=== PATIENT | female | born 1955 | race Caucasian/White ===

== ENCOUNTER 2017-12-30 09:45 | Outpatient (RCR) | payer OTHER, SELFPAY ==
--- NOTE | 2017-11-12 11:04 | PT.OTN ---
Current Diagnoses Benign paroxysmal vertigo, left ear (11/12/17) Dizziness and giddiness (11/12/17) Transition note: On November 10, 2017 our therapy services consisting of Speech, Occupational, and Physical Therapy transitioned from the [employer] electronic documentation system to a new [employer] electronic documentation system.?? All documentation prior to November 10 can be found under [employer] saved data. From November 10 forward all medical record documentation will be in [employer] 6.1.
--- NOTE | 2017-11-12 12:21 | PT.OTN ---
Current Diagnoses Benign paroxysmal vertigo, left ear (11/12/17) Dizziness and giddiness (11/12/17) Physical Therapy Treatment Note PT-OP-A Visit Information Start: 11/12/17 12:02 Freq: Status: Active Protocol: Activity Type Activity Date Activity User E-Sign Co-Sign Detail Recorded Client Recorded Date Recorded By Document 11/12/17 09:50 [facility] [id number] 11/12/17 12:21 [facility] 11/12/17 09:50 Out-Patient Physical Therapy Visit Information [Visit Information] -Visit Type Treatment Note -Visit Start Time 09:45 -Visit Stop Time 10:30 -Total Visit Minutes 40 -Visit Number 38 -Number of POT ANNEALER Visits 0 [Evaluation Information] -Evaluation Date 06/17/16 PT-OP-C Subjective Start: 11/12/17 12:02 Freq: Status: Active Protocol: Activity Type Activity Date Activity User E-Sign Co-Sign Detail Recorded Client Recorded Date Recorded By Document 11/12/17 09:50 [facility] [id number] 11/12/17 12:21 [facility] 11/12/17 09:50 OP-PT Subjective [Patient Comments] -Patient Comments I feel better, I've been more active. I'm still dizzy, but I'm happier . -Patient Reported Progress Improving PT-OP-Q Treatments Start: 11/12/17 12:02 Freq: Status: Active Protocol: Activity Type Activity Date Activity User E-Sign Co-Sign Detail Recorded Client Recorded Date Recorded By Document 11/12/17 09:50 [facility] [id number] 11/12/17 12:21 [facility] 11/12/17 09:50 Gym Equipment [Shuttle Balance] 1 -Details Red - Wide CHAVO (EO/EC/Head Turns) Therapeutic Exercises [Standing Exercises] 1 -Standing Exercise Name Soleus Stretch -Side bilateral -Equipment Used CATHLEEN -Reps/Minutes x2 Neuro Re-Education Treatment [Balance Activities] 4 -Details Eyes closed ambulation with obstacle avoidance -Surface Level surface -Reps/Duration x4 3 -Details Single Leg Balance -Surface Compliant -Equipment BOSU 2 -Details Double Leg Balance -Surface Compliant -Equipment BOSU -Comments Eyes open/ closed 1 -Details Heel-toe Ambulation /c horizontal head turns -Reps/Duration 3 laps [Vestibular Rehabilitation] X1 Viewing -Details Seated on T- ball -Distance From Target 3 feet Targets -Details Laser targeting with eyes closed -Distance From Target 3 feet -Comments Seated on T- ball PT-OP-T Assessment and Plan Start: 11/12/17 12:02 Freq: Status: Active Protocol: Activity Type Activity Date Activity User E-Sign Co-Sign Detail Recorded Client Recorded Date Recorded By Document 11/12/17 09:50 [facility] [id number] 11/12/17 12:21 [facility] 11/12/17 09:50 Physical Therapy Assessment [Rehab Potential] -Rehabilitation Potential Good [Impairments] -Impairments Balance Coordination Functional Activities Gait Vestibular [Progress Towards Goals] -Progress Towards Goals Slow Progress due to Medical Issues -Progress Comments Severe Right- sided vestibular loss [Assessment Summary] -Assessment Pt continues to make slow but steady progress toward vestibular compensation following 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 Pt always differentiates between her head dizziness (how dizzy she feels) vs her feet dizziness (how frequently/ severely she loses her balance). Pt's objective dizziness ( feet) has been making much more improvement over the past few weeks, unfortunately her subjective (head) dizziness she reports feels about the same, but she is much more optimistic about it. Physical Therapy Plan [Frequency and Duration] -Frequency of Treatment 1x/Week -Plan of Care Start Date 09/02/17 -Plan of Care End Date 11/29/17 [Therapeutic Interventions] -Therapeutic Interventions Coordination Training Therapeutic Exercises Vestibular Rehabilitation [Next Visit Focus/Plan] -Next Visit Plan Continued vestibular compensation and balance training/ neuromuscular re-education
--- NOTE | 2017-11-27 11:45 | PT.OTN ---
Current Diagnoses Benign paroxysmal vertigo, left ear (11/27/17) Dizziness and giddiness (11/27/17) Physical Therapy Treatment Note PT-OP-A Visit Information Start: 11/12/17 12:02 Freq: Status: Active Protocol: Document 11/27/17 09:45 DCW (Rec: 11/27/17 11:44 DCW [id number]) Out-Patient Physical Therapy Visit Information Visit Information Visit Type Progress Note Visit Start Time 09:45 Visit Stop Time 10:30 Total Visit Minutes 45 Visit Number 39 Number of SALESPERSON PIANOS AND ORGANS Visits 0 Evaluation Information Evaluation Date 06/17/16 PT-OP-B Current Condition Start: 11/27/17 11:22 Freq: Status: Active Protocol: Document 11/27/17 09:45 DCW (Rec: 11/27/17 11:44 DCW [id number]) Current Condition History of Current Condition History of Current Condition Please see Therapy Source evaluation and documentation for full patient history PT-OP-C Subjective Start: 11/12/17 12:02 Freq: Status: Active Protocol: Document 11/27/17 09:45 DCW (Rec: 11/27/17 11:44 DCW [id number]) OP-PT Subjective Patient Comments Patient Comments I have good news, I am doing much better. Pt notes she has not been having any issues with anxiety, and has been experiencing much less dizziness, mostly a 3/10. Patient Questionnaires ABC- Activity Specific Balance Confidence Scale ABC Score 80.63 ABC Functional Impairment 1 to <20% Impaired (Score 81- 99) Dizziness Handicap Inventory DHI Score 46 DHI Functional Impairment 40 to 59% Impaired (Score 40- 59) PT-OP-O Vestibular Start: 11/12/17 12:02 Freq: Status: Active Protocol: Document 11/27/17 09:45 DCW (Rec: 11/27/17 11:44 DCW [id number]) Vestibular Assessment Visual Testing Heave Test Positive Right Thrust Head Positive Right DVA (Line Degradation) 3 PT-OP-Q Treatments Start: 11/12/17 12:02 Freq: Status: Active Protocol: Document 11/27/17 09:45 DCW (Rec: 11/27/17 11:44 DCW [id number]) Gym Equipment Shuttle Balance 1 Details Red - Wide CHAVO (EO/EC/Ball Toss), Staggered Stance /c Ball Toss Sport Cord 1 Exercise Details SLS on BOSU Cord/Resistance Red Therapeutic Exercises Standing Exercises 1 Standing Exercise Name Soleus Stretch Side bilateral Equipment Used CATHLEEN Reps/Minutes x2 Neuro Re-Education Treatment Balance Activities 4 Details Eyes closed ambulation with obstacle avoidance Surface Level surface Reps/Duration x4 Other Activities 1 Details Balance Beam Comments Turns with each step, SLS cone pick-up PT-OP-T Assessment and Plan Start: 11/12/17 12:02 Freq: Status: Active Protocol: Document 11/27/17 09:45 DCW (Rec: 11/27/17 11:44 DCW [id number]) Physical Therapy Assessment Rehab Potential Rehabilitation Potential Good Impairments Impairments Balance Coordination Functional Activities Gait Vestibular Goals Three Impairment DHI Halfway Goal (LTG) Pt to score 20% or lower on DHI LTG Duration 6 weeks Two Impairment ABC scale Short Term Goal (STG) Pt to score 80% on ABC scale STG Duration MET Hair Salon Manager Goal (LTG) Pt to score 90% on ABC scale LTG Duration 6 weeks One Impairment DVA Short Term Goal (STG) Pt to demonstrate a DVA within three lines STG Duration MET Progress Towards Goals Progress Towards Goals Slow Progress due to Medical Issues Progress Comments Severe Right-sided vestibular loss Assessment Summary Assessment Pt doing much better today. Due to the fact that after the first 4-5 months of her recovery, her symptoms have been more subjective than objective (as is normal for vestibular neuritis), true objective improvement is difficult to measure, however she is able to perform all tasks and exercises much easier and with fewer complaints of increased instability. Pt is doing well enough that she may be approaching discharge levels, with the understanding she will need to continue to work on her HEP for continued improvement. At this time, she is not scheduled for another month, which will be a good indication how she will do following discharge. Barring and decline in function, pt may be discharged within the next 1-2 visits, although that may be 1-2 months from now. Physical Therapy Plan Frequency and Duration Frequency of Treatment 1-2x/month Duration of Treatment 10 weeks Plan of Care Start Date 11/27/17 Plan of Care End Date 02/04/18 Therapeutic Interventions Therapeutic Interventions Coordination Training Therapeutic Exercises Vestibular Rehabilitation Next Visit Focus/Plan Next Visit Plan Continued vestibular compensation and balance training/neuromuscular re- education, work toward discharge.
--- NOTE | 2017-11-27 11:46 | PT.OPPOC ---
Current Diagnoses Benign paroxysmal vertigo, left ear (11/27/17) Dizziness and giddiness (11/27/17) Provider Visit Care Team Role Provider Type Sterling Hutson MD Family Provider Physician Primary Care Provider Specialty: Family Practice Address: [address] [place] [address], [id number] Email: [email or web address] Dion Pressley MD Attending Provider Physician Specialty: Ear, Nose, Throat Address: [address] [place] [address], [id number] Email: Plan Of Care PT-OP-T Assessment and Plan Start: 11/12/17 12:02 Freq: Status: Active Protocol: Document 11/27/17 09:45 DCW (Rec: 11/27/17 11:44 DCW [id number]) Physical Therapy Assessment Rehab Potential Rehabilitation Potential Good Impairments Impairments Balance Coordination Functional Activities Gait Vestibular Goals Three Impairment DHI Hospice Music Therapist Goal (LTG) Pt to score 20% or lower on DHI LTG Duration 6 weeks Two Impairment ABC scale Short Term Goal (STG) Pt to score 80% on ABC scale STG Duration MET Hospice Music Therapist Goal (LTG) Pt to score 90% on ABC scale LTG Duration 6 weeks One Impairment DVA Short Term Goal (STG) Pt to demonstrate a DVA within three lines STG Duration MET Progress Towards Goals Progress Towards Goals Slow Progress due to Medical Issues Progress Comments Severe Right-sided vestibular loss Assessment Summary Assessment Pt doing much better today. Due to the fact that after the first 4-5 months of her recovery, her symptoms have been more subjective than objective (as is normal for vestibular neuritis), true objective improvement is difficult to measure, however she is able to perform all tasks and exercises much easier and with fewer complaints of increased instability. Pt is doing well enough that she may be approaching discharge levels, with the understanding she will need to continue to work on her HEP for continued improvement. At this time, she is not scheduled for another month, which will be a good indication how she will do following discharge. Barring and decline in function, pt may be discharged within the next 1-2 visits, although that may be 1-2 months from now. Physical Therapy Plan Frequency and Duration Frequency of Treatment 1-2x/month Duration of Treatment 10 weeks Plan of Care Start Date 11/27/17 Plan of Care End Date 02/04/18 Therapeutic Interventions Therapeutic Interventions Coordination Training Therapeutic Exercises Vestibular Rehabilitation Next Visit Focus/Plan Next Visit Plan Continued vestibular compensation and balance training/neuromuscular re- education, work toward discharge. Plan of Care Dates Plan of Care Start Date 11/27/17 Plan of Care End Date 02/04/18 Please Sign and Return: I have reviewed this Plan of Care and certify that the skilled therapy services above are required to meet the patient???s needs. Physician Signature Date Printed Name and Credentials
--- NOTE | 2017-12-30 10:24 | PT.OTN ---
Current Diagnoses Benign paroxysmal vertigo, left ear (12/30/17) Dizziness and giddiness (12/30/17) Physical Therapy Treatment Note PT-OP-A Visit Information Start: 11/12/17 12:02 Freq: Status: Active Protocol: Document 12/30/17 09:45 DCW (Rec: 12/30/17 10:24 DCW [id number]) Out-Patient Physical Therapy Visit Information Visit Information Visit Type Treatment Note Visit Start Time 09:45 Visit Stop Time 10:30 Total Visit Minutes 40 Visit Number 40 Number of CAPACITY MANAGER Visits 0 Evaluation Information Evaluation Date 06/17/16 PT-OP-B Current Condition Start: 11/27/17 11:22 Freq: Status: Active Protocol: Document 11/27/17 09:45 DCW (Rec: 11/27/17 11:44 DCW [id number]) Current Condition History of Current Condition History of Current Condition Please see Therapy Source evaluation and documentation for full patient history PT-OP-C Subjective Start: 11/12/17 12:02 Freq: Status: Active Protocol: Document 12/30/17 09:45 DCW (Rec: 12/30/17 10:24 DCW [id number]) OP-PT Subjective Patient Comments Patient Comments I'm better than okay. I know I'm not perfect, but I think I 'm as good as I can reasonably expect to be. I don't really think about it much anymore. Pt acknowledges that she understands there may be some setbacks. Patient Reported Progress Improving PT-OP-O Vestibular Start: 11/12/17 12:02 Freq: Status: Active Protocol: Document 11/27/17 09:45 DCW (Rec: 11/27/17 11:44 DCW [id number]) Vestibular Assessment Visual Testing Heave Test Positive Right Thrust Head Positive Right DVA (Line Degradation) 3 PT-OP-Q Treatments Start: 11/12/17 12:02 Freq: Status: Active Protocol: Document 12/30/17 09:45 DCW (Rec: 12/30/17 10:24 DCW [id number]) Gym Equipment Shuttle Balance 1 Details Red - Staggered Stance /c diagonal head turns, Lateral stance in Tandem Therapeutic Exercises Standing Exercises 1 Standing Exercise Name Soleus Stretch Side bilateral Equipment Used CATHLEEN Reps/Minutes x2 Neuro Re-Education Treatment Balance Activities 4 Details Eyes closed ambulation with obstacle avoidance Surface Level surface Reps/Duration x4 3 Details Single Leg Balance Surface Compliant Equipment BOSU 2 Details Double Leg Balance Surface Compliant Equipment BOSU Comments Eyes open/closed, head turns PT-OP-T Assessment and Plan Start: 11/12/17 12:02 Freq: Status: Active Protocol: Document 12/30/17 09:45 DCW (Rec: 12/30/17 10:24 DCW [id number]) Physical Therapy Assessment Rehab Potential Rehabilitation Potential Good Impairments Impairments Balance Coordination Functional Activities Gait Vestibular Goals Three Impairment DHI Mcc Goal (LTG) Pt to score 20% or lower on DHI LTG Duration 6 weeks Two Impairment ABC scale Short Term Goal (STG) Pt to score 80% on ABC scale STG Duration MET Casting Room Helper Goal (LTG) Pt to score 90% on ABC scale LTG Duration 6 weeks One Impairment DVA Short Term Goal (STG) Pt to demonstrate a DVA within three lines STG Duration MET Assessment Summary Assessment Pt thrilled to report she feels like she has reached peak performance. Pt is not scheduling any further appointments at this time, but would appreciate not being discharged quite yet, just in case. Pt's chart will be held open for a month, and if no further appointments are made by that time, pt will be discharged from skilled therapy. Physical Therapy Plan Frequency and Duration Frequency of Treatment 1-2x/month Duration of Treatment 10 weeks Plan of Care Start Date 11/27/17 Plan of Care End Date 02/04/18 Therapeutic Interventions Therapeutic Interventions Coordination Training Therapeutic Exercises Vestibular Rehabilitation Next Visit Focus/Plan Next Note Type Discharge Summary Next Visit Plan Likely discharge
--- NOTE | 2018-02-04 12:27 | PT.OPDS ---
Current Diagnoses Benign paroxysmal vertigo, left ear (12/30/17) Dizziness and giddiness (12/30/17) Provider Visit Care Team Role Provider Type Sterling Hutson MD Family Provider Physician Primary Care Provider Specialty: Family Practice Address: [address] [place] [address], [address] Email: Dion Pressley MD Attending Provider Physician Specialty: Ear, Nose, Throat Address: [address] [place] [address], [id number] Email: Visit Number Visit Number 40 Discharge Summary PT-OP-B Current Condition Start: 11/27/17 11:22 Freq: Status: Active Protocol: Document 11/27/17 09:45 DCW (Rec: 11/27/17 11:44 DCW [id number]) Current Condition History of Current Condition History of Current Condition Please see Therapy Source evaluation and documentation for full patient history PT-OP-C Subjective Start: 11/12/17 12:02 Freq: Status: Active Protocol: Document 12/30/17 09:45 DCW (Rec: 12/30/17 10:24 DCW [id number]) OP-PT Subjective Patient Comments Patient Comments I'm better than okay. I know I'm not perfect, but I think I'm as good as I can reasonably expect to be. I don't really think about it much anymore. Pt acknowledges that she understands there may be some setbacks. Patient Reported Progress Improving PT-OP-O Vestibular Start: 11/12/17 12:02 Freq: Status: Active Protocol: Document 11/27/17 09:45 DCW (Rec: 11/27/17 11:44 DCW [id number]) Vestibular Assessment Visual Testing Heave Test Positive Right Thrust Head Positive Right DVA (Line Degradation) 3 PT-OP-T Assessment and Plan Start: 11/12/17 12:02 Freq: Status: Active Protocol: Document 02/04/18 12:25 DCW (Rec: 02/04/18 12:27 DCW [id number]) Physical Therapy Assessment Goals Three Impairment DHI Retirement Goal (LTG) Pt to score 20% or lower on DHI LTG Duration 6 weeks Two Impairment ABC scale Short Term Goal (STG) Pt to score 80% on ABC scale STG Duration MET Childhood Development Teacher Goal (LTG) Pt to score 90% on ABC scale LTG Duration 6 weeks One Impairment DVA Short Term Goal (STG) Pt to demonstrate a DVA within three lines STG Duration MET Progress Towards Goals Progress Towards Goals Slow Progress due to Medical Issues Progress Comments Severe Right-sided vestibular loss Assessment Summary Assessment At patient's last visit, she reported she felt like she had reached her peak level of function, and was happy to report she felt like she could stop therapy. At the time, pt was informed that her chart could remain open for one month, after which she would be discharged if she did not schedule any new appointments. Pt will be discharged at this time. Physical Therapy Plan Discharge Physical Therapy Discharge Reasons Plateau in Progress
== END 2018-06-11 13:57 ==
LOC: PHYS 09:45
PROVIDERS: Family Provider Family Medicine; PCP Family Medicine; Visit Provider Otolaryngology
DX: H81.12 Benign paroxysmal vertigo, left ear (principal); R42 Dizziness and giddiness
CPT/HCPCS: 97112

== ENCOUNTER → 2018-03-04 08:00 | Outpatient (CLI) | payer OTHER, SELFPAY ==
--- NOTE | 2018-03-04 | DI.MG.S_ITS ---
BILATERAL DIGITAL SCREENING MAMMOGRAM 3D/2D WITH CAD: 03/04/2018 CLINICAL: Routine screening. Comparison is made to exams dated: 02/03/2017 mammogram, 12/28/2015 mammogram, and 12/11/2014 mammogram - [facility]. The tissue of both breasts is heterogeneously dense. This may lower the sensitivity of mammography. Current study was also evaluated with a Computer Aided Detection (CAD) system. No significant masses, calcifications, or other findings are seen in either breast. There has been no significant interval change. IMPRESSION: NEGATIVE There is no mammographic evidence of malignancy. A 1 year screening mammogram is recommended. This exam was interpreted at Station ID: [id number]. NOTE: For mammograms, a report in lay terms will be sent to the patient. Approximately 15% of breast malignancies will not be visualized mammographically. In the management of a palpable breast mass, a negative mammogram must not discourage biopsy of a clinically suspicious lesion. Electronically Signed By: Antonio garnica/glenna:03/04/2018 19:50:08 letter sent: Normal Exam ACR BI-RADS Category 1: Negative [id number]
== END ==
PROVIDERS: PCP Internal Medicine; Visit Provider Internal Medicine
DX: Z12.31 Encounter for screening mammogram for malignant neoplasm of breast (principal)
CPT/HCPCS: 77063; 77067

== ENCOUNTER → 2018-03-30 07:45 | Outpatient (CLI) | payer OTHER, SELFPAY ==
[2018-03-30 07:53] LABS: Bacteria Urine None Seen; RBC Urine None Seen (0-5/HPF); WBC Urine None Seen (0-5/HPF)
[2018-03-30 08:46] LABS: Appearance Urine UA CLEAR; Bilirubin Urine UA NEGATIVE (NEGATIVE); Color Urine UA YELLOW; Glucose Urine UA NEGATIVE (Normal); Ketones Urine UA NEGATIVE (NEGATIVE); Leukocyte Esterase Urine UA NEGATIVE (NEGATIVE); Nitrite Urine UA Negative (Negative); Occult Blood Urine UA TRACE-INTACT (Negative); Protein Urine UA NEGATIVE (Negative); Specific Gravity Urine UA 1.025 (1.000-1.035); Urobilinogen Urine UA 0.2 E.U./dL (0.2)
[2018-03-30 09:04] LABS: Add Manual Diff / Slide Review NO; Basophils Percent Auto 1.5 % (0-2); Eosinophils Percent Auto 2.8 % (2-4); Hematocrit 42.2 % (36-46); Hemoglobin 14.4 g/dL (12.0-16.0); Lymphocytes Percent Auto 38.9 % (25-40); Mean Corpuscular HGB Conc 34.1 % (30-36); Mean Corpuscular Hemoglobin 30.3 PG (26-34); Monocytes Percent Auto 8.4 % (3-14); Neutrophils Absolute Auto 3400 /uL (3000-5900); Neutrophils Percent Auto 48.4 % (50-75); Platelet Count 290 X10^3/uL (150-400); Red Blood Cell Count 4.74 X10^6/uL (4.0-5.2); Red Cell Distribution Width 12.9 % (11.6-14.8); White Blood Cell Count 7.1 X10^3/uL (4.5-11.0)
[2018-03-30 09:12] LABS: Alanine Aminotransferase 21 IU/L (9-52); Albumin 4.1 g/dL (3.5-5.0); Albumin Globulin Ratio 1.5 (1.0-2.8); Alkaline Phosphatase 77 U/L (38-126); Aspartate Aminotransferase 21 IU/L (14-36); BUN Creatinine Ratio 25.7 (6-22); Bilirubin Total 0.6 mg/dL (0.2-1.3); Blood Urea Nitrogen 18 mg/dL (7-17); Calcium 9.4 mg/dL (8.4-10.2); Carbon Dioxide 28 mmol/L (22-32); Chloride 106 mmol/L (98-107); Cholesterol 196 mg/dL (140-199); Estimated Glomerular Filt Rate > 60.0 mL/min (>60); Globulin 2.8 g/dL (1.7-4.1); Glucose 90 mg/dL (80-110); HDL Cholesterol 41 mg/dL (40-60); HEMOLYSIS < 15 (0-50); LDL Cholesterol Calculated 131 mg/dL (<100); Potassium 3.8 mmol/L (3.4-5.1); Sodium 147 mmol/L (137-145); Total Protein 6.9 g/dL (6.3-8.2); Triglycerides 122 mg/dL (35-150)
[2018-03-30 09:13] LABS: Culture Indicated Urine Cult Not Indicated; Urine Comments Microscopic Normal
[2018-03-30 09:44] LABS: TSH w/ Reflex to FT4 2.66 uIU/mL (0.47-4.68)
== END ==
PROVIDERS: Visit Provider Nurse Practitioner Family
DX: Z00.00 Encounter for general adult medical examination without abnormal findings (principal)
CPT/HCPCS: 36415; 80053; 80061; 81001; 84443; 85025

== ENCOUNTER → 2018-04-16 08:43 | Outpatient (CLI) | payer OTHER, SELFPAY ==
--- NOTE | 2018-04-16 08:47 | DI.US.S_ITS ---
PROCEDURE: US EXTREMELY NONVASC UPPER RT INDICATIONS: RIGHT UPPER ARM LUMP TECHNIQUE: Real-time scanning was performed of the right upper extremity, with image documentation. COMPARISON: None. FINDINGS: Scanning is performed at the area of clinical concern. At this site, there is an ovoid mass within the subcutaneous fat, which has an echotexture similar to the surrounding fat. This lesion measures 4.7 x 1.7 x 4.1 cm and is non-vascular. 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 Dictated by: Joshua Dsouza M.D. on 04/16/2018 at 9:00 Approved by: Joshua Dsouza M.D. on 04/16/2018 at 9:01
== END ==
PROVIDERS: PCP Internal Medicine; Visit Provider Registered Nurse
DX: R22.31 Localized swelling, mass and lump, right upper limb (principal)
CPT/HCPCS: 76882

== ENCOUNTER 2018-07-19 12:00 | Outpatient (RCR) | payer OTHER, SELFPAY ==
--- NOTE | 2018-06-21 14:30 | PT.OPPOC ---
Current Diagnoses Stiffness of unspecified joint, not elsewhere classified (06/21/18) Ankylosing spondylitis of unspecified sites in spine (06/21/18) Provider Visit Care Team Role Provider Type Sterling Hutson MD Primary Care Provider Physician Specialty: Family Practice Address: [address] [place] [address], [id number] Email: Bill Adler MD Attending Provider Physician Specialty: Internal Medicine Address: [address] [place] [address], [phone] Email: Plan Of Care PT-OP-T Assessment and Plan Start: 06/22/18 13:39 Freq: Status: Active Protocol: Document 06/21/18 13:45 DCW (Rec: 06/22/18 14:18 DCW [id number]) Physical Therapy Assessment Rehab Potential Rehabilitation Potential Good Evaluation Complexity Number of Personal Factors/Comorbidities 3 or More Number of Body Systems Impaired 1-2 Clinical Presentation at Evaluation Stable Impairments Impairments Pain Posture Strength Tone Goals Three Impairment Muscle tone Short Term Goal (STG) Pt to display mild tone through right thoracic paraspinals and right pec STG Duration 07/22/18 Two Impairment Pain Short Term Goal (STG) Pt to report pain at worst STG Duration 07/22/18 One Impairment Pt does not have an appropriate home exercise program Short Term Goal (STG) Pt to be independent and compliant with an appropriate HEP STG Duration 07/22/18 Assessment Summary Assessment Pt presents with increased tone in both her right paraspinals and right pec, resulting in increased forward head/rounded shoulders and pain. This increased tone may be a protective spasming response to an Ankylosing Spondylitis flare-up, or may be completely unrelated. Pt does present with hypermobility in most other joints, so a WNL mobility of her spine likely indicates an actual loss of mobility, which she states originally caused difficulty getting a diagnosis of Ankylosing Spondylitis. Difficult to determine if her current joint mobility is actually her normal level, or if she is limited compared to four months ago. With pt's current pain level already improving over the past few days, she will likely benefit from some manual therapy focusing on decreased tone, and flexibility and strength training to improve her posture. DDx of potential Ankylosing Spondylitis flare- up may be made easier with the outcome of her upcoming Rhumatology appointment. Physical Therapy Plan Frequency and Duration Frequency of Treatment 2x/Week Duration of Treatment 2 months Plan of Care Start Date 06/21/18 Plan of Care End Date 08/22/18 Therapeutic Interventions Therapeutic Interventions Aquatic Therapy Home Exercise Program Joint Mobilizations Manual Therapy Patient/Caregiver Education Self-Care/Home Management Soft Tissue Mobilization Taping Therapeutic Exercises Modalities Cold Pack/Ice Massage Electric Stimulation Hot Packs Ultrasound Next Visit Focus/Plan Next Note Type Treatment Note Next Visit Plan Posture training, strengthening, manual therapy for decreased tone Plan of Care Dates Plan of Care Start Date 06/21/18 Plan of Care End Date 08/22/18 Please Sign and Return: I have reviewed this Plan of Care and certify that the skilled therapy services above are required to meet the patient?s needs. Physician Signature Date Printed Name and Credentials Clinical Instructor Signature Printed Name and Credentials
--- NOTE | 2018-06-21 14:30 | PT.OIE ---
Current Diagnoses Stiffness of unspecified joint, not elsewhere classified (06/21/18) Ankylosing spondylitis of unspecified sites in spine (06/21/18) Past Medical History (Last Updated 01/06/18 @ 12:21 by Tess Newberry) Ankylosing spondylitis (Chronic 1974) Iritis, secondary (Chronic) 0 (Resolved) Liver abscess (Resolved 1999) Vertigo (Resolved 1979) Vestibular neuritis (Resolved 2015) Past Surgical History (Last Updated 01/06/18 @ 12:17 by Tess Newberry) Anesthesia complication (Resolved) History of partial colectomy (Resolved 1999) History of surgery of liver (Resolved 1999) History of tonsillectomy (Resolved) Status post appendectomy (Resolved 1999) Provider Visit Care Team Role Provider Type Sterling Hutson MD Primary Care Provider Physician Specialty: Family Practice Address: [address] [place] [address] Email: Bill Adler MD Attending Provider Physician Specialty: Internal Medicine Address: [address] [place] [address] Email: Physical Therapy Initial Evaluation PT-OP-A Visit Information Start: 06/22/18 13:39 Freq: Status: Active Protocol: Document 06/21/18 13:45 DCW (Rec: 06/22/18 14:18 DCW [id number]) Out-Patient Physical Therapy Visit Information Visit Information Visit Type Initial Evaluation Visit Start Time 13:45 Visit Stop Time 14:30 Total Visit Minutes 45 Visit Number 1 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 Pt has an ongoing history of Ankylosing Spondylitis, but notes that it has actually been pretty stable for the last 15 years. Pt notes that her current issues began in February, when she noticed a lot of soreness in her right pec, and was worried enough to request a mammogram, which came back negative. Pt then notes she began getting unbelievable back pain in May, and reports that for a period of 48 hours, it felt like my spine was about to shatter. This pain then resolved, but she was left with a continuing pain at her bra line to the right of her spine, which felt like someone kicked me with steel-toed boots, but there wasn't any actual bruising or anything. This also led to a radiating pain around her rib to mid- line. Her boot-kick pain slowly resolved, and she was left with achy kyphosis pain, and feels a bit like I'm just being pulled forward. Pt was seen by her PCP, who reportedly feels her symptoms are classic Ankylosing Spondylitis, and referred pt to Physical Therapy and Rhumatology. Pt admits that with the addition of Gabapentin and Naprocyn, her symptoms have improved quite a bit, and she has been pretty good the past few days . Pt's history is complicated by a severe case of Vestibular Neuritis two years ago, for which she is still experiencing mild symptoms, and was treated for an extended period of time previously at this facility. Treatment Goals Patient/Caregiver Goals Pt would like to decrease back pain and hopes that this is not a sign of her Ankylosing Spondylitis worsening. Personal Factors Other Personal Factors That May Effect Ankylosing Spondylitis, Therapy/Recovery Vestibular Neuritis PT-OP-C Subjective Start: 06/22/18 13:39 Freq: Status: Active Protocol: Document 06/21/18 13:45 DCW (Rec: 06/22/18 14:18 DCW [id number]) OP-PT Subjective Patient Comments Patient Reported Progress Improving OP-PT Pain Assessment Pain Assessment Grid Paper Pain Assessment Grid Completed Yes Location Right Mid-Thoracic Paraspinals Intensity 3 Scale Used Numeric (1 - 10) Description Aching PT-OP-F Manual Assessment Start: 06/22/18 13:39 Freq: Status: Active Protocol: Document 06/21/18 13:45 DCW (Rec: 06/22/18 14:18 DCW [id number]) Manual Assessments Soft Tissue Assessment Soft Tissue Mobility Assessment Moderate thoracic paraspinal tone, complaint of tenderness to palpation 2/4 - Pain with wincing Severe right pec tone, complaint of tenderness to palpation 2/4 - Pain with wincing Joint Mobility Assessment Joint Mobility Assessment Spinal mobility overall WNL PT-OP-J Posture/Palpation/Skin Start: 06/22/18 13:39 Freq: Status: Active Protocol: Document 06/21/18 13:45 DCW (Rec: 06/22/18 14:18 DCW [id number]) Posture Evaluation Position Standing T-Spine Posture Increased Kyphosis Shoulder Posture (L) Rounded (R) Rounded (L) Forward (L) Elevated Scapula Posture (L) Protracted (R) Protracted Palpation Assessment Location Right thoracic paraspinals Palpation Findings Soft Tissue Tightness Spasm Tenderness PT-OP-K Range of Motion Start: 06/22/18 13:39 Freq: Status: Active Protocol: Document 06/21/18 13:45 DCW (Rec: 06/22/18 14:18 DCW [id number]) Lumbar Spine Range of Motion Lumbar Spine Active Percentage Testing Position Standing Comments WNL Shoulder Goniometric Range of Motion Shoulder Measured in Degrees Right Active Shoulder ROM WFL Yes Left Active Shoulder ROM WFL Yes PT-OP-Q Treatments Start: 06/22/18 13:39 Freq: Status: Active Protocol: Document 06/21/18 13:45 DCW (Rec: 06/22/18 14:18 DCW [id number]) Therapeutic Exercises Supine Exercises Supine Punch Supine Exercise Name Serratus punch Side bilateral Sitting Exercises Row Sitting Exercise Name Row Side bilateral Resistance Lv 3 Equipment Used T-band Standing Exercises Corner Pec Stretch Standing Exercise Name Corner pec stretch Side bilateral PT-OP-T Assessment and Plan Start: 06/22/18 13:39 Freq: Status: Active Protocol: Document 06/21/18 13:45 DCW (Rec: 06/22/18 14:18 DCW [id number]) Physical Therapy Assessment Rehab Potential Rehabilitation Potential Good Evaluation Complexity Number of Personal Factors/Comorbidities 3 or More Number of Body Systems Impaired 1-2 Clinical Presentation at Evaluation Stable Impairments Impairments Pain Posture Strength Tone Goals Three Impairment Muscle tone Short Term Goal (STG) Pt to display mild tone through right thoracic paraspinals and right pec STG Duration 07/22/18 Two Impairment Pain Short Term Goal (STG) Pt to report pain at worst STG Duration 07/22/18 One Impairment Pt does not have an appropriate home exercise program Short Term Goal (STG) Pt to be independent and compliant with an appropriate HEP STG Duration 07/22/18 Assessment Summary Assessment Pt presents with increased tone in both her right paraspinals and right pec, resulting in increased forward head/rounded shoulders and pain. This increased tone may be a protective spasming response to an Ankylosing Spondylitis flare-up, or may be completely unrelated. Pt does present with hypermobility in most other joints, so a WNL mobility of her spine likely indicates an actual loss of mobility, which she states originally caused difficulty getting a diagnosis of Ankylosing Spondylitis. Difficult to determine if her current joint mobility is actually her normal level, or if she is limited compared to four months ago. With pt's current pain level already improving over the past few days, she will likely benefit from some manual therapy focusing on decreased tone, and flexibility and strength training to improve her posture. DDx of potential Ankylosing Spondylitis flare- up may be made easier with the outcome of her upcoming Rhumatology appointment. Physical Therapy Plan Frequency and Duration Frequency of Treatment 2x/Week Duration of Treatment 2 months Plan of Care Start Date 06/21/18 Plan of Care End Date 08/22/18 Therapeutic Interventions Therapeutic Interventions Aquatic Therapy Home Exercise Program Joint Mobilizations Manual Therapy Patient/Caregiver Education Self-Care/Home Management Soft Tissue Mobilization Taping Therapeutic Exercises Modalities Cold Pack/Ice Massage Electric Stimulation Hot Packs Ultrasound Next Visit Focus/Plan Next Note Type Treatment Note Next Visit Plan Posture training, strengthening, manual therapy for decreased tone
--- NOTE | 2018-07-02 11:18 | PT.OTN ---
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 Pt has an ongoing history of Ankylosing Spondylitis, but notes that it has actually been pretty stable for the last 15 years. Pt notes that her current issues began in February, when she noticed a lot of soreness in her right pec, and was worried enough to request a mammogram, which came back negative. Pt then notes she began getting unbelievable back pain in May, and reports that for a period of 48 hours, it felt like my spine was about to shatter. This pain then resolved, but she was left with a continuing pain at her bra line to the right of her spine, which felt like someone kicked me with steel- toed boots, but there wasn't any actual bruising or anything. This also led to a radiating pain around her rib to mid-line. Her boot-kick pain slowly resolved, and she was left with achy kyphosis pain, and feels a bit like I 'm just being pulled forward. Pt was seen by her PCP, who reportedly feels her symptoms are classic Ankylosing Spondylitis, and referred pt to Physical Therapy and Rhumatology. Pt admits that with the addition of Gabapentin and Naprocyn, her symptoms have improved quite a bit, and she has been pretty good the past few days. Pt's history is complicated by a severe case of Vestibular Neuritis two years ago, for which she is still experiencing mild symptoms, and was treated for an extended period of time previously at this facility. Treatment Goals Patient/Caregiver Goals Pt would like to decrease back pain and hopes that this is not a sign of her Ankylosing Spondylitis worsening. Personal Factors Other Personal Factors That May Effect Ankylosing Spondylitis, Therapy/Recovery Vestibular Neuritis PT-OP-C Subjective Start: 06/22/18 13:39 Freq: Status: Active Protocol: Document 07/02/18 10:30 DCW (Rec: 07/02/18 11:18 DCW [id number]) OP-PT Subjective Patient Comments Patient Comments Pt reports that she has been slowly introducing more activity, including yoga and swimming, in hopes to improve her mobility. PT-OP-F Manual Assessment Start: 06/22/18 13:39 Freq: Status: Active Protocol: Document 06/21/18 13:45 DCW (Rec: 06/22/18 14:18 DCW [id number]) Manual Assessments Soft Tissue Assessment Soft Tissue Mobility Assessment Moderate thoracic paraspinal tone, complaint of tenderness to palpation 2/4 - Pain with wincing Severe right pec tone, complaint of tenderness to palpation 2/4 - Pain with wincing Joint Mobility Assessment Joint Mobility Assessment Spinal mobility overall WNL PT-OP-J Posture/Palpation/Skin Start: 06/22/18 13:39 Freq: Status: Active Protocol: Document 06/21/18 13:45 DCW (Rec: 06/22/18 14:18 DCW [id number]) Posture Evaluation Position Standing T-Spine Posture Increased Kyphosis Shoulder Posture (L) Rounded (R) Rounded (L) Forward (L) Elevated Scapula Posture (L) Protracted (R) Protracted Palpation Assessment Location Right thoracic paraspinals Palpation Findings Soft Tissue Tightness Spasm Tenderness PT-OP-K Range of Motion Start: 06/22/18 13:39 Freq: Status: Active Protocol: Document 06/21/18 13:45 DCW (Rec: 06/22/18 14:18 DCW [id number]) Lumbar Spine Range of Motion Lumbar Spine Active Percentage Testing Position Standing Comments WNL Shoulder Goniometric Range of Motion Shoulder Measured in Degrees Right Active Shoulder ROM WFL Yes Left Active Shoulder ROM WFL Yes PT-OP-Q Treatments Start: 06/22/18 13:39 Freq: Status: Active Protocol: Document 07/02/18 10:30 DCW (Rec: 07/02/18 11:18 DCW [id number]) Therapeutic Exercises Supine Exercises Horizontal Adduction Supine Exercise Name Horizontal Add Side bilateral Resistance 3# Supine Punch Supine Exercise Name Serratus punch Side bilateral Resistance 3# Prone Exercises Shoulder ER at 90 Prone Exercise Name Prone W's Side bilateral Resistance 3# Shoulder Flexion Prone Exercise Name Prone flex Side bilateral Resistance 3# Shoulder Extension Prone Exercise Name Prone ext Side bilateral Resistance 3# Horizontal Abduction Prone Exercise Name Prone horizontal abd Side bilateral Resistance 3# Manual Therapy Treatment Soft Tissue Mobilization Upper Trap Body Location Right Trap Mobilization Type Strumming Sustained Pressure Intensity/Depth Moderate Paraspinals Body Location Right paraspinals Mobilization Type Sustained Pressure Trigger Point Release Intensity/Depth Moderate PT-OP-T Assessment and Plan Start: 06/22/18 13:39 Freq: Status: Active Protocol: Document 07/02/18 10:30 DCW (Rec: 07/02/18 11:18 DCW [id number]) Physical Therapy Assessment Impairments Impairments Pain Posture Strength Tone Goals Three Impairment Muscle tone Short Term Goal (STG) Pt to display mild tone through right thoracic paraspinals and right pec STG Duration 07/22/18 Two Impairment Pain Short Term Goal (STG) Pt to report pain at worst 10 STG Duration 07/22/18 One Impairment Pt does not have an appropriate home exercise program Short Term Goal (STG) Pt to be independent and compliant with an appropriate HEP STG Duration 07/22/18 Assessment Summary Assessment Pt tolerated manual therapy well with no new complaints, appears to have overall less tone compared to her initial evaluation. Pt has been compliant with [facility] Physical Therapy Plan Frequency and Duration Frequency of Treatment 2x/Week Duration of Treatment 2 months Plan of Care Start Date 06/21/18 Plan of Care End Date 08/22/18 Therapeutic Interventions Therapeutic Interventions Aquatic Therapy Home Exercise Program Joint Mobilizations Manual Therapy Patient/Caregiver Education Self-Care/Home Management Soft Tissue Mobilization Taping Therapeutic Exercises Modalities Cold Pack/Ice Massage Electric Stimulation Hot Packs Ultrasound Next Visit Focus/Plan Next Note Type Treatment Note Next Visit Plan Posture training, strengthening, manual therapy for decreased tone
--- NOTE | 2018-07-07 16:44 | PT.OTN ---
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 Pt has an ongoing history of Ankylosing Spondylitis, but notes that it has actually been pretty stable for the last 15 years. Pt notes that her current issues began in February, when she noticed a lot of soreness in her right pec, and was worried enough to request a mammogram, which came back negative. Pt then notes she began getting unbelievable back pain in May, and reports that for a period of 48 hours, it felt like my spine was about to shatter. This pain then resolved, but she was left with a continuing pain at her bra line to the right of her spine, which felt like someone kicked me with steel- toed boots, but there wasn't any actual bruising or anything. This also led to a radiating pain around her rib to mid-line. Her boot-kick pain slowly resolved, and she was left with achy kyphosis pain, and feels a bit like I 'm just being pulled forward. Pt was seen by her PCP, who reportedly feels her symptoms are classic Ankylosing Spondylitis, and referred pt to Physical Therapy and Rhumatology. Pt admits that with the addition of Gabapentin and Naprocyn, her symptoms have improved quite a bit, and she has been pretty good the past few days. Pt's history is complicated by a severe case of Vestibular Neuritis two years ago, for which she is still experiencing mild symptoms, and was treated for an extended period of time previously at this facility. Treatment Goals Patient/Caregiver Goals Pt would like to decrease back pain and hopes that this is not a sign of her Ankylosing Spondylitis worsening. Personal Factors Other Personal Factors That May Effect Ankylosing Spondylitis, Therapy/Recovery Vestibular Neuritis PT-OP-C Subjective Start: 06/22/18 13:39 Freq: Status: Active Protocol: Document 07/07/18 16:00 DCW (Rec: 07/07/18 16:43 DCW [id number]) OP-PT Subjective Patient Comments Patient Comments I felt pretty sore after you got done working on me last time, but then the next day felt fantastic. PT-OP-F Manual Assessment Start: 06/22/18 13:39 Freq: Status: Active Protocol: Document 06/21/18 13:45 DCW (Rec: 06/22/18 14:18 DCW [id number]) Manual Assessments Soft Tissue Assessment Soft Tissue Mobility Assessment Moderate thoracic paraspinal tone, complaint of tenderness to palpation 2/4 - Pain with wincing Severe right pec tone, complaint of tenderness to palpation 2/4 - Pain with wincing Joint Mobility Assessment Joint Mobility Assessment Spinal mobility overall WNL PT-OP-J Posture/Palpation/Skin Start: 06/22/18 13:39 Freq: Status: Active Protocol: Document 06/21/18 13:45 DCW (Rec: 06/22/18 14:18 DCW [id number]) Posture Evaluation Position Standing T-Spine Posture Increased Kyphosis Shoulder Posture (L) Rounded (R) Rounded (L) Forward (L) Elevated Scapula Posture (L) Protracted (R) Protracted Palpation Assessment Location Right thoracic paraspinals Palpation Findings Soft Tissue Tightness Spasm Tenderness PT-OP-K Range of Motion Start: 06/22/18 13:39 Freq: Status: Active Protocol: Document 06/21/18 13:45 DCW (Rec: 06/22/18 14:18 DCW [id number]) Lumbar Spine Range of Motion Lumbar Spine Active Percentage Testing Position Standing Comments WNL Shoulder Goniometric Range of Motion Shoulder Measured in Degrees Right Active Shoulder ROM WFL Yes Left Active Shoulder ROM WFL Yes PT-OP-Q Treatments Start: 06/22/18 13:39 Freq: Status: Active Protocol: Document 07/07/18 16:00 DCW (Rec: 07/07/18 16:43 DCW [id number]) Therapeutic Exercises Prone Exercises Shoulder ER at 90 Prone Exercise Name Prone W's Side bilateral Resistance 3# Shoulder Flexion Prone Exercise Name Prone flex Side bilateral Resistance 3# Shoulder Extension Prone Exercise Name Prone ext Side bilateral Resistance 3# Horizontal Abduction Prone Exercise Name Prone horizontal abd Side bilateral Resistance 3# Manual Therapy Treatment Soft Tissue Mobilization Parascapulars Body Location Right Parascapulars Mobilization Type Strumming Sustained Pressure Other Intensity/Depth Moderate Upper Trap Body Location Right Trap Mobilization Type Strumming Sustained Pressure Intensity/Depth Moderate Paraspinals Body Location Right paraspinals Mobilization Type Sustained Pressure Trigger Point Release Intensity/Depth Moderate Joint Mobilizations Scapular Mobs Joint R Scapula Direction lateral Grade IV Body Position Sidelying PT-OP-T Assessment and Plan Start: 06/22/18 13:39 Freq: Status: Active Protocol: Document 07/07/18 16:00 DCW (Rec: 07/07/18 16:43 DCW [id number]) Physical Therapy Assessment Impairments Impairments Pain Posture Strength Tone Goals Three Impairment Muscle tone Short Term Goal (STG) Pt to display mild tone through right thoracic paraspinals and right pec STG Duration 07/22/18 Two Impairment Pain Short Term Goal (STG) Pt to report pain at worst 1/ 10 STG Duration 07/22/18 One Impairment Pt does not have an appropriate home exercise program Short Term Goal (STG) Pt to be independent and compliant with an appropriate HEP STG Duration 07/22/18 Assessment Summary Assessment Pt planning to cancel next two appointments so she can work on her HEP and see how she feels without therapy, and will return in two weeks. Physical Therapy Plan Frequency and Duration Frequency of Treatment 2x/Week Duration of Treatment 2 months Plan of Care Start Date 06/21/18 Plan of Care End Date 08/22/18 Therapeutic Interventions Therapeutic Interventions Aquatic Therapy Home Exercise Program Joint Mobilizations Manual Therapy Patient/Caregiver Education Self-Care/Home Management Soft Tissue Mobilization Taping Therapeutic Exercises Modalities Cold Pack/Ice Massage Electric Stimulation Hot Packs Ultrasound Next Visit Focus/Plan Next Note Type Treatment Note Next Visit Plan Posture training, strengthening, manual therapy for decreased tone
--- NOTE | 2018-07-19 12:46 | PT.OTN ---
Current Diagnoses Ankylosing spondylitis of unspecified sites in spine (07/19/18) Physical Therapy Treatment Note PT-OP-A Visit Information Start: 06/22/18 13:39 Freq: Status: Active Protocol: Document 07/19/18 12:00 DCW (Rec: 07/19/18 12:43 DCW [id number]) Out-Patient Physical Therapy Visit Information Visit Information Visit Type Treatment Note Visit Start Time 12:00 Visit Stop Time 12:45 Total Visit Minutes 45 Visit Number 3 Number of COMPUTER INFORMATION SYSTEMS INSTRUCTOR Visits 0 Evaluation Information Evaluation Date 06/21/18 PT-OP-B Current Condition Start: 06/22/18 13:39 Freq: Status: Active Protocol: Document 06/21/18 13:45 DCW (Rec: 06/22/18 14:18 DCW [id number]) Current Condition History of Current Condition Onset Date Four months Current Complaints Mid-thoracic spasm, radicular pain along right rib at T8 level History of Current Condition Pt is a 63 year old female presenting with a four month history of right mid-back pain , pec pain, and sternum pain. Pt has an ongoing history of Ankylosing Spondylitis, but notes that it has actually been pretty stable for the last 15 years. Pt notes that her current issues began in February, when she noticed a lot of soreness in her right pec, and was worried enough to request a mammogram, which came back negative. Pt then notes she began getting unbelievable back pain in May, and reports that for a period of 48 hours, it felt like my spine was about to shatter. This pain then resolved, but she was left with a continuing pain at her bra line to the right of her spine, which felt like someone kicked me with steel- toed boots, but there wasn't any actual bruising or anything. This also led to a radiating pain around her rib to mid-line. Her boot-kick pain slowly resolved, and she was left with achy kyphosis pain, and feels a bit like I 'm just being pulled forward. Pt was seen by her PCP, who reportedly feels her symptoms are classic Ankylosing Spondylitis, and referred pt to Physical Therapy and Rhumatology. Pt admits that with the addition of Gabapentin and Naprocyn, her symptoms have improved quite a bit, and she has been pretty good the past few days. Pt's history is complicated by a severe case of Vestibular Neuritis two years ago, for which she is still experiencing mild symptoms, and was treated for an extended period of time previously at this facility. Treatment Goals Patient/Caregiver Goals Pt would like to decrease back pain and hopes that this is not a sign of her Ankylosing Spondylitis worsening. Personal Factors Other Personal Factors That May Effect Ankylosing Spondylitis, Therapy/Recovery Vestibular Neuritis PT-OP-C Subjective Start: 06/22/18 13:39 Freq: Status: Active Protocol: Document 07/19/18 12:00 DCW (Rec: 07/19/18 12:43 DCW [id number]) OP-PT Subjective Patient Comments Patient Comments My back is continuing to improve, but my pecs still feel tight. PT-OP-F Manual Assessment Start: 06/22/18 13:39 Freq: Status: Active Protocol: Document 07/19/18 12:00 DCW (Rec: 07/19/18 12:46 DCW [id number]) Manual Assessments Soft Tissue Assessment Soft Tissue Mobility Assessment Mild thoracic paraspinal tone, tenderness to palpation 1/4 - Complaint of pain Mild right pec tone, complaint of tenderness to palpation 1/ 4 - Complaint of pain Joint Mobility Assessment Joint Mobility Assessment Spinal mobility overall WNL PT-OP-J Posture/Palpation/Skin Start: 06/22/18 13:39 Freq: Status: Active Protocol: Document 07/19/18 12:00 DCW (Rec: 07/19/18 12:46 DCW [id number]) Posture Evaluation Position Standing T-Spine Posture Increased Kyphosis Shoulder Posture (L) Rounded (R) Rounded (L) Forward Scapula Posture (L) Protracted (R) Protracted Palpation Assessment Location Right thoracic paraspinals Palpation Findings Soft Tissue Tightness Tenderness PT-OP-K Range of Motion Start: 06/22/18 13:39 Freq: Status: Active Protocol: Document 07/19/18 12:00 DCW (Rec: 07/19/18 12:46 DCW [id number]) Lumbar Spine Range of Motion Lumbar Spine Active Percentage Testing Position Standing Comments WNL PT-OP-Q Treatments Start: 06/22/18 13:39 Freq: Status: Active Protocol: Document 07/19/18 12:00 DCW (Rec: 07/19/18 12:43 DCW [id number]) Therapeutic Exercises Supine Exercises Horizontal Adduction Supine Exercise Name Horizontal Add Side bilateral Resistance 3# Supine Punch Supine Exercise Name Serratus punch Side bilateral Resistance 3# Prone Exercises Shoulder ER at 90 Prone Exercise Name Prone W's Side bilateral Shoulder Flexion Prone Exercise Name Prone flex Side bilateral Shoulder Extension Prone Exercise Name Prone ext Side bilateral Resistance 2# Horizontal Abduction Prone Exercise Name Prone horizontal abd Side bilateral Resistance 2# Manual Therapy Treatment Soft Tissue Mobilization Parascapulars Body Location Right Parascapulars Mobilization Type Strumming Sustained Pressure Other Intensity/Depth Moderate Upper Trap Body Location Right Trap Mobilization Type Strumming Sustained Pressure Intensity/Depth Moderate Paraspinals Body Location Right paraspinals Mobilization Type Sustained Pressure Trigger Point Release Intensity/Depth Moderate Joint Mobilizations Scapular Mobs Joint R Scapula Direction lateral Grade IV Body Position Sidelying PT-OP-T Assessment and Plan Start: 06/22/18 13:39 Freq: Status: Active Protocol: Document 07/19/18 12:00 DCW (Rec: 07/19/18 12:43 DCW [id number]) Physical Therapy Assessment Impairments Impairments Pain Posture Strength Tone Goals Three Impairment Muscle tone Short Term Goal (STG) Pt to display mild tone through right thoracic paraspinals and right pec STG Duration Met Two Impairment Pain Short Term Goal (STG) Pt to report pain at worst 1/ 10 STG Duration Met One Impairment Pt does not have an appropriate home exercise program Short Term Goal (STG) Pt to be independent and compliant with an appropriate HEP STG Duration Met Assessment Summary Assessment Pt met all goals, feeling comfortable with her current level of function and is independent with her HEP. Pt appropriate to discharge at this time, and is agreeable with this plan. Physical Therapy Plan Frequency and Duration Frequency of Treatment 2x/Week Duration of Treatment 2 months Plan of Care Start Date 06/21/18 Plan of Care End Date 08/22/18 Therapeutic Interventions Therapeutic Interventions Aquatic Therapy Home Exercise Program Joint Mobilizations Manual Therapy Patient/Caregiver Education Self-Care/Home Management Soft Tissue Mobilization Taping Therapeutic Exercises Modalities Cold Pack/Ice Massage Electric Stimulation Hot Packs Ultrasound Discharge Physical Therapy Discharge Reasons Goals Met Next Visit Focus/Plan Next Note Type Discharge Summary
== END 2018-09-01 09:08 ==
LOC: PHYS 12:00
PROVIDERS: PCP Family Medicine; Visit Provider Student in an Organized Health Care Education/Training Program
DX: M45.9 Ankylosing spondylitis of unspecified sites in spine (principal)
CPT/HCPCS: 97110; 97140; 97161

== ENCOUNTER → 2018-08-11 09:34 | Outpatient (CLI) | payer OTHER, SELFPAY ==
[2018-08-11 10:04] LABS: Add Manual Diff / Slide Review NO; Basophils Absolute Auto 100 /uL (0-100); Basophils Percent Auto 1.3 % (0-2); Eosinophils Absolute Auto 100 /uL (0-450); Eosinophils Percent Auto 1.8 % (2-4); Hemoglobin 15.5 g/dL (12.0-16.0); Lymphocytes Absolute Auto 2400 /uL (1100-4500); Lymphocytes Percent Auto 30.7 % (25-40); Mean Corpuscular HGB Conc 33.6 % (30-36); Mean Corpuscular Volume 92.2 fL (80-100); Monocytes Absolute Auto 700 /uL (0-900); Monocytes Percent Auto 8.3 % (3-14); Neutrophils Absolute Auto 4600 /uL (1500-7000); Neutrophils Percent Auto 57.9 % (50-75); Platelet Count 309 X10^3/uL (150-400); Red Blood Cell Count 4.99 X10^6/uL (4.0-5.2); Red Cell Distribution Width 13.5 % (11.6-14.8); White Blood Cell Count 7.9 X10^3/uL (4.5-11.0)
[2018-08-11 10:22] LABS: Alanine Aminotransferase 27 IU/L (9-52); Albumin 4.9 g/dL (3.5-5.0); Albumin Globulin Ratio 1.8 (1.0-2.8); Alkaline Phosphatase 84 U/L (38-126); Aspartate Aminotransferase 22 IU/L (14-36); BUN Creatinine Ratio 24.3 (6-22); Bilirubin Total 0.6 mg/dL (0.2-1.3); Blood Urea Nitrogen 17 mg/dL (7-17); Calcium 9.9 mg/dL (8.4-10.2); Carbon Dioxide 27 mmol/L (22-32); Chloride 103 mmol/L (98-107); Estimated Glomerular Filt Rate > 60.0 mL/min (>60); Globulin 2.7 g/dL (1.7-4.1); Glucose 92 mg/dL (80-110); HEMOLYSIS < 15 (0-50); Potassium 4.6 mmol/L (3.4-5.1); Sodium 141 mmol/L (137-145); Total Protein 7.6 g/dL (6.3-8.2)
[2018-08-11 10:23] LABS: C-Reactive Protein Quant < 0.5 mg/dL (<1.0)
[2018-08-11 10:27] LABS: Erythrocyte Sedimentation Rate 93 MM/HR (0-20)
== END ==
PROVIDERS: Family Provider Student in an Organized Health Care Education/Training Program; PCP Student in an Organized Health Care Education/Training Program; Visit Provider Internal Medicine Rheumatology
DX: M45.7 Ankylosing spondylitis of lumbosacral region (principal); Z79.899 Other long term (current) drug therapy
CPT/HCPCS: 36415; 80053; 85025; 85651; 86140

== ENCOUNTER → 2018-08-25 09:42 | Outpatient (CLI) | payer OTHER, SELFPAY ==
[2018-08-25 10:52] LABS: C-Reactive Protein Quant < 0.5 mg/dL (<1.0)
[2018-08-25 11:13] LABS: Erythrocyte Sedimentation Rate 6 MM/HR (0-20)
== END ==
PROVIDERS: Family Provider Student in an Organized Health Care Education/Training Program; PCP Student in an Organized Health Care Education/Training Program; Visit Provider Internal Medicine Rheumatology
DX: R70.0 Elevated erythrocyte sedimentation rate (principal); M45.7 Ankylosing spondylitis of lumbosacral region
CPT/HCPCS: 36415; 84155; 84165; 85651; 86140

== ENCOUNTER → 2018-11-16 09:55 | Outpatient (CLI) | payer OTHER, SELFPAY ==
[2018-11-16 11:00] LABS: Add Manual Diff / Slide Review NO; Basophils Absolute Auto 100 /uL (0-100); Basophils Percent Auto 0.9 % (0-2); Eosinophils Absolute Auto 200 /uL (0-450); Eosinophils Percent Auto 2.7 % (2-4); Hematocrit 38.8 % (36-46); Lymphocytes Absolute Auto 2300 /uL (1100-4500); Lymphocytes Percent Auto 32.1 % (25-40); Mean Corpuscular HGB Conc 33.6 % (30-36); Mean Corpuscular Hemoglobin 31.5 PG (26-34); Mean Corpuscular Volume 93.9 fL (80-100); Monocytes Absolute Auto 600 /uL (0-900); Monocytes Percent Auto 8.6 % (3-14); Neutrophils Absolute Auto 4100 /uL (1500-7000); Neutrophils Percent Auto 55.7 % (50-75); Platelet Count 275 X10^3/uL (150-400); Red Blood Cell Count 4.14 X10^6/uL (4.0-5.2); Red Cell Distribution Width 12.3 % (11.6-14.8); White Blood Cell Count 7.3 X10^3/uL (4.5-11.0)
[2018-11-16 11:25] LABS: Alanine Aminotransferase 32 IU/L (9-52); Albumin Globulin Ratio 1.4 (1.0-2.8); Alkaline Phosphatase 90 U/L (38-126); Aspartate Aminotransferase 29 IU/L (14-36); Bilirubin Total 0.5 mg/dL (0.2-1.3); Blood Urea Nitrogen 20 mg/dL (7-17); Carbon Dioxide 23 mmol/L (22-32); Chloride 107 mmol/L (98-107); Estimated Glomerular Filt Rate > 60.0 mL/min (>60); Globulin 2.9 g/dL (1.7-4.1); Glucose 91 mg/dL (80-110); HEMOLYSIS < 15 (0-50); Potassium 3.8 mmol/L (3.4-5.1); Sodium 140 mmol/L (137-145); Total Protein 6.9 g/dL (6.3-8.2)
== END ==
PROVIDERS: Family Provider Student in an Organized Health Care Education/Training Program; PCP Student in an Organized Health Care Education/Training Program; Visit Provider Internal Medicine Rheumatology
DX: M45.7 Ankylosing spondylitis of lumbosacral region (principal); Z79.899 Other long term (current) drug therapy
CPT/HCPCS: 36415; 80053; 85025

== ENCOUNTER → 2019-03-17 09:04 | Outpatient (CLI) | payer OTHER, SELFPAY ==
--- NOTE | 2019-03-17 | DI.MG.S_ITS ---
BILATERAL DIGITAL SCREENING MAMMOGRAM 3D/2D WITH CAD: 03/17/2019 CLINICAL: Routine screening. Comparison is made to exams dated: 03/04/2018 mammogram, 02/03/2017 mammogram, and 12/28/2015 mammogram - [facility]. The tissue of both breasts is heterogeneously dense. This may lower the sensitivity of mammography. Current study was also evaluated with a Computer Aided Detection (CAD) system. There are new 0.2 cm grouped coarse calcifications in the left breast middle depth lateral region seen on the craniocaudal view only but should be seen in the outer, lower aspect of the left breast based on tomographic evaluation on the craniocaudal projection. No other significant masses, calcifications, or other findings are seen in either breast. IMPRESSION: INCOMPLETE: NEEDS ADDITIONAL IMAGING EVALUATION The new 0.2 cm grouped coarse calcifications in the left breast are indeterminate. Mediolateral, spot magnification, and additional views are recommended. This exam was interpreted at Station ID: [id number]. NOTE: For mammograms, a report in lay terms will be sent to the patient. Approximately 15% of breast malignancies will not be visualized mammographically. In the management of a palpable breast mass, a negative mammogram must not discourage biopsy of a clinically suspicious lesion. Electronically Signed By: Avni Ozuna M.D. aty/:03/17/2019 11:38:59 letter sent: Additional Imaging Needed ACR BI-RADS Category 0: Incomplete 3340F
== END ==
PROVIDERS: PCP Student in an Organized Health Care Education/Training Program; Visit Provider Student in an Organized Health Care Education/Training Program
DX: Z12.31 Encounter for screening mammogram for malignant neoplasm of breast (principal)
CPT/HCPCS: 77063; 77067

== ENCOUNTER → 2019-03-23 12:45 | Outpatient (CLI) | payer OTHER, SELFPAY ==
--- NOTE | 2019-03-23 12:47 | DI.MG.S_ITS ---
UNILATERAL LEFT DIGITAL DIAGNOSTIC MAMMOGRAM 3D/2D WITH ADDITIONAL VIEWS: 03/23/2019 CLINICAL: Additional evaluation requested from prior study. Comparison is made to exams dated: 03/17/2019 mammogram, 03/04/2018 mammogram, and 02/03/2017 mammogram - [facility]. The tissue of left breast is heterogeneously dense. This may lower the sensitivity of mammography. There is a benign 0.2 cm rim calcification in the left breast middle depth lateral region seen on the craniocaudal view only, which is better characterized on today's additional views. No other significant masses or calcifications are seen in the breast. IMPRESSION: There is no mammographic evidence of malignancy. A 1 year screening mammogram is recommended. Findings were discussed with the patient during today's visit. This exam was interpreted at Station ID: [id number]. NOTE: For mammograms, a report in lay terms will be sent to the patient. Approximately 15% of breast malignancies will not be visualized mammographically. In the management of a palpable breast mass, a negative mammogram must not discourage biopsy of a clinically suspicious lesion. Electronically Signed By: Avni Ozuna M.D. at/:03/23/2019 13:23:54 letter sent: Normal Exam ACR BI-RADS Category 2: Benign Finding(s) 3342F
== END ==
PROVIDERS: PCP Student in an Organized Health Care Education/Training Program; Visit Provider Student in an Organized Health Care Education/Training Program
DX: R92.8 Other abnormal and inconclusive findings on diagnostic imaging of breast (principal)
CPT/HCPCS: 77065; G0279

== ENCOUNTER → 2019-04-12 15:56 | Outpatient (CLI) | payer OTHER, SELFPAY ==
[2019-04-12 16:19] LABS: Add Manual Diff / Slide Review NO; Basophils Absolute Auto 100 /uL (0-100); Basophils Percent Auto 0.9 % (0-2); Eosinophils Absolute Auto 200 /uL (0-450); Eosinophils Percent Auto 2.9 % (2-4); Hematocrit 37.6 % (36-46); Hemoglobin 13.1 g/dL (12.0-16.0); Lymphocytes Absolute Auto 2800 /uL (1100-4500); Lymphocytes Percent Auto 36.3 % (25-40); Mean Corpuscular HGB Conc 34.8 % (30-36); Mean Corpuscular Hemoglobin 32.3 PG (26-34); Mean Corpuscular Volume 92.6 fL (80-100); Monocytes Absolute Auto 700 /uL (0-900); Monocytes Percent Auto 9.1 % (3-14); Neutrophils Absolute Auto 3900 /uL (1500-7000); Neutrophils Percent Auto 50.8 % (50-75); Platelet Count 274 X10^3/uL (150-400); Red Blood Cell Count 4.06 X10^6/uL (4.0-5.2); Red Cell Distribution Width 12.5 % (11.6-14.8); White Blood Cell Count 7.7 X10^3/uL (4.5-11.0)
[2019-04-12 17:18] LABS: Alanine Aminotransferase 21 IU/L (9-52); Albumin Globulin Ratio 1.5 (1.0-2.8); Alkaline Phosphatase 109 U/L (38-126); Aspartate Aminotransferase 27 IU/L (14-36); BUN Creatinine Ratio 33.3 (6-22); Bilirubin Total 0.4 mg/dL (0.2-1.3); Blood Urea Nitrogen 20 mg/dL (7-17); Calcium 9.4 mg/dL (8.4-10.2); Carbon Dioxide 25 mmol/L (22-32); Chloride 106 mmol/L (98-107); Estimated Glomerular Filt Rate > 60.0 mL/min (>60); Globulin 2.7 g/dL (1.7-4.1); Glucose 112 mg/dL (80-110); HEMOLYSIS < 15 (0-50); Potassium 4.1 mmol/L (3.4-5.1); Sodium 139 mmol/L (137-145); Total Protein 6.7 g/dL (6.3-8.2)
== END ==
PROVIDERS: PCP Student in an Organized Health Care Education/Training Program; Visit Provider Internal Medicine Rheumatology
DX: M45.7 Ankylosing spondylitis of lumbosacral region (principal); Z79.899 Other long term (current) drug therapy
CPT/HCPCS: 36415; 80053; 85025

== ENCOUNTER → 2019-09-13 11:08 | Outpatient (CLI) | payer OTHER, SELFPAY ==
[2019-09-13 12:09] LABS: Add Manual Diff / Slide Review NO; Basophils Absolute Auto 100 /uL (0-100); Basophils Percent Auto 1.3 % (0-2); Eosinophils Absolute Auto 200 /uL (0-450); Eosinophils Percent Auto 3.4 % (2-4); Hematocrit 37.1 % (36-46); Hemoglobin 12.4 g/dL (12.0-16.0); Lymphocytes Absolute Auto 2600 /uL (1100-4500); Lymphocytes Percent Auto 40.6 % (25-40); Mean Corpuscular HGB Conc 33.5 % (30-36); Mean Corpuscular Hemoglobin 31.9 PG (26-34); Monocytes Absolute Auto 600 /uL (0-900); Monocytes Percent Auto 9.3 % (3-14); Neutrophils Absolute Auto 2900 /uL (1500-7000); Neutrophils Percent Auto 45.4 % (50-75); Platelet Count 276 X10^3/uL (150-400); Red Cell Distribution Width 12.7 % (11.6-14.8); White Blood Cell Count 6.3 X10^3/uL (4.5-11.0)
[2019-09-13 12:24] LABS: Alanine Aminotransferase 15 IU/L (<35); Albumin 4.2 g/dL (3.5-5.0); Albumin Globulin Ratio 1.4 (1.0-2.8); Alkaline Phosphatase 85 U/L (38-126); Aspartate Aminotransferase 25 IU/L (14-36); Bilirubin Total 0.5 mg/dL (0.2-1.3); Blood Urea Nitrogen 20 mg/dL (7-17); Calcium 9.3 mg/dL (8.4-10.2); Carbon Dioxide 30 mmol/L (22-32); Chloride 103 mmol/L (98-107); Estimated Glomerular Filt Rate > 60.0 mL/min (>60); Globulin 2.9 g/dL (1.7-4.1); Glucose 87 mg/dL (80-110); HEMOLYSIS < 15 (0-50); Potassium 4.1 mmol/L (3.4-5.1); Sodium 139 mmol/L (137-145); Total Protein 7.1 g/dL (6.3-8.2)
== END ==
PROVIDERS: Internal Medicine Rheumatology; PCP Student in an Organized Health Care Education/Training Program; Referring Provider Student in an Organized Health Care Education/Training Program; Visit Provider Student in an Organized Health Care Education/Training Program
DX: M45.7 Ankylosing spondylitis of lumbosacral region (principal); Z79.899 Other long term (current) drug therapy
CPT/HCPCS: 36415; 80053; 85025

== ENCOUNTER → 2019-12-09 12:07 | Outpatient (CLI) | payer OTHER, SELFPAY ==
[2019-12-09 12:33] LABS: Add Manual Diff / Slide Review NO; Basophils Absolute Auto 100 /uL (0-100); Basophils Percent Auto 1.1 % (0-2); Eosinophils Absolute Auto 300 /uL (0-450); Eosinophils Percent Auto 3.7 % (2-4); Hemoglobin 12.6 g/dL (12.0-16.0); Lymphocytes Absolute Auto 2800 /uL (1100-4500); Lymphocytes Percent Auto 36.2 % (25-40); Mean Corpuscular HGB Conc 33.9 % (30-36); Mean Corpuscular Hemoglobin 32.1 PG (26-34); Mean Corpuscular Volume 94.6 fL (80-100); Monocytes Absolute Auto 600 /uL (0-900); Monocytes Percent Auto 8.2 % (3-14); Neutrophils Absolute Auto 4000 /uL (1500-7000); Neutrophils Percent Auto 50.8 % (50-75); Platelet Count 293 X10^3/uL (150-400); Red Blood Cell Count 3.92 X10^6/uL (4.0-5.2); Red Cell Distribution Width 12.5 % (11.6-14.8); White Blood Cell Count 7.8 X10^3/uL (4.5-11.0)
[2019-12-09 12:51] LABS: Alanine Aminotransferase 16 IU/L (<35); Albumin Globulin Ratio 1.4 (1.0-2.8); Alkaline Phosphatase 93 U/L (38-126); Aspartate Aminotransferase 26 IU/L (14-36); BUN Creatinine Ratio 30.3 (6-22); Bilirubin Total 0.5 mg/dL (0.2-1.3); Blood Urea Nitrogen 23 mg/dL (7-17); Calcium 9.1 mg/dL (8.4-10.2); Carbon Dioxide 24 mmol/L (22-32); Chloride 107 mmol/L (98-107); Estimated Glomerular Filt Rate > 60.0 mL/min (>60); Globulin 2.8 g/dL (1.7-4.1); Glucose 107 mg/dL (80-110); HEMOLYSIS < 15 (0-50); Potassium 4.1 mmol/L (3.4-5.1); Sodium 139 mmol/L (137-145); Total Protein 6.8 g/dL (6.3-8.2)
== END ==
PROVIDERS: PCP Student in an Organized Health Care Education/Training Program; Referring Provider Internal Medicine Rheumatology; Visit Provider Internal Medicine Rheumatology
DX: M45.7 Ankylosing spondylitis of lumbosacral region (principal); Z79.899 Other long term (current) drug therapy
CPT/HCPCS: 36415; 80053; 85025

== ENCOUNTER → 2020-03-21 10:23 | Outpatient (CLI) | payer OTHER, SELFPAY ==
[2020-03-21 11:15] LABS: Add Manual Diff / Slide Review NO; Basophils Absolute Auto 100 /uL (0-100); Basophils Percent Auto 1.9 % (0-2); Eosinophils Absolute Auto 300 /uL (0-450); Eosinophils Percent Auto 4.1 % (2-4); Hematocrit 36.9 % (36-46); Hemoglobin 12.3 g/dL (12.0-16.0); Lymphocytes Absolute Auto 2600 /uL (1100-4500); Lymphocytes Percent Auto 39.5 % (25-40); Mean Corpuscular HGB Conc 33.3 % (30-36); Mean Corpuscular Hemoglobin 31.3 PG (26-34); Monocytes Absolute Auto 600 /uL (0-900); Monocytes Percent Auto 8.6 % (3-14); Neutrophils Absolute Auto 3000 /uL (1500-7000); Neutrophils Percent Auto 45.9 % (50-75); Platelet Count 277 X10^3/uL (150-400); Red Blood Cell Count 3.93 X10^6/uL (4.0-5.2); Red Cell Distribution Width 12.4 % (11.6-14.8); White Blood Cell Count 6.5 X10^3/uL (4.5-11.0)
[2020-03-21 11:56] LABS: Alanine Aminotransferase 16 IU/L (<35); Albumin 4.1 g/dL (3.5-5.0); Albumin Globulin Ratio 1.6 (1.0-2.8); Alkaline Phosphatase 99 U/L (38-126); Aspartate Aminotransferase 25 IU/L (14-36); BUN Creatinine Ratio 21.4 (6-22); Bilirubin Total 0.6 mg/dL (0.2-1.3); Blood Urea Nitrogen 18 mg/dL (7-17); Calcium 9.2 mg/dL (8.4-10.2); Carbon Dioxide 29 mmol/L (22-32); Chloride 101 mmol/L (98-107); Estimated Glomerular Filt Rate > 60.0 mL/min (>60); Globulin 2.5 g/dL (1.7-4.1); Glucose 102 mg/dL (80-110); HEMOLYSIS < 15 (0-50); Potassium 4.4 mmol/L (3.4-5.1); Sodium 137 mmol/L (137-145); Total Protein 6.6 g/dL (6.3-8.2)
== END ==
PROVIDERS: PCP Student in an Organized Health Care Education/Training Program; Referring Provider Internal Medicine Rheumatology; Visit Provider Internal Medicine Rheumatology
DX: M45.7 Ankylosing spondylitis of lumbosacral region (principal); Z79.899 Other long term (current) drug therapy
CPT/HCPCS: 36415; 80053; 85025

== ENCOUNTER → 2020-04-23 16:23 | Outpatient (CLI) | payer OTHER, SELFPAY ==
--- NOTE | 2020-04-23 | DI.MG.S_ITS ---
BILATERAL DIGITAL SCREENING MAMMOGRAM 3D/2D WITH CAD: 04/23/2020 CLINICAL: Routine screening. Comparison is made to exams dated: 03/23/2019 mammogram, 03/17/2019 mammogram, and 03/04/2018 mammogram - [facility]. The tissue of both breasts is heterogeneously dense. This may lower the sensitivity of mammography. Current study was also evaluated with a Computer Aided Detection (CAD) system. No significant masses, calcifications, or other findings are seen in either breast. There has been no significant interval change. IMPRESSION: NEGATIVE There is no mammographic evidence of malignancy. A 1 year screening mammogram is recommended. This exam was interpreted at Station ID: [id number]. NOTE: For mammograms, a report in lay terms will be sent to the patient. Approximately 15% of breast malignancies will not be visualized mammographically. In the management of a palpable breast mass, a negative mammogram must not discourage biopsy of a clinically suspicious lesion. Electronically Signed By: Avni gardiner/glenna:04/23/2020 16:49:36 letter sent: Normal Exam ACR BI-RADS Category 1: Negative 3341F
== END ==
PROVIDERS: PCP Student in an Organized Health Care Education/Training Program; Referring Provider Student in an Organized Health Care Education/Training Program; Visit Provider Student in an Organized Health Care Education/Training Program
DX: Z12.31 Encounter for screening mammogram for malignant neoplasm of breast (principal)
CPT/HCPCS: 77063; 77067

== ENCOUNTER → 2020-06-06 14:33 | Outpatient (CLI) | payer OTHER, SELFPAY ==
[2020-06-06 14:53] LABS: Add Manual Diff / Slide Review NO; Basophils Absolute Auto 100 /uL (0-100); Basophils Percent Auto 0.9 % (0-2); Eosinophils Absolute Auto 200 /uL (0-450); Eosinophils Percent Auto 2.7 % (2-4); Hematocrit 33.8 % (36-46); Hemoglobin 11.4 g/dL (12.0-16.0); Lymphocytes Absolute Auto 2700 /uL (1100-4500); Lymphocytes Percent Auto 31.9 % (25-40); Mean Corpuscular HGB Conc 33.6 % (30-36); Mean Corpuscular Hemoglobin 32.2 PG (26-34); Mean Corpuscular Volume 95.8 fL (80-100); Monocytes Absolute Auto 700 /uL (0-900); Monocytes Percent Auto 8.4 % (3-14); Neutrophils Absolute Auto 4700 /uL (1500-7000); Neutrophils Percent Auto 56.1 % (50-75); Platelet Count 275 X10^3/uL (150-400); Red Blood Cell Count 3.53 X10^6/uL (4.0-5.2); Red Cell Distribution Width 12.6 % (11.6-14.8); White Blood Cell Count 8.4 X10^3/uL (4.5-11.0)
[2020-06-06 15:17] LABS: Alanine Aminotransferase 16 IU/L (<35); Albumin 3.9 g/dL (3.5-5.0); Albumin Globulin Ratio 1.3 (1.0-2.8); Alkaline Phosphatase 98 U/L (38-126); Aspartate Aminotransferase 27 IU/L (14-36); BUN Creatinine Ratio 30.7 (6-22); Bilirubin Total 0.5 mg/dL (0.2-1.3); Blood Urea Nitrogen 23 mg/dL (7-17); Carbon Dioxide 27 mmol/L (22-32); Chloride 107 mmol/L (98-107); Estimated Glomerular Filt Rate > 60.0 mL/min (>60); Globulin 2.9 g/dL (1.7-4.1); Glucose 96 mg/dL (80-110); HEMOLYSIS < 15 (0-50); Potassium 4.2 mmol/L (3.4-5.1); Sodium 138 mmol/L (137-145); Total Protein 6.8 g/dL (6.3-8.2)
== END ==
PROVIDERS: PCP Student in an Organized Health Care Education/Training Program; Referring Provider Internal Medicine Rheumatology; Visit Provider Internal Medicine Rheumatology
DX: M45.7 Ankylosing spondylitis of lumbosacral region (principal); Z79.899 Other long term (current) drug therapy
CPT/HCPCS: 36415; 80053; 85025

== ENCOUNTER → 2020-06-19 13:06 | Outpatient (CLI) | payer OTHER, SELFPAY | PROVIDERS: PCP Student in an Organized Health Care Education/Training Program; Referring Provider Student in an Organized Health Care Education/Training Program; Visit Provider Student in an Organized Health Care Education/Training Program | DX: Z13.820 Encounter for screening for osteoporosis (principal); Z78.0 Asymptomatic menopausal state; M06.9 Rheumatoid arthritis, unspecified; Z91.89 Other specified personal risk factors, not elsewhere classified; Z87.891 Personal history of nicotine dependence | CPT/HCPCS: 77080 ==

== ENCOUNTER → 2020-08-08 15:34 | Outpatient (CLI) | payer MEDICARE, SELFPAY ==
[2020-08-08] MEDS: COVID-19 VACC #1, MRNA(MOD) 100 MCG/0.5 ML VIAL IM (15:40)
== END ==
PROVIDERS: PCP Student in an Organized Health Care Education/Training Program; Visit Provider Internal Medicine
DX: Z23 Encounter for immunization (principal)
CPT/HCPCS: 0011A; 91301

== ENCOUNTER → 2020-09-05 15:19 | Outpatient (CLI) | payer MEDICARE, SELFPAY ==
[2020-09-05] MEDS: COVID-19 VACC #2, MRNA(MOD) 100 MCG/0.5 ML VIAL IM (15:25)
== END ==
PROVIDERS: PCP Student in an Organized Health Care Education/Training Program; Visit Provider Internal Medicine
DX: Z23 Encounter for immunization (principal)
CPT/HCPCS: 0012A; 91301

== ENCOUNTER → 2020-09-07 14:30 | Outpatient (CLI) | payer OTHER, SELFPAY ==
[2020-09-07 15:43] LABS: Add Manual Diff / Slide Review NO; Basophils Absolute Auto 100 /uL (0-100); Basophils Percent Auto 1.4 % (0-2); Eosinophils Absolute Auto 300 /uL (0-450); Eosinophils Percent Auto 4.2 % (2-4); Hemoglobin 12.1 g/dL (12.0-16.0); Lymphocytes Absolute Auto 2400 /uL (1100-4500); Lymphocytes Percent Auto 34.5 % (25-40); Mean Corpuscular HGB Conc 33.7 % (30-36); Mean Corpuscular Volume 94.8 fL (80-100); Monocytes Absolute Auto 800 /uL (0-900); Neutrophils Absolute Auto 3400 /uL (1500-7000); Neutrophils Percent Auto 48.9 % (50-75); Platelet Count 265 X10^3/uL (150-400); Red Cell Distribution Width 12.6 % (11.6-14.8); White Blood Cell Count 6.9 X10^3/uL (4.5-11.0)
[2020-09-07 16:03] LABS: Alanine Aminotransferase 19 IU/L (<35); Albumin Globulin Ratio 1.4 (1.0-2.8); Alkaline Phosphatase 97 U/L (38-126); Aspartate Aminotransferase 33 IU/L (14-36); BUN Creatinine Ratio 27.8 (6-22); Bilirubin Total 0.3 mg/dL (0.2-1.3); Blood Urea Nitrogen 22 mg/dL (7-17); Carbon Dioxide 25 mmol/L (22-32); Chloride 105 mmol/L (98-107); Estimated Glomerular Filt Rate > 60.0 mL/min (>60); Globulin 2.9 g/dL (1.7-4.1); Glucose 118 mg/dL (80-110); HEMOLYSIS < 15 (0-50); Sodium 137 mmol/L (137-145); Total Protein 6.9 g/dL (6.3-8.2)
== END ==
PROVIDERS: PCP Student in an Organized Health Care Education/Training Program; Referring Provider Internal Medicine Rheumatology; Visit Provider Internal Medicine Rheumatology
DX: M45.7 Ankylosing spondylitis of lumbosacral region (principal); Z79.899 Other long term (current) drug therapy
CPT/HCPCS: 36415; 80053; 85025

== ENCOUNTER 2020-12-06 14:30 | Outpatient (RCR) | payer OTHER, SELFPAY ==
--- NOTE | 2020-10-23 17:30 | PT.OIE ---
Current Diagnoses Pain in right shoulder (10/23/20) Past Medical History (Last Updated 01/06/18 @ 12:21 by Tess Newberry) Ankylosing spondylitis (1974) 0 Iritis, secondary Liver abscess (1999) Vertigo (1979) Vestibular neuritis (2015) Past Surgical History (Last Updated 01/06/18 @ 12:17 by Tess Newberry) Anesthesia complication History of partial colectomy (1999) History of surgery of liver (1999) History of tonsillectomy Status post appendectomy (1999) Visit Care Team Role Provider Type Bill Adler MD Attending Provider Physician Primary Care Provider Referring Provider Specialty: Internal Medicine Address: [address] [place] [address], [address], [facility] Email: [email or web address] Physical Therapy Initial Evaluation PT-OP-A Visit Information Start: 10/23/20 17:49 Freq: Status: Active Protocol: Document 10/23/20 16:45 DCW (Rec: 10/23/20 17:50 DCW [id number]) Out-Patient Physical Therapy Visit Information Visit Information Visit Type Initial Evaluation Visit Start Time 16:45 Visit Stop Time 17:30 Total Visit Minutes 45 Visit Number 1 Number of PEN TESTER Visits 0 Evaluation Information Evaluation Date 10/23/20 PT-OP-B Current Condition Start: 10/23/20 17:49 Freq: Status: Active Protocol: Document 10/23/20 16:45 DCW (Rec: 10/24/20 10:08 DCW [id number]) Current Condition History of Current Condition Onset Date 2-3 months Current Complaints Right shoulder and upper arm pain History of Current Condition Pt is a 65 year old female presenting with a 2-3 month history of right shoulder and upper arm pain. Pt notes there was no specific injury, just worsening pain. She notes she has been resting it, has stopped doing any heavy work around the house, and it seems to be improving. Notes that at it's worst, it had been a 4 -5/10, but now it is more like a 2.5/10, and she has even stopped taking ibuprofen. Notes pain is worst in her anterior right shoulder and down her anterior upper arm. Pain can limit her sleep if she rolls over onto her arm, and has limited her gardening, which she would like to get back to. Pt also notes that the most pain she experiences daily is trying to take off her sports bra. Does admit to occasional clicking at her anterior shoulder. Personal Factors Other Personal Factors That May Effect History of severe vestibular Therapy/Recovery neuritis PT-OP-C Subjective Start: 10/23/20 17:49 Freq: Status: Active Protocol: Document 10/23/20 16:45 DCW (Rec: 10/24/20 10:08 DCW [id number]) OP-PT Subjective Patient Comments Patient Comments It's better than it was before, but it is still very obviously there. Patient Reported Progress Improving Patient Questionnaires Quick Dash- Upper Extremity Quick Dash UE Score 15.91% Quick Dash UE Impairment 1 to 19% Impaired (Score 1-19) OP-PT Pain Assessment Location Right Anterior Shoulder Intensity 2 Scale Used Numeric (0 - 10) PT-OP-E Functional Tests Start: 10/23/20 17:49 Freq: Status: Active Protocol: Document 10/23/20 16:45 DCW (Rec: 10/24/20 10:16 DCW [id number]) Functional Tests Apley's Scratch Test Action 1- Left Posterior opposite shoulder Action 1- Right Posterior opposite shoulder Action 2- Left T3 Action 2- Right T3 Action 3- Left T6 Action 3- Right T8 PT-OP-F Manual Assessment Start: 10/23/20 17:49 Freq: Status: Active Protocol: Document 10/23/20 16:45 DCW (Rec: 10/24/20 10:16 DCW [id number]) Manual Assessments Soft Tissue Assessment Soft Tissue Mobility Assessment Tenderness to palpation 3/4: Wincing and withdraw along bicipital groove PT-OP-K Range of Motion Start: 10/23/20 17:49 Freq: Status: Active Protocol: Document 10/23/20 16:45 DCW (Rec: 10/24/20 10:16 DCW [id number]) Shoulder Goniometric Range of Motion Shoulder Right Active Shoulder ROM WFL Yes Flexion 180 Abduction 180 PT-OP-L Special Tests Start: 10/23/20 17:49 Freq: Status: Active Protocol: Document 10/23/20 16:45 DCW (Rec: 10/24/20 10:16 DCW [id number]) Special Tests Shoulder Special Tests Yergason's Biceps Test Results Positive Right Speed's Biceps Test Results Positive Right Passive ER Rotator Cuff Test Results Negative Painful Arc Test Results Positive Right Lift-Off Rotator Cuff Test Results Negative Rocha Jean-Claude Impingement Test Results Positive Right Grind Labrum Test Results Positive Right Empty Can Test Results Positive Right Drop Arm Rotator Cuff Test Results Negative Clunk Test Test Results Negative Biceps Load II Test Test Results Positive Right Belly Press Test Results Negative Apprehension Test Test Results Positive Right Anterior Draw Test Results Negative AC Joint Compression Test Results Negative PT-OP-M Strength Start: 10/23/20 17:49 Freq: Status: Active Protocol: Document 10/23/20 16:45 DCW (Rec: 10/24/20 10:16 [facility] [id number]) Shoulder Strength Shoulder Manual Muscle Testing Right Flexion 4- Good- Abduction (C5) 4+ Good+ External Rotation 4- Good- Internal Rotation 5 Normal Left Flexion 4 Good Abduction (C5) 4+ Good+ External Rotation 4+ Good+ Internal Rotation 5 Normal Elbow/Forearm Strength Elbow and Forearm Manual Muscle Testing Right Flexion (C6) 4 Good Extension (C7) 4 Good Left Flexion (C6) 4+ Good+ Extension (C7) 4+ Good+ PT-OP-T Assessment and Plan Start: 10/23/20 17:49 Freq: Status: Active Protocol: Document 10/23/20 16:45 DCW (Rec: 10/24/20 14:20 [facility] [id number]) Physical Therapy Assessment Rehab Potential Rehabilitation Potential Good Evaluation Complexity Number of Personal Factors/Comorbidities 0 Number of Body Systems Impaired 3 Impairments Impairments Functional Activities, Functional Mobility,Pain,ROM, Soft Tissue Mobility,Strength, Tone Goals Three Impairment Positive special testing indicating bicipital tendonitis Retirement Goal (LTG) Negative right shoulder special testing to indicate pt 's ability to retun to usual household activities without pain. LTG Duration 12/24/20 Two Impairment Pt unable to doff sprots bra without pain Retirement Goal (LTG) Pt to don/doff all clothing with no increased shoulder pain for a period of two weeks LTG Duration 12/24/20 One Impairment Pt does not have an appropriate home exercise program Short Term Goal (STG) Pt to be independent and compliant with an appropriate HEP STG Duration 11/23/20 Assessment Summary Assessment Pt presents with signs and symptoms that may be suggestive of bicipital tendonitis. The location of pt 's pain along her anterior shoulder and down her right biceps, positive Speed test, Yergason's test, and Biceps Load test all indicate possible involvement of her right long head biceps tendon. Pt does also exhibit some positive tests that may also suggest glenoid labrum involvement, including a positive apprehension test and labral grind test, however does exhibit full shoulder ROM with [id number] pain with non-resisted motion, which would be unlikely for a labral tear. Pt's complaint of a clicking, strumming sensation could suggest a stretching or rupture of her transverse ligament, which would need imaging to rule in or out. Pt should benefit from skilled therapy, focusing on increasing shoulder girdle strength to promote stability, modalities including ultrasound and iontophoresis to decrease inflammation, body mechanics education to decrease use of biceps with lifting to allow for rest. Physical Therapy Plan Frequency and Duration Frequency of Treatment 2x/Week Duration of Treatment Two months Plan of Care Start Date 10/23/20 Plan of Care End Date 12/23/20 Therapeutic Interventions Therapeutic Interventions Home Exercise Program,Joint Mobilizations,Manual Therapy, Neuromuscular Re-education, Patient/Caregiver Education, Self-Care/Home Management,Soft Tissue Mobilization, Therapeutic Activities, Therapeutic Exercises Modalities Cold Pack/Ice Massage,Electric Stimulation,Hot Packs, Iontophoresis,Ultrasound Other Therapeutic Interventions Iontophoresis /c Dexamethasone 4 mg/mL Next Visit Focus/Plan Next Note Type Treatment Note Next Visit Plan K-tape, Shoulder strengthening , Iontophoresis, Manual therapy
--- NOTE | 2020-10-23 17:30 | PT.OPPOC ---
Physical, Occupational & Speech Therapy At [facility] Current Diagnoses Pain in right shoulder (10/23/20) Visit Care Team Role Provider Type Bill Adler MD Attending Provider Physician Primary Care Provider Referring Provider Specialty: Internal Medicine Address: [address] [place] [address], [address], [place], [address] Email: [email or web address] Plan Of Care PT-OP-T Assessment and Plan Start: 10/23/20 17:49 Freq: Status: Active Protocol: Document 10/23/20 16:45 DCW (Rec: 10/24/20 14:20 DCW [id number]) Physical Therapy Assessment Rehab Potential Rehabilitation Potential Good Evaluation Complexity Number of Personal Factors/Comorbidities 0 Number of Body Systems Impaired 3 Impairments Impairments Functional Activities, Functional Mobility,Pain,ROM, Soft Tissue Mobility,Strength, Tone Goals Three Impairment Positive special testing indicating bicipital tendonitis Snf Goal (LTG) Negative right shoulder special testing to indicate pt 's ability to retun to usual household activities without pain. LTG Duration 12/24/20 Two Impairment Pt unable to doff sprots bra without pain Vamp Liner Goal (LTG) Pt to don/doff all clothing with no increased shoulder pain for a period of two weeks LTG Duration 12/24/20 One Impairment Pt does not have an appropriate home exercise program Short Term Goal (STG) Pt to be independent and compliant with an appropriate HEP STG Duration 11/23/20 Assessment Summary Assessment Pt presents with signs and symptoms that may be suggestive of bicipital tendonitis. The location of pt 's pain along her anterior shoulder and down her right biceps, positive Speed test, Yergason's test, and Biceps Load test all indicate possible involvement of her right long head biceps tendon. Pt does also exhibit some positive tests that may also suggest glenoid labrum involvement, including a positive apprehension test and labral grind test, however does exhibit full shoulder ROM with [id number] pain wirh non-resisted motion, which would be unlikely for a labral tear. Pt's complaint of a clicking, strumming sensation could suggest a stretching or rupture of her transverse ligament, which would need imaging to rule in or out. Pt should benefit from skilled therapy, focusing on increasing shoulder girdle strength to promote stability, modalities including ultrasound and iontophoresis to decrease inflammation, body mechanics education to decrease use of biceps with lifting to allow for rest. Physical Therapy Plan Frequency and Duration Frequency of Treatment 2x/Week Duration of Treatment Two months Plan of Care Start Date 10/23/20 Plan of Care End Date 12/23/20 Therapeutic Interventions Therapeutic Interventions Home Exercise Program,Joint Mobilizations,Manual Therapy, Neuromuscular Re-education, Patient/Caregiver Education, Self-Care/Home Management,Soft Tissue Mobilization, Therapeutic Activities, Therapeutic Exercises Modalities Cold Pack/Ice Massage,Electric Stimulation,Hot Packs, Iontophoresis,Ultrasound Other Therapeutic Interventions Iontophoresis /c Dexamethasone 4 mg/mL Next Visit Focus/Plan Next Note Type Treatment Note Next Visit Plan K-tape, Shoulder strengthening , Iontophoresis, Manual therapy Plan of Care Dates Plan of Care Start Date 10/23/20 Plan of Care End Date 12/23/20 Electronically Signed by: Jeremy Hansen, PT 10/24/20 0278 Please Sign and Return: I have reviewed this Plan of Care and certify that the skilled therapy services above are required to meet the patient?s needs. Physician Signature Date Printed Name and Credentials Clinical Instructor Signature Printed Name and Credentials
--- NOTE | 2020-10-25 17:36 | PT.OTN ---
Current Diagnoses Pain in right shoulder (10/23/20) Physical Therapy Treatment Note PT-OP-A Visit Information Start: 10/23/20 17:49 Freq: Status: Active Protocol: Document 10/25/20 16:48 DCW (Rec: 10/25/20 17:36 DCW [id number]) Out-Patient Physical Therapy Visit Information Visit Information Visit Type Initial Evaluation Visit Start Time 16:48 Visit Stop Time 17:30 Total Visit Minutes 42 Visit Number 2 Number of DEPUTY BAILIFF Visits 0 Evaluation Information Evaluation Date 10/23/20 PT-OP-B Current Condition Start: 10/23/20 17:49 Freq: Status: Active Protocol: Document 10/23/20 16:45 DCW (Rec: 10/24/20 10:08 DCW [id number]) Current Condition History of Current Condition Onset Date 2-3 months Current Complaints Right shoulder and upper arm pain History of Current Condition Pt is a 65 year old female presenting with a 2-3 month history of right shoulder and upper arm pain. Pt notes there was no specific injury, just worsening pain. She notes she has been resting it, has stopped doing any heavy work around the house, and it seems to be improving. Notes that at it's worst, it had been a 4 -5/10, but now it is more like a 2.5/10, and she has even stopped taking ibuprofen. Notes pain is worst in her anterior right shoulder and down her anterior upper arm. Pain can limit her sleep if she rolls over onto her arm, and has limited her gardening, which she would like to get back to. Pt also notes that the most pain she experiences daily is trying to take off her sports bra. Does admit to occasional clicking at her anterior shoulder. Personal Factors Other Personal Factors That May Effect History of severe vestibular Therapy/Recovery neuritis PT-OP-C Subjective Start: 10/23/20 17:49 Freq: Status: Active Protocol: Document 10/25/20 16:48 DCW (Rec: 10/25/20 17:36 DCW [id number]) OP-PT Subjective Patient Comments Patient Comments It feels about the same as it did before. PT-OP-E Functional Tests Start: 10/23/20 17:49 Freq: Status: Active Protocol: Document 10/23/20 16:45 DCW (Rec: 10/24/20 10:16 DCW [id number]) Functional Tests Apley's Scratch Test Action 1- Left Posterior opposite shoulder Action 1- Right Posterior opposite shoulder Action 2- Left T3 Action 2- Right T3 Action 3- Left T6 Action 3- Right T8 PT-OP-F Manual Assessment Start: 10/23/20 17:49 Freq: Status: Active Protocol: Document 10/23/20 16:45 DCW (Rec: 10/24/20 10:16 DCW [id number]) Manual Assessments Soft Tissue Assessment Soft Tissue Mobility Assessment Tenderness to palpation 3/4: Wincing and withdraw along bicipital groove PT-OP-K Range of Motion Start: 10/23/20 17:49 Freq: Status: Active Protocol: Document 10/23/20 16:45 DCW (Rec: 10/24/20 10:16 DCW [id number]) Shoulder Goniometric Range of Motion Shoulder Right Active Shoulder ROM WFL Yes Flexion 180 Abduction 180 PT-OP-L Special Tests Start: 10/23/20 17:49 Freq: Status: Active Protocol: Document 10/23/20 16:45 DCW (Rec: 10/24/20 10:16 DCW [id number]) Special Tests Shoulder Special Tests Yergason's Biceps Test Results Positive Right Speed's Biceps Test Results Positive Right Passive ER Rotator Cuff Test Results Negative Painful Arc Test Results Positive Right Lift-Off Rotator Cuff Test Results Negative Rocha Jean-Claude Impingement Test Results Positive Right Grind Labrum Test Results Positive Right Empty Can Test Results Positive Right Drop Arm Rotator Cuff Test Results Negative Clunk Test Test Results Negative Biceps Load II Test Test Results Positive Right Belly Press Test Results Negative Apprehension Test Test Results Positive Right Anterior Draw Test Results Negative AC Joint Compression Test Results Negative PT-OP-M Strength Start: 10/23/20 17:49 Freq: Status: Active Protocol: Document 10/23/20 16:45 DCW (Rec: 10/24/20 10:16 DCW [id number]) Shoulder Strength Shoulder Manual Muscle Testing Right Flexion 4- Good- Abduction (C5) 4+ Good+ External Rotation 4- Good- Internal Rotation 5 Normal Left Flexion 4 Good Abduction (C5) 4+ Good+ External Rotation 4+ Good+ Internal Rotation 5 Normal Elbow/Forearm Strength Elbow and Forearm Manual Muscle Testing Right Flexion (C6) 4 Good Extension (C7) 4 Good Left Flexion (C6) 4+ Good+ Extension (C7) 4+ Good+ PT-OP-Q Treatments Start: 10/23/20 17:49 Freq: Status: Active Protocol: Document 10/25/20 16:48 DCW (Rec: 10/25/20 17:36 DCW [id number]) Cardio Equipment Upper Body Ergometer (UBE) Duration (Minutes) 4 RPM 60 Seat Position 11 Height 3 Therapeutic Exercises Standing Exercises 5 Standing Exercise Name Reverse biceps curl Side bilateral Resistance 3# 4 Standing Exercise Name Shoulder IR/ER Side right Resistance Lv 3 Equipment Used T-band 3 Standing Exercise Name Rows Side bilateral Resistance Lv 3 Equipment Used T-band 2 Standing Exercise Name Shoulder Abduction Side right Resistance Lv 3 Equipment Used T-band 1 Standing Exercise Name Shoulder Extension Side bilateral Resistance Lv 3 Equipment Used T-band Manual Therapy Treatment Soft Tissue Mobilization Parascapulars Body Location Right Parascapulars Mobilization Type Strumming,Sustained Pressure, Other Intensity/Depth Moderate Upper Trap Body Location Right Trap Mobilization Type Strumming,Sustained Pressure Intensity/Depth Moderate PT-OP-R Modalities Start: 10/23/20 17:49 Freq: Status: Active Protocol: Document 10/25/20 16:48 DCW (Rec: 10/25/20 17:36 DCW [id number]) Iontophoresis Treatment Right Anterior Shoulder Treatment Medication Dexamethasone (-) Medication Amount (mL) (ml) 1.0 Medication Dosage 4 mg/mL Treatment Polarity Negative to Negative Active Electrode Placement Right bicipital groove Treatment Duration (minutes) 4 Ultrasound Therapy Treatment Right Anterior Shoulder Treatment Duration (minutes) 8 Patient Position Supine Coupling Medium Ultrasound Gel Applicator Size (cm2) 5 Frequency Setting (mHz) 3 Duty Cycle 50% Intensity Setting (w/cm2) 1.0 PT-OP-T Assessment and Plan Start: 10/23/20 17:49 Freq: Status: Active Protocol: Document 10/25/20 16:48 DCW (Rec: 10/25/20 17:36 DCW [id number]) Physical Therapy Assessment Impairments Impairments Functional Activities, Functional Mobility,Pain,ROM, Soft Tissue Mobility,Strength, Tone Goals Three Impairment Positive special testing indicating bicipital tendonitis Nursing Home Goal (LTG) Negative right shoulder special testing to indicate pt 's ability to retun to usual household activities without pain. LTG Duration 12/24/20 Two Impairment Pt unable to doff sprots bra without pain Hand Tufter Goal (LTG) Pt to don/doff all clothing with no increased shoulder pain for a period of two weeks LTG Duration 12/24/20 One Impairment Pt does not have an appropriate home exercise program Short Term Goal (STG) Pt to be independent and compliant with an appropriate HEP STG Duration 11/23/20 Assessment Summary Assessment Pt tolerated treatment well today, minimal discomfort or complaints of popping in her shoulder with strengthening exercises, felt the US was effective, interested in trial of Iontophoresis Physical Therapy Plan Frequency and Duration Frequency of Treatment 2x/Week Duration of Treatment Two months Plan of Care Start Date 10/23/20 Plan of Care End Date 12/23/20 Therapeutic Interventions Therapeutic Interventions Home Exercise Program,Joint Mobilizations,Manual Therapy, Neuromuscular Re-education, Patient/Caregiver Education, Self-Care/Home Management,Soft Tissue Mobilization, Therapeutic Activities, Therapeutic Exercises Modalities Cold Pack/Ice Massage,Electric Stimulation,Hot Packs, Iontophoresis,Ultrasound Other Therapeutic Interventions Iontophoresis /c Dexamethasone 4 mg/mL Next Visit Focus/Plan Next Note Type Treatment Note Next Visit Plan K-tape, Shoulder strengthening , Iontophoresis, Manual therapy
--- NOTE | 2020-10-30 15:21 | PT.OTN ---
Current Diagnoses Pain in right shoulder (10/30/20) Physical Therapy Treatment Note PT-OP-A Visit Information Start: 10/23/20 17:49 Freq: Status: Active Protocol: Document 10/30/20 14:30 DCW (Rec: 10/30/20 15:21 DCW [id number]) Out-Patient Physical Therapy Visit Information Visit Information Visit Type Treatment Note Visit Start Time 14:30 Visit Stop Time 15:15 Total Visit Minutes 45 Visit Number 3 Number of REAL ESTATE OFFICE SUPERVISOR Visits 0 Evaluation Information Evaluation Date 10/23/20 PT-OP-B Current Condition Start: 10/23/20 17:49 Freq: Status: Active Protocol: Document 10/23/20 16:45 DCW (Rec: 10/24/20 10:08 DCW [id number]) Current Condition History of Current Condition Onset Date 2-3 months Current Complaints Right shoulder and upper arm pain History of Current Condition Pt is a 65 year old female presenting with a 2-3 month history of right shoulder and upper arm pain. Pt notes there was no specific injury, just worsening pain. She notes she has been resting it, has stopped doing any heavy work around the house, and it seems to be improving. Notes that at it's worst, it had been a 4 -5/10, but now it is more like a 2.5/10, and she has even stopped taking ibuprofen. Notes pain is worst in her anterior right shoulder and down her anterior upper arm. Pain can limit her sleep if she rolls over onto her arm, and has limited her gardening, which she would like to get back to. Pt also notes that the most pain she experiences daily is trying to take off her sports bra. Does admit to occasional clicking at her anterior shoulder. Personal Factors Other Personal Factors That May Effect History of severe vestibular Therapy/Recovery neuritis PT-OP-C Subjective Start: 10/23/20 17:49 Freq: Status: Active Protocol: Document 10/30/20 14:30 DCW (Rec: 10/30/20 15:21 DCW [id number]) OP-PT Subjective Patient Comments Patient Comments There hasn't been any change, no problems with the patch. PT-OP-E Functional Tests Start: 10/23/20 17:49 Freq: Status: Active Protocol: Document 10/23/20 16:45 DCW (Rec: 10/24/20 10:16 DCW [id number]) Functional Tests Apley's Scratch Test Action 1- Left Posterior opposite shoulder Action 1- Right Posterior opposite shoulder Action 2- Left T3 Action 2- Right T3 Action 3- Left T6 Action 3- Right T8 PT-OP-F Manual Assessment Start: 10/23/20 17:49 Freq: Status: Active Protocol: Document 10/23/20 16:45 DCW (Rec: 10/24/20 10:16 DCW [id number]) Manual Assessments Soft Tissue Assessment Soft Tissue Mobility Assessment Tenderness to palpation 3/4: Wincing and withdraw along bicipital groove PT-OP-K Range of Motion Start: 10/23/20 17:49 Freq: Status: Active Protocol: Document 10/23/20 16:45 DCW (Rec: 10/24/20 10:16 DCW [id number]) Shoulder Goniometric Range of Motion Shoulder Right Active Shoulder ROM WFL Yes Flexion 180 Abduction 180 PT-OP-L Special Tests Start: 10/23/20 17:49 Freq: Status: Active Protocol: Document 10/23/20 16:45 DCW (Rec: 10/24/20 10:16 DCW [id number]) Special Tests Shoulder Special Tests Yergason's Biceps Test Results Positive Right Speed's Biceps Test Results Positive Right Passive ER Rotator Cuff Test Results Negative Painful Arc Test Results Positive Right Lift-Off Rotator Cuff Test Results Negative Rocha Jean-Claude Impingement Test Results Positive Right Grind Labrum Test Results Positive Right Empty Can Test Results Positive Right Drop Arm Rotator Cuff Test Results Negative Clunk Test Test Results Negative Biceps Load II Test Test Results Positive Right Belly Press Test Results Negative Apprehension Test Test Results Positive Right Anterior Draw Test Results Negative AC Joint Compression Test Results Negative PT-OP-M Strength Start: 10/23/20 17:49 Freq: Status: Active Protocol: Document 10/23/20 16:45 DCW (Rec: 10/24/20 10:16 DCW [id number]) Shoulder Strength Shoulder Manual Muscle Testing Right Flexion 4- Good- Abduction (C5) 4+ Good+ External Rotation 4- Good- Internal Rotation 5 Normal Left Flexion 4 Good Abduction (C5) 4+ Good+ External Rotation 4+ Good+ Internal Rotation 5 Normal Elbow/Forearm Strength Elbow and Forearm Manual Muscle Testing Right Flexion (C6) 4 Good Extension (C7) 4 Good Left Flexion (C6) 4+ Good+ Extension (C7) 4+ Good+ PT-OP-Q Treatments Start: 10/23/20 17:49 Freq: Status: Active Protocol: Document 10/30/20 14:30 DCW (Rec: 10/30/20 15:21 DCW [id number]) Cardio Equipment Upper Body Ergometer (UBE) Duration (Minutes) 4 RPM 60 Seat Position 11 Height 3 Therapeutic Exercises Standing Exercises 4 Standing Exercise Name Shoulder IR/ER Side right Resistance Lv 3 Equipment Used T-band 3 Standing Exercise Name Rows Side bilateral Resistance Lv 3 Equipment Used T-band 2 Standing Exercise Name Shoulder Flexion/Abduction Side right Resistance Lv 2 Equipment Used T-band 1 Standing Exercise Name Shoulder Extension Side bilateral Resistance Lv 3 Equipment Used T-band Manual Therapy Treatment Soft Tissue Mobilization Parascapulars Body Location Right Parascapulars Mobilization Type Strumming,Sustained Pressure, Other Intensity/Depth Moderate Upper Trap Body Location Right Trap Mobilization Type Strumming,Sustained Pressure Intensity/Depth Moderate PT-OP-R Modalities Start: 10/23/20 17:49 Freq: Status: Active Protocol: Document 10/30/20 14:30 DCW (Rec: 10/30/20 15:21 DCW [id number]) Iontophoresis Treatment Right Anterior Shoulder Treatment Medication Dexamethasone (-) Medication Amount (mL) (ml) 1.0 Medication Dosage 4 mg/mL Treatment Polarity Negative to Negative Active Electrode Placement Right bicipital groove Treatment Duration (minutes) 4 Ultrasound Therapy Treatment Right Anterior Shoulder Treatment Duration (minutes) 8 Patient Position Supine Coupling Medium Ultrasound Gel Applicator Size (cm2) 5 Frequency Setting (mHz) 3 Duty Cycle 50% Intensity Setting (w/cm2) 1.0 PT-OP-T Assessment and Plan Start: 10/23/20 17:49 Freq: Status: Active Protocol: Document 10/30/20 14:30 DCW (Rec: 10/30/20 15:21 DCW [id number]) Physical Therapy Assessment Impairments Impairments Functional Activities, Functional Mobility,Pain,ROM, Soft Tissue Mobility,Strength, Tone Goals Three Impairment Positive special testing indicating bicipital tendonitis Yard Operator Goal (LTG) Negative right shoulder special testing to indicate pt 's ability to retun to usual household activities without pain. LTG Duration 12/24/20 Two Impairment Pt unable to doff sprots bra without pain Group Home Goal (LTG) Pt to don/doff all clothing with no increased shoulder pain for a period of two weeks LTG Duration 12/24/20 One Impairment Pt does not have an appropriate home exercise program Short Term Goal (STG) Pt to be independent and compliant with an appropriate HEP STG Duration 11/23/20 Assessment Summary Assessment Pt doing well with treatment, not having any problems with HEP. Physical Therapy Plan Frequency and Duration Frequency of Treatment 2x/Week Duration of Treatment Two months Plan of Care Start Date 10/23/20 Plan of Care End Date 12/23/20 Therapeutic Interventions Therapeutic Interventions Home Exercise Program,Joint Mobilizations,Manual Therapy, Neuromuscular Re-education, Patient/Caregiver Education, Self-Care/Home Management,Soft Tissue Mobilization, Therapeutic Activities, Therapeutic Exercises Modalities Cold Pack/Ice Massage,Electric Stimulation,Hot Packs, Iontophoresis,Ultrasound Other Therapeutic Interventions Iontophoresis /c Dexamethasone 4 mg/mL Next Visit Focus/Plan Next Note Type Treatment Note Next Visit Plan K-tape, Shoulder strengthening , Iontophoresis, Manual therapy
--- NOTE | 2020-11-02 14:32 | PT.OTN ---
Current Diagnoses Pain in right shoulder (11/02/20) Physical Therapy Treatment Note PT-OP-A Visit Information Start: 10/23/20 17:49 Freq: Status: Active Protocol: Document 11/02/20 13:45 DCW (Rec: 11/02/20 14:32 DCW [id number]) Out-Patient Physical Therapy Visit Information Visit Information Visit Type Treatment Note Visit Start Time 13:45 Visit Stop Time 14:30 Total Visit Minutes 45 Visit Number 4 Number of CIRCULATION REPRESENTATIVE Visits 0 Evaluation Information Evaluation Date 10/23/20 PT-OP-B Current Condition Start: 10/23/20 17:49 Freq: Status: Active Protocol: Document 10/23/20 16:45 DCW (Rec: 10/24/20 10:08 DCW [id number]) Current Condition History of Current Condition Onset Date 2-3 months Current Complaints Right shoulder and upper arm pain History of Current Condition Pt is a 65 year old female presenting with a 2-3 month history of right shoulder and upper arm pain. Pt notes there was no specific injury, just worsening pain. She notes she has been resting it, has stopped doing any heavy work around the house, and it seems to be improving. Notes that at it's worst, it had been a 4 -5/10, but now it is more like a 2.5/10, and she has even stopped taking ibuprofen. Notes pain is worst in her anterior right shoulder and down her anterior upper arm. Pain can limit her sleep if she rolls over onto her arm, and has limited her gardening, which she would like to get back to. Pt also notes that the most pain she experiences daily is trying to take off her sports bra. Does admit to occasional clicking at her anterior shoulder. Personal Factors Other Personal Factors That May Effect History of severe vestibular Therapy/Recovery neuritis PT-OP-C Subjective Start: 10/23/20 17:49 Freq: Status: Active Protocol: Document 11/02/20 13:45 DCW (Rec: 11/02/20 14:32 DCW [id number]) OP-PT Subjective Patient Comments Patient Comments I'm doing better in the shoulder area. Pt notes she had some increased soreness in her R cervical area the day after her last PT appt, but it largely faded by the following day, and she feels much better now. PT-OP-E Functional Tests Start: 10/23/20 17:49 Freq: Status: Active Protocol: Document 10/23/20 16:45 DCW (Rec: 10/24/20 10:16 DCW [id number]) Functional Tests Apley's Scratch Test Action 1- Left Posterior opposite shoulder Action 1- Right Posterior opposite shoulder Action 2- Left T3 Action 2- Right T3 Action 3- Left T6 Action 3- Right T8 PT-OP-F Manual Assessment Start: 10/23/20 17:49 Freq: Status: Active Protocol: Document 10/23/20 16:45 DCW (Rec: 10/24/20 10:16 DCW [id number]) Manual Assessments Soft Tissue Assessment Soft Tissue Mobility Assessment Tenderness to palpation 3/4: Wincing and withdraw along bicipital groove PT-OP-K Range of Motion Start: 10/23/20 17:49 Freq: Status: Active Protocol: Document 10/23/20 16:45 DCW (Rec: 10/24/20 10:16 DCW [id number]) Shoulder Goniometric Range of Motion Shoulder Right Active Shoulder ROM WFL Yes Flexion 180 Abduction 180 PT-OP-L Special Tests Start: 10/23/20 17:49 Freq: Status: Active Protocol: Document 10/23/20 16:45 DCW (Rec: 10/24/20 10:16 DCW [id number]) Special Tests Shoulder Special Tests Ta's Biceps Test Results Positive Right Speed's Biceps Test Results Positive Right Passive ER Rotator Cuff Test Results Negative Painful Arc Test Results Positive Right Lift-Off Rotator Cuff Test Results Negative Rocha Jean-Claude Impingement Test Results Positive Right Grind Labrum Test Results Positive Right Empty Can Test Results Positive Right Drop Arm Rotator Cuff Test Results Negative Clunk Test Test Results Negative Biceps Load II Test Test Results Positive Right Belly Press Test Results Negative Apprehension Test Test Results Positive Right Anterior Draw Test Results Negative AC Joint Compression Test Results Negative PT-OP-M Strength Start: 10/23/20 17:49 Freq: Status: Active Protocol: Document 10/23/20 16:45 DCW (Rec: 10/24/20 10:16 DCW [id number]) Shoulder Strength Shoulder Manual Muscle Testing Right Flexion 4- Good- Abduction (C5) 4+ Good+ External Rotation 4- Good- Internal Rotation 5 Normal Left Flexion 4 Good Abduction (C5) 4+ Good+ External Rotation 4+ Good+ Internal Rotation 5 Normal Elbow/Forearm Strength Elbow and Forearm Manual Muscle Testing Right Flexion (C6) 4 Good Extension (C7) 4 Good Left Flexion (C6) 4+ Good+ Extension (C7) 4+ Good+ PT-OP-Q Treatments Start: 10/23/20 17:49 Freq: Status: Active Protocol: Document 11/02/20 13:45 DCW (Rec: 11/02/20 14:32 DCW [id number]) Cardio Equipment Upper Body Ergometer (UBE) Duration (Minutes) 4 RPM 60 Seat Position 11 Height 3 Therapeutic Exercises Standing Exercises 4 Standing Exercise Name Shoulder IR/ER Side right Resistance Lv 3 Equipment Used T-band 3 Standing Exercise Name Rows Side bilateral Resistance Lv 3 Equipment Used T-band 2 Standing Exercise Name Shoulder Flexion/Abduction Side right Resistance Lv 2 Equipment Used T-band 1 Standing Exercise Name Shoulder Extension Side bilateral Resistance Lv 3 Equipment Used T-band Other Exercises 2 Other Exercise Name Wall push-ups Reps/Minutes x15 each Comments <> and W hand positions 1 Other Exercise Name Resisted UE side-stepping Resistance Yellow Equipment Used T-band Manual Therapy Treatment Soft Tissue Mobilization Parascapulars Body Location Right Parascapulars Mobilization Type Strumming,Sustained Pressure, Other Intensity/Depth Moderate Upper Trap Body Location Right Trap Mobilization Type Strumming,Sustained Pressure Intensity/Depth Moderate PT-OP-R Modalities Start: 10/23/20 17:49 Freq: Status: Active Protocol: Document 11/02/20 13:45 DCW (Rec: 11/02/20 14:32 DCW [id number]) Iontophoresis Treatment Right Anterior Shoulder Treatment Medication Dexamethasone (-) Medication Amount (mL) (ml) 1.0 Medication Dosage 4 mg/mL Treatment Polarity Negative to Negative Active Electrode Placement Right bicipital groove Treatment Duration (minutes) 4 PT-OP-T Assessment and Plan Start: 10/23/20 17:49 Freq: Status: Active Protocol: Document 11/02/20 13:45 DCW (Rec: 11/02/20 14:32 DCW [id number]) Physical Therapy Assessment Impairments Impairments Functional Activities, Functional Mobility,Pain,ROM, Soft Tissue Mobility,Strength, Tone Goals Three Impairment Positive special testing indicating bicipital tendonitis Senior Care Goal (LTG) Negative right shoulder special testing to indicate pt 's ability to retun to usual household activities without pain. LTG Duration 12/24/20 Two Impairment Pt unable to doff sprots bra without pain Senior Care Goal (LTG) Pt to don/doff all clothing with no increased shoulder pain for a period of two weeks LTG Duration 12/24/20 One Impairment Pt does not have an appropriate home exercise program Short Term Goal (STG) Pt to be independent and compliant with an appropriate HEP STG Duration 11/23/20 Assessment Summary Assessment Pt showing improved pain-free ROM, much more tolerant to palpation. Physical Therapy Plan Frequency and Duration Frequency of Treatment 2x/Week Duration of Treatment Two months Plan of Care Start Date 10/23/20 Plan of Care End Date 12/23/20 Therapeutic Interventions Therapeutic Interventions Home Exercise Program,Joint Mobilizations,Manual Therapy, Neuromuscular Re-education, Patient/Caregiver Education, Self-Care/Home Management,Soft Tissue Mobilization, Therapeutic Activities, Therapeutic Exercises Modalities Cold Pack/Ice Massage,Electric Stimulation,Hot Packs, Iontophoresis,Ultrasound Other Therapeutic Interventions Iontophoresis /c Dexamethasone 4 mg/mL Next Visit Focus/Plan Next Note Type Treatment Note Next Visit Plan K-tape, Shoulder strengthening , Iontophoresis, Manual therapy
--- NOTE | 2020-11-06 15:17 | PT.OTN ---
Current Diagnoses Pain in right shoulder (11/06/20) Physical Therapy Treatment Note PT-OP-A Visit Information Start: 10/23/20 17:49 Freq: Status: Active Protocol: Document 11/06/20 14:30 DCW (Rec: 11/06/20 15:17 DCW [id number]) Out-Patient Physical Therapy Visit Information Visit Information Visit Type Treatment Note Visit Start Time 14:30 Visit Stop Time 15:15 Total Visit Minutes 45 Visit Number 5 Number of ROUTE RIDER SUPERVISOR Visits 0 Evaluation Information Evaluation Date 10/23/20 PT-OP-B Current Condition Start: 10/23/20 17:49 Freq: Status: Active Protocol: Document 10/23/20 16:45 DCW (Rec: 10/24/20 10:08 DCW [id number]) Current Condition History of Current Condition Onset Date 2-3 months Current Complaints Right shoulder and upper arm pain History of Current Condition Pt is a 65 year old female presenting with a 2-3 month history of right shoulder and upper arm pain. Pt notes there was no specific injury, just worsening pain. She notes she has been resting it, has stopped doing any heavy work around the house, and it seems to be improving. Notes that at it's worst, it had been a 4 -5/10, but now it is more like a 2.5/10, and she has even stopped taking ibuprofen. Notes pain is worst in her anterior right shoulder and down her anterior upper arm. Pain can limit her sleep if she rolls over onto her arm, and has limited her gardening, which she would like to get back to. Pt also notes that the most pain she experiences daily is trying to take off her sports bra. Does admit to occasional clicking at her anterior shoulder. Personal Factors Other Personal Factors That May Effect History of severe vestibular Therapy/Recovery neuritis PT-OP-C Subjective Start: 10/23/20 17:49 Freq: Status: Active Protocol: Document 11/06/20 14:30 DCW (Rec: 11/06/20 15:17 DCW [id number]) OP-PT Subjective Patient Comments Patient Comments It's about the same, maybe a little better, but I'm not really willing to test it too hard. PT-OP-E Functional Tests Start: 10/23/20 17:49 Freq: Status: Active Protocol: Document 10/23/20 16:45 DCW (Rec: 10/24/20 10:16 DCW [id number]) Functional Tests Apley's Scratch Test Action 1- Left Posterior opposite shoulder Action 1- Right Posterior opposite shoulder Action 2- Left T3 Action 2- Right T3 Action 3- Left T6 Action 3- Right T8 PT-OP-F Manual Assessment Start: 10/23/20 17:49 Freq: Status: Active Protocol: Document 10/23/20 16:45 DCW (Rec: 10/24/20 10:16 DCW [id number]) Manual Assessments Soft Tissue Assessment Soft Tissue Mobility Assessment Tenderness to palpation 3/4: Wincing and withdraw along bicipital groove PT-OP-K Range of Motion Start: 10/23/20 17:49 Freq: Status: Active Protocol: Document 10/23/20 16:45 DCW (Rec: 10/24/20 10:16 DCW [id number]) Shoulder Goniometric Range of Motion Shoulder Right Active Shoulder ROM WFL Yes Flexion 180 Abduction 180 PT-OP-L Special Tests Start: 10/23/20 17:49 Freq: Status: Active Protocol: Document 10/23/20 16:45 DCW (Rec: 10/24/20 10:16 DCW [id number]) Special Tests Shoulder Special Tests Yergason's Biceps Test Results Positive Right Speed's Biceps Test Results Positive Right Passive ER Rotator Cuff Test Results Negative Painful Arc Test Results Positive Right Lift-Off Rotator Cuff Test Results Negative Rocha Jean-Claude Impingement Test Results Positive Right Grind Labrum Test Results Positive Right Empty Can Test Results Positive Right Drop Arm Rotator Cuff Test Results Negative Clunk Test Test Results Negative Biceps Load II Test Test Results Positive Right Belly Press Test Results Negative Apprehension Test Test Results Positive Right Anterior Draw Test Results Negative AC Joint Compression Test Results Negative PT-OP-M Strength Start: 10/23/20 17:49 Freq: Status: Active Protocol: Document 10/23/20 16:45 DCW (Rec: 10/24/20 10:16 DCW [id number]) Shoulder Strength Shoulder Manual Muscle Testing Right Flexion 4- Good- Abduction (C5) 4+ Good+ External Rotation 4- Good- Internal Rotation 5 Normal Left Flexion 4 Good Abduction (C5) 4+ Good+ External Rotation 4+ Good+ Internal Rotation 5 Normal Elbow/Forearm Strength Elbow and Forearm Manual Muscle Testing Right Flexion (C6) 4 Good Extension (C7) 4 Good Left Flexion (C6) 4+ Good+ Extension (C7) 4+ Good+ PT-OP-Q Treatments Start: 10/23/20 17:49 Freq: Status: Active Protocol: Document 11/06/20 14:30 DCW (Rec: 11/06/20 15:17 DCW [id number]) Cardio Equipment Upper Body Ergometer (UBE) Duration (Minutes) 4 RPM 60 Seat Position 11 Height 3 Therapeutic Exercises Other Exercises 2 Other Exercise Name Wall push-ups Reps/Minutes x15 each Comments <> and W hand positions 1 Other Exercise Name Resisted UE side-stepping Resistance Yellow Equipment Used T-band Manual Therapy Treatment Soft Tissue Mobilization Parascapulars Body Location Right Parascapulars Mobilization Type Strumming,Sustained Pressure, Other Intensity/Depth Moderate Upper Trap Body Location Right Trap Mobilization Type Strumming,Sustained Pressure Intensity/Depth Moderate PT-OP-R Modalities Start: 10/23/20 17:49 Freq: Status: Active Protocol: Document 11/06/20 14:30 DCW (Rec: 11/06/20 15:17 DCW [id number]) Iontophoresis Treatment Right Anterior Shoulder Treatment Medication Dexamethasone (-) Medication Amount (mL) (ml) 1.0 Medication Dosage 4 mg/mL Treatment Polarity Negative to Negative Active Electrode Placement Right bicipital groove Treatment Duration (minutes) 4 PT-OP-T Assessment and Plan Start: 10/23/20 17:49 Freq: Status: Active Protocol: Document 11/06/20 14:30 DCW (Rec: 11/06/20 15:17 DCW [id number]) Physical Therapy Assessment Impairments Impairments Functional Activities, Functional Mobility,Pain,ROM, Soft Tissue Mobility,Strength, Tone Goals Three Impairment Positive special testing indicating bicipital tendonitis Long-Term Goal (LTG) Negative right shoulder special testing to indicate pt 's ability to retun to usual household activities without pain. LTG Duration 12/24/20 Two Impairment Pt unable to doff sprots bra without pain Long-Term Goal (LTG) Pt to don/doff all clothing with no increased shoulder pain for a period of two weeks LTG Duration 12/24/20 One Impairment Pt does not have an appropriate home exercise program Short Term Goal (STG) Pt to be independent and compliant with an appropriate HEP STG Duration 11/23/20 Assessment Summary Assessment Pt showing good progress, compliant with HEP, substantially less tenderness with palpation. Decrease POC to 1x/week Physical Therapy Plan Frequency and Duration Frequency of Treatment 1x/Week Duration of Treatment Two months Plan of Care Start Date 10/23/20 Plan of Care End Date 12/23/20 Therapeutic Interventions Therapeutic Interventions Home Exercise Program,Joint Mobilizations,Manual Therapy, Neuromuscular Re-education, Patient/Caregiver Education, Self-Care/Home Management,Soft Tissue Mobilization, Therapeutic Activities, Therapeutic Exercises Modalities Cold Pack/Ice Massage,Electric Stimulation,Hot Packs, Iontophoresis,Ultrasound Other Therapeutic Interventions Iontophoresis /c Dexamethasone 4 mg/mL Next Visit Focus/Plan Next Note Type Treatment Note Next Visit Plan K-tape, Shoulder strengthening , Iontophoresis, Manual therapy
--- NOTE | 2020-11-16 14:30 | PT.OTN ---
Current Diagnoses Pain in right shoulder (11/16/20) Physical Therapy Treatment Note PT-OP-A Visit Information Start: 10/23/20 17:49 Freq: Status: Active Protocol: Document 11/16/20 13:45 DCW (Rec: 11/16/20 14:30 DCW [id number]) Out-Patient Physical Therapy Visit Information Visit Information Visit Type Treatment Note Visit Start Time 13:45 Visit Stop Time 14:30 Total Visit Minutes 45 Visit Number 6 Number of TOBACCO FLAVORER Visits 0 Evaluation Information Evaluation Date 10/23/20 PT-OP-B Current Condition Start: 10/23/20 17:49 Freq: Status: Active Protocol: Document 10/23/20 16:45 DCW (Rec: 10/24/20 10:08 DCW [id number]) Current Condition History of Current Condition Onset Date 2-3 months Current Complaints Right shoulder and upper arm pain History of Current Condition Pt is a 65 year old female presenting with a 2-3 month history of right shoulder and upper arm pain. Pt notes there was no specific injury, just worsening pain. She notes she has been resting it, has stopped doing any heavy work around the house, and it seems to be improving. Notes that at it's worst, it had been a 4 -5/10, but now it is more like a 2.5/10, and she has even stopped taking ibuprofen. Notes pain is worst in her anterior right shoulder and down her anterior upper arm. Pain can limit her sleep if she rolls over onto her arm, and has limited her gardening, which she would like to get back to. Pt also notes that the most pain she experiences daily is trying to take off her sports bra. Does admit to occasional clicking at her anterior shoulder. Personal Factors Other Personal Factors That May Effect History of severe vestibular Therapy/Recovery neuritis PT-OP-C Subjective Start: 10/23/20 17:49 Freq: Status: Active Protocol: Document 11/16/20 13:45 DCW (Rec: 11/16/20 14:30 DCW [id number]) OP-PT Subjective Patient Comments Patient Comments It's continuing to get better , slowly but steadily. Notes she had reaction to the adhesive on the Ionto patch. PT-OP-E Functional Tests Start: 10/23/20 17:49 Freq: Status: Active Protocol: Document 10/23/20 16:45 DCW (Rec: 10/24/20 10:16 DCW [id number]) Functional Tests Apley's Scratch Test Action 1- Left Posterior opposite shoulder Action 1- Right Posterior opposite shoulder Action 2- Left T3 Action 2- Right T3 Action 3- Left T6 Action 3- Right T8 PT-OP-F Manual Assessment Start: 10/23/20 17:49 Freq: Status: Active Protocol: Document 10/23/20 16:45 DCW (Rec: 10/24/20 10:16 DCW [id number]) Manual Assessments Soft Tissue Assessment Soft Tissue Mobility Assessment Tenderness to palpation 3/4: Wincing and withdraw along bicipital groove PT-OP-K Range of Motion Start: 10/23/20 17:49 Freq: Status: Active Protocol: Document 10/23/20 16:45 DCW (Rec: 10/24/20 10:16 DCW [id number]) Shoulder Goniometric Range of Motion Shoulder Right Active Shoulder ROM WFL Yes Flexion 180 Abduction 180 PT-OP-L Special Tests Start: 10/23/20 17:49 Freq: Status: Active Protocol: Document 10/23/20 16:45 DCW (Rec: 10/24/20 10:16 DCW [id number]) Special Tests Shoulder Special Tests Yergason's Biceps Test Results Positive Right Speed's Biceps Test Results Positive Right Passive ER Rotator Cuff Test Results Negative Painful Arc Test Results Positive Right Lift-Off Rotator Cuff Test Results Negative Rocha Jean-Claude Impingement Test Results Positive Right Grind Labrum Test Results Positive Right Empty Can Test Results Positive Right Drop Arm Rotator Cuff Test Results Negative Clunk Test Test Results Negative Biceps Load II Test Test Results Positive Right Belly Press Test Results Negative Apprehension Test Test Results Positive Right Anterior Draw Test Results Negative AC Joint Compression Test Results Negative PT-OP-M Strength Start: 10/23/20 17:49 Freq: Status: Active Protocol: Document 10/23/20 16:45 DCW (Rec: 10/24/20 10:16 DCW [id number]) Shoulder Strength Shoulder Manual Muscle Testing Right Flexion 4- Good- Abduction (C5) 4+ Good+ External Rotation 4- Good- Internal Rotation 5 Normal Left Flexion 4 Good Abduction (C5) 4+ Good+ External Rotation 4+ Good+ Internal Rotation 5 Normal Elbow/Forearm Strength Elbow and Forearm Manual Muscle Testing Right Flexion (C6) 4 Good Extension (C7) 4 Good Left Flexion (C6) 4+ Good+ Extension (C7) 4+ Good+ PT-OP-Q Treatments Start: 10/23/20 17:49 Freq: Status: Active Protocol: Document 11/16/20 13:45 DCW (Rec: 11/16/20 14:30 DCW [id number]) Cardio Equipment Upper Body Ergometer (UBE) Duration (Minutes) 4 RPM 60 Seat Position 11 Height 3 Therapeutic Exercises Supine Exercises 1 Supine Exercise Name IR/ER in Manual Therapy Treatment Soft Tissue Mobilization Parascapulars Body Location Right Parascapulars Mobilization Type Strumming,Sustained Pressure, Other Intensity/Depth Moderate Upper Trap Body Location Right Trap Mobilization Type Strumming,Sustained Pressure Intensity/Depth Moderate Joint Mobilizations 1 Joint R GH Direction Inf Grade III PT-OP-R Modalities Start: 10/23/20 17:49 Freq: Status: Active Protocol: Document 11/16/20 13:45 DCW (Rec: 11/16/20 14:30 DCW [id number]) Ultrasound Therapy Treatment Right Anterior Shoulder Treatment Duration (minutes) 8 Patient Position Supine Coupling Medium Ultrasound Gel Applicator Size (cm2) 5 Frequency Setting (mHz) 3 Duty Cycle 50% Intensity Setting (w/cm2) 1.0 PT-OP-T Assessment and Plan Start: 10/23/20 17:49 Freq: Status: Active Protocol: Document 11/16/20 13:45 DCW (Rec: 11/16/20 14:30 DCW [id number]) Physical Therapy Assessment Impairments Impairments Functional Activities, Functional Mobility,Pain,ROM, Soft Tissue Mobility,Strength, Tone Goals Three Impairment Positive special testing indicating bicipital tendonitis Transport Aide Goal (LTG) Negative right shoulder special testing to indicate pt 's ability to retun to usual household activities without pain. LTG Duration 12/24/20 Two Impairment Pt unable to doff sprots bra without pain Transport Aide Goal (LTG) Pt to don/doff all clothing with no increased shoulder pain for a period of two weeks LTG Duration 12/24/20 One Impairment Pt does not have an appropriate home exercise program Short Term Goal (STG) Pt to be independent and compliant with an appropriate HEP STG Duration 11/23/20 Assessment Summary Assessment Skilled Ionto today after pt having a skin reaction last week. Pt showing good progress with mobility and pain control . Physical Therapy Plan Frequency and Duration Frequency of Treatment 1x/Week Duration of Treatment Two months Plan of Care Start Date 10/23/20 Plan of Care End Date 12/23/20 Therapeutic Interventions Therapeutic Interventions Home Exercise Program,Joint Mobilizations,Manual Therapy, Neuromuscular Re-education, Patient/Caregiver Education, Self-Care/Home Management,Soft Tissue Mobilization, Therapeutic Activities, Therapeutic Exercises Modalities Cold Pack/Ice Massage,Electric Stimulation,Hot Packs, Iontophoresis,Ultrasound Other Therapeutic Interventions Iontophoresis /c Dexamethasone 4 mg/mL Next Visit Focus/Plan Next Note Type Treatment Note Next Visit Plan K-tape, Shoulder strengthening , Iontophoresis, Manual therapy
--- NOTE | 2020-11-23 14:31 | PT.OTN ---
Current Diagnoses Pain in right shoulder (11/23/20) Physical Therapy Treatment Note PT-OP-A Visit Information Start: 10/23/20 17:49 Freq: Status: Active Protocol: Document 11/23/20 13:45 DCW (Rec: 11/23/20 14:30 DCW [id number]) Out-Patient Physical Therapy Visit Information Visit Information Visit Type Treatment Note Visit Start Time 13:45 Visit Stop Time 14:30 Total Visit Minutes 45 Visit Number 7 Number of BOAT JOINER HELPER Visits 0 Evaluation Information Evaluation Date 10/23/20 PT-OP-B Current Condition Start: 10/23/20 17:49 Freq: Status: Active Protocol: Document 10/23/20 16:45 DCW (Rec: 10/24/20 10:08 DCW [id number]) Current Condition History of Current Condition Onset Date 2-3 months Current Complaints Right shoulder and upper arm pain History of Current Condition Pt is a 65 year old female presenting with a 2-3 month history of right shoulder and upper arm pain. Pt notes there was no specific injury, just worsening pain. She notes she has been resting it, has stopped doing any heavy work around the house, and it seems to be improving. Notes that at it's worst, it had been a 4 -5/10, but now it is more like a 2.5/10, and she has even stopped taking ibuprofen. Notes pain is worst in her anterior right shoulder and down her anterior upper arm. Pain can limit her sleep if she rolls over onto her arm, and has limited her gardening, which she would like to get back to. Pt also notes that the most pain she experiences daily is trying to take off her sports bra. Does admit to occasional clicking at her anterior shoulder. Personal Factors Other Personal Factors That May Effect History of severe vestibular Therapy/Recovery neuritis PT-OP-C Subjective Start: 10/23/20 17:49 Freq: Status: Active Protocol: Document 11/23/20 13:45 DCW (Rec: 11/23/20 14:30 DCW [id number]) OP-PT Subjective Patient Comments Patient Comments I'd say it is a little better . PT-OP-E Functional Tests Start: 10/23/20 17:49 Freq: Status: Active Protocol: Document 10/23/20 16:45 DCW (Rec: 10/24/20 10:16 DCW [id number]) Functional Tests Apley's Scratch Test Action 1- Left Posterior opposite shoulder Action 1- Right Posterior opposite shoulder Action 2- Left T3 Action 2- Right T3 Action 3- Left T6 Action 3- Right T8 PT-OP-F Manual Assessment Start: 10/23/20 17:49 Freq: Status: Active Protocol: Document 10/23/20 16:45 DCW (Rec: 10/24/20 10:16 DCW [id number]) Manual Assessments Soft Tissue Assessment Soft Tissue Mobility Assessment Tenderness to palpation 3/4: Wincing and withdraw along bicipital groove PT-OP-K Range of Motion Start: 10/23/20 17:49 Freq: Status: Active Protocol: Document 10/23/20 16:45 DCW (Rec: 10/24/20 10:16 DCW [id number]) Shoulder Goniometric Range of Motion Shoulder Right Active Shoulder ROM WFL Yes Flexion 180 Abduction 180 PT-OP-L Special Tests Start: 10/23/20 17:49 Freq: Status: Active Protocol: Document 10/23/20 16:45 DCW (Rec: 10/24/20 10:16 DCW [id number]) Special Tests Shoulder Special Tests Yergason's Biceps Test Results Positive Right Speed's Biceps Test Results Positive Right Passive ER Rotator Cuff Test Results Negative Painful Arc Test Results Positive Right Lift-Off Rotator Cuff Test Results Negative Rocha Jean-Claude Impingement Test Results Positive Right Grind Labrum Test Results Positive Right Empty Can Test Results Positive Right Drop Arm Rotator Cuff Test Results Negative Clunk Test Test Results Negative Biceps Load II Test Test Results Positive Right Belly Press Test Results Negative Apprehension Test Test Results Positive Right Anterior Draw Test Results Negative AC Joint Compression Test Results Negative PT-OP-M Strength Start: 10/23/20 17:49 Freq: Status: Active Protocol: Document 10/23/20 16:45 DCW (Rec: 10/24/20 10:16 DCW [id number]) Shoulder Strength Shoulder Manual Muscle Testing Right Flexion 4- Good- Abduction (C5) 4+ Good+ External Rotation 4- Good- Internal Rotation 5 Normal Left Flexion 4 Good Abduction (C5) 4+ Good+ External Rotation 4+ Good+ Internal Rotation 5 Normal Elbow/Forearm Strength Elbow and Forearm Manual Muscle Testing Right Flexion (C6) 4 Good Extension (C7) 4 Good Left Flexion (C6) 4+ Good+ Extension (C7) 4+ Good+ PT-OP-Q Treatments Start: 10/23/20 17:49 Freq: Status: Active Protocol: Document 11/23/20 13:45 DCW (Rec: 11/23/20 14:30 DCW [id number]) Cardio Equipment Upper Body Ergometer (UBE) Duration (Minutes) 4 RPM 60 Seat Position 11 Height 3 Therapeutic Exercises Supine Exercises 1 Supine Exercise Name IR/ER in Manual Therapy Treatment Soft Tissue Mobilization Parascapulars Body Location Right Parascapulars Mobilization Type Strumming,Sustained Pressure, Other Intensity/Depth Moderate Upper Trap Body Location Right Trap Mobilization Type Strumming,Sustained Pressure Intensity/Depth Moderate Joint Mobilizations 1 Joint R GH Direction Inf Grade III PT-OP-R Modalities Start: 10/23/20 17:49 Freq: Status: Active Protocol: Document 11/23/20 13:45 DCW (Rec: 11/23/20 14:30 DCW [id number]) Ultrasound Therapy Treatment Right Anterior Shoulder Treatment Duration (minutes) 8 Patient Position Supine Coupling Medium Ultrasound Gel Applicator Size (cm2) 5 Frequency Setting (mHz) 3 Duty Cycle 50% Intensity Setting (w/cm2) 1.0 PT-OP-T Assessment and Plan Start: 10/23/20 17:49 Freq: Status: Active Protocol: Document 11/23/20 13:45 DCW (Rec: 11/23/20 14:30 DCW [id number]) Physical Therapy Assessment Impairments Impairments Functional Activities, Functional Mobility,Pain,ROM, Soft Tissue Mobility,Strength, Tone Goals Three Impairment Positive special testing indicating bicipital tendonitis [facility] Goal (LTG) Negative right shoulder special testing to indicate pt 's ability to retun to usual household activities without pain. LTG Duration 12/24/20 Two Impairment Pt unable to doff sprots bra without pain [facility] Goal (LTG) Pt to don/doff all clothing with no increased shoulder pain for a period of two weeks LTG Duration 12/24/20 One Impairment Pt does not have an appropriate home exercise program Short Term Goal (STG) Pt to be independent and compliant with an appropriate HEP STG Duration 11/23/20 Assessment Summary Assessment Pt would like to skip her appointment next week, come back in two weeks, and then, if everything still feels better, discharge and return for a evaluation for her vestibular disorder. Physical Therapy Plan Frequency and Duration Frequency of Treatment 1x/Week Duration of Treatment Two months Plan of Care Start Date 10/23/20 Plan of Care End Date 12/23/20 Therapeutic Interventions Therapeutic Interventions Home Exercise Program,Joint Mobilizations,Manual Therapy, Neuromuscular Re-education, Patient/Caregiver Education, Self-Care/Home Management,Soft Tissue Mobilization, Therapeutic Activities, Therapeutic Exercises Modalities Cold Pack/Ice Massage,Electric Stimulation,Hot Packs, Iontophoresis,Ultrasound Other Therapeutic Interventions Iontophoresis /c Dexamethasone 4 mg/mL Next Visit Focus/Plan Next Note Type Treatment Note Next Visit Plan K-tape, Shoulder strengthening , Iontophoresis, Manual therapy
--- NOTE | 2020-12-06 15:19 | PT.OTN ---
Current Diagnoses Pain in right shoulder (12/06/20) Physical Therapy Treatment Note PT-OP-A Visit Information Start: 10/23/20 17:49 Freq: Status: Active Protocol: Document 12/06/20 14:30 DCW (Rec: 12/06/20 15:19 DCW [id number]) Out-Patient Physical Therapy Visit Information Visit Information Visit Type Treatment Note Visit Start Time 14:30 Visit Stop Time 15:15 Total Visit Minutes 45 Visit Number 8 Number of SHIPPING CHECKER Visits 0 Evaluation Information Evaluation Date 10/23/20 PT-OP-B Current Condition Start: 10/23/20 17:49 Freq: Status: Active Protocol: Document 10/23/20 16:45 DCW (Rec: 10/24/20 10:08 DCW [id number]) Current Condition History of Current Condition Onset Date 2-3 months Current Complaints Right shoulder and upper arm pain History of Current Condition Pt is a 65 year old female presenting with a 2-3 month history of right shoulder and upper arm pain. Pt notes there was no specific injury, just worsening pain. She notes she has been resting it, has stopped doing any heavy work around the house, and it seems to be improving. Notes that at it's worst, it had been a 4 -5/10, but now it is more like a 2.5/10, and she has even stopped taking ibuprofen. Notes pain is worst in her anterior right shoulder and down her anterior upper arm. Pain can limit her sleep if she rolls over onto her arm, and has limited her gardening, which she would like to get back to. Pt also notes that the most pain she experiences daily is trying to take off her sports bra. Does admit to occasional clicking at her anterior shoulder. Personal Factors Other Personal Factors That May Effect History of severe vestibular Therapy/Recovery neuritis PT-OP-C Subjective Start: 10/23/20 17:49 Freq: Status: Active Protocol: Document 12/06/20 14:30 DCW (Rec: 12/06/20 15:19 DCW [id number]) OP-PT Subjective Patient Comments Patient Comments Well, it's not worse. I don't know if it is any better. PT-OP-E Functional Tests Start: 10/23/20 17:49 Freq: Status: Active Protocol: Document 10/23/20 16:45 DCW (Rec: 10/24/20 10:16 DCW [id number]) Functional Tests Apley's Scratch Test Action 1- Left Posterior opposite shoulder Action 1- Right Posterior opposite shoulder Action 2- Left T3 Action 2- Right T3 Action 3- Left T6 Action 3- Right T8 PT-OP-F Manual Assessment Start: 10/23/20 17:49 Freq: Status: Active Protocol: Document 10/23/20 16:45 DCW (Rec: 10/24/20 10:16 DCW [id number]) Manual Assessments Soft Tissue Assessment Soft Tissue Mobility Assessment Tenderness to palpation 3/4: Wincing and withdraw along bicipital groove PT-OP-K Range of Motion Start: 10/23/20 17:49 Freq: Status: Active Protocol: Document 10/23/20 16:45 DCW (Rec: 10/24/20 10:16 DCW [id number]) Shoulder Goniometric Range of Motion Shoulder Right Active Shoulder ROM WFL Yes Flexion 180 Abduction 180 PT-OP-L Special Tests Start: 10/23/20 17:49 Freq: Status: Active Protocol: Document 10/23/20 16:45 DCW (Rec: 10/24/20 10:16 DCW [id number]) Special Tests Shoulder Special Tests Yergason's Biceps Test Results Positive Right Speed's Biceps Test Results Positive Right Passive ER Rotator Cuff Test Results Negative Painful Arc Test Results Positive Right Lift-Off Rotator Cuff Test Results Negative Rocha Jean-Claude Impingement Test Results Positive Right Grind Labrum Test Results Positive Right Empty Can Test Results Positive Right Drop Arm Rotator Cuff Test Results Negative Clunk Test Test Results Negative Biceps Load II Test Test Results Positive Right Belly Press Test Results Negative Apprehension Test Test Results Positive Right Anterior Draw Test Results Negative AC Joint Compression Test Results Negative PT-OP-M Strength Start: 10/23/20 17:49 Freq: Status: Active Protocol: Document 10/23/20 16:45 DCW (Rec: 10/24/20 10:16 DCW [id number]) Shoulder Strength Shoulder Manual Muscle Testing Right Flexion 4- Good- Abduction (C5) 4+ Good+ External Rotation 4- Good- Internal Rotation 5 Normal Left Flexion 4 Good Abduction (C5) 4+ Good+ External Rotation 4+ Good+ Internal Rotation 5 Normal Elbow/Forearm Strength Elbow and Forearm Manual Muscle Testing Right Flexion (C6) 4 Good Extension (C7) 4 Good Left Flexion (C6) 4+ Good+ Extension (C7) 4+ Good+ PT-OP-Q Treatments Start: 10/23/20 17:49 Freq: Status: Active Protocol: Document 12/06/20 14:30 DCW (Rec: 12/06/20 15:19 DCW [id number]) Cardio Equipment Upper Body Ergometer (UBE) Duration (Minutes) 4 RPM 60 Seat Position 11 Height 3 Therapeutic Exercises Supine Exercises 1 Supine Exercise Name IR/ER in Manual Therapy Treatment Soft Tissue Mobilization Parascapulars Body Location Right Parascapulars Mobilization Type Strumming,Sustained Pressure, Other Intensity/Depth Moderate Upper Trap Body Location Right Trap Mobilization Type Strumming,Sustained Pressure Intensity/Depth Moderate Joint Mobilizations 1 Joint R GH Direction Inf Grade III PT-OP-R Modalities Start: 10/23/20 17:49 Freq: Status: Active Protocol: Document 11/23/20 13:45 DCW (Rec: 11/23/20 14:30 DCW [id number]) Ultrasound Therapy Treatment Right Anterior Shoulder Treatment Duration (minutes) 8 Patient Position Supine Coupling Medium Ultrasound Gel Applicator Size (cm2) 5 Frequency Setting (mHz) 3 Duty Cycle 50% Intensity Setting (w/cm2) 1.0 PT-OP-T Assessment and Plan Start: 10/23/20 17:49 Freq: Status: Active Protocol: Document 12/06/20 14:30 DCW (Rec: 12/06/20 15:19 DCW [id number]) Physical Therapy Assessment Impairments Impairments Functional Activities, Functional Mobility,Pain,ROM, Soft Tissue Mobility,Strength, Tone Goals Three Impairment Positive special testing indicating bicipital tendonitis Alf Goal (LTG) Negative right shoulder special testing to indicate pt 's ability to retun to usual household activities without pain. LTG Duration Met Two Impairment Pt unable to doff sprots bra without pain Alf Goal (LTG) Pt to don/doff all clothing with no increased shoulder pain for a period of two weeks LTG Duration 12/24/20 One Impairment Pt does not have an appropriate home exercise program Short Term Goal (STG) Pt to be independent and compliant with an appropriate HEP STG Duration Met Assessment Summary Assessment Pt largely met all goals, still some mild discomfort when doffing her sports bra. Therapist and patient are in agreement that at this point, pt is largely independent with her HEP, and will likely continue to progress without attending PT. Patient will be discharged at this time, however will be returning shortly with a new referral for a different medical problem. Physical Therapy Plan Frequency and Duration Frequency of Treatment 1x/Week Duration of Treatment Two months Plan of Care Start Date 10/23/20 Plan of Care End Date 12/23/20 Therapeutic Interventions Therapeutic Interventions Home Exercise Program,Joint Mobilizations,Manual Therapy, Neuromuscular Re-education, Patient/Caregiver Education, Self-Care/Home Management,Soft Tissue Mobilization, Therapeutic Activities, Therapeutic Exercises Modalities Cold Pack/Ice Massage,Electric Stimulation,Hot Packs, Iontophoresis,Ultrasound Other Therapeutic Interventions Iontophoresis /c Dexamethasone 4 mg/mL Discharge Physical Therapy Discharge Reasons Goals Met Next Visit Focus/Plan Next Note Type Discharge Summary
== END 2020-12-06 17:00 | disposition home or self-care (01) ==
LOC: PHYS 14:30
PROVIDERS: PCP Student in an Organized Health Care Education/Training Program; Referring Provider Student in an Organized Health Care Education/Training Program; Visit Provider Student in an Organized Health Care Education/Training Program
DX: M25.511 Pain in right shoulder (principal)
CPT/HCPCS: 97035; 97110; 97140; 97161

== ENCOUNTER → 2020-12-14 15:15 | Outpatient (CLI) | payer OTHER, SELFPAY ==
[2020-12-14 15:39] LABS: Add Manual Diff / Slide Review NO; Basophils Absolute Auto 100 /uL (0-100); Eosinophils Absolute Auto 200 /uL (0-450); Eosinophils Percent Auto 3.2 % (2-4); Hematocrit 37.3 % (36-46); Hemoglobin 12.5 g/dL (12.0-16.0); Lymphocytes Absolute Auto 2700 /uL (1100-4500); Lymphocytes Percent Auto 36.3 % (25-40); Mean Corpuscular HGB Conc 33.6 % (30-36); Mean Corpuscular Hemoglobin 31.8 PG (26-34); Mean Corpuscular Volume 94.7 fL (80-100); Monocytes Absolute Auto 600 /uL (0-900); Monocytes Percent Auto 8.5 % (3-14); Neutrophils Absolute Auto 3700 /uL (1500-7000); Platelet Count 305 X10^3/uL (150-400); Red Blood Cell Count 3.94 X10^6/uL (4.0-5.2); Red Cell Distribution Width 12.1 % (11.6-14.8); White Blood Cell Count 7.3 X10^3/uL (4.5-11.0)
[2020-12-14 16:00] LABS: Alanine Aminotransferase 17 IU/L (<35); Albumin 4.2 g/dL (3.5-5.0); Albumin Globulin Ratio 1.3 (1.0-2.8); Alkaline Phosphatase 93 U/L (38-126); Aspartate Aminotransferase 31 IU/L (14-36); BUN Creatinine Ratio 21.3 (6-22); Bilirubin Total 0.3 mg/dL (0.2-1.3); Blood Urea Nitrogen 20 mg/dL (7-17); Calcium 9.4 mg/dL (8.4-10.2); Carbon Dioxide 27 mmol/L (22-32); Chloride 105 mmol/L (98-107); Estimated Glomerular Filt Rate 59.8 mL/min (>60); Globulin 3.2 g/dL (1.7-4.1); Glucose 91 mg/dL (80-110); HEMOLYSIS < 15 (0-50); Potassium 4.5 mmol/L (3.4-5.1); Sodium 140 mmol/L (137-145); Total Protein 7.4 g/dL (6.3-8.2)
== END ==
PROVIDERS: PCP Student in an Organized Health Care Education/Training Program; Referring Provider Internal Medicine Rheumatology; Visit Provider Internal Medicine Rheumatology
DX: M45.7 Ankylosing spondylitis of lumbosacral region (principal); Z79.899 Other long term (current) drug therapy
CPT/HCPCS: 36415; 80053; 85025

== ENCOUNTER 2020-12-20 14:30 | Outpatient (RCR) | payer OTHER, SELFPAY ==
--- NOTE | 2020-12-14 15:15 | PT.OPPOC ---
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) Other disorders of vestibular function, right ear (12/14/20) Other disorders of vestibular function, left ear (12/14/20) Visit Care Team Role Provider Type Bill Adler MD Primary Care Provider Physician Specialty: Internal Medicine Address: [address] [place] [address], [address], [facility] Email: [email or web address] Attending Provider Referring Provider Specialty: Address: Phone: Fax: Email: Plan Of Care PT-OP-T Assessment and Plan Start: 12/14/20 15:20 Freq: Status: Active Protocol: Document 12/14/20 14:30 DCW (Rec: 12/14/20 15:56 DCW [id number]) Physical Therapy Assessment Rehab Potential Rehabilitation Potential Fair Evaluation Complexity Number of Personal Factors/Comorbidities 3 or More Number of Body Systems Impaired 1-2 Clinical Presentation at Evaluation Unstable Impairments Impairments Balance,Coordination, Functional Mobility,Vestibular Goals Two Impairment Pt scores 21/30 on Functional Gait Assessment Longterm Goal (LTG) Pt to score >25/30 on the FGA, which is closer to the mean score of 27.1 for healthy adults in her age group. LTG Duration 02/13/21 One Impairment Pt does not have an appropriate home exercise program Short Term Goal (STG) Pt to be independent and compliant with an appropriate HEP STG Duration 01/13/21 Assessment Summary Assessment Pt overall doing very well with recovery from her severe Vestibular Neuritis, which first occurred 4.5 years ago, and pt underwent >1 year of vestibular rehabilitation at that time. At this time, pt is doing well overall, however her balance in general is still affected, and pt may benefit from skilled therapy focusing on NMR, balance training, and vestibular rehab . Pt does still exhibit positive vestibular testing, such as thrust test, head heave test, and Fukuda step test, which is actually unlikely to ever go away, however she seems to have adapted compared to her previous testing, and today's tests were much less prominently positive. Would like to increased pt's score on the FGA to get it closer to the mean score for her age of 27.1/30, pt currently scores at 21/30. Physical Therapy Plan Frequency and Duration Frequency of Treatment 2x/Week Duration of Treatment Two months Plan of Care Start Date 12/14/20 Plan of Care End Date 02/13/21 Therapeutic Interventions Therapeutic Interventions Balance Training,Canalithic Repositioning,Neuromuscular Re -education,Patient/Caregiver Education,Self-Care/Home Management,Therapeutic Exercises,Vestibular Rehabilitation Next Visit Focus/Plan Next Note Type Treatment Note Next Visit Plan Balance training, vestibular rehab Plan of Care Dates Plan of Care Start Date 12/14/20 Plan of Care End Date 02/13/21 Electronically Signed by: Jeremy Hansen, PT 12/17/20 0900 Please Sign and Return: I have reviewed this Plan of Care and certify that the skilled therapy services above are required to meet the patient?s needs. Physician Signature Date Printed Name and Credentials Clinical Instructor Signature Printed Name and Credentials
--- NOTE | 2020-12-14 15:15 | PT.OIE ---
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) Other disorders of vestibular function, right ear (12/14/20) Other disorders of vestibular function, left ear (12/14/20) Past Medical History (Last Updated 01/06/18 @ 12:21 by Tess Newberry) Ankylosing spondylitis (1974) 0 Iritis, secondary Liver abscess (1999) Vertigo (1979) Vestibular neuritis (2015) Past Surgical History (Last Updated 01/06/18 @ 12:17 by Tess Newberry) Anesthesia complication History of partial colectomy (1999) History of surgery of liver (1999) History of tonsillectomy Status post appendectomy (1999) Visit Care Team Role Provider Type Bill Adler MD Primary Care Provider Physician Specialty: Internal Medicine Address: [address] [place] [address], [address], [facility] Email: [email or web address] Attending Provider Referring Provider Specialty: Address: Phone: Fax: Email: Physical Therapy Initial Evaluation PT-OP-A Visit Information Start: 12/14/20 15:20 Freq: Status: Active Protocol: Document 12/14/20 14:30 DCW (Rec: 12/14/20 15:56 DCW [id number]) Out-Patient Physical Therapy Visit Information Visit Information Visit Type Initial Evaluation Visit Start Time 14:30 Visit Stop Time 15:15 Total Visit Minutes 45 Visit Number 1 Number of COMMERCIAL HVAC SERVICE TECHNICIAN Visits 0 Evaluation Information Evaluation Date 12/14/20 PT-OP-B Current Condition Start: 12/14/20 15:20 Freq: Status: Active Protocol: Document 12/14/20 14:30 DCW (Rec: 12/14/20 15:56 [facility] [id number]) Current Condition History of Current Condition Onset Date Jun 17, 2016 Current Complaints Residual dizziness secondary from vestibular neuritis History of Current Condition Pt is a 65 year old female presenting with a 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 At the time of the initial VN, pt was seen at this clinic and was severely debilitated. Pt underwent 1.5 years of vestibular therapy, and eventually got to the point where she felt she was functional enough in her daily life. Pt reports she has returned after it was suggested from her boat finisher, Dr Temo Cervantes, following some recent improvement. Pt reports while she had gotten to the point of feeling functional, she was still not doing very well, and struggled with her daily life , especially walking in the forest. Pt reports that when she started with Dr Cervantes, he actually put her on a migraine treatment plan. Pt reports she gave up caffeine, eliminated migraine-triggering foods, began taking magnesium and B2 supplements, and started taking Propranolol, none of which pt felt helped at all. However, pt was then put on Nortriptyline, I took one pill, and almost immediately felt a difference. Pt notes that after three pills, I was probably 50% better. Pt unsure if it is just the Nortriptyline, or the combination of anything together, but she is much happier at the moment. Pt [place], although admits it is the worst part of my day. Pt is not optimistic that she will make a lot more improvement after this length of time, but wants to give it a try. Treatment Goals Patient/Caregiver Goals Less disequilibrium. PT-OP-C Subjective Start: 12/14/20 15:20 Freq: Status: Active Protocol: Document 12/14/20 14:30 DCW (Rec: 12/14/20 15:56 DCW [id number]) OP-PT Subjective Patient Comments Patient Comments It doesn't really limit me. Like, I'll probably never ride a bike again, but that doesn' t really matter. Patient Reported Progress Improving Patient Questionnaires Dizziness Handicap Inventory DHI Score 22% DHI Functional Impairment 20 to 39% Impaired (Score 20- 39) PT-OP-E Functional Tests Start: 12/14/20 15:20 Freq: Status: Active Protocol: Document 12/14/20 14:30 DCW (Rec: 12/14/20 15:56 DCW [id number]) Functional Tests Functional Gait Assessment Score 21/30 Functional Gait Assessment Impairment 20 to <40% Impaired (Score 19- Rating 24) PT-OP-O Vestibular Start: 12/14/20 15:20 Freq: Status: Active Protocol: Document 12/14/20 14:30 DCW (Rec: 12/14/20 15:56 DCW [id number]) Vestibular Assessment Visual Testing Heave Test Positive Right Thrust Head Positive Right Vestibular Function Tests Fukuda Test 50? left PT-OP-T Assessment and Plan Start: 12/14/20 15:20 Freq: Status: Active Protocol: Document 12/14/20 14:30 DCW (Rec: 12/14/20 15:56 DCW [id number]) Physical Therapy Assessment Rehab Potential Rehabilitation Potential Fair Evaluation Complexity Number of Personal Factors/Comorbidities 3 or More Number of Body Systems Impaired 1-2 Clinical Presentation at Evaluation Unstable Impairments Impairments Balance,Coordination, Functional Mobility,Vestibular Goals Two Impairment Pt scores 21/30 on Functional Gait Assessment Rn Lactation Consultant Goal (LTG) Pt to score >25/30 on the FGA, which is closer to the mean score of 27.1 for healthy adults in her age group. LTG Duration 02/13/21 One Impairment Pt does not have an appropriate home exercise program Short Term Goal (STG) Pt to be independent and compliant with an appropriate HEP STG Duration 01/13/21 Assessment Summary Assessment Pt overall doing very well with recovery from her severe Vestibular Neuritis, which first occurred 4.5 years ago, and pt underwent >1 year of vestibular rehabilitation at that time. At this time, pt is doing well overall, however her balance in general is still affected, and pt may benefit from skilled therapy focusing on NMR, balance training, and vestibular rehab . Pt does still exhibit positive vestibular testing, such as thrust test, head heave test, and Fukuda step test, which is actually unlikely to ever go away, however she seems to have adapted compared to her previous testing, and today's tests were much less prominently positive. Would like to increased pt's score on the FGA to get it closer to the mean score for her age of 27.1/30, pt currently scores at 21/30. Physical Therapy Plan Frequency and Duration Frequency of Treatment 2x/Week Duration of Treatment Two months Plan of Care Start Date 12/14/20 Plan of Care End Date 02/13/21 Therapeutic Interventions Therapeutic Interventions Balance Training,Canalithic Repositioning,Neuromuscular Re -education,Patient/Caregiver Education,Self-Care/Home Management,Therapeutic Exercises,Vestibular Rehabilitation Next Visit Focus/Plan Next Note Type Treatment Note Next Visit Plan Balance training, vestibular rehab
--- NOTE | 2020-12-20 15:15 | PT.OTN ---
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) Other disorders of vestibular function, right ear (12/20/20) Other disorders of vestibular function, left ear (12/20/20) Physical Therapy Treatment Note PT-OP-A Visit Information Start: 12/14/20 15:20 Freq: Status: Active Protocol: Document 12/20/20 14:30 DCW (Rec: 12/20/20 15:15 DCW [id number]) Out-Patient Physical Therapy Visit Information Visit Information Visit Type Treatment Note Visit Start Time 14:30 Visit Stop Time 15:15 Total Visit Minutes 45 Visit Number 2 Number of CURVE CLEANER Visits 0 Evaluation Information Evaluation Date 12/14/20 PT-OP-B Current Condition Start: 12/14/20 15:20 Freq: Status: Active Protocol: Document 12/14/20 14:30 DCW (Rec: 12/14/20 15:56 DCW [id number]) Current Condition History of Current Condition Onset Date Jun 17, 2016 Current Complaints Residual dizziness secondary from vestibular neuritis History of Current Condition Pt is a 65 year old female presenting with a 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 At the time of the initial VN, pt was seen at this clinic and was severely debilitated. Pt underwent 1.5 years of vestibular therapy, and eventually got to the point where she felt she was functional enough in her daily life. Pt reports she has returned after it was suggested from her supervisor estimator and drafter, Dr Temo Cervantes, following some recent improvement. Pt reports while she had gotten to the point of feeling functional, she was still not doing very well, and struggled with her daily life , especially walking in the [place]. Pt reports that when she started with Dr Cervantes, he actually put her on a migraine treatment plan. Pt reports she gave up caffiene, eliminated migraine-triggering foods, began taking magnesium and B2 supplements, and started taking Propranolol, none of which pt felt helped at all. However, pt was then put on Nortriptyline, I took one pill, and almost immediately felt a difference. Pt notes that after three pills, I was probably 50% better. Pt unsure if it is just the Nortriptyline, or the combination of anything together, but she is much happier at the moment. [place] still [place], although admits it is the worst part of my day. Pt is not optimistic that she will make a lot more improvement after this length of time, but wants to give it a try. Treatment Goals Patient/Caregiver Goals Less disequilibrium. PT-OP-C Subjective Start: 12/14/20 15:20 Freq: Status: Active Protocol: Document 12/20/20 14:30 DCW (Rec: 12/20/20 15:15 DCW [id number]) OP-PT Subjective Patient Comments Patient Comments I arranged for a ride home today just in case. PT-OP-E Functional Tests Start: 12/14/20 15:20 Freq: Status: Active Protocol: Document 12/14/20 14:30 DCW (Rec: 12/14/20 15:56 DCW [id number]) Functional Tests Functional Gait Assessment Score 21/30 Functional Gait Assessment Impairment 20 to <40% Impaired (Score 19- Rating 24) PT-OP-O Vestibular Start: 12/14/20 15:20 Freq: Status: Active Protocol: Document 12/14/20 14:30 DCW (Rec: 12/14/20 15:56 DCW [id number]) Vestibular Assessment Visual Testing Heave Test Positive Right Thrust Head Positive Right Vestibular Function Tests Fukuda Test 50? left PT-OP-Q Treatments Start: 12/14/20 15:20 Freq: Status: Active Protocol: Document 12/20/20 14:30 DCW (Rec: 12/20/20 15:15 DCW [id number]) Gym Equipment Shuttle Balance 1 Details Red Comments WBOS (EO/EC) Staggered SLS Neuro Re-Education Treatment Balance Activities 4 Details Balance beam Comments Ball/cone transfer 3 Details Amb /c head turns Comments Horizontal, Vertical, Diag. 2 Details EC Ambulation 1 Details Tandem Ambulation Other Activities 1 Details Chain reading Comments Bouncing on trampoline PT-OP-T Assessment and Plan Start: 12/14/20 15:20 Freq: Status: Active Protocol: Document 12/20/20 14:30 DCW (Rec: 12/20/20 15:15 DCW [id number]) Physical Therapy Assessment Impairments Impairments Balance,Coordination, Functional Mobility,Vestibular Goals Two Impairment Pt scores 21/30 on Functional Gait Assessment Long-Term Goal (LTG) Pt to score >25/30 on the FGA, which is closer to the mean score of 27.1 for healthy adults in her age group. LTG Duration 02/13/21 One Impairment Pt does not have an appropriate home exercise program Short Term Goal (STG) Pt to be independent and compliant with an appropriate HEP STG Duration 01/13/21 Assessment Summary Assessment Pt tolerated treatment very well today, even increased challenges like chain reading on the trampoline. Pt feeling she is likely well enough that she doesn't need too much additional vestibular rehab, however would like to attend one or two more sessions to ensure today was not just a good day. Physical Therapy Plan Frequency and Duration Frequency of Treatment 2x/Week Duration of Treatment Two months Plan of Care Start Date 12/14/20 Plan of Care End Date 02/13/21 Therapeutic Interventions Therapeutic Interventions Balance Training,Canalithic Repositioning,Neuromuscular Re -education,Patient/Caregiver Education,Self-Care/Home Management,Therapeutic Exercises,Vestibular Rehabilitation Next Visit Focus/Plan Next Note Type Treatment Note Next Visit Plan Balance training, vestibular rehab
--- NOTE | 2021-01-08 17:07 | PT.OPDS ---
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) Other disorders of vestibular function, right ear (12/20/20) Other disorders of vestibular function, left ear (12/20/20) Visit Care Team Role Provider Type Bill Adler MD Primary Care Provider Physician Specialty: Internal Medicine Address: [address] [place] [address], [address], [address] Email: [email or web address] Attending Provider Referring Provider Specialty: Address: Phone: Fax: Email: Visit Number Visit Number 2 Discharge Summary PT-OP-B Current Condition Start: 12/14/20 15:20 Freq: Status: Active Protocol: Document 12/14/20 14:30 DCW (Rec: 12/14/20 15:56 DCW [id number]) Current Condition History of Current Condition Onset Date Jun 17, 2016 Current Complaints Residual dizziness secondary from vestibular neuritis History of Current Condition Pt is a 65 year old female presenting with a 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 At the time of the initial VN, pt was seen at this clinic and was severely debilitated. Pt underwent 1.5 years of vestibular therapy, and eventually got to the point where she felt she was functional enough in her daily life. Pt reports she has returned after it was suggested from her fusion juncture grinder, Dr Temo Cervantes, following some recent improvement. Pt reports while she had gotten to the point of feeling functional, she was still not doing very well, and struggled with her daily life , especially walking in the forest. Pt reports that when she started with Dr Cervantes, he actually put her on a migraine treatment plan. Pt reports she gave up caffiene, eliminated migraine-triggering foods, began taking magnesium and B2 supplements, and started taking Propranolol, none of which pt felt helped at all. However, pt was then put on Nortriptyline, I took one pill, and almost immediately felt a difference. Pt notes that after three pills, I was probably 50% better. Pt unsure if it is just the Nortriptyline, or the combination of anything together, but she is much happier at the moment. Pt still takes daily walks in the forest[place], although admits it is the worst part of my day. Pt is not optimistic that she will make a lot more improvement after this length of time, but wants to give it a try. Treatment Goals Patient/Caregiver Goals Less disequilibrium. PT-OP-C Subjective Start: 12/14/20 15:20 Freq: Status: Active Protocol: Document 12/20/20 14:30 DCW (Rec: 12/20/20 15:15 DCW [id number]) OP-PT Subjective Patient Comments Patient Comments I arranged for a ride home today just in case. PT-OP-E Functional Tests Start: 12/14/20 15:20 Freq: Status: Active Protocol: Document 12/14/20 14:30 DCW (Rec: 12/14/20 15:56 DCW [id number]) Functional Tests Functional Gait Assessment Score Functional Gait Assessment Impairment 20 to <40% Impaired (Score 19- Rating 24) PT-OP-O Vestibular Start: 12/14/20 15:20 Freq: Status: Active Protocol: Document 12/14/20 14:30 DCW (Rec: 12/14/20 15:56 DCW [id number]) Vestibular Assessment Visual Testing Heave Test Positive Right Thrust Head Positive Right Vestibular Function Tests Fukuda Test 50? left PT-OP-T Assessment and Plan Start: 12/14/20 15:20 Freq: Status: Active Protocol: Document 01/08/21 17:06 DCW (Rec: 01/08/21 17:07 DCW [id number]) Physical Therapy Assessment Assessment Summary Assessment Pt requested discharge from skilled therapy. Was emailing with therapist and both determined that she has probably reached her progress plateau, and was unlikely to benefit from further therapy. Pt will be discharged at this time. Physical Therapy Plan Discharge Physical Therapy Discharge Reasons Plateau in Progress Next Visit Focus/Plan Next Note Type Discharge Summary
== END 2021-01-09 07:44 | disposition home or self-care (01) ==
LOC: PHYS 14:30
PROVIDERS: PCP Student in an Organized Health Care Education/Training Program
DX: H81.21 Vestibular neuronitis, right ear (principal); H81.8X3 Other disorders of vestibular function, bilateral
CPT/HCPCS: 97112; 97161

== ENCOUNTER → 2021-05-02 12:16 | Outpatient (CLI) | payer OTHER, SELFPAY ==
--- NOTE | 2021-05-02 | DI.MG.S_ITS ---
BILATERAL DIGITAL SCREENING MAMMOGRAM 3D/2D WITH CAD: 05/02/2021 CLINICAL: Routine screening. Comparison is made to exams dated: 04/23/2020 mammogram, 03/17/2019 mammogram, 03/04/2018 mammogram, 03/23/2019 mammogram, 02/03/2017 mammogram, and 12/28/2015 mammogram - [facility]. The tissue of both breasts is heterogeneously dense. This may lower the sensitivity of mammography. Current study was also evaluated with a Computer Aided Detection (CAD) system. No significant masses, calcifications, or other findings are seen in either breast. There has been no significant interval change. IMPRESSION: NEGATIVE There is no mammographic evidence of malignancy. A 1 year screening mammogram is recommended. This exam was interpreted at Station ID: [id number]. NOTE: For mammograms, a report in lay terms will be sent to the patient. Approximately 15% of breast malignancies will not be visualized mammographically. In the management of a palpable breast mass, a negative mammogram must not discourage biopsy of a clinically suspicious lesion. Electronically Signed By: Shaun pozo/glenna:05/02/2021 12:55:15 letter sent: Normal Exam ACR BI-RADS Category 1: Negative 3341F
== END ==
PROVIDERS: PCP Student in an Organized Health Care Education/Training Program; Referring Provider Student in an Organized Health Care Education/Training Program; Visit Provider Student in an Organized Health Care Education/Training Program
DX: Z12.31 Encounter for screening mammogram for malignant neoplasm of breast (principal)
CPT/HCPCS: 77063; 77067

== ENCOUNTER → 2021-06-04 13:07 | Outpatient (CLI) | payer OTHER, SELFPAY ==
[2021-06-04 13:50] LABS: Add Manual Diff / Slide Review NO; Basophils Absolute Auto 100 /uL (0-100); Basophils Percent Auto 0.9 % (0-2); Eosinophils Absolute Auto 200 /uL (0-450); Eosinophils Percent Auto 2.6 % (2-4); Hematocrit 33.9 % (36-46); Hemoglobin 11.5 g/dL (12.0-16.0); Lymphocytes Absolute Auto 2900 /uL (1100-4500); Lymphocytes Percent Auto 35.9 % (25-40); Mean Corpuscular Hemoglobin 32.3 PG (26-34); Mean Corpuscular Volume 95.2 fL (80-100); Monocytes Absolute Auto 700 /uL (0-900); Monocytes Percent Auto 9.2 % (3-14); Neutrophils Absolute Auto 4100 /uL (1500-7000); Neutrophils Percent Auto 51.4 % (50-75); Platelet Count 304 X10^3/uL (150-400); Red Blood Cell Count 3.56 X10^6/uL (4.0-5.2); Red Cell Distribution Width 12.6 % (11.6-14.8)
[2021-06-04 14:01] LABS: Alanine Aminotransferase 15 IU/L (<35); Albumin 4.1 g/dL (3.5-5.0); Albumin Globulin Ratio 1.7 (1.0-2.8); Alkaline Phosphatase 80 U/L (38-126); Aspartate Aminotransferase 27 IU/L (14-36); BUN Creatinine Ratio 20.5 (6-22); Bilirubin Total 0.4 mg/dL (0.2-1.3); Blood Urea Nitrogen 17 mg/dL (7-17); Calcium 9.4 mg/dL (8.4-10.2); Carbon Dioxide 29 mmol/L (22-32); Chloride 103 mmol/L (98-107); Estimated Glomerular Filt Rate > 60.0 mL/min (>60); Globulin 2.4 g/dL (1.7-4.1); Glucose 85 mg/dL (80-110); HEMOLYSIS < 15 (0-50); Potassium 4.3 mmol/L (3.4-5.1); Sodium 138 mmol/L (137-145); Total Protein 6.5 g/dL (6.3-8.2)
== END ==
PROVIDERS: PCP Student in an Organized Health Care Education/Training Program; Referring Provider Internal Medicine Rheumatology; Visit Provider Internal Medicine Rheumatology
DX: M45.7 Ankylosing spondylitis of lumbosacral region (principal); Z79.899 Other long term (current) drug therapy
CPT/HCPCS: 36415; 80053; 85025

== ENCOUNTER → 2021-06-14 16:17 | Outpatient (CLI) | payer OTHER, SELFPAY ==
[2021-06-18 13:16] LABS: Fecal Immunochemical Test Negative (Negative)
== END ==
PROVIDERS: PCP Student in an Organized Health Care Education/Training Program; Referring Provider Student in an Organized Health Care Education/Training Program; Visit Provider Student in an Organized Health Care Education/Training Program
DX: Z12.11 Encounter for screening for malignant neoplasm of colon (principal)
CPT/HCPCS: 82274

== ENCOUNTER → 2021-09-06 16:13 | Outpatient (CLI) | payer OTHER, SELFPAY ==
[2021-09-06 16:50] LABS: Add Manual Diff / Slide Review NO; Basophils Absolute Auto 100 /uL (0-100); Basophils Percent Auto 1.2 % (0-2); Eosinophils Absolute Auto 200 /uL (0-450); Eosinophils Percent Auto 2.2 % (2-4); Hematocrit 35.4 % (36-46); Hemoglobin 11.9 g/dL (12.0-16.0); Lymphocytes Absolute Auto 2800 /uL (1100-4500); Lymphocytes Percent Auto 38.3 % (25-40); Mean Corpuscular HGB Conc 33.6 % (30-36); Mean Corpuscular Hemoglobin 31.4 PG (26-34); Mean Corpuscular Volume 93.6 fL (80-100); Monocytes Absolute Auto 600 /uL (0-900); Monocytes Percent Auto 7.8 % (3-14); Neutrophils Absolute Auto 3600 /uL (1500-7000); Neutrophils Percent Auto 50.5 % (50-75); Platelet Count 279 X10^3/uL (150-400); Red Blood Cell Count 3.78 X10^6/uL (4.0-5.2); Red Cell Distribution Width 12.1 % (11.6-14.8); White Blood Cell Count 7.2 X10^3/uL (4.5-11.0)
[2021-09-06 17:01] LABS: HEMOLYSIS < 15 (0-50); Iron 62 ug/dL (37-170)
[2021-09-06 17:05] LABS: Alanine Aminotransferase 15 IU/L (<35); Albumin 4.3 g/dL (3.5-5.0); Albumin Globulin Ratio 1.4 (1.0-2.8); Alkaline Phosphatase 70 U/L (38-126); Aspartate Aminotransferase 28 IU/L (14-36); Bilirubin Total 0.5 mg/dL (0.2-1.3); Blood Urea Nitrogen 17 mg/dL (7-17); C-Reactive Protein Quant < 0.5 mg/dL (<1.0); Carbon Dioxide 30 mmol/L (22-32); Chloride 104 mmol/L (98-107); Estimated Glomerular Filt Rate > 60.0 mL/min (>60); Glucose 83 mg/dL (80-110); HEMOLYSIS < 15 (0-50); Potassium 3.9 mmol/L (3.4-5.1); Sodium 139 mmol/L (137-145); Total Protein 7.3 g/dL (6.3-8.2)
[2021-09-06 17:12] LABS: Percent Iron Saturation 25 % (15-50); Total Iron Binding Capacity 252 ug/dL (265-497); Transferrin 197 mg/dL (206-381)
[2021-09-06 17:37] LABS: Erythrocyte Sedimentation Rate 18 MM/HR (0-20)
[2021-09-06 17:38] LABS: Ferritin 266 ng/mL (11-264)
[2021-09-06 18:09] LABS: Folate 18.7 ng/mL (2.76-20.0); Vitamin B12 931 pg/mL (239-931)
== END ==
PROVIDERS: PCP Student in an Organized Health Care Education/Training Program; Referring Provider Internal Medicine Rheumatology; Visit Provider Internal Medicine Rheumatology
DX: M45.7 Ankylosing spondylitis of lumbosacral region (principal); Z79.899 Other long term (current) drug therapy
CPT/HCPCS: 36415; 80053; 82607; 82728; 82746; 83540; 83550; 85025; 85651; 86140

== ENCOUNTER → 2021-12-13 14:56 | Outpatient (CLI) | payer OTHER, SELFPAY ==
[2021-12-13 16:17] LABS: Add Manual Diff / Slide Review NO; Basophils Absolute Auto 100 /uL (0-100); Eosinophils Absolute Auto 200 /uL (0-450); Eosinophils Percent Auto 2.1 % (2-4); Hematocrit 35.7 % (36-46); Hemoglobin 12.2 g/dL (12.0-16.0); Lymphocytes Absolute Auto 1900 /uL (1100-4500); Lymphocytes Percent Auto 25.8 % (25-40); Mean Corpuscular HGB Conc 34.2 % (30-36); Mean Corpuscular Hemoglobin 32.6 PG (26-34); Mean Corpuscular Volume 95.4 fL (80-100); Monocytes Absolute Auto 600 /uL (0-900); Monocytes Percent Auto 7.6 % (3-14); Neutrophils Absolute Auto 4600 /uL (1500-7000); Neutrophils Percent Auto 63.5 % (50-75); Platelet Count 253 X10^3/uL (150-400); Red Blood Cell Count 3.74 X10^6/uL (4.0-5.2); Red Cell Distribution Width 12.6 % (11.6-14.8); White Blood Cell Count 7.3 X10^3/uL (4.5-11.0)
[2021-12-13 16:51] LABS: Alanine Aminotransferase 25 IU/L (<35); Albumin 4.4 g/dL (3.5-5.0); Albumin Globulin Ratio 1.5 (1.0-2.8); Alkaline Phosphatase 87 U/L (38-126); Aspartate Aminotransferase 36 IU/L (14-36); BUN Creatinine Ratio 27.3 (6-22); Bilirubin Total 0.3 mg/dL (0.2-1.3); Blood Urea Nitrogen 21 mg/dL (7-17); C-Reactive Protein Quant < 0.5 mg/dL (<1.0); Carbon Dioxide 29 mmol/L (22-32); Chloride 104 mmol/L (98-107); Estimated Glomerular Filt Rate > 60 mL/min (>60); Glucose 86 mg/dL (80-110); HEMOLYSIS < 15 (0-50); Sodium 140 mmol/L (137-145); Total Protein 7.4 g/dL (6.3-8.2)
[2021-12-13 17:09] LABS: Erythrocyte Sedimentation Rate 12 MM/HR (0-20)
== END ==
PROVIDERS: PCP Student in an Organized Health Care Education/Training Program; Referring Provider Student in an Organized Health Care Education/Training Program; Visit Provider Student in an Organized Health Care Education/Training Program
DX: Z79.899 Other long term (current) drug therapy (principal); M45.7 Ankylosing spondylitis of lumbosacral region
CPT/HCPCS: 36415; 80053; 85025; 85651; 86140

== ENCOUNTER → 2022-03-24 12:31 | Outpatient (CLI) | payer OTHER, SELFPAY ==
[2022-03-24 13:11] LABS: Add Manual Diff / Slide Review NO; Basophils Absolute Auto 100 /uL (0-100); Basophils Percent Auto 1.1 % (0-2); Eosinophils Absolute Auto 200 /uL (0-450); Eosinophils Percent Auto 3.6 % (2-4); Hematocrit 34.7 % (36-46); Lymphocytes Absolute Auto 2100 /uL (1100-4500); Lymphocytes Percent Auto 31.2 % (25-40); Mean Corpuscular HGB Conc 34.6 % (30-36); Mean Corpuscular Volume 92.3 fL (80-100); Monocytes Absolute Auto 600 /uL (0-900); Monocytes Percent Auto 8.8 % (3-14); Neutrophils Absolute Auto 3800 /uL (1500-7000); Neutrophils Percent Auto 55.3 % (50-75); Platelet Count 234 X10^3/uL (150-400); Red Blood Cell Count 3.76 X10^6/uL (4.0-5.2); Red Cell Distribution Width 12.2 % (11.6-14.8); White Blood Cell Count 6.9 X10^3/uL (4.5-11.0)
[2022-03-24 14:27] LABS: Alanine Aminotransferase 27 IU/L (<35); Albumin 3.7 g/dL (3.5-5.0); Albumin Globulin Ratio 1.3 (1.0-2.8); Alkaline Phosphatase 83 U/L (38-126); Aspartate Aminotransferase 35 IU/L (14-36); BUN Creatinine Ratio 28.6 (6-22); Bilirubin Total 0.4 mg/dL (0.2-1.3); Blood Urea Nitrogen 18 mg/dL (7-17); C-Reactive Protein Quant < 0.5 mg/dL (<1.0); Calcium 8.6 mg/dL (8.4-10.2); Carbon Dioxide 25 mmol/L (22-32); Chloride 106 mmol/L (98-107); Estimated Glomerular Filt Rate > 60 mL/min (>60); Globulin 2.9 g/dL (1.7-4.1); Glucose 95 mg/dL (80-110); HEMOLYSIS < 15 (0-50); Potassium 3.9 mmol/L (3.4-5.1); Sodium 140 mmol/L (137-145); Total Protein 6.6 g/dL (6.3-8.2)
[2022-03-24 14:31] LABS: Erythrocyte Sedimentation Rate 15 MM/HR (0-20)
== END ==
PROVIDERS: PCP Student in an Organized Health Care Education/Training Program; Referring Provider Internal Medicine Rheumatology; Visit Provider Internal Medicine Rheumatology
DX: M45.7 Ankylosing spondylitis of lumbosacral region (principal); Z79.899 Other long term (current) drug therapy
CPT/HCPCS: 36415; 80053; 85025; 85651; 86140

== ENCOUNTER 2022-04-18 16:14 | Emergency (ER) | payer OTHER, SELFPAY ==
[2022-04-18 16:23] VITALS: BP 160/74; PULSE 77; RESP 18; TEMP 36.4; O2SAT 99; BMI 23.5
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
[2022-04-18 19:54] VITALS: BP 146/72; PULSE 67; RESP 18; O2SAT 97
== END 2022-04-18 19:55 | disposition home or self-care (01) ==
PROVIDERS: Emergency Provider Physician Assistant; PCP Student in an Organized Health Care Education/Training Program
DX: M54.2 Cervicalgia (principal); V89.2XXA Person injured in unspecified motor-vehicle accident, traffic, initial encounter
CPT/HCPCS: 99281

== ENCOUNTER → 2022-05-05 14:28 | Outpatient (CLI) | payer OTHER, SELFPAY ==
--- NOTE | 2022-05-05 | DI.MG.S_ITS ---
BILATERAL DIGITAL SCREENING MAMMOGRAM 3D/2D WITH CAD: 05/05/2022 CLINICAL: Routine screening. Comparison is made to exams dated: 05/02/2021 mammogram, 04/23/2020 mammogram, 03/23/2019 mammogram, and 03/17/2019 mammogram - [facility]. Both breasts are heterogeneously dense, which may obscure small masses (category c / 51-75% glandular tissue). Current study was also evaluated with a Computer Aided Detection (CAD) system. No significant masses, calcifications, or other findings are seen in either breast. There has been no significant interval change. IMPRESSION: NEGATIVE There is no mammographic evidence of malignancy. A 1 year screening mammogram is recommended. Based on the Tyrer Cuzick model (a risk assessment model) the patient's lifetime risk is 10.7% and her 10 year risk is 5.4%. According to the ACR, ACS, and NCCN guidelines, an annual breast MRI exam along with mammogram is recommended if the patient's lifetime risk is 20% or greater. This exam was interpreted at Station ID: [id number]. NOTE: For mammograms, a report in lay terms will be sent to the patient. Approximately 15% of breast malignancies will not be visualized mammographically. In the management of a palpable breast mass, a negative mammogram must not discourage biopsy of a clinically suspicious lesion. Electronically Signed By: Avni gardiner/glenna:05/05/2022 16:28:03 letter sent: Normal Exam ACR BI-RADS Category 1: Negative 3341F
== END ==
PROVIDERS: PCP Student in an Organized Health Care Education/Training Program; Referring Provider Student in an Organized Health Care Education/Training Program; Visit Provider Student in an Organized Health Care Education/Training Program
DX: Z12.31 Encounter for screening mammogram for malignant neoplasm of breast (principal)
CPT/HCPCS: 77063; 77067

== ENCOUNTER → 2022-06-26 14:15 | Outpatient (CLI) | payer OTHER, SELFPAY | PROVIDERS: PCP Student in an Organized Health Care Education/Training Program; Referring Provider Student in an Organized Health Care Education/Training Program; Visit Provider Student in an Organized Health Care Education/Training Program | DX: Z78.0 Asymptomatic menopausal state (principal); Z13.820 Encounter for screening for osteoporosis; M06.9 Rheumatoid arthritis, unspecified | CPT/HCPCS: 77080 ==

== ENCOUNTER → 2022-07-28 08:02 | Outpatient (CLI) | payer MEDICARE, OTHER, SELFPAY ==
[2022-07-28 08:40] LABS: Add Manual Diff / Slide Review NO; Basophils Absolute Auto 100 /uL (0-100); Basophils Percent Auto 1.6 % (0-2); Eosinophils Absolute Auto 200 /uL (0-450); Eosinophils Percent Auto 4.1 % (2-4); Hematocrit 38.1 % (36-46); Hemoglobin 12.5 g/dL (12.0-16.0); Lymphocytes Absolute Auto 2200 /uL (1100-4500); Lymphocytes Percent Auto 40.1 % (25-40); Mean Corpuscular HGB Conc 32.8 % (30-36); Mean Corpuscular Hemoglobin 31.4 PG (26-34); Mean Corpuscular Volume 95.9 fL (80-100); Monocytes Absolute Auto 500 /uL (0-900); Monocytes Percent Auto 9.5 % (3-14); Neutrophils Absolute Auto 2500 /uL (1500-7000); Neutrophils Percent Auto 44.7 % (50-75); Platelet Count 271 X10^3/uL (150-400); Red Blood Cell Count 3.98 X10^6/uL (4.0-5.2); White Blood Cell Count 5.5 X10^3/uL (4.5-11.0)
[2022-07-28 08:53] LABS: Alanine Aminotransferase 21 IU/L (<35); Alkaline Phosphatase 86 U/L (38-126); Aspartate Aminotransferase 30 IU/L (14-36); BUN Creatinine Ratio 28.4 (6-22); Bilirubin Total 0.6 mg/dL (0.2-1.3); Blood Urea Nitrogen 21 mg/dL (7-17); Calcium 8.7 mg/dL (8.4-10.2); Carbon Dioxide 27 mmol/L (22-32); Chloride 101 mmol/L (98-107); Estimated Glomerular Filt Rate > 60 mL/min (>60); Glucose 91 mg/dL (80-110); HEMOLYSIS < 15 (0-50); Sodium 138 mmol/L (137-145); Total Protein 7.2 g/dL (6.3-8.2)
[2022-08-01 15:34] LABS: Albumin 3.9 g/dL (3.5-5.0); Albumin Globulin Ratio 1.2 (1.0-2.8); Globulin 3.3 g/dL (1.7-4.1)
== END ==
PROVIDERS: PCP Student in an Organized Health Care Education/Training Program; Referring Provider Internal Medicine Rheumatology; Visit Provider Internal Medicine Rheumatology
DX: M45.7 Ankylosing spondylitis of lumbosacral region (principal); Z79.899 Other long term (current) drug therapy
CPT/HCPCS: 36415; 80053; 85025

== ENCOUNTER 2022-09-16 11:26 | Day surgery (SDC) | payer MEDICARE, OTHER, SELFPAY ==
[2022-09-16 11:51] VITALS: BMI 24.0
[2022-09-16 11:59] VITALS: BP 154/90; PULSE 86; RESP 16; TEMP 37; O2SAT 98
[2022-09-16] MEDS: LACTATED RINGERS 1,000 ML 200 ML IV (12:14)
--- NOTE | 2022-09-16 12:50 | PM.HP.1 ---
History of Present Illness History of Present Illness Date Patient Seen: 09/16/22 Time Patient Seen: 12:51 Chief complaint: SDC Narrative: The patient presents for colorectal screening. Previously normal colonoscopy 12 years ago. No first-degree relatives with colon cancer her maternal grandmother had colon cancer. On further history denies any recent gastrointestinal symptoms. History of a right hemicolectomy for bowel obstruction. No nausea, vomiting, abdominal pain, loss of appetite, unexplained weight loss, change in bowel habits, or blood per rectum. Patient History Medical History (Updated 06/14/22 @ 14:48 by Bill Adler MD) Ankylosing spondylitis Dense breast tissue on mammogram 0 Iritis, secondary Liver abscess (1999) Palpitations Vestibular neuritis (2015) Surgical History (Updated 01/06/18 @ 12:17 by Tess Newberry) Anesthesia complication History of partial colectomy (1999) History of surgery of liver (1999) History of tonsillectomy Status post appendectomy (1999) Family & Social History Family History (Updated 01/06/18 @ 12:24 by Tess Newberry) Father Rheumatoid arthritis High cholesterol Grandmother Colorectal cancer Cancer Uterine cancer Mother Renal failure Hypertension Grandmother Colorectal cancer Grandfather Alcohol abuse Grandfather Heart attack Social History: household members spouse Tobacco & Substance use: Smoking Status Never smoker alcohol intake never Substance Use Type does not use Meds Home Medications and Allergies Home Medications Medication Instructions Recorded Confirmed Type PSYLLIUM (#PSYLLIUM HUSK) 1 pdr PO QDAY ##0 07/09/11 09/16/22 History cholecalciferol (vitamin D3) 25 QDAY ##0 03/25/17 06/11/22 History mcg (1,000 unit) tablet (Vitamin D3) mecobalamin (vitamin B12) 1,000 1,000 mcg sublingual DAILY 03/02/18 09/16/22 History mcg disintegrating tablet,sublingual sulfasalazine 500 mg tablet 0.5 gram PO TID #90 tabs 02/14/19 09/16/22 Rx loratadine 10 mg tablet (Claritin) 10 mg PO DAILY 04/06/20 09/16/22 History nortriptyline 10 mg capsule 30 mg PO DAILY 06/06/20 09/16/22 History verapamil 120 mg 24 hr 120 mg PO DAILY #90 caps 09/03/22 09/16/22 Rx capsule,extended release sertraline 25 mg tablet 25 mg PO DAILY 09/16/22 09/16/22 History Allergies Allergy/AdvReac Type Severity Reaction Status Date / Time codeine [CODEINE] Allergy Mild NAUSEA/VOMI Verified 09/16/22 11:46 TING/VERTIG O adhesive tape AdvReac Intermediate ITCHING Verified 09/16/22 11:46 Exam Vital Signs (past 8 hours): - 09/16/22 11:59 Temperature 98.6 F Pulse Rate 86 Respiratory Rate 16 Blood Pressure 154/90 H Pulse Oximetry 98 Oxygen Delivery Method Room Air Oxygen Delivery Method Room Air Narrative Exam Narrative: General adult woman alert oriented no acute distress Assessment & Plan Assessment & Plan narrative: The patient requires colorectal screening and colonoscopy is recommended. Technical details were discussed. Risks, benefits, alternatives explained. Risks including but not limited to myocardial infarction, aspiration, bleeding, pain, missed lesion, incomplete examination, need for further radiographic studies, colonic perforation, and need for major abdominal surgery were discussed. All questions were answered to their satisfaction, and they are in agreement with this plan. Time Spent With Patient Critical Care time: I spent a total of [] minutes of critical care time on this patient's care today; this time is exclusive of procedural time.
--- NOTE | 2022-09-16 12:57 | P.OP.COLON_ITS ---
Operative Date/Time/Diagnoses Date of procedure: 09/16/22 Time of procedure: 12:57 Pre-op diagnosis: Colorectal screening Procedure & Clinicians Study performed: Colonoscopy Same procedure as scheduled: Yes Indications: Colorectal screening Surgeon: Joaquim Jacobsen Procedure Notes Procedure in detail: The history and physical was performed/updated and the patient is ASA class is 2. The procedure was discussed in detail with the patient. Potential risks complications including infection, bleeding, missed diagnosis, perforation, need for surgery, and were explained. Their questions were answered and informed consent was obtained. Patient was brought to the procedure room and placed standard monitoring equipment. The patient's vital signs were monitored continuously throughout the entire procedure. Prior to starting time-out was performed. The patient was placed in the left lateral recumbent position. Procedural sedation was administered by anesthesia. Examination began with a thorough inspection of the perianal area there was no evidence of fissures, fistulae, external hemorrhoids or cutaneous malignancy. The colonoscopy scope was then placed into the anal canal and was advanced to the cecum, which was identified by the ileocecal valv e, the appendiceal orifice and the confluence of the taenia. The scope was then slowly withdrawn examining colon thoroughly in all directions, irrigating it of any residual stool. Normal ileocolic anastomosis was noted. Tortuous colon. No masses polyps The patient tolerated the procedure well. They will be discharged once criteria are met. The prep was of good/excellent quality. The withdrawl time was 6 minutes. Specimen(s): none sent Impression: Normal colonoscopy Post-procedure Recommendations: Colonoscopy in 10 years Disposition: same day surgery
[2022-09-16 13:19] VITALS: BP 112/72; PULSE 72; RESP 16; TEMP 36.5; O2SAT 96
[2022-09-16 13:24] VITALS: BP 117/73; PULSE 68; RESP 14; O2SAT 98
[2022-09-16 13:29] VITALS: BP 135/81; PULSE 68; RESP 18; O2SAT 98
[2022-09-16 13:34] VITALS: BP 133/77; PULSE 66; RESP 14; TEMP 36.7; O2SAT 94
== END 2022-09-16 13:51 | disposition home or self-care (01) ==
PROVIDERS: PCP Student in an Organized Health Care Education/Training Program; Referring Provider Surgery; Visit Provider Surgery
PROC: 0DJD8ZZ Inspection of Lower Intestinal Tract, Via Natural or Artificial Opening Endoscopic (ICD-10-PCS; CPT 45378; principal; 2022-09-16 12:30)
DX: Z12.11 Encounter for screening for malignant neoplasm of colon (principal)
CPT/HCPCS: G0121; 36415; J2704; J3010

== ENCOUNTER → 2022-12-16 07:19 | Outpatient (CLI) | payer MEDICARE, OTHER, SELFPAY ==
[2022-12-16 08:11] LABS: Add Manual Diff / Slide Review NO; Basophils Absolute Auto 100 /uL (0-100); Basophils Percent Auto 2.5 % (0-2); Eosinophils Absolute Auto 300 /uL (0-450); Eosinophils Percent Auto 4.4 % (2-4); Hematocrit 37.8 % (36-46); Hemoglobin 12.9 g/dL (12.0-16.0); Lymphocytes Absolute Auto 2200 /uL (1100-4500); Lymphocytes Percent Auto 38.9 % (25-40); Mean Corpuscular HGB Conc 34.1 % (30-36); Mean Corpuscular Volume 93.9 fL (80-100); Monocytes Absolute Auto 600 /uL (0-900); Monocytes Percent Auto 9.9 % (3-14); Neutrophils Absolute Auto 2600 /uL (1500-7000); Neutrophils Percent Auto 44.3 % (50-75); Platelet Count 261 X10^3/uL (150-400); Red Blood Cell Count 4.03 X10^6/uL (4.0-5.2); Red Cell Distribution Width 12.4 % (11.6-14.8); White Blood Cell Count 5.8 X10^3/uL (4.5-11.0)
[2022-12-16 08:44] LABS: Alanine Aminotransferase 17 IU/L (<35); Albumin 3.9 g/dL (3.5-5.0); Albumin Globulin Ratio 1.4 (1.0-2.8); Alkaline Phosphatase 91 U/L (38-126); Aspartate Aminotransferase 23 IU/L (14-36); BUN Creatinine Ratio 31.9 (6-22); Bilirubin Total 0.5 mg/dL (0.2-1.3); Blood Urea Nitrogen 22 mg/dL (7-17); Calcium 8.9 mg/dL (8.4-10.2); Carbon Dioxide 26 mmol/L (22-32); Chloride 102 mmol/L (98-107); Estimated Glomerular Filt Rate > 60 mL/min (>60); Globulin 2.7 g/dL (1.7-4.1); Glucose 91 mg/dL (80-110); HEMOLYSIS < 15 (0-50); Potassium 4.2 mmol/L (3.4-5.1); Sodium 135 mmol/L (137-145); Total Protein 6.6 g/dL (6.3-8.2)
[2022-12-16 08:48] LABS: Cholesterol 212 mg/dL (140-199); HDL Cholesterol 51 mg/dL (40-60); LDL Cholesterol Calculated 142 mg/dL (<100); Triglycerides 93 mg/dL (35-150)
[2022-12-16 09:21] LABS: Hep C Virus Ab w/Reflex Quant NEGATIVE s/c (NEGATIVE)
== END ==
PROVIDERS: Family Provider Student in an Organized Health Care Education/Training Program; PCP Nurse Practitioner; Referring Provider Internal Medicine Rheumatology; Visit Provider Internal Medicine Rheumatology
DX: Z79.899 Other long term (current) drug therapy (principal); M45.7 Ankylosing spondylitis of lumbosacral region; Z11.59 Encounter for screening for other viral diseases; E78.5 Hyperlipidemia, unspecified
CPT/HCPCS: 36415; 80053; 80061; 85025; 86803

== ENCOUNTER 2023-01-05 12:45 | Outpatient (RCR) | payer MEDICARE, OTHER, SELFPAY ==
--- NOTE | 2022-11-07 16:00 | PT.OPPOC ---
Physical, Occupational & Speech Therapy At [facility] Current Diagnoses Other specified disorders of muscle (11/07/22) Stress incontinence (female) (male) (11/07/22) Visit Care Team Role Provider Type Bill Adler MD Attending Provider Physician Family Provider Primary Care Provider Referring Provider Specialty: Internal Medicine Address: [address] [place] [address], [address], [facility] Email: [email or web address] Plan Of Care PT-OP-T Assessment and Plan Start: 11/05/22 15:46 Freq: Status: Active Protocol: Document 11/07/22 14:30 AMB (Rec: 11/11/22 09:01 AMB [id number]) Physical Therapy Assessment Rehab Potential Rehabilitation Potential Good Evaluation Complexity Number of Personal Factors/Comorbidities 0 Number of Body Systems Impaired 1-2 Clinical Presentation at Evaluation Stable Impairments Impairments Functional Activities,Strength Goals Two Impairment Pelvic floor strength Short Term Goal (STG) [place] will improve her pelvic floor strength to hold a contraction in standing for 10 seconds. STG Duration 5 weeks Geospatial Systems Integrator Goal (LTG) [place] will improve her pelvic floor strength to hold a contraction from sit to stand. LTG Duration 10 weeks One Impairment Incontinence Short Term Goal (STG) [place] will do jumping jacks without leaking urine. STG Duration 5 weeks [facility] Goal (LTG) [place] will sneeze without leaking urine. LTG Duration 10 weeks Assessment Summary Assessment Flor attends physical therapy with pelvic floor weakness and stress urinary incontinence. She presents with leaking with sneezing and jumping, while she was able to engage her pelvic floor she did have poor lift with her levator ani . She will benefit from physical therapy to improve her pelvic floor strength so that she can stop leaking urine. Physical Therapy Plan Frequency and Duration Frequency of Treatment 1x/Week Duration of treatment (weeks) 10 Plan of Care Start Date 11/07/22 Plan of Care End Date 01/16/23 Therapeutic Interventions Therapeutic Interventions Home Exercise Program,Manual Therapy,Neuromuscular Re- education,Self-Care/Home Management,Therapeutic Activities,Therapeutic Exercises Modalities Biofeedback,Cold Pack/Ice Massage,Electric Stimulation Next Visit Focus/Plan Next Note Type Treatment Note Next Visit Plan sEMG vs sitting/standing HEP Plan of Care Dates Plan of Care Start Date 11/07/22 Plan of Care End Date 01/16/23 Electronically Signed by: Rhoda Lala, PT 11/12/22 4508 If you are in agreement with this Plan of Care, please return a signed and dated copy. I have reviewed this Plan of Care and certify that the skilled therapy services above are required to meet the patient?s needs. Physician Signature Date Printed Name and Credentials Clinical Instructor Signature Printed Name and Credentials
--- NOTE | 2022-11-07 16:00 | PT.OIE ---
Current Diagnoses Other specified disorders of muscle (11/07/22) Stress incontinence (female) (male) (11/07/22) Past Medical History (Last Updated 06/14/22 @ 14:48 by Bill Adler MD) Ankylosing spondylitis Dense breast tissue on mammogram 0 Iritis, secondary Liver abscess (1999) Palpitations Vestibular neuritis (2015) Past Surgical History (Last Updated 01/06/18 @ 12:17 by Tess Newberry) Anesthesia complication History of partial colectomy (1999) History of surgery of liver (1999) History of tonsillectomy Status post appendectomy (1999) Visit Care Team Role Provider Type Bill Adler MD Attending Provider Physician Family Provider Primary Care Provider Referring Provider Specialty: Internal Medicine Address: [address] [place] [address], [address], [facility] Email: [email or web address] Physical Therapy Initial Evaluation PT-OP-A Visit Information Start: 11/05/22 15:46 Freq: Status: Active Protocol: Document 11/07/22 14:34 AMB (Rec: 11/07/22 15:19 AMB [id number]) Out-Patient Physical Therapy Visit Information Visit Information Visit Type Initial Evaluation Visit Start Time 14:30 Visit Stop Time 15:15 Total Visit Minutes 45 Visit Number 1 PT-OP-B Current Condition Start: 11/05/22 15:46 Freq: Status: Active Protocol: Document 11/07/22 14:34 AMB (Rec: 11/07/22 15:19 AMB [id number]) Current Condition History of Current Condition Onset Date 5 years Current Complaints BHARGAVI History of Current Condition No childbirth history. Stress urinary incontinence: jumping , running, sneezing. Used pelvic floor weights didn't really notice much of a difference incontinence leigh. Does walk and does resistance bands and rowing without leaking. Wants to be able to do jumping jacks. PT-OP-C Subjective Start: 11/05/22 15:46 Freq: Status: Active Protocol: Document 11/07/22 14:30 AMB (Rec: 11/07/22 16:05 AMB [id number]) Patient Questionnaires Pelvic Pain and Urgency/Frequency Patient Symptom Scale Pelvic Pain Score 5 PT-OP-I Pelvic Floor Start: 11/05/22 15:46 Freq: Status: Active Protocol: Document 11/07/22 14:30 AMB (Rec: 11/07/22 16:05 AMB [id number]) Pelvic Floor Assessment Urine Pelvic Floor Surgery No Leakage Size Small Leakage Cause Cough,Exercise,Sneeze Other Leakage Causes running, jumping Leaks Per Day 1x/week avg Voiding Frequency 8/day Nocturia 1 Bowel Bowel Symptoms Constipation Contraction Ability Voluntary Contraction Weak Voluntary Relaxation Weak Manual Muscle Testing Left 3 Manual Muscle Testing Right 3 Manual Muscle Testing Anterior 3 Manual Muscle Testing Posterior 3 PT-OP-T Assessment and Plan Start: 11/05/22 15:46 Freq: Status: Active Protocol: Document 11/07/22 14:30 AMB (Rec: 11/11/22 09:01 AMB [id number]) Physical Therapy Assessment Rehab Potential Rehabilitation Potential Good Evaluation Complexity Number of Personal Factors/Comorbidities 0 Number of Body Systems Impaired 1-2 Clinical Presentation at Evaluation Stable Impairments Impairments Functional Activities,Strength Goals Two Impairment Pelvic floor strength Short Term Goal (STG) [place] will improve her pelvic floor strength to hold a contraction in standing for 10 seconds. STG Duration 5 weeks Detention Goal (LTG) [place] will improve her pelvic floor strength to hold a contraction from sit to stand. LTG Duration 10 weeks One Impairment Incontinence Short Term Goal (STG) [place] will do jumping jacks without leaking urine. STG Duration 5 weeks Card Grinder Helper Goal (LTG) [place] will sneeze without leaking urine. LTG Duration 10 weeks Assessment Summary Assessment Flor attends physical therapy with pelvic floor weakness and stress urinary incontinence. She presents with leaking with sneezing and jumping, while she was able to engage her pelvic floor she did have poor lift with her levator ani . She will benefit from physical therapy to improve her pelvic floor strength so that she can stop leaking urine. Physical Therapy Plan Frequency and Duration Frequency of Treatment 1x/Week Duration of treatment (weeks) 10 Plan of Care Start Date 11/07/22 Plan of Care End Date 01/16/23 Therapeutic Interventions Therapeutic Interventions Home Exercise Program,Manual Therapy,Neuromuscular Re- education,Self-Care/Home Management,Therapeutic Activities,Therapeutic Exercises Modalities Biofeedback,Cold Pack/Ice Massage,Electric Stimulation Next Visit Focus/Plan Next Note Type Treatment Note Next Visit Plan sEMG vs sitting/standing HEP
--- NOTE | 2022-11-17 12:24 | PT.OTN ---
Current Diagnoses Other specified disorders of muscle (11/17/22) Stress incontinence (female) (male) (11/17/22) Physical Therapy Treatment Note PT-OP-A Visit Information Start: 11/05/22 15:46 Freq: Status: Active Protocol: Document 11/17/22 10:50 AMB (Rec: 11/17/22 11:38 AMB [id number]) Out-Patient Physical Therapy Visit Information Visit Information Visit Type Treatment Note Visit Start Time 10:45 Visit Stop Time 11:30 Total Visit Minutes 45 Visit Number 2 PT-OP-B Current Condition Start: 11/05/22 15:46 Freq: Status: Active Protocol: Document 11/07/22 14:34 AMB (Rec: 11/07/22 15:19 AMB [id number]) Current Condition History of Current Condition Onset Date 5 years Current Complaints BHARGAVI History of Current Condition No childbirth history. Stress urinary incontinence: jumping , running, sneezing. Used pelvic floor weights didn't really notice much of a difference incontinence leigh. Does walk and does resistance bands and rowing without leaking. Wants to be able to do jumping jacks. PT-OP-C Subjective Start: 11/05/22 15:46 Freq: Status: Active Protocol: Document 11/17/22 10:50 AMB (Rec: 11/17/22 11:38 AMB [id number]) OP-PT Subjective Patient Comments Patient Comments Flor PT-OP-I Pelvic Floor Start: 11/05/22 15:46 Freq: Status: Active Protocol: Document 11/07/22 14:30 AMB (Rec: 11/07/22 16:05 AMB [id number]) Pelvic Floor Assessment Urine Pelvic Floor Surgery No Leakage Size Small Leakage Cause Cough,Exercise,Sneeze Other Leakage Causes running, jumping Leaks Per Day 1x/week avg Voiding Frequency 8/day Nocturia 1 Bowel Bowel Symptoms Constipation Contraction Ability Voluntary Contraction Weak Voluntary Relaxation Weak Manual Muscle Testing Left 3 Manual Muscle Testing Right 3 Manual Muscle Testing Anterior 3 Manual Muscle Testing Posterior 3 PT-OP-Q Treatments Start: 11/05/22 15:46 Freq: Status: Active Protocol: Document 11/17/22 12:07 AMB (Rec: 11/17/22 12:24 AMB [id number]) Therapeutic Exercises Sitting Exercises 1 Sitting Exercise Name roll in roll out Reps/Minutes 2x10 Comments red band Standing Exercises 1 Standing Exercise Name sit to stand Reps/Minutes 10 Comments cue pelvic floor and breath Other Exercises pelvic floor with lift Comments with weight lifting, functional lift PT-OP-T Assessment and Plan Start: 11/05/22 15:46 Freq: Status: Active Protocol: Document 11/17/22 10:50 AMB (Rec: 11/17/22 11:38 AMB [id number]) Physical Therapy Assessment Goals Two Impairment Pelvic floor strength Short Term Goal (STG) [place] will improve her pelvic floor strength to hold a contraction in standing for 10 seconds. STG Duration 5 weeks Bulb Packer Goal (LTG) Flor will improve her pelvic floor strength to hold a contraction from sit to stand. LTG Duration 10 weeks One Impairment Incontinence Short Term Goal (STG) Flor will do jumping jacks without leaking urine. STG Duration 5 weeks Bulb Packer Goal (LTG) [place] will sneeze without leaking urine. LTG Duration 10 weeks Assessment Summary Assessment Pt noticing she can hold longer, encouraged with new exercises and to increase awareness of functional activities. Physical Therapy Plan Frequency and Duration Frequency of Treatment 1x/Week Duration of treatment (weeks) 10 Plan of Care Start Date 11/07/22 Plan of Care End Date 01/16/23 Therapeutic Interventions Therapeutic Interventions Home Exercise Program,Manual Therapy,Neuromuscular Re- education,Self-Care/Home Management,Therapeutic Activities,Therapeutic Exercises Modalities Biofeedback,Cold Pack/Ice Massage,Electric Stimulation Next Visit Focus/Plan Next Note Type Treatment Note Next Visit Plan sEMG vs sitting/standing HEP
--- NOTE | 2022-12-29 16:25 | PT.OTN ---
Current Diagnoses Other specified disorders of muscle (12/29/22) Stress incontinence (female) (male) (12/29/22) Physical Therapy Treatment Note PT-OP-A Visit Information Start: 11/05/22 15:46 Freq: Status: Active Protocol: Document 12/29/22 12:56 AMB (Rec: 12/29/22 13:32 AMB [id number]) Out-Patient Physical Therapy Visit Information Visit Information Visit Type Treatment Note Visit Start Time 13:00 Visit Stop Time 13:45 Total Visit Minutes 45 Visit Number 3 PT-OP-B Current Condition Start: 11/05/22 15:46 Freq: Status: Active Protocol: Document 11/07/22 14:34 AMB (Rec: 11/07/22 15:19 AMB [id number]) Current Condition History of Current Condition Onset Date 5 years Current Complaints BHARGAVI History of Current Condition No childbirth history. Stress urinary incontinence: jumping , running, sneezing. Used pelvic floor weights didn't really notice much of a difference incontinence leigh. Does walk and does resistance bands and rowing without leaking. Wants to be able to do jumping jacks. PT-OP-C Subjective Start: 11/05/22 15:46 Freq: Status: Active Protocol: Document 12/29/22 12:56 AMB (Rec: 12/29/22 13:32 AMB [id number]) OP-PT Subjective Patient Comments Patient Comments Flor reports improved tolerance to pelvic floor contractions in standing. PT-OP-I Pelvic Floor Start: 11/05/22 15:46 Freq: Status: Active Protocol: Document 11/07/22 14:30 AMB (Rec: 11/07/22 16:05 AMB [id number]) Pelvic Floor Assessment Urine Pelvic Floor Surgery No Leakage Size Small Leakage Cause Cough,Exercise,Sneeze Other Leakage Causes running, jumping Leaks Per Day 1x/week avg Voiding Frequency 8/day Nocturia 1 Bowel Bowel Symptoms Constipation Contraction Ability Voluntary Contraction Weak Voluntary Relaxation Weak Manual Muscle Testing Left 3 Manual Muscle Testing Right 3 Manual Muscle Testing Anterior 3 Manual Muscle Testing Posterior 3 PT-OP-Q Treatments Start: 11/05/22 15:46 Freq: Status: Active Protocol: Document 12/29/22 16:16 AMB (Rec: 12/29/22 16:17 AMB [id number]) Therapeutic Exercises Standing Exercises 2 Standing Exercise Name lunges- forward Reps/Minutes 2x10 Comments with pelvic floor 1 Standing Exercise Name sit to stand Reps/Minutes 10 Comments cue pelvic floor and breath Other Exercises pelvic floor with lift Comments with weight lifting, functional lift PT-OP-T Assessment and Plan Start: 11/05/22 15:46 Freq: Status: Active Protocol: Document 12/29/22 12:56 AMB (Rec: 12/29/22 13:32 AMB [id number]) Physical Therapy Assessment Goals Two Impairment Pelvic floor strength Short Term Goal (STG) [place] will improve her pelvic floor strength to hold a contraction in standing for 10 seconds. STG Duration 5 weeks Grocery Sacker Goal (LTG) [place] will improve her pelvic floor strength to hold a contraction from sit to stand. LTG Duration 10 weeks One Impairment Incontinence Short Term Goal (STG) [place] will do jumping jacks without leaking urine. STG Duration 5 weeks Senior Living Goal (LTG) Flor will sneeze without leaking urine. LTG Duration 10 weeks Assessment Summary Assessment Flor noticing improved tolerance to standing, so progressed to standing lunges. Will progress jumping on her own and follow up next week. Physical Therapy Plan Frequency and Duration Frequency of Treatment 1x/Week Duration of treatment (weeks) 10 Plan of Care Start Date 11/07/22 Plan of Care End Date 01/16/23 Therapeutic Interventions Therapeutic Interventions Home Exercise Program,Manual Therapy,Neuromuscular Re- education,Self-Care/Home Management,Therapeutic Activities,Therapeutic Exercises Modalities Biofeedback,Cold Pack/Ice Massage,Electric Stimulation Next Visit Focus/Plan Next Note Type Treatment Note Next Visit Plan sEMG vs sitting/standing HEP
--- NOTE | 2023-02-04 16:00 | PT.OTN ---
Current Diagnoses Other specified disorders of muscle (01/05/23) Stress incontinence (female) (male) (01/05/23) Physical Therapy Treatment Note PT-OP-A Visit Information Start: 11/05/22 15:46 Freq: Status: Active Protocol: Document 01/05/23 12:47 AMB (Rec: 01/05/23 13:19 AMB [id number]) Out-Patient Physical Therapy Visit Information Visit Information Visit Type Treatment Note Visit Start Time 13:00 Visit Stop Time 13:45 Total Visit Minutes 45 Visit Number 4 PT-OP-B Current Condition Start: 11/05/22 15:46 Freq: Status: Active Protocol: Document 11/07/22 14:34 AMB (Rec: 11/07/22 15:19 AMB [id number]) Current Condition History of Current Condition Onset Date 5 years Current Complaints BHARGAVI History of Current Condition No childbirth history. Stress urinary incontinence: jumping , running, sneezing. Used pelvic floor weights didn't really notice much of a difference incontinence leigh. Does walk and does resistance bands and rowing without leaking. Wants to be able to do jumping jacks. PT-OP-C Subjective Start: 11/05/22 15:46 Freq: Status: Active Protocol: Document 01/05/23 12:47 AMB (Rec: 01/05/23 13:19 AMB [id number]) OP-PT Subjective Patient Comments Patient Comments Flor reports PT-OP-I Pelvic Floor Start: 11/05/22 15:46 Freq: Status: Active Protocol: Document 11/07/22 14:30 AMB (Rec: 11/07/22 16:05 AMB [id number]) Pelvic Floor Assessment Urine Pelvic Floor Surgery No Leakage Size Small Leakage Cause Cough,Exercise,Sneeze Other Leakage Causes running, jumping Leaks Per Day 1x/week avg Voiding Frequency 8/day Nocturia 1 Bowel Bowel Symptoms Constipation Contraction Ability Voluntary Contraction Weak Voluntary Relaxation Weak Manual Muscle Testing Left 3 Manual Muscle Testing Right 3 Manual Muscle Testing Anterior 3 Manual Muscle Testing Posterior 3 PT-OP-Q Treatments Start: 11/05/22 15:46 Freq: Status: Active Protocol: Document 01/05/23 12:47 AMB (Rec: 01/05/23 13:19 AMB [id number]) Therapeutic Exercises Sitting Exercises 1 Sitting Exercise Name roll in roll out Reps/Minutes 2x10 Comments red band Standing Exercises 2 Standing Exercise Name lunges- forward Reps/Minutes 2x10 Comments with pelvic floor 1 Standing Exercise Name sit to stand Reps/Minutes 10 Comments cue pelvic floor and breath Other Exercises pelvic floor with lift Comments with weight lifting, functional lift PT-OP-T Assessment and Plan Start: 11/05/22 15:46 Freq: Status: Active Protocol: Document 01/05/23 12:47 AMB (Rec: 01/05/23 13:19 AMB [id number]) Physical Therapy Assessment Goals Two Impairment Pelvic floor strength Short Term Goal (STG) Flor will improve her pelvic floor strength to hold a contraction in standing for 10 seconds. STG Duration [facility] Goal (LTG) [place] will improve her pelvic floor strength to hold a contraction from sit to stand. LTG Duration MET One Impairment Incontinence Short Term Goal (STG) Flor will do jumping jacks without leaking urine. STG Duration MET Forensic Manager Goal (LTG) [place] will sneeze without leaking urine. LTG Duration 10 weeks Assessment Summary Assessment Pt feels she is ready for discharge. Pt is meeting her goals and feels she is ready to be independent with her hep . Physical Therapy Plan Frequency and Duration Frequency of Treatment 1x/Week Duration of treatment (weeks) 10 Plan of Care Start Date 11/07/22 Plan of Care End Date 01/16/23 Therapeutic Interventions Therapeutic Interventions Home Exercise Program,Manual Therapy,Neuromuscular Re- education,Self-Care/Home Management,Therapeutic Activities,Therapeutic Exercises Modalities Biofeedback,Cold Pack/Ice Massage,Electric Stimulation Next Visit Focus/Plan Next Note Type Treatment Note Next Visit Plan sEMG vs sitting/standing HEP
--- NOTE | 2023-02-11 09:36 | PT.OPDS ---
Current Diagnoses Other specified disorders of muscle (01/05/23) Stress incontinence (female) (male) (01/05/23) Visit Care Team Role Provider Type Bill Adler MD Attending Provider Physician Family Provider Primary Care Provider Referring Provider Specialty: Internal Medicine Address: [address] [place] [address], [address], [address] Email: [email or web address] Visit Number Visit Number 4 Discharge Summary PT-OP-B Current Condition Start: 11/05/22 15:46 Freq: Status: Active Protocol: Document 11/07/22 14:34 AMB (Rec: 11/07/22 15:19 AMB [id number]) Current Condition History of Current Condition Onset Date 5 years Current Complaints BHARGAVI History of Current Condition No childbirth history. Stress urinary incontinence: jumping , running, sneezing. Used pelvic floor weights didn't really notice much of a difference incontinence leigh. Does walk and does resistance bands and rowing without leaking. Wants to be able to do jumping jacks. PT-OP-C Subjective Start: 11/05/22 15:46 Freq: Status: Active Protocol: Document 01/05/23 12:47 AMB (Rec: 01/05/23 13:19 AMB [id number]) OP-PT Subjective Patient Comments Patient Comments [place] reports PT-OP-I Pelvic Floor Start: 11/05/22 15:46 Freq: Status: Active Protocol: Document 11/07/22 14:30 AMB (Rec: 11/07/22 16:05 AMB [id number]) Pelvic Floor Assessment Urine Pelvic Floor Surgery No Leakage Size Small Leakage Cause Cough,Exercise,Sneeze Other Leakage Causes running, jumping Leaks Per Day 1x/week avg Voiding Frequency 8/day Nocturia 1 Bowel Bowel Symptoms Constipation Contraction Ability Voluntary Contraction Weak Voluntary Relaxation Weak Manual Muscle Testing Left 3 Manual Muscle Testing Right 3 Manual Muscle Testing Anterior 3 Manual Muscle Testing Posterior 3 PT-OP-T Assessment and Plan Start: 11/05/22 15:46 Freq: Status: Active Protocol: Document 01/05/23 12:47 AMB (Rec: 01/05/23 13:19 AMB [id number]) Physical Therapy Assessment Goals Two Impairment Pelvic floor strength Short Term Goal (STG) [place] will improve her pelvic floor strength to hold a contraction in standing for 10 seconds. STG Duration MET [facility] Goal (LTG) [place] will improve her pelvic floor strength to hold a contraction from sit to stand. LTG Duration MET One Impairment Incontinence Short Term Goal (STG) [place] will do jumping jacks without leaking urine. STG Duration MET Claims Agent Right Of Way Goal (LTG) [place] will sneeze without leaking urine. LTG Duration 10 weeks Assessment Summary Assessment Pt feels she is ready for discharge. Pt is meeting her goals and feels she is ready to be independent with her hep . Physical Therapy Plan Frequency and Duration Frequency of Treatment 1x/Week Duration of treatment (weeks) 10 Plan of Care Start Date 11/07/22 Plan of Care End Date 01/16/23 Therapeutic Interventions Therapeutic Interventions Home Exercise Program,Manual Therapy,Neuromuscular Re- education,Self-Care/Home Management,Therapeutic Activities,Therapeutic Exercises Modalities Biofeedback,Cold Pack/Ice Massage,Electric Stimulation Next Visit Focus/Plan Next Note Type Treatment Note Next Visit Plan sEMG vs sitting/standing HEP
== END 2023-02-11 12:34 | disposition home or self-care (01) ==
LOC: PHYS 12:45
PROVIDERS: Family Provider Student in an Organized Health Care Education/Training Program; PCP Student in an Organized Health Care Education/Training Program; Referring Provider Student in an Organized Health Care Education/Training Program; Visit Provider Student in an Organized Health Care Education/Training Program
DX: M62.89 Other specified disorders of muscle (principal); N39.3 Stress incontinence (female) (male)
CPT/HCPCS: 97110; 97161

== ENCOUNTER → 2023-03-26 14:42 | Outpatient (CLI) | payer MEDICARE, OTHER, SELFPAY ==
[2023-03-26 15:20] LABS: Add Manual Diff / Slide Review NO; Basophils Absolute Auto 100 /uL (0-100); Basophils Percent Auto 1.5 % (0-2); Eosinophils Absolute Auto 200 /uL (0-450); Eosinophils Percent Auto 2.4 % (2-4); Hematocrit 35.9 % (36-46); Hemoglobin 12.1 g/dL (12.0-16.0); Lymphocytes Absolute Auto 2400 /uL (1100-4500); Lymphocytes Percent Auto 35.4 % (25-40); Mean Corpuscular HGB Conc 33.7 % (30-36); Mean Corpuscular Hemoglobin 31.3 PG (26-34); Mean Corpuscular Volume 92.8 fL (80-100); Monocytes Absolute Auto 600 /uL (0-900); Monocytes Percent Auto 8.9 % (3-14); Neutrophils Absolute Auto 3500 /uL (1500-7000); Neutrophils Percent Auto 51.8 % (50-75); Platelet Count 295 X10^3/uL (150-400); Red Blood Cell Count 3.87 X10^6/uL (4.0-5.2); Red Cell Distribution Width 12.9 % (11.6-14.8); White Blood Cell Count 6.7 X10^3/uL (4.5-11.0)
[2023-03-26 15:40] LABS: Alanine Aminotransferase 18 IU/L (<35); Albumin 4.1 g/dL (3.5-5.0); Albumin Globulin Ratio 1.3 (1.0-2.8); Alkaline Phosphatase 90 U/L (38-126); Aspartate Aminotransferase 25 IU/L (14-36); BUN Creatinine Ratio 31.9 (6-22); Bilirubin Total 0.5 mg/dL (0.2-1.3); Blood Urea Nitrogen 22 mg/dL (7-17); Carbon Dioxide 23 mmol/L (22-32); Chloride 103 mmol/L (98-107); Estimated Glomerular Filt Rate > 60 mL/min (>60); Globulin 3.1 g/dL (1.7-4.1); Glucose 105 mg/dL (80-110); HEMOLYSIS < 15 (0-50); Potassium 4.2 mmol/L (3.4-5.1); Sodium 136 mmol/L (137-145); Total Protein 7.2 g/dL (6.3-8.2)
== END ==
PROVIDERS: Family Provider Student in an Organized Health Care Education/Training Program; PCP Nurse Practitioner; Referring Provider Internal Medicine Rheumatology; Visit Provider Internal Medicine Rheumatology
DX: M45.7 Ankylosing spondylitis of lumbosacral region (principal); Z79.899 Other long term (current) drug therapy
CPT/HCPCS: 36415; 80053; 85025

== ENCOUNTER → 2023-03-27 07:28 | Outpatient (CLI) | payer MEDICARE, OTHER, SELFPAY ==
[2023-03-27 09:09] LABS: Cholesterol 216 mg/dL (140-199); HDL Cholesterol 43 mg/dL (40-60); LDL Cholesterol Calculated 155 mg/dL (<100); Triglycerides 90 mg/dL (35-150)
== END ==
PROVIDERS: Family Provider Student in an Organized Health Care Education/Training Program; PCP Nurse Practitioner; Referring Provider Nurse Practitioner; Visit Provider Nurse Practitioner
DX: E78.5 Hyperlipidemia, unspecified (principal)
CPT/HCPCS: 36415; 80061

== ENCOUNTER → 2023-05-18 15:05 | Outpatient (CLI) | payer MEDICARE, OTHER, SELFPAY ==
--- NOTE | 2023-05-18 15:08 | DI.MG.S_ITS ---
BILATERAL DIGITAL SCREENING MAMMOGRAM 3D/2D WITH CAD: 05/18/2023 CLINICAL: Routine screening. Comparison is made to exams dated: 05/05/2022 mammogram, 04/23/2020 mammogram, and 05/02/2021 mammogram - [facility]. Both breasts are heterogeneously dense, which may obscure small masses (category c / 51-75% glandular tissue). Current study was also evaluated with a Computer Aided Detection (CAD) system. There is an oval asymmetry with an obscured margin in the right breast anterior depth central to the nipple seen on the craniocaudal view only. This is more prominent. No other significant masses, calcifications, or other findings are seen in either breast. IMPRESSION: INCOMPLETE: NEEDS ADDITIONAL IMAGING EVALUATION The oval asymmetry in the right breast is indeterminate. Additional views with possible ultrasound are recommended. Based on the Tyrer Cuzick model (a risk assessment model) the patient's lifetime risk is 10.2% and her 10 year risk is 5.4%. According to the ACR, ACS, and NCCN guidelines, an annual breast MRI exam along with mammogram is recommended if the patient's lifetime risk is 20% or greater. This exam was interpreted at Station ID: [id number]. NOTE: For mammograms, a report in lay terms will be sent to the patient. Approximately 15% of breast malignancies will not be visualized mammographically. In the management of a palpable breast mass, a negative mammogram must not discourage biopsy of a clinically suspicious lesion. Electronically Signed By: Shaun Jimenez M.D. slc/:05/19/2023 08:31:12 letter sent: Additional Imaging Needed ACR BI-RADS Category 0: Incomplete [id number]
== END ==
PROVIDERS: Family Provider Student in an Organized Health Care Education/Training Program; PCP Nurse Practitioner; Referring Provider Nurse Practitioner; Visit Provider Nurse Practitioner
DX: Z12.31 Encounter for screening mammogram for malignant neoplasm of breast (principal)
CPT/HCPCS: 77063; 77067

== ENCOUNTER → 2023-06-09 12:05 | Outpatient (CLI) | payer MEDICARE, OTHER, SELFPAY ==
--- NOTE | 2023-06-09 12:06 | DI.MG.S_ITS ---
UNILATERAL RIGHT DIGITAL DIAGNOSTIC MAMMOGRAM 3D/2D WITH ADDITIONAL VIEWS: 06/09/2023 CLINICAL: Additional evaluation requested from prior study. Comparison is made to exams dated: 05/18/2023 mammogram, 05/05/2022 mammogram, and 05/02/2021 mammogram - [facility]. The right breast is heterogeneously dense, which may obscure small masses (category c / 51-75% glandular tissue). The asymmetry in the right breast anterior depth central to the nipple seen on the craniocaudal view only is not seen in additional views. No other significant masses or calcifications are seen in the breast. IMPRESSION: BENIGN The asymmetry on screening mammogram likely represents superimposed breast tissue and is benign. There is no mammographic evidence of malignancy. Return to annual mammogram screening schedule is recommended. Based on the Tyrer Cuzick model (a risk assessment model) the patient's lifetime risk is 9.7% and her 10 year risk is 5.4%. According to the ACR, ACS, and NCCN guidelines, an annual breast MRI exam along with mammogram is recommended if the patient's lifetime risk is 20% or greater. This exam was interpreted at Station ID: [id number]. NOTE: For mammograms, a report in lay terms will be sent to the patient. Approximately 15% of breast malignancies will not be visualized mammographically. In the management of a palpable breast mass, a negative mammogram must not discourage biopsy of a clinically suspicious lesion. Electronically Signed By: Erlinda johnson/:06/09/2023 12:38:10 letter sent: Normal Exam ACR BI-RADS Category 2: Benign Finding(s) 3342F
== END ==
PROVIDERS: Family Provider Student in an Organized Health Care Education/Training Program; PCP Nurse Practitioner; Referring Provider Nurse Practitioner; Visit Provider Nurse Practitioner
DX: R92.8 Other abnormal and inconclusive findings on diagnostic imaging of breast (principal); N64.89 Other specified disorders of breast
CPT/HCPCS: 77065; G0279

== ENCOUNTER → 2023-08-11 07:46 | Outpatient (CLI) | payer MEDICARE, OTHER, SELFPAY ==
[2023-08-11 08:39] LABS: Add Manual Diff / Slide Review NO; Basophils Absolute Auto 100 /uL (0-100); Basophils Percent Auto 1.3 % (0-2); Eosinophils Absolute Auto 200 /uL (0-450); Eosinophils Percent Auto 3.4 % (2-4); Hematocrit 37.1 % (36-46); Hemoglobin 12.5 g/dL (12.0-16.0); Lymphocytes Absolute Auto 2000 /uL (1100-4500); Mean Corpuscular HGB Conc 33.7 % (30-36); Mean Corpuscular Hemoglobin 31.3 PG (26-34); Mean Corpuscular Volume 92.8 fL (80-100); Monocytes Absolute Auto 600 /uL (0-900); Monocytes Percent Auto 9.4 % (3-14); Neutrophils Absolute Auto 3200 /uL (1500-7000); Neutrophils Percent Auto 52.9 % (50-75); Platelet Count 238 X10^3/uL (150-400); Red Cell Distribution Width 12.3 % (11.6-14.8)
[2023-08-11 09:11] LABS: Alanine Aminotransferase 17 IU/L (<35); Albumin 3.7 g/dL (3.5-5.0); Albumin Globulin Ratio 1.4 (1.0-2.8); Alkaline Phosphatase 79 U/L (38-126); Aspartate Aminotransferase 26 IU/L (14-36); BUN Creatinine Ratio 23.3 (6-22); Bilirubin Total 0.6 mg/dL (0.2-1.3); Blood Urea Nitrogen 17 mg/dL (7-17); Calcium 9.2 mg/dL (8.4-10.2); Carbon Dioxide 28 mmol/L (22-32); Chloride 103 mmol/L (98-107); Estimated Glomerular Filt Rate > 60 mL/min (>60); Globulin 2.7 g/dL (1.7-4.1); Glucose 91 mg/dL (80-110); HEMOLYSIS < 15 (0-50); Potassium 4.1 mmol/L (3.4-5.1); Sodium 136 mmol/L (137-145); Total Protein 6.4 g/dL (6.3-8.2)
[2023-08-11 09:16] LABS: Cholesterol 177 mg/dL (140-199); HDL Cholesterol 43 mg/dL (40-60); LDL Cholesterol Calculated 114 mg/dL (<100); Triglycerides 99 mg/dL (35-150)
[2023-08-11 09:19] LABS: Hemoglobin A1C% w Est Avg Glu 4.5 % (4.0-6.0)
== END ==
LOC: LAB 07:50
PROVIDERS: Internal Medicine Rheumatology; Family Provider Student in an Organized Health Care Education/Training Program; PCP Nurse Practitioner; Referring Provider Family Medicine; Visit Provider Family Medicine
DX: Z79.899 Other long term (current) drug therapy (principal); M45.7 Ankylosing spondylitis of lumbosacral region; E78.5 Hyperlipidemia, unspecified; T46.6X5A Adverse effect of antihyperlipidemic and antiarteriosclerotic drugs, initial encounter; R73.9 Hyperglycemia, unspecified
CPT/HCPCS: 36415; 80053; 80061; 83036; 85025

== ENCOUNTER → 2023-11-27 07:25 | Outpatient (CLI) | payer MEDICARE, OTHER, SELFPAY ==
[2023-11-27 08:32] LABS: Add Manual Diff / Slide Review NO; Basophils Absolute Auto 100 /uL (0-100); Basophils Percent Auto 1.3 % (0-2); Eosinophils Absolute Auto 300 /uL (0-450); Eosinophils Percent Auto 4.2 % (2-4); Hemoglobin 12.9 g/dL (12.0-16.0); Lymphocytes Absolute Auto 2600 /uL (1100-4500); Lymphocytes Percent Auto 39.1 % (25-40); Mean Corpuscular HGB Conc 34.1 % (30-36); Mean Corpuscular Hemoglobin 32.3 PG (26-34); Mean Corpuscular Volume 94.7 fL (80-100); Monocytes Absolute Auto 700 /uL (0-900); Monocytes Percent Auto 10.5 % (3-14); Neutrophils Absolute Auto 3000 /uL (1500-7000); Neutrophils Percent Auto 44.9 % (50-75); Platelet Count 278 X10^3/uL (150-400); Red Blood Cell Count 4.01 X10^6/uL (4.0-5.2); Red Cell Distribution Width 12.5 % (11.6-14.8); White Blood Cell Count 6.6 X10^3/uL (4.5-11.0)
[2023-11-27 15:02] LABS: Alanine Aminotransferase 14 IU/L (<35); Albumin Globulin Ratio 1.6 (1.0-2.8); Alkaline Phosphatase 86 U/L (38-126); Aspartate Aminotransferase 28 IU/L (14-36); BUN Creatinine Ratio 25.7 (6-22); Bilirubin Total 0.6 mg/dL (0.2-1.3); Blood Urea Nitrogen 19 mg/dL (7-17); Calcium 8.8 mg/dL (8.4-10.2); Carbon Dioxide 28 mmol/L (22-32); Chloride 104 mmol/L (98-107); Estimated Glomerular Filt Rate > 60 mL/min (>60); Globulin 2.5 g/dL (1.7-4.1); Glucose 86 mg/dL (80-110); HEMOLYSIS < 15 (0-50); Potassium 4.1 mmol/L (3.4-5.1); Sodium 138 mmol/L (137-145); Total Protein 6.5 g/dL (6.3-8.2)
== END ==
PROVIDERS: Family Provider Student in an Organized Health Care Education/Training Program; PCP Nurse Practitioner; Referring Provider Internal Medicine Rheumatology; Visit Provider Internal Medicine Rheumatology
DX: M45.7 Ankylosing spondylitis of lumbosacral region (principal); Z79.899 Other long term (current) drug therapy
CPT/HCPCS: 36415; 80053; 85025

== ENCOUNTER 2023-12-28 08:15 | Outpatient (RCR) | payer MEDICARE, OTHER, SELFPAY ==
--- NOTE | 2023-08-10 10:30 | PT.OIE ---
Current Diagnoses Pain in left shoulder (08/10/23) Past Medical History (Last Reviewed 06/29/23 @ 09:52 by DAMARIS oSliman) Adverse reaction to statin medication Anemia Ankylosing spondylitis COVID Dense breast tissue on mammogram 0 History of anemia History of obesity Hyperlipidemia Iritis, secondary Liver abscess (2000) Palpitations Vestibular neuritis (2016) Vestibular neuropathy Past Surgical History (Last Reviewed 06/29/23 @ 09:52 by DAMARIS Soliman) Anesthesia complication History of partial colectomy (1999) History of surgery of liver (1999) History of tonsillectomy Status post appendectomy (1999) Visit Care Team Role Provider Type Bill Adler MD Family Provider Non-Staff Specialty: Internal Medicine Address: [address] [place] [address], [address], [address] Email: DAMARIS Soliman Attending Provider Advanced Computed Tomography Scanner Operator Primary Care Provider Referring Provider Specialty: Family Practice Address: [address] [place] [address], [id number] Email: [email or web address] Physical Therapy Initial Evaluation PT-OP-A Visit Information Start: 07/29/23 10:51 Freq: Status: Active Protocol: Document 08/10/23 08:19 [facility] (Rec: 08/10/23 10:30 [facility] [id number]) Out-Patient Physical Therapy Visit Information Visit Information Visit Type Initial Evaluation Visit Note 07/22 Visit Start Time 08:20 Visit Stop Time 09:05 Visit Number 1 Number of BOOK MENDER Visits 0 PT-OP-B Current Condition Start: 07/29/23 10:51 Freq: Status: Active Protocol: Document 08/10/23 08:19 [facility] (Rec: 08/10/23 10:30 [facility] [id number]) Current Condition History of Current Condition Current Complaints ant brachium History of Current Condition Pt reports L shoulder pain strting about 5 months ago. She does resistance training and does feelit the most there and when waking in the AM. Babied it for about 3 months then switched to DBs so she could do separate weights. She went on vacation and she used a band and noticed tehre was some pain. Pain is mostly in upper arm> She isusing about 10 lbs on R side and L side about 4 lbs. She avoids use of arm. Denies neck pain or hx of L arm pain. hx of R shoulde rpain that got better after PT. Treatment Goals Patient/Caregiver Goals Be able to lift equal weights, be able to use arm to do daily chores like close window etc PT-OP-C Subjective Start: 07/29/23 10:51 Freq: Status: Active Protocol: Document 08/10/23 08:19 [facility] (Rec: 08/10/23 10:30 [facility] [id number]) OP-PT Pain Assessment Location L arm Pain Location Details ant brachium Scale Used Numeric (0 - 10) Description Sharp,With Movement Frequency Intermittent Pain Duration improves after change in position Other Pain Aggravating Factors reach across body, 90/90 ER Pain Alleviating Factors Inactivity PT-OP-J Posture/Palpation/Skin Start: 07/29/23 10:51 Freq: Status: Active Protocol: Document 08/10/23 08:19 [facility] (Rec: 08/10/23 10:30 [facility] [id number]) Posture Evaluation Comments Posture Comments inc kyphosis, R>L scap winging , B ant tipped scap PT-OP-K Range of Motion Start: 07/29/23 10:51 Freq: Status: Active Protocol: Document 08/10/23 08:19 [facility] (Rec: 08/10/23 10:30 [facility] [id number]) Shoulder Goniometric Range of Motion Shoulder Right Active Flexion 154 Extension 62 Abduction 170 External Rotation at 90 degrees 92 Abduction External Rotation at 0 degrees Abduction 68 Internal Rotation Behind Back (text) T7 Left Active Flexion 141 Extension 66 Abduction 159 External Rotation at 90 degrees 93 Abduction External Rotation at 0 degrees Abduction 61 Internal Rotation Behind Back (text) T5 Comments pain w/flex and abd & 90/90 ER -drops out of abd slightly PT-OP-L Special Tests Start: 07/29/23 10:51 Freq: Status: Active Protocol: Document 08/10/23 08:19 [facility] (Rec: 08/10/23 10:30 [facility] [id number]) Special Tests Shoulder Special Tests Neer Impingement Test Results neg L [place] Test Test Results pos for inc pain but speeds position also painful L Yergason's Biceps Test Results neg L Speed's Biceps Test Results Positive L but obriens positive Painful Arc Test Results occ painful w/abd Lift-Off Rotator Cuff Test Results Negative Rocha Jean-Claude Impingement Test Results neg L Empty Can Test Results Positive L Drop Arm Rotator Cuff Test Results Negative Clunk Test Test Results positive L for pain Biceps Load II Test Test Results Positive L - mild pain AC Joint Compression Test Results Negative Other Special Tests Special Tests neg med, ulnar & radian n testing PT-OP-M Strength Start: 07/29/23 10:51 Freq: Status: Active Protocol: Document 08/10/23 08:19 [facility] (Rec: 08/10/23 10:30 [facility] [id number]) Shoulder Strength Shoulder Manual Muscle Testing Right Flexion 5 Normal Extension 5 Normal Abduction (C5) 5 Normal External Rotation 4 Good Internal Rotation 5 Normal Horizontal Abduction 4 Good Horizontal Adduction 4 Good Left Flexion 3+ Fair+ Extension 5 Normal Abduction (C5) 4- Good- External Rotation 3+ Fair+ Internal Rotation 5 Normal Horizontal Abduction 4- Good- Horizontal Adduction 3+ Fair+ Elbow/Forearm Strength Elbow and Forearm Manual Muscle Testing Right Flexion (C6) 5 Normal Extension (C7) 5 Normal Pronation 5 Normal Supination 5 Normal Left Flexion (C6) 5 Normal Extension (C7) 5 Normal Pronation 4 Good Supination 5 Normal PT-OP-Q Treatments Start: 07/29/23 10:51 Freq: Status: Active Protocol: Document 08/10/23 08:19 [facility] (Rec: 08/10/23 10:30 [facility] [id number]) Therapeutic Exercises Standing Exercises serratus punch Standing Exercise Name in plank on wall Side bilateral Reps/Minutes 12 Comments cues for scap movement Habd Side bilateral Equipment Used L2 Reps/Minutes 15 Comments in mirror w/cues for scap position ER Side left Equipment Used L2 Reps/Minutes 15 Self-Care/Home Management Treatment Education Other Education 11 min: discussion re: findings of special tests. 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 Discussed movement mechanics deficits that are likely affecting irritation of tendon. Demonstrated and showed w/use of model and PT arm to show appropriate vs pt current scaphumeral rhythm and how that can irritate supraspinatus. PT-OP-T Assessment and Plan Start: 07/29/23 10:51 Freq: Status: Active Protocol: Document 08/10/23 08:19 [facility] (Rec: 08/10/23 10:30 [facility] [id number]) Physical Therapy Assessment Rehab Potential Rehabilitation Potential Excellent Evaluation Complexity Number of Personal Factors/Comorbidities 3 or More Number of Body Systems Impaired 4 or More Clinical Presentation at Evaluation Stable Impairments Impairments Activity Tolerance,Functional Activities,Functional Mobility ,Pain,Posture,ROM,Soft Tissue Mobility,Strength Goals activity Short Term Goal (STG) Pt will report using LUE more often w/ daily tasks w/o inc pain STG Duration 09/11/23 Prison Goal (LTG) Pt will report no pain w/ lifting and able to lift equal wts w/o inc pain. LTG Duration 10/19/23 strength Short Term Goal (STG) Pt will be indep w/HEP STG Duration 09/09/23 Refractory Worker Goal (LTG) Pt will score at least 4/5 on EFT and 5/5 on all UE MMT in order to show improved UE stability in order to allow greater ease w/ADLs LTG Duration 10/19/23 ROM Short Term Goal (STG) Pt will improve flex and abd by at least 10 deg STG Duration 09/11/23 Refractory Worker Goal (LTG) Pt will have full L UE ROM w/o inc pain in order to allow typical ADLs w/o inc pain and normal use of LUE during the day LTG Duration 10/19/23 Assessment Summary Assessment Pt presents with L shoulder pain that started about 5 months ago with unknown onset. It has improved w/rest and decrease of weights w/exercise . She is still having pain during daily activities so avoids using LUE in certain motions. She does have impaired scapulohumeral rhythm and pt does show positive with supraspinatus testing which indicates possible supraspinatus tendinosis and some inc pain w/labral testing . She does have some limit in ROM and pain w/ROM and strength. She would benefit from skilled PT to address these deficits to return to greater ease with lifting and ADLs w/o inc pain. Physical Therapy Plan Frequency and Duration Frequency of Treatment 1-2x/wk Duration of treatment (weeks) 10 Plan of Care Start Date 08/10/23 Plan of Care End Date 10/19/23 Therapeutic Interventions Therapeutic Interventions Home Exercise Program,Joint Mobilizations,Manual Therapy, Neuromuscular Re-education, Orthotic/Prosthetic Management ,Patient/Caregiver Education, Self-Care/Home Management,Soft Tissue Mobilization,Taping, Therapeutic Activities, Therapeutic Exercises Modalities Cold Pack/Ice Massage,Electric Stimulation,Hot Packs, Infrared Therapy,Iontophoresis ,Ultrasound Next Visit Focus/Plan Next Note Type Treatment Note Next Visit Plan review exercises from last session; try plank and quadruped core/UE strength; try prone over ball strengthening manual: work on thoracic and ribcage mobility, AC & SC jt mobility and GHJ
--- NOTE | 2023-08-10 10:30 | PT.OPPOC ---
Physical, Occupational & Speech Therapy At [facility] Current Diagnoses Pain in left shoulder (08/10/23) Visit Care Team Role Provider Type Bill Adler MD Family Provider Non-Staff Specialty: Internal Medicine Address: [address] [place] [address], [address], [place], [address] Email: DAMARIS Soliman Attending Provider Advanced Mine Deputy Primary Care Provider Referring Provider Specialty: Family Practice Address: [address] [place] [address], [id number] Email: [email or web address] Plan Of Care PT-OP-T Assessment and Plan Start: 07/29/23 10:51 Freq: Status: Active Protocol: Document 08/10/23 08:19 [facility] (Rec: 08/10/23 10:30 [facility] [id number]) Physical Therapy Assessment Rehab Potential Rehabilitation Potential Excellent Evaluation Complexity Number of Personal Factors/Comorbidities 3 or More Number of Body Systems Impaired 4 or More Clinical Presentation at Evaluation Stable Impairments Impairments Activity Tolerance,Functional Activities,Functional Mobility ,Pain,Posture,ROM,Soft Tissue Mobility,Strength Goals activity Short Term Goal (STG) Pt will report using LUE more often w/ daily tasks w/o inc pain STG Duration 09/11/23 Group Home Goal (LTG) Pt will report no pain w/ lifting and able to lift equal wts w/o inc pain. LTG Duration 10/19/23 strength Short Term Goal (STG) Pt will be indep w/HEP STG Duration 09/09/23 Bill Clerk Goal (LTG) Pt will score at least 4/5 on EFT and 5/5 on all UE MMT in order to show improved UE stability in order to allow greater ease w/ADLs LTG Duration 10/19/23 ROM Short Term Goal (STG) Pt will improve flex and abd by at least 10 deg STG Duration 09/11/23 Bill Clerk Goal (LTG) Pt will have full L UE ROM w/o inc pain in order to allow typical ADLs w/o inc pain and normal use of LUE during the day LTG Duration 10/19/23 Assessment Summary Assessment Pt presents with L shoulder pain that started about 5 months ago with unknown onset. It has improved w/rest and decrease of weights w/exercise . She is still having pain during daily activities so avoids using LUE in certain motions. She does have impaired scapulohumeral rhythm and pt does show positive with supraspinatus testing which indicates possible supraspinatus tendinosis and some inc pain w/labral testing . She does have some limit in ROM and pain w/ROM and strength. She would benefit from skilled PT to address these deficits to return to greater ease with lifting and ADLs w/o inc pain. Physical Therapy Plan Frequency and Duration Frequency of Treatment 1-2x/wk Duration of treatment (weeks) 10 Plan of Care Start Date 08/10/23 Plan of Care End Date 10/19/23 Therapeutic Interventions Therapeutic Interventions Home Exercise Program,Joint Mobilizations,Manual Therapy, Neuromuscular Re-education, Orthotic/Prosthetic Management ,Patient/Caregiver Education, Self-Care/Home Management,Soft Tissue Mobilization,Taping, Therapeutic Activities, Therapeutic Exercises Modalities Cold Pack/Ice Massage,Electric Stimulation,Hot Packs, Infrared Therapy,Iontophoresis ,Ultrasound Next Visit Focus/Plan Next Note Type Treatment Note Next Visit Plan review exercises from last session; try plank and quadruped core/UE strength; try prone over ball strengthening manual: work on thoracic and ribcage mobility, AC & SC jt mobility and GHJ Plan of Care Dates Plan of Care Start Date 08/10/23 Plan of Care End Date 10/19/23 Electronically Signed by: Sangita Pressley, PT 08/10/23 1433 If you are in agreement with this Plan of Care, please return a signed and dated copy. I have reviewed this Plan of Care and certify that the skilled therapy services above are required to meet the patient?s needs. Physician Signature Date Printed Name and Credentials Clinical Instructor Signature Printed Name and Credentials
--- NOTE | 2023-08-12 12:24 | PT.OTN ---
Current Diagnoses Pain in left shoulder (08/12/23) Physical Therapy Treatment Note PT-OP-A Visit Information Start: 07/29/23 10:51 Freq: Status: Active Protocol: Document 08/12/23 08:18 [facility] (Rec: 08/12/23 12:24 [facility] [id number]) Out-Patient Physical Therapy Visit Information Visit Information Visit Type Treatment Note Visit Note 08/22 Visit Start Time 08:18 Visit Stop Time 09:01 Visit Number 2 Number of CORRECTIONS CORPORAL Visits 0 PT-OP-B Current Condition Start: 07/29/23 10:51 Freq: Status: Active Protocol: Document 08/10/23 08:19 [facility] (Rec: 08/10/23 10:30 [facility] [id number]) Current Condition History of Current Condition Current Complaints ant brachium History of Current Condition Pt reports L shoulder pain strting about 5 months ago. She does resistance training and does feelit the most there and when waking in the AM. Babied it for about 3 months then switched to DBs so she could do separate weights. She went on vacation and she used a band and noticed tehre was some pain. Pain is mostly in upper arm> She isusing about 10 lbs on R side and L side about 4 lbs. She avoids use of arm. Denies neck pain or hx of L arm pain. hx of R shoulde rpain that got better after PT. Treatment Goals Patient/Caregiver Goals Be able to lift equal weights, be able to use arm to do daily chores like close window etc PT-OP-C Subjective Start: 07/29/23 10:51 Freq: Status: Active Protocol: Document 08/12/23 08:18 [facility] (Rec: 08/12/23 12:24 [facility] [id number]) OP-PT Subjective Patient Comments Patient Comments Pt reports pain w/flex fwd and iron crosses in her workout routine PT-OP-J Posture/Palpation/Skin Start: 07/29/23 10:51 Freq: Status: Active Protocol: Document 08/10/23 08:19 [facility] (Rec: 08/10/23 10:30 [facility] [id number]) Posture Evaluation Comments Posture Comments inc kyphosis, R>L scap winging , B ant tipped scap PT-OP-K Range of Motion Start: 07/29/23 10:51 Freq: Status: Active Protocol: Document 08/10/23 08:19 [facility] (Rec: 08/10/23 10:30 [facility] [id number]) Shoulder Goniometric Range of Motion Shoulder Right Active Flexion 154 Extension 62 Abduction 170 External Rotation at 90 degrees 92 Abduction External Rotation at 0 degrees Abduction 68 Internal Rotation Behind Back (text) T7 Left Active Flexion 141 Extension 66 Abduction 159 External Rotation at 90 degrees 93 Abduction External Rotation at 0 degrees Abduction 61 Internal Rotation Behind Back (text) T5 Comments pain w/flex and abd & 90/90 ER -drops out of abd slightly PT-OP-L Special Tests Start: 07/29/23 10:51 Freq: Status: Active Protocol: Document 08/10/23 08:19 [facility] (Rec: 08/10/23 10:30 [facility] [id number]) Special Tests Shoulder Special Tests Neer Impingement Test Results neg L [place] Test Test Results pos for inc pain but speeds position also painful L Yergason's Biceps Test Results neg L Speed's Biceps Test Results Positive L but obriens positive Painful Arc Test Results occ painful w/abd Lift-Off Rotator Cuff Test Results Negative Rocha Jean-Claude Impingement Test Results neg L Empty Can Test Results Positive L Drop Arm Rotator Cuff Test Results Negative Clunk Test Test Results positive L for pain Biceps Load II Test Test Results Positive L - mild pain AC Joint Compression Test Results Negative Other Special Tests Special Tests neg med, ulnar & radian n testing PT-OP-M Strength Start: 07/29/23 10:51 Freq: Status: Active Protocol: Document 08/10/23 08:19 [facility] (Rec: 08/10/23 10:30 [facility] [id number]) Shoulder Strength Shoulder Manual Muscle Testing Right Flexion 5 Normal Extension 5 Normal Abduction (C5) 5 Normal External Rotation 4 Good Internal Rotation 5 Normal Horizontal Abduction 4 Good Horizontal Adduction 4 Good Left Flexion 3+ Fair+ Extension 5 Normal Abduction (C5) 4- Good- External Rotation 3+ Fair+ Internal Rotation 5 Normal Horizontal Abduction 4- Good- Horizontal Adduction 3+ Fair+ Elbow/Forearm Strength Elbow and Forearm Manual Muscle Testing Right Flexion (C6) 5 Normal Extension (C7) 5 Normal Pronation 5 Normal Supination 5 Normal Left Flexion (C6) 5 Normal Extension (C7) 5 Normal Pronation 4 Good Supination 5 Normal PT-OP-Q Treatments Start: 07/29/23 10:51 Freq: Status: Active Protocol: Document 08/12/23 08:18 [facility] (Rec: 08/12/23 12:24 [facility] [id number]) Therapeutic Exercises Prone Exercises Is, Ts, Ys Prone Exercise Name overball Side bilateral Equipment Used 2# w/Is and Ts; 0# Y Reps/Minutes 10 ea plank Prone Exercise Name 1. hands and feet 2. forearm and feet Side bilateral Reps/Minutes 30 sec ea Comments cues for neck, back and shoulder position Standing Exercises serratus punch Standing Exercise Name in plank on wall Side bilateral Reps/Minutes 12 Comments cues for scap movement Habd Side bilateral Equipment Used L2 Reps/Minutes 15 Comments in mirror w/cues for scap position ER Side left Equipment Used L2 Reps/Minutes 10 Other Exercises quadruped Other Exercise Name alt hip ext Side bilateral Reps/Minutes 10 Comments cues for back position and press through UEs Manual Therapy Treatment Soft Tissue Mobilization post Body Location rhomboids Mobilization Type Rolling Intensity/Depth Moderate Body Position Sidelying superior Body Location L UT, LS, scalenes Mobilization Type Rolling Intensity/Depth Moderate Body Position Sidelying Joint Mobilizations SC Joint distraction FM AC Joint clavicle ant FM ribs Comments rib 1-3 caudal FM Self-Care/Home Management Treatment Education Other Education 8 min: edu on anatomy of ribs and shoulder complext and how all the joints have to wrok together. Edu how inc kyphosis will affect shoulder mechanics and improtance of working on this PT-OP-T Assessment and Plan Start: 07/29/23 10:51 Freq: Status: Active Protocol: Document 08/12/23 08:18 [facility] (Rec: 08/12/23 12:24 [facility] [id number]) Physical Therapy Assessment Goals activity Short Term Goal (STG) Pt will report using LUE more often w/ daily tasks w/o inc pain STG Duration 09/11/23 Day Light Relief Operator Goal (LTG) Pt will report no pain w/ lifting and able to lift equal wts w/o inc pain. LTG Duration 10/19/23 strength Short Term Goal (STG) Pt will be indep w/HEP STG Duration 09/09/23 [facility] Goal (LTG) Pt will score at least 4/5 on EFT and 5/5 on all UE MMT in order to show improved UE stability in order to allow greater ease w/ADLs LTG Duration 10/19/23 ROM Short Term Goal (STG) Pt will improve flex and abd by at least 10 deg STG Duration 09/11/23 Day Light Relief Operator Goal (LTG) Pt will have full L UE ROM w/o inc pain in order to allow typical ADLs w/o inc pain and normal use of LUE during the day LTG Duration 10/19/23 Assessment Summary Assessment Pt had improved ability to do iron cross after manual therapy and it no longer caused pain. She had improved abd ROM w/o compensation also. Cues during exercises for neutral neck and spine position and for scap motion during exercises. Physical Therapy Plan Next Visit Focus/Plan Next Note Type Treatment Note Next Visit Plan review exercises from last sessions manual: work on thoracic and ribcage mobility, AC & SC jt mobility and GHJ
--- NOTE | 2023-08-17 13:02 | PT.OTN ---
Current Diagnoses Pain in left shoulder (08/17/23) Physical Therapy Treatment Note PT-OP-A Visit Information Start: 07/29/23 10:51 Freq: Status: Active Protocol: Document 08/17/23 08:59 [facility] (Rec: 08/17/23 13:02 [facility] [id number]) Out-Patient Physical Therapy Visit Information Visit Information Visit Type Treatment Note Visit Note 09/19 Visit Start Time 09:00 Visit Stop Time 09:45 Visit Number 3 Number of ELECTROLESS PLATER Visits 0 PT-OP-B Current Condition Start: 07/29/23 10:51 Freq: Status: Active Protocol: Document 08/10/23 08:19 [facility] (Rec: 08/10/23 10:30 [facility] [id number]) Current Condition History of Current Condition Current Complaints ant brachium History of Current Condition Pt reports L shoulder pain strting about 5 months ago. She does resistance training and does feelit the most there and when waking in the AM. Babied it for about 3 months then switched to DBs so she could do separate weights. She went on vacation and she used a band and noticed tehre was some pain. Pain is mostly in upper arm> She isusing about 10 lbs on R side and L side about 4 lbs. She avoids use of arm. Denies neck pain or hx of L arm pain. hx of R shoulde rpain that got better after PT. Treatment Goals Patient/Caregiver Goals Be able to lift equal weights, be able to use arm to do daily chores like close window etc PT-OP-C Subjective Start: 07/29/23 10:51 Freq: Status: Active Protocol: Document 08/17/23 08:59 [facility] (Rec: 08/17/23 13:02 [facility] [id number]) OP-PT Subjective Patient Comments Patient Comments Pt reports all the exercises that cause problems go overhead; standing abd (can do w/2# but not 4#) and supine 4 Y raises, and standing front raise. Feels good w/exercises at home. PT-OP-J Posture/Palpation/Skin Start: 07/29/23 10:51 Freq: Status: Active Protocol: Document 08/10/23 08:19 [facility] (Rec: 08/10/23 10:30 [facility] [id number]) Posture Evaluation Comments Posture Comments inc kyphosis, R>L scap winging , B ant tipped scap PT-OP-K Range of Motion Start: 07/29/23 10:51 Freq: Status: Active Protocol: Document 08/10/23 08:19 [facility] (Rec: 08/10/23 10:30 [facility] [id number]) Shoulder Goniometric Range of Motion Shoulder Right Active Flexion 154 Extension 62 Abduction 170 External Rotation at 90 degrees 92 Abduction External Rotation at 0 degrees Abduction 68 Internal Rotation Behind Back (text) T7 Left Active Flexion 141 Extension 66 Abduction 159 External Rotation at 90 degrees 93 Abduction External Rotation at 0 degrees Abduction 61 Internal Rotation Behind Back (text) T5 Comments pain w/flex and abd & 90/90 ER -drops out of abd slightly PT-OP-L Special Tests Start: 07/29/23 10:51 Freq: Status: Active Protocol: Document 08/10/23 08:19 [facility] (Rec: 08/10/23 10:30 [facility] [id number]) Special Tests Shoulder Special Tests Neer Impingement Test Results neg L [place] Test Test Results pos for inc pain but speeds position also painful L Yergason's Biceps Test Results neg L Speed's Biceps Test Results Positive L but obriens positive Painful Arc Test Results occ painful w/abd Lift-Off Rotator Cuff Test Results Negative Rocha Jean-Claude Impingement Test Results neg L Empty Can Test Results Positive L Drop Arm Rotator Cuff Test Results Negative Clunk Test Test Results positive L for pain Biceps Load II Test Test Results Positive L - mild pain AC Joint Compression Test Results Negative Other Special Tests Special Tests neg med, ulnar & radian n testing PT-OP-M Strength Start: 07/29/23 10:51 Freq: Status: Active Protocol: Document 08/10/23 08:19 [facility] (Rec: 08/10/23 10:30 [facility] [id number]) Shoulder Strength Shoulder Manual Muscle Testing Right Flexion 5 Normal Extension 5 Normal Abduction (C5) 5 Normal External Rotation 4 Good Internal Rotation 5 Normal Horizontal Abduction 4 Good Horizontal Adduction 4 Good Left Flexion 3+ Fair+ Extension 5 Normal Abduction (C5) 4- Good- External Rotation 3+ Fair+ Internal Rotation 5 Normal Horizontal Abduction 4- Good- Horizontal Adduction 3+ Fair+ Elbow/Forearm Strength Elbow and Forearm Manual Muscle Testing Right Flexion (C6) 5 Normal Extension (C7) 5 Normal Pronation 5 Normal Supination 5 Normal Left Flexion (C6) 5 Normal Extension (C7) 5 Normal Pronation 4 Good Supination 5 Normal PT-OP-Q Treatments Start: 07/29/23 10:51 Freq: Status: Active Protocol: Document 08/17/23 08:59 [facility] (Rec: 08/17/23 13:02 [facility] [id number]) Therapeutic Exercises Prone Exercises ER Prone Exercise Name over green ball Side bilateral Reps/Minutes 10 Comments comfortable range Is, Ts, Ys Prone Exercise Name over green ball Side bilateral Equipment Used 2# w/Is and Ts; 0# Y Reps/Minutes 10 ea plank Prone Exercise Name 1. hands and feet 2. forearm and feet Side bilateral Reps/Minutes 30 sec ea Comments cues for neck, back and shoulder position Sidelying Exercises open book Side bilateral Reps/Minutes 5 ea Standing Exercises thoracic ext Standing Exercise Name over sm ball Reps/Minutes 8 serratus punch Standing Exercise Name in plank on wall then plinth Side bilateral Reps/Minutes 8 ea Comments cues for scap movement Other Exercises quadruped Other Exercise Name alt hip ext Side bilateral Reps/Minutes 12 Comments cues for back position and press through UEs Manual Therapy Treatment Soft Tissue Mobilization ant Body Location L pec Mobilization Type Sustained Pressure Intensity/Depth Moderate Comments w/rotaion superior Body Location L UT, LS, scalenes Mobilization Type Rolling Intensity/Depth Moderate Body Position Sidelying Joint Mobilizations GH Joint post & lat and distraction glides thoracic Comments T1-3 PA FM; T1 and 2 transverse L FM T3 transerse R FM PT-OP-T Assessment and Plan Start: 07/29/23 10:51 Freq: Status: Active Protocol: Document 08/17/23 08:59 [facility] (Rec: 08/17/23 13:02 [facility] [id number]) Physical Therapy Assessment Goals activity Short Term Goal (STG) Pt will report using LUE more often w/ daily tasks w/o inc pain STG Duration 09/11/23 Power Plant Superintendent Goal (LTG) Pt will report no pain w/ lifting and able to lift equal wts w/o inc pain. LTG Duration 10/19/23 strength Short Term Goal (STG) Pt will be indep w/HEP STG Duration 09/09/23 Mcfp Goal (LTG) Pt will score at least 4/5 on EFT and 5/5 on all UE MMT in order to show improved UE stability in order to allow greater ease w/ADLs LTG Duration 10/19/23 ROM Short Term Goal (STG) Pt will improve flex and abd by at least 10 deg STG Duration 09/11/23 Mcfp Goal (LTG) Pt will have full L UE ROM w/o inc pain in order to allow typical ADLs w/o inc pain and normal use of LUE during the day LTG Duration 10/19/23 Assessment Summary Assessment Improved exercise performance but does still require cues w/ planks. Limited in ER prone and was cued to stay in comfortable range. She did improve w/PROM 90/90 ER after manual and had improved upright postiion w/manual Physical Therapy Plan Frequency and Duration Frequency of Treatment 1-2x/wk Duration of treatment (weeks) 10 Plan of Care Start Date 08/10/23 Plan of Care End Date 10/19/23 Next Visit Focus/Plan Next Note Type Treatment Note Next Visit Plan work on 90/90 IR/ER strength in sitting and supported positioning; work on thoracic mobility; cont work on shoulder complext o improve pt ease for overhead motion; cont to work on stabilization w/overhead motion
--- NOTE | 2023-08-21 09:48 | PT.OTN ---
Current Diagnoses Pain in left shoulder (08/21/23) Physical Therapy Treatment Note PT-OP-A Visit Information Start: 07/29/23 10:51 Freq: Status: Active Protocol: Document 08/21/23 09:05 [facility] (Rec: 08/21/23 09:52 [facility] [id number]) Out-Patient Physical Therapy Visit Information Visit Information Visit Type Treatment Note Visit Note 10/20 Visit Start Time 09:05 Visit Stop Time 09:48 Visit Number 4 Number of EDGE TRIMMER Visits 1 PT-OP-B Current Condition Start: 07/29/23 10:51 Freq: Status: Active Protocol: Document 08/10/23 08:19 [facility] (Rec: 08/10/23 10:30 [facility] [id number]) Current Condition History of Current Condition Current Complaints ant brachium History of Current Condition Pt reports L shoulder pain strting about 5 months ago. She does resistance training and does feelit the most there and when waking in the AM. Babied it for about 3 months then switched to DBs so she could do separate weights. She went on vacation and she used a band and noticed tehre was some pain. Pain is mostly in upper arm> She isusing about 10 lbs on R side and L side about 4 lbs. She avoids use of arm. Denies neck pain or hx of L arm pain. hx of R shoulde rpain that got better after PT. Treatment Goals Patient/Caregiver Goals Be able to lift equal weights, be able to use arm to do daily chores like close window etc PT-OP-C Subjective Start: 07/29/23 10:51 Freq: Status: Active Protocol: Document 08/21/23 09:05 [facility] (Rec: 08/21/23 09:52 [facility] [id number]) OP-PT Subjective Patient Comments Patient Comments Pt reports feel gaining ROM with HEP, thinks she's doing correctly at home, might be ready to try on floor. PT-OP-J Posture/Palpation/Skin Start: 07/29/23 10:51 Freq: Status: Active Protocol: Document 08/10/23 08:19 [facility] (Rec: 08/10/23 10:30 [facility] [id number]) Posture Evaluation Comments Posture Comments inc kyphosis, R>L scap winging , B ant tipped scap PT-OP-K Range of Motion Start: 07/29/23 10:51 Freq: Status: Active Protocol: Document 08/10/23 08:19 [facility] (Rec: 08/10/23 10:30 [facility] [id number]) Shoulder Goniometric Range of Motion Shoulder Right Active Flexion 154 Extension 62 Abduction 170 External Rotation at 90 degrees 92 Abduction External Rotation at 0 degrees Abduction 68 Internal Rotation Behind Back (text) T7 Left Active Flexion 141 Extension 66 Abduction 159 External Rotation at 90 degrees 93 Abduction External Rotation at 0 degrees Abduction 61 Internal Rotation Behind Back (text) T5 Comments pain w/flex and abd & 90/90 ER -drops out of abd slightly PT-OP-L Special Tests Start: 07/29/23 10:51 Freq: Status: Active Protocol: Document 08/10/23 08:19 [facility] (Rec: 08/10/23 10:30 [facility] [id number]) Special Tests Shoulder Special Tests Neer Impingement Test Results neg L [place] Test Test Results pos for inc pain but speeds position also painful L Yergason's Biceps Test Results neg L Speed's Biceps Test Results Positive L but obriens positive Painful Arc Test Results occ painful w/abd Lift-Off Rotator Cuff Test Results Negative Rocha Jean-Claude Impingement Test Results neg L Empty Can Test Results Positive L Drop Arm Rotator Cuff Test Results Negative Clunk Test Test Results positive L for pain Biceps Load II Test Test Results Positive L - mild pain AC Joint Compression Test Results Negative Other Special Tests Special Tests neg med, ulnar & radian n testing PT-OP-M Strength Start: 07/29/23 10:51 Freq: Status: Active Protocol: Document 08/10/23 08:19 [facility] (Rec: 08/10/23 10:30 [facility] [id number]) Shoulder Strength Shoulder Manual Muscle Testing Right Flexion 5 Normal Extension 5 Normal Abduction (C5) 5 Normal External Rotation 4 Good Internal Rotation 5 Normal Horizontal Abduction 4 Good Horizontal Adduction 4 Good Left Flexion 3+ Fair+ Extension 5 Normal Abduction (C5) 4- Good- External Rotation 3+ Fair+ Internal Rotation 5 Normal Horizontal Abduction 4- Good- Horizontal Adduction 3+ Fair+ Elbow/Forearm Strength Elbow and Forearm Manual Muscle Testing Right Flexion (C6) 5 Normal Extension (C7) 5 Normal Pronation 5 Normal Supination 5 Normal Left Flexion (C6) 5 Normal Extension (C7) 5 Normal Pronation 4 Good Supination 5 Normal PT-OP-Q Treatments Start: 07/29/23 10:51 Freq: Status: Active Protocol: Document 08/21/23 09:05 [facility] (Rec: 08/21/23 09:52 SP [id number]) Therapeutic Exercises Supine Exercises TS ext Supine Exercise Name 65cm tball, foam roller Prone Exercises Is, Ts, Ys Prone Exercise Name over green ball Side bilateral Equipment Used 2#>1#> 2# DB /c Is and Ts; 0# Ys Reps/Minutes 3 sets 10 Comments cued CS retraction neutral /c chin tuck, rhomboid & LT fac set Sidelying Exercises ABD & FF Side left Reps/Minutes 5 each Comments rhomboid & LT & SA mid range with decrease GH discomfort open book Side bilateral Reps/Minutes 5 ea Standing Exercises thoracic ext Standing Exercise Name over small ball on wall Reps/Minutes 5 Comments cued PPT neutral TA, head supported BUE- challenge more LS ext serratus punch Standing Exercise Name incline BUE on plinth (trial floor next, long axis arms, of knees) Side bilateral Reps/Minutes 8 ea Comments cues for slower scap movement, CS elongation Manual Therapy Treatment Soft Tissue Mobilization ant Body Location L pec Mobilization Type Sustained Pressure,Other Intensity/Depth Moderate Comments w/ER superior Body Location L UT, LS, scalenes Mobilization Type Rolling Intensity/Depth Moderate Body Position Sidelying Joint Mobilizations L scapulothoracic Direction retraction/depression/ UR Comments /c openbook, FF, ABD tactile cue GH Joint post & lat and distraction glides Comments /c FF and open book PT-OP-T Assessment and Plan Start: 07/29/23 10:51 Freq: Status: Active Protocol: Document 08/21/23 09:05 [facility] (Rec: 08/21/23 09:52 SP [id number]) Physical Therapy Assessment Goals activity Short Term Goal (STG) Pt will report using LUE more often w/ daily tasks w/o inc pain STG Duration 09/11/23 Long-Term Goal (LTG) Pt will report no pain w/ lifting and able to lift equal wts w/o inc pain. LTG Duration 10/19/23 strength Short Term Goal (STG) Pt will be indep w/HEP STG Duration 09/09/23 Rn Interventional Goal (LTG) Pt will score at least 4/5 on EFT and 5/5 on all UE MMT in order to show improved UE stability in order to allow greater ease w/ADLs LTG Duration 10/19/23 ROM Short Term Goal (STG) Pt will improve flex and abd by at least 10 deg STG Duration 09/11/23 Long-Term Goal (LTG) Pt will have full L UE ROM w/o inc pain in order to allow typical ADLs w/o inc pain and normal use of LUE during the day LTG Duration 10/19/23 Assessment Summary Assessment Pt responded well to manual and MWM cues for better Rhomboid and LT engagement with SA lessening GH discomfort into mid/end range ROM overhead. Improved OH into prone Y AROM and increased resistance Ts and Is with CS postural cues. Review TS ext over tball and foam roller with discussion on along spine home for increase scapular ROM with verbalized understanding. *Next tx: trial supine over long foam roller Ts and Ws ROM/ TB #1 then prone over tball for performance progression. Physical Therapy Plan Frequency and Duration Frequency of Treatment 1-2x/wk Duration of treatment (weeks) 10 Plan of Care Start Date 08/10/23 Plan of Care End Date 10/19/23 Therapeutic Interventions Therapeutic Interventions Home Exercise Program,Joint Mobilizations,Manual Therapy, Neuromuscular Re-education, Orthotic/Prosthetic Management ,Patient/Caregiver Education, Self-Care/Home Management,Soft Tissue Mobilization,Taping, Therapeutic Activities, Therapeutic Exercises Modalities Cold Pack/Ice Massage,Electric Stimulation,Hot Packs, Infrared Therapy,Iontophoresis ,Ultrasound Next Visit Focus/Plan Next Note Type Treatment Note Next Visit Plan work on 90/90 IR/ER strength in sitting and supported positioning; work on thoracic mobility; cont work on shoulder complext o improve pt ease for overhead motion; cont to work on stabilization w/overhead motion
--- NOTE | 2023-08-24 09:05 | PT.OTN ---
Current Diagnoses Pain in left shoulder (08/24/23) Physical Therapy Treatment Note PT-OP-A Visit Information Start: 07/29/23 10:51 Freq: Status: Active Protocol: Document 08/24/23 08:20 [facility] (Rec: 08/24/23 09:08 SP [id number]) Out-Patient Physical Therapy Visit Information Visit Information Visit Type Treatment Note Visit Note 11/19 Visit Start Time 08:20 Visit Stop Time 09:05 Visit Number 5 Number of WAGON DRILLER Visits 2 PT-OP-B Current Condition Start: 07/29/23 10:51 Freq: Status: Active Protocol: Document 08/10/23 08:19 [facility] (Rec: 08/10/23 10:30 [facility] [id number]) Current Condition History of Current Condition Current Complaints ant brachium History of Current Condition Pt reports L shoulder pain strting about 5 months ago. She does resistance training and does feelit the most there and when waking in the AM. Babied it for about 3 months then switched to DBs so she could do separate weights. She went on vacation and she used a band and noticed tehre was some pain. Pain is mostly in upper arm> She isusing about 10 lbs on R side and L side about 4 lbs. She avoids use of arm. Denies neck pain or hx of L arm pain. hx of R shoulde rpain that got better after PT. Treatment Goals Patient/Caregiver Goals Be able to lift equal weights, be able to use arm to do daily chores like close window etc PT-OP-C Subjective Start: 07/29/23 10:51 Freq: Status: Active Protocol: Document 08/24/23 08:20 [facility] (Rec: 08/25/23 10:52 SP [id number]) OP-PT Subjective Patient Comments Patient Comments Pt reports wants to review over tball exercises to be sure doing correctly. Patient Reported Progress Improving PT-OP-J Posture/Palpation/Skin Start: 07/29/23 10:51 Freq: Status: Active Protocol: Document 08/10/23 08:19 [facility] (Rec: 08/10/23 10:30 [facility] [id number]) Posture Evaluation Comments Posture Comments inc kyphosis, R>L scap winging , B ant tipped scap PT-OP-K Range of Motion Start: 07/29/23 10:51 Freq: Status: Active Protocol: Document 08/10/23 08:19 [facility] (Rec: 08/10/23 10:30 [facility] [id number]) Shoulder Goniometric Range of Motion Shoulder Right Active Flexion 154 Extension 62 Abduction 170 External Rotation at 90 degrees 92 Abduction External Rotation at 0 degrees Abduction 68 Internal Rotation Behind Back (text) T7 Left Active Flexion 141 Extension 66 Abduction 159 External Rotation at 90 degrees 93 Abduction External Rotation at 0 degrees Abduction 61 Internal Rotation Behind Back (text) T5 Comments pain w/flex and abd & 90/90 ER -drops out of abd slightly PT-OP-L Special Tests Start: 07/29/23 10:51 Freq: Status: Active Protocol: Document 08/10/23 08:19 [facility] (Rec: 08/10/23 10:30 [facility] [id number]) Special Tests Shoulder Special Tests Neer Impingement Test Results neg L [place] Test Test Results pos for inc pain but speeds position also painful L Yergason's Biceps Test Results neg L Speed's Biceps Test Results Positive L but obriens positive Painful Arc Test Results occ painful w/abd Lift-Off Rotator Cuff Test Results Negative Rocha Jean-Claude Impingement Test Results neg L Empty Can Test Results Positive L Drop Arm Rotator Cuff Test Results Negative Clunk Test Test Results positive L for pain Biceps Load II Test Test Results Positive L - mild pain AC Joint Compression Test Results Negative Other Special Tests Special Tests neg med, ulnar & radian n testing PT-OP-M Strength Start: 07/29/23 10:51 Freq: Status: Active Protocol: Document 08/10/23 08:19 [facility] (Rec: 08/10/23 10:30 [facility] [id number]) Shoulder Strength Shoulder Manual Muscle Testing Right Flexion 5 Normal Extension 5 Normal Abduction (C5) 5 Normal External Rotation 4 Good Internal Rotation 5 Normal Horizontal Abduction 4 Good Horizontal Adduction 4 Good Left Flexion 3+ Fair+ Extension 5 Normal Abduction (C5) 4- Good- External Rotation 3+ Fair+ Internal Rotation 5 Normal Horizontal Abduction 4- Good- Horizontal Adduction 3+ Fair+ Elbow/Forearm Strength Elbow and Forearm Manual Muscle Testing Right Flexion (C6) 5 Normal Extension (C7) 5 Normal Pronation 5 Normal Supination 5 Normal Left Flexion (C6) 5 Normal Extension (C7) 5 Normal Pronation 4 Good Supination 5 Normal PT-OP-Q Treatments Start: 07/29/23 10:51 Freq: Status: Active Protocol: Document 08/24/23 08:20 [facility] (Rec: 08/24/23 09:08 SP [id number]) Therapeutic Exercises Prone Exercises ER Prone Exercise Name over green ball ( 08/24/23 supine bridge) Side bilateral Equipment Used PRone challenging> improved supine bridge Reps/Minutes 10 Comments cued elbow near body, ER, scap retraction, maintain bridge/ core fac Is, Ts, Ys Prone Exercise Name over green ball Side bilateral Resistance feet floor Equipment Used 2# DB /c Is and Ts; 0# Ys Reps/Minutes 1 sets 10 Comments Improved self CS retraction neutral /c chin tuck, rhomboid & LT fac set Sidelying Exercises ABD & FF Side left Reps/Minutes 5 each Comments rhomboid & LT & SA mid range with decrease GH discomfort open book Side bilateral Resistance 1# DB Reps/Minutes 5 ea Other Exercises quadruped Other Exercise Name 1. thread needle 2. alt hip ext 3. bird dog Side bilateral Reps/Minutes 1.3 x 15 SH 2. x5 3. 5 reps alternate Comments added to HEP Manual Therapy Treatment Soft Tissue Mobilization ant Body Location L pec Mobilization Type Sustained Pressure,Other Intensity/Depth Moderate Body Position Sidelying and supine Comments w/ER Joint Mobilizations L scapulothoracic Direction retraction/depression/ UR Comments /c openbook, FF, ABD tactile cue PT-OP-T Assessment and Plan Start: 07/29/23 10:51 Freq: Status: Active Protocol: Document 08/24/23 08:20 [facility] (Rec: 08/24/23 09:08 SP [id number]) Physical Therapy Assessment Goals activity Short Term Goal (STG) Pt will report using LUE more often w/ daily tasks w/o inc pain STG Duration 09/11/23 Ground Wirer Goal (LTG) Pt will report no pain w/ lifting and able to lift equal wts w/o inc pain. LTG Duration 10/19/23 strength Short Term Goal (STG) Pt will be indep w/HEP STG Duration 09/09/23 Ground Wirer Goal (LTG) Pt will score at least 4/5 on EFT and 5/5 on all UE MMT in order to show improved UE stability in order to allow greater ease w/ADLs LTG Duration 10/19/23 ROM Short Term Goal (STG) Pt will improve flex and abd by at least 10 deg STG Duration 09/11/23 Penitentiary Goal (LTG) Pt will have full L UE ROM w/o inc pain in order to allow typical ADLs w/o inc pain and normal use of LUE during the day LTG Duration 10/19/23 Assessment Summary Assessment Pt improved more neutral CS during ther ex. Tactile and VCs during bird dog with improved understanding and carryover corrections. Able tolerated increased resistance to HABD open book and prone over tball shoulder exercises to progress strengthening unsupported away from wall today. Significant reduction in L GH discomfort with tactile cues and anatomy ed of musculature and mechanics of scapular protraction/ retraction and upward rotatom while supporting inferior GH glide into L UE ABD and FF against gravity today, increased reps able to duplication positioning. Physical Therapy Plan Frequency and Duration Frequency of Treatment 1-2x/wk Duration of treatment (weeks) 10 Plan of Care Start Date 08/10/23 Plan of Care End Date 10/19/23 Therapeutic Interventions Therapeutic Interventions Home Exercise Program,Joint Mobilizations,Manual Therapy, Neuromuscular Re-education, Orthotic/Prosthetic Management ,Patient/Caregiver Education, Self-Care/Home Management,Soft Tissue Mobilization,Taping, Therapeutic Activities, Therapeutic Exercises Modalities Cold Pack/Ice Massage,Electric Stimulation,Hot Packs, Infrared Therapy,Iontophoresis ,Ultrasound Next Visit Focus/Plan Next Note Type Treatment Note Next Visit Plan Check HEP as needed progress 90/90 IR/ER strength in sitting and supported positioning; work on thoracic mobility; cont work on shoulder complext o improve pt ease for overhead motion; cont to work on stabilization w/overhead motion
--- NOTE | 2023-09-03 09:43 | PT.OTN ---
Current Diagnoses Pain in left shoulder (09/03/23) Physical Therapy Treatment Note PT-OP-A Visit Information Start: 07/29/23 10:51 Freq: Status: Active Protocol: Document 09/03/23 09:02 SP (Rec: 09/03/23 09:47 SP [id number]) Out-Patient Physical Therapy Visit Information Visit Information Visit Type Treatment Note Visit Note 12/20 Visit Start Time 09:02 Visit Stop Time 09:42 Visit Number 6 Number of SEWER Visits 3 PT-OP-B Current Condition Start: 07/29/23 10:51 Freq: Status: Active Protocol: Document 08/10/23 08:19 [facility] (Rec: 08/10/23 10:30 [facility] [id number]) Current Condition History of Current Condition Current Complaints ant brachium History of Current Condition Pt reports L shoulder pain strting about 5 months ago. She does resistance training and does feelit the most there and when waking in the AM. Babied it for about 3 months then switched to DBs so she could do separate weights. She went on vacation and she used a band and noticed tehre was some pain. Pain is mostly in upper arm> She isusing about 10 lbs on R side and L side about 4 lbs. She avoids use of arm. Denies neck pain or hx of L arm pain. hx of R shoulde rpain that got better after PT. Treatment Goals Patient/Caregiver Goals Be able to lift equal weights, be able to use arm to do daily chores like close window etc PT-OP-C Subjective Start: 07/29/23 10:51 Freq: Status: Active Protocol: Document 09/03/23 09:02 SP (Rec: 09/03/23 09:47 SP [id number]) OP-PT Subjective Patient Comments Patient Comments Pt PT-OP-J Posture/Palpation/Skin Start: 07/29/23 10:51 Freq: Status: Active Protocol: Document 08/10/23 08:19 [facility] (Rec: 08/10/23 10:30 [facility] [id number]) Posture Evaluation Comments Posture Comments inc kyphosis, R>L scap winging , B ant tipped scap PT-OP-K Range of Motion Start: 07/29/23 10:51 Freq: Status: Active Protocol: Document 08/10/23 08:19 [facility] (Rec: 08/10/23 10:30 [facility] [id number]) Shoulder Goniometric Range of Motion Shoulder Right Active Flexion 154 Extension 62 Abduction 170 External Rotation at 90 degrees 92 Abduction External Rotation at 0 degrees Abduction 68 Internal Rotation Behind Back (text) T7 Left Active Flexion 141 Extension 66 Abduction 159 External Rotation at 90 degrees 93 Abduction External Rotation at 0 degrees Abduction 61 Internal Rotation Behind Back (text) T5 Comments pain w/flex and abd & 90/90 ER -drops out of abd slightly PT-OP-L Special Tests Start: 07/29/23 10:51 Freq: Status: Active Protocol: Document 08/10/23 08:19 [facility] (Rec: 08/10/23 10:30 [facility] [id number]) Special Tests Shoulder Special Tests Neer Impingement Test Results neg L [place] Test Test Results pos for inc pain but speeds position also painful L Yergason's Biceps Test Results neg L Speed's Biceps Test Results Positive L but obriens positive Painful Arc Test Results occ painful w/abd Lift-Off Rotator Cuff Test Results Negative Rocha Jean-Claude Impingement Test Results neg L Empty Can Test Results Positive L Drop Arm Rotator Cuff Test Results Negative Clunk Test Test Results positive L for pain Biceps Load II Test Test Results Positive L - mild pain AC Joint Compression Test Results Negative Other Special Tests Special Tests neg med, ulnar & radian n testing PT-OP-M Strength Start: 07/29/23 10:51 Freq: Status: Active Protocol: Document 08/10/23 08:19 [facility] (Rec: 08/10/23 10:30 [facility] [id number]) Shoulder Strength Shoulder Manual Muscle Testing Right Flexion 5 Normal Extension 5 Normal Abduction (C5) 5 Normal External Rotation 4 Good Internal Rotation 5 Normal Horizontal Abduction 4 Good Horizontal Adduction 4 Good Left Flexion 3+ Fair+ Extension 5 Normal Abduction (C5) 4- Good- External Rotation 3+ Fair+ Internal Rotation 5 Normal Horizontal Abduction 4- Good- Horizontal Adduction 3+ Fair+ Elbow/Forearm Strength Elbow and Forearm Manual Muscle Testing Right Flexion (C6) 5 Normal Extension (C7) 5 Normal Pronation 5 Normal Supination 5 Normal Left Flexion (C6) 5 Normal Extension (C7) 5 Normal Pronation 4 Good Supination 5 Normal PT-OP-Q Treatments Start: 07/29/23 10:51 Freq: Status: Active Protocol: Document 09/03/23 09:02 SP (Rec: 09/03/23 09:47 SP [id number]) Therapeutic Exercises Sidelying Exercises ABD & FF Sidelying Exercise Name added to HEP Side left Resistance 1# DB ABD, AROM FF Reps/Minutes 10 reps each Comments tactile cuing for slow 90>180 deg for mus stab control open book Side bilateral Resistance 1# DB Reps/Minutes 10 ea Standing Exercises UE wall walking Standing Exercise Name initiated in PT Side bilateral Resistance TB #2 Reps/Minutes 10 ft bicep curl to OH press Standing Exercise Name reviewed a self ex Resistance R 10 # L 7# DB Reps/Minutes x5 Comments cued level shld and head back neutral FF, ABD Standing Exercise Name added to HEP Side left Resistance 1>2 # DB Equipment Used front mirror self corrections Reps/Minutes x10 each Comments cued level shld , no [place] compensation ABD & eccentric IR Side left Resistance TB #2 orange Reps/Minutes x8 ABD & ER Side left Resistance Tb #1 peach Reps/Minutes x8 Comments tactile cue for maintain abd 90 deg Other Exercises quadruped Other Exercise Name 1. thread needle 2. bird dog Side bilateral Reps/Minutes 1.3 x 5 SH 2. 5 reps alternate Comments good form- HEP reviewed PT-OP-T Assessment and Plan Start: 07/29/23 10:51 Freq: Status: Active Protocol: Document 09/03/23 09:02 SP (Rec: 09/03/23 09:47 SP [id number]) Physical Therapy Assessment Goals activity Short Term Goal (STG) Pt will report using LUE more often w/ daily tasks w/o inc pain 09/03/23: GOAL MET STG Duration 09/11/23 MET Mixing Plant Operator Goal (LTG) Pt will report no pain w/ lifting and able to lift equal wts w/o inc pain. 09/03/23: progressing: still having some slight pain to notice when reaching items into cupboard. LTG Duration 10/19/23 proressing 09/03/23 strength Short Term Goal (STG) Pt will be indep w/HEP STG Duration 09/09/23 Mixing Plant Operator Goal (LTG) Pt will score at least 4/5 on EFT and 5/5 on all UE MMT in order to show improved UE stability in order to allow greater ease w/ADLs LTG Duration 10/19/23 ROM Short Term Goal (STG) Pt will improve flex and abd by at least 10 deg 09/03/23: GOAL MET FROM STG Duration 09/11/23 GOAL MET Mixing Plant Operator Goal (LTG) Pt will have full L UE ROM w/o inc pain in order to allow typical ADLs w/o inc pain and normal use of LUE during the day 09/03/23: GOAL MET pain free AROM LTG Duration 10/19/23 MET Progress Towards Goals Progress Comments MET STG Activity MET STG & LTG ROM Assessment Summary Assessment Pt good progression standing resistance ther ex with ROM WNL, painfree to support lifting items into cupboard. She reports good muscle tiring during added wall walking and FF & ABD, cued for slower pacing for scapular stab and decrease UT and forearm recruitment. Physical Therapy Plan Frequency and Duration Frequency of Treatment 1-2x/wk Duration of treatment (weeks) 10 Plan of Care Start Date 08/10/23 Plan of Care End Date 10/19/23 Therapeutic Interventions Therapeutic Interventions Home Exercise Program,Joint Mobilizations,Manual Therapy, Neuromuscular Re-education, Orthotic/Prosthetic Management ,Patient/Caregiver Education, Self-Care/Home Management,Soft Tissue Mobilization,Taping, Therapeutic Activities, Therapeutic Exercises Modalities Cold Pack/Ice Massage,Electric Stimulation,Hot Packs, Infrared Therapy,Iontophoresis ,Ultrasound Next Visit Focus/Plan Next Note Type Treatment Note Next Visit Plan Check HEP as needed, progress IR/ ER. POC: cont to work on stabilization w/overhead motion
--- NOTE | 2023-09-08 09:06 | PT.OTN ---
Current Diagnoses Pain in left shoulder (09/08/23) Physical Therapy Treatment Note PT-OP-A Visit Information Start: 07/29/23 10:51 Freq: Status: Active Protocol: Document 09/08/23 08:16 [facility] (Rec: 09/08/23 09:06 [facility] [id number]) Out-Patient Physical Therapy Visit Information Visit Information Visit Type Progress Note Visit Note 07/22 Visit Start Time 08:21 Visit Stop Time 09:00 Visit Number 7 Number of CENTRIFUGAL CASTING MACHINE OPERATOR Visits 0 PT-OP-B Current Condition Start: 07/29/23 10:51 Freq: Status: Active Protocol: Document 08/10/23 08:19 [facility] (Rec: 08/10/23 10:30 [facility] [id number]) Current Condition History of Current Condition Current Complaints ant brachium History of Current Condition Pt reports L shoulder pain strting about 5 months ago. She does resistance training and does feelit the most there and when waking in the AM. Babied it for about 3 months then switched to DBs so she could do separate weights. She went on vacation and she used a band and noticed tehre was some pain. Pain is mostly in upper arm> She isusing about 10 lbs on R side and L side about 4 lbs. She avoids use of arm. Denies neck pain or hx of L arm pain. hx of R shoulde rpain that got better after PT. Treatment Goals Patient/Caregiver Goals Be able to lift equal weights, be able to use arm to do daily chores like close window etc PT-OP-C Subjective Start: 07/29/23 10:51 Freq: Status: Active Protocol: Document 09/08/23 08:16 [facility] (Rec: 09/08/23 09:06 [facility] [id number]) OP-PT Subjective Patient Comments Patient Comments Pt reports she feels like she is improving. Still reaching up can be painful Patient Reported Progress Improving PT-OP-J Posture/Palpation/Skin Start: 07/29/23 10:51 Freq: Status: Active Protocol: Document 09/08/23 08:16 [facility] (Rec: 09/08/23 09:06 [facility] [id number]) Posture Evaluation Julia Postural Classification System Elbow Flexion Test 3 PT-OP-K Range of Motion Start: 07/29/23 10:51 Freq: Status: Active Protocol: Document 08/10/23 08:19 [facility] (Rec: 08/10/23 10:30 [facility] [id number]) Shoulder Goniometric Range of Motion Shoulder Right Active Flexion 154 Extension 62 Abduction 170 External Rotation at 90 degrees 92 Abduction External Rotation at 0 degrees Abduction 68 Internal Rotation Behind Back (text) T7 Left Active Flexion 141 Extension 66 Abduction 159 External Rotation at 90 degrees 93 Abduction External Rotation at 0 degrees Abduction 61 Internal Rotation Behind Back (text) T5 Comments pain w/flex and abd & 90/90 ER -drops out of abd slightly PT-OP-L Special Tests Start: 07/29/23 10:51 Freq: Status: Active Protocol: Document 08/10/23 08:19 [facility] (Rec: 08/10/23 10:30 [facility] [id number]) Special Tests Shoulder Special Tests Neer Impingement Test Results neg L [place] Test Test Results pos for inc pain but speeds position also painful L Yergason's Biceps Test Results neg L Speed's Biceps Test Results Positive L but obriens positive Painful Arc Test Results occ painful w/abd Lift-Off Rotator Cuff Test Results Negative Rocha Jean-Claude Impingement Test Results neg L Empty Can Test Results Positive L Drop Arm Rotator Cuff Test Results Negative Clunk Test Test Results positive L for pain Biceps Load II Test Test Results Positive L - mild pain AC Joint Compression Test Results Negative Other Special Tests Special Tests neg med, ulnar & radian n testing PT-OP-M Strength Start: 07/29/23 10:51 Freq: Status: Active Protocol: Document 09/08/23 08:16 [facility] (Rec: 09/08/23 09:06 [facility] [id number]) Shoulder Strength Shoulder Manual Muscle Testing Right Flexion 5 Normal Extension 5 Normal Abduction (C5) 5 Normal External Rotation 4+ Good+ Internal Rotation 5 Normal Horizontal Abduction 5 Normal Horizontal Adduction 5 Normal Left Flexion 3+ Fair+ Extension 5 Normal Abduction (C5) 4+ Good+ External Rotation 4 Good Internal Rotation 4+ Good+ Horizontal Abduction 4+ Good+ Horizontal Adduction 4+ Good+ Comments pain flex Elbow/Forearm Strength Elbow and Forearm Manual Muscle Testing Left Flexion (C6) 5 Normal Extension (C7) 5 Normal Pronation 4 Good Supination 5 Normal PT-OP-Q Treatments Start: 07/29/23 10:51 Freq: Status: Active Protocol: Document 09/08/23 08:16 [facility] (Rec: 09/08/23 09:06 [facility] [id number]) Therapeutic Exercises Sitting Exercises ER Sitting Exercise Name 90/90 elbow on table Side left Equipment Used 2# Reps/Minutes 15 Standing Exercises UE wall walking Standing Exercise Name review HEP Side bilateral Resistance TB #2 Reps/Minutes 2x5ft ea FF, ABD Standing Exercise Name added to HEP Side left Resistance 1# Equipment Used front mirror self corrections Reps/Minutes x10 each Comments cued for no ext of spine ABD & eccentric IR Side left Resistance TB #2 orange Reps/Minutes 10 ABD & ER Side left Resistance Tb #1 peach Reps/Minutes 6 Comments stopped d/t pain Manual Therapy Treatment Soft Tissue Mobilization ant Body Location L pec Mobilization Type Sustained Pressure,Other Intensity/Depth Moderate Body Position Sidelying and supine Comments w/ER Joint Mobilizations thoracic Comments transverseR and UPA L T3-6 FM AC Joint L ant scap FM ribs Comments PA rib 1-2 & caudal rib 1-3 FM PT-OP-T Assessment and Plan Start: 07/29/23 10:51 Freq: Status: Active Protocol: Document 09/08/23 08:16 [facility] (Rec: 09/08/23 09:06 [facility] [id number]) Physical Therapy Assessment Goals activity Short Term Goal (STG) Pt will report using LUE more often w/ daily tasks w/o inc pain 09/03/23: GOAL MET STG Duration 09/11/23 MET Longterm Goal (LTG) Pt will report no pain w/ lifting and able to lift equal wts w/o inc pain. 09/03/23: progressing: still having some slight pain to notice when reaching items into cupboard. 09/08-limiting wt w/working out LTG Duration 10/19/23 proressing 09/03/23 strength Short Term Goal (STG) Pt will be indep w/HEP STG Duration 09/09/23 Longterm Goal (LTG) Pt will score at least 4/5 on EFT and 5/5 on all UE MMT in order to show improved UE stability in order to allow greater ease w/ADLs 09/08-improved LTG Duration 10/19/23 ROM Short Term Goal (STG) Pt will improve flex and abd by at least 10 deg 09/03/23: GOAL MET FROM STG Duration 09/11/23 GOAL MET Retail Advertising Sales Manager Goal (LTG) Pt will have full L UE ROM w/o inc pain in order to allow typical ADLs w/o inc pain and normal use of LUE during the day 09/03/23: GOAL MET pain free AROM 09/08-mild discomfort LTG Duration 10/19/23 Assessment Summary Assessment Improved flex w/less discomfort after manual treatment. She has improved shoudler strenght and stability but still struggles most w/flex. GOod exercise perforamnce w/min cues. Physical Therapy Plan Frequency and Duration Frequency of Treatment 1-2x/wk Duration of treatment (weeks) 10 Plan of Care Start Date 08/10/23 Plan of Care End Date 10/19/23 Therapeutic Interventions Therapeutic Interventions Home Exercise Program,Joint Mobilizations,Manual Therapy, Neuromuscular Re-education, Orthotic/Prosthetic Management ,Patient/Caregiver Education, Self-Care/Home Management,Soft Tissue Mobilization,Taping, Therapeutic Activities, Therapeutic Exercises Modalities Cold Pack/Ice Massage,Electric Stimulation,Hot Packs, Infrared Therapy,Iontophoresis ,Ultrasound Next Visit Focus/Plan Next Note Type Treatment Note Next Visit Plan work on manual for tspine & ribs and AC & GH for overhead mobility.
--- NOTE | 2023-09-14 12:07 | PT.OTN ---
Current Diagnoses Pain in left shoulder (09/14/23) Physical Therapy Treatment Note PT-OP-A Visit Information Start: 07/29/23 10:51 Freq: Status: Active Protocol: Document 09/14/23 08:22 [facility] (Rec: 09/14/23 12:07 [facility] [id number]) Out-Patient Physical Therapy Visit Information Visit Information Visit Type Treatment Note Visit Note 08/22 Visit Start Time 08:20 Visit Stop Time 09:00 Visit Number 8 Number of ASSOCIATE PATHOLOGIST Visits 0 PT-OP-B Current Condition Start: 07/29/23 10:51 Freq: Status: Active Protocol: Document 08/10/23 08:19 [facility] (Rec: 08/10/23 10:30 [facility] [id number]) Current Condition History of Current Condition Current Complaints ant brachium History of Current Condition Pt reports L shoulder pain strting about 5 months ago. She does resistance training and does feelit the most there and when waking in the AM. Babied it for about 3 months then switched to DBs so she could do separate weights. She went on vacation and she used a band and noticed tehre was some pain. Pain is mostly in upper arm> She isusing about 10 lbs on R side and L side about 4 lbs. She avoids use of arm. Denies neck pain or hx of L arm pain. hx of R shoulde rpain that got better after PT. Treatment Goals Patient/Caregiver Goals Be able to lift equal weights, be able to use arm to do daily chores like close window etc PT-OP-C Subjective Start: 07/29/23 10:51 Freq: Status: Active Protocol: Document 09/14/23 08:22 [facility] (Rec: 09/14/23 12:07 [facility] [id number]) OP-PT Subjective Patient Comments Patient Comments Pt reports no issues w/ exercises PT-OP-J Posture/Palpation/Skin Start: 07/29/23 10:51 Freq: Status: Active Protocol: Document 09/08/23 08:16 [facility] (Rec: 09/08/23 09:06 [facility] [id number]) Posture Evaluation Julia Postural Classification System Elbow Flexion Test 3 PT-OP-K Range of Motion Start: 07/29/23 10:51 Freq: Status: Active Protocol: Document 08/10/23 08:19 [facility] (Rec: 08/10/23 10:30 [id number] Shoulder Goniometric Range of Motion Shoulder Right Active Flexion 154 Extension 62 Abduction 170 External Rotation at 90 degrees 92 Abduction External Rotation at 0 degrees Abduction 68 Internal Rotation Behind Back (text) T7 Left Active Flexion 141 Extension 66 Abduction 159 External Rotation at 90 degrees 93 Abduction External Rotation at 0 degrees Abduction 61 Internal Rotation Behind Back (text) T5 Comments pain w/flex and abd & 90/90 ER -drops out of abd slightly PT-OP-L Special Tests Start: 07/29/23 10:51 Freq: Status: Active Protocol: Document 08/10/23 08:19 [facility] (Rec: 08/10/23 10:30 [facility] [id number]) Special Tests Shoulder Special Tests Neer Impingement Test Results neg L [place] Test Test Results pos for inc pain but speeds position also painful L Yergason's Biceps Test Results neg L Speed's Biceps Test Results Positive L but obriens positive Painful Arc Test Results occ painful w/abd Lift-Off Rotator Cuff Test Results Negative Rocha Jean-Claude Impingement Test Results neg L Empty Can Test Results Positive L Drop Arm Rotator Cuff Test Results Negative Clunk Test Test Results positive L for pain Biceps Load II Test Test Results Positive L - mild pain AC Joint Compression Test Results Negative Other Special Tests Special Tests neg med, ulnar & radian n testing PT-OP-M Strength Start: 07/29/23 10:51 Freq: Status: Active Protocol: Document 09/08/23 08:16 [facility] (Rec: 09/08/23 09:06 [facility] [id number]) Shoulder Strength Shoulder Manual Muscle Testing Right Flexion 5 Normal Extension 5 Normal Abduction (C5) 5 Normal External Rotation 4+ Good+ Internal Rotation 5 Normal Horizontal Abduction 5 Normal Horizontal Adduction 5 Normal Left Flexion 3+ Fair+ Extension 5 Normal Abduction (C5) 4+ Good+ External Rotation 4 Good Internal Rotation 4+ Good+ Horizontal Abduction 4+ Good+ Horizontal Adduction 4+ Good+ Comments pain flex Elbow/Forearm Strength Elbow and Forearm Manual Muscle Testing Left Flexion (C6) 5 Normal Extension (C7) 5 Normal Pronation 4 Good Supination 5 Normal PT-OP-Q Treatments Start: 07/29/23 10:51 Freq: Status: Active Protocol: Document 09/14/23 08:22 [facility] (Rec: 09/14/23 12:07 [facility] [id number]) Therapeutic Exercises Standing Exercises ABD & ER Side left Resistance 1.Tb #1 peach 2. 1# Reps/Minutes 1.6 2. 10 Manual Therapy Treatment Joint Mobilizations GH Comments L inf and distraction w/ overhead motions thoracic Comments UPA L T4-7 FM; transverse R T4 -8 FM s/l AC Comments L ant clavicle FM w/D2 pattern w/dowel ribs Comments L ribs external torsion 4-7 FM PT-OP-T Assessment and Plan Start: 07/29/23 10:51 Freq: Status: Active Protocol: Document 09/14/23 08:22 [facility] (Rec: 09/14/23 12:07 [facility] [id number]) Physical Therapy Assessment Goals activity Short Term Goal (STG) Pt will report using LUE more often w/ daily tasks w/o inc pain 09/03/23: GOAL MET STG Duration 09/11/23 MET Client Account Assistant Goal (LTG) Pt will report no pain w/ lifting and able to lift equal wts w/o inc pain. 09/03/23: progressing: still having some slight pain to notice when reaching items into cupboard. 09/08-limiting wt w/working out LTG Duration 10/19/23 proressing 09/03/23 strength Short Term Goal (STG) Pt will be indep w/HEP STG Duration 09/09/23 Client Account Assistant Goal (LTG) Pt will score at least 4/5 on EFT and 5/5 on all UE MMT in order to show improved UE stability in order to allow greater ease w/ADLs 09/08-improved LTG Duration 10/19/23 ROM Short Term Goal (STG) Pt will improve flex and abd by at least 10 deg 09/03/23: GOAL MET FROM STG Duration 09/11/23 GOAL MET Jail Goal (LTG) Pt will have full L UE ROM w/o inc pain in order to allow typical ADLs w/o inc pain and normal use of LUE during the day 09/03/23: GOAL MET pain free AROM 09/08-mild discomfort LTG Duration 10/19/23 Assessment Summary Assessment Pt had much improved abd and flex passive to full range w/ mild discomfort at end of flex only. No further discomfort w /abd and full AROM. Improved tolerance to 90/90 ER but difficult w/band so used wt Physical Therapy Plan Frequency and Duration Frequency of Treatment 1-2x/wk Duration of treatment (weeks) 10 Plan of Care Start Date 08/10/23 Plan of Care End Date 10/19/23 Next Visit Focus/Plan Next Note Type Treatment Note Next Visit Plan work on manual for tspine & ribs and AC & GH for overhead mobility.
--- NOTE | 2023-09-21 09:24 | PT.OTN ---
Current Diagnoses Pain in left shoulder (09/21/23) Physical Therapy Treatment Note PT-OP-A Visit Information Start: 07/29/23 10:51 Freq: Status: Active Protocol: Document 09/21/23 08:17 [facility] (Rec: 09/21/23 09:24 [facility] [id number]) Out-Patient Physical Therapy Visit Information Visit Information Visit Type Treatment Note Visit Note 09/19 Visit Start Time 08:19 Visit Stop Time 09:00 Visit Number 9 Number of SCHOOL TREASURER Visits 0 PT-OP-B Current Condition Start: 07/29/23 10:51 Freq: Status: Active Protocol: Document 08/10/23 08:19 [facility] (Rec: 08/10/23 10:30 [facility] [id number]) Current Condition History of Current Condition Current Complaints ant brachium History of Current Condition Pt reports L shoulder pain strting about 5 months ago. She does resistance training and does feelit the most there and when waking in the AM. Babied it for about 3 months then switched to DBs so she could do separate weights. She went on vacation and she used a band and noticed tehre was some pain. Pain is mostly in upper arm> She isusing about 10 lbs on R side and L side about 4 lbs. She avoids use of arm. Denies neck pain or hx of L arm pain. hx of R shoulde rpain that got better after PT. Treatment Goals Patient/Caregiver Goals Be able to lift equal weights, be able to use arm to do daily chores like close window etc PT-OP-C Subjective Start: 07/29/23 10:51 Freq: Status: Active Protocol: Document 09/21/23 08:17 [facility] (Rec: 09/21/23 09:24 [facility] [id number]) OP-PT Subjective Patient Comments Patient Comments Was doing a sideplank like activity in pilates that inc shoulder pain. took a day of rest and took ibuprofen. about 80% back to where [facility] was [facility] time PT-OP-J Posture/Palpation/Skin Start: 07/29/23 10:51 Freq: Status: Active Protocol: Document 09/08/23 08:16 [facility] (Rec: 09/08/23 09:06 [facility] [id number]) Posture Evaluation Julia Postural Classification System Elbow Flexion Test 3 PT-OP-K Range of Motion Start: 07/29/23 10:51 Freq: Status: Active Protocol: Document 08/10/23 08:19 [facility] (Rec: 08/10/23 10:30 [facility] [id number]) Shoulder Goniometric Range of Motion Shoulder Right Active Flexion 154 Extension 62 Abduction 170 External Rotation at 90 degrees 92 Abduction External Rotation at 0 degrees Abduction 68 Internal Rotation Behind Back (text) T7 Left Active Flexion 141 Extension 66 Abduction 159 External Rotation at 90 degrees 93 Abduction External Rotation at 0 degrees Abduction 61 Internal Rotation Behind Back (text) T5 Comments pain w/flex and abd & 90/90 ER -drops out of abd slightly PT-OP-L Special Tests Start: 07/29/23 10:51 Freq: Status: Active Protocol: Document 08/10/23 08:19 [facility] (Rec: 08/10/23 10:30 [facility] [id number]) Special Tests Shoulder Special Tests Neer Impingement Test Results neg L [place] Test Test Results pos for inc pain but speeds position also painful L Yergason's Biceps Test Results neg L Speed's Biceps Test Results Positive L but obriens positive Painful Arc Test Results occ painful w/abd Lift-Off Rotator Cuff Test Results Negative Rocha Jean-Claude Impingement Test Results neg L Empty Can Test Results Positive L Drop Arm Rotator Cuff Test Results Negative Clunk Test Test Results positive L for pain Biceps Load II Test Test Results Positive L - mild pain AC Joint Compression Test Results Negative Other Special Tests Special Tests neg med, ulnar & radian n testing PT-OP-M Strength Start: 07/29/23 10:51 Freq: Status: Active Protocol: Document 09/08/23 08:16 [facility] (Rec: 09/08/23 09:06 [facility] [id number]) Shoulder Strength Shoulder Manual Muscle Testing Right Flexion 5 Normal Extension 5 Normal Abduction (C5) 5 Normal External Rotation 4+ Good+ Internal Rotation 5 Normal Horizontal Abduction 5 Normal Horizontal Adduction 5 Normal Left Flexion 3+ Fair+ Extension 5 Normal Abduction (C5) 4+ Good+ External Rotation 4 Good Internal Rotation 4+ Good+ Horizontal Abduction 4+ Good+ Horizontal Adduction 4+ Good+ Comments pain flex Elbow/Forearm Strength Elbow and Forearm Manual Muscle Testing Left Flexion (C6) 5 Normal Extension (C7) 5 Normal Pronation 4 Good Supination 5 Normal PT-OP-Q Treatments Start: 07/29/23 10:51 Freq: Status: Active Protocol: Document 09/21/23 08:17 [facility] (Rec: 09/21/23 09:24 [facility] [id number]) Therapeutic Exercises Other Exercises 1st rib Other Exercise Name 1. s/l self mob roll on it 2. seated w/belt self mob 3. AC clavicle ant Side left Reps/Minutes 8 min total Manual Therapy Treatment Soft Tissue Mobilization ant Body Location L pec Mobilization Type Sustained Pressure,Other Intensity/Depth Moderate Body Position Sidelying and supine Comments w/ER superior Body Location L LS Mobilization Type Rolling Intensity/Depth Moderate Body Position Sidelying Joint Mobilizations L scapulothoracic Joint sup tilt thoracic Comments UPA T1-5 FM seated; transverse R T1-5 FM seated AC Comments L ant clavicle FM w/D2 pattern w/dowel & standing scaption ribs Comments rib 2-3, 6-7 AP FM; caudal ribs 1-2 FM; rib 7 and 10 external torsion FM L PT-OP-T Assessment and Plan Start: 07/29/23 10:51 Freq: Status: Active Protocol: Document 09/21/23 08:17 [facility] (Rec: 09/21/23 09:24 [facility] [id number]) Physical Therapy Assessment Goals activity Short Term Goal (STG) Pt will report using LUE more often w/ daily tasks w/o inc pain 09/03/23: GOAL MET STG Duration 09/11/23 MET Fdc Goal (LTG) Pt will report no pain w/ lifting and able to lift equal wts w/o inc pain. 09/03/23: progressing: still having some slight pain to notice when reaching items into cupboard. 09/08-limiting wt w/working out LTG Duration 10/19/23 proressing 09/03/23 strength Short Term Goal (STG) Pt will be indep w/HEP STG Duration 09/09/23 Document Control Specialist Goal (LTG) Pt will score at least 4/5 on EFT and 5/5 on all UE MMT in order to show improved UE stability in order to allow greater ease w/ADLs 09/08-improved LTG Duration 10/19/23 ROM Short Term Goal (STG) Pt will improve flex and abd by at least 10 deg 09/03/23: GOAL MET FROM STG Duration 09/11/23 GOAL MET Fdc Goal (LTG) Pt will have full L UE ROM w/o inc pain in order to allow typical ADLs w/o inc pain and normal use of LUE during the day 09/03/23: GOAL MET pain free AROM 09/08-mild discomfort LTG Duration 10/19/23 Assessment Summary Assessment Pt did well self mobs and demonstrated understanding w/ reps throughout session. W/ focus on tspien and ribcage motion, pt showed much improved mechanics of shoulder complex w/less scap elevation w/abd and 90/90 ER after manual. Physical Therapy Plan Frequency and Duration Frequency of Treatment 1-2x/wk Duration of treatment (weeks) 10 Plan of Care Start Date 08/10/23 Plan of Care End Date 10/19/23 Next Visit Focus/Plan Next Note Type Treatment Note Next Visit Plan focus on ribcage/thoracic mobility on L>R for full L shoulder motion; look at sideplank pilates exercise
--- NOTE | 2023-09-30 12:17 | PT.OTN ---
Current Diagnoses Pain in left shoulder (09/30/23) Physical Therapy Treatment Note PT-OP-A Visit Information Start: 07/29/23 10:51 Freq: Status: Active Protocol: Document 09/30/23 08:16 [facility] (Rec: 09/30/23 12:16 [facility] [id number]) Out-Patient Physical Therapy Visit Information Visit Information Visit Type Treatment Note Visit Note 10/20 Visit Start Time 08:18 Visit Stop Time 09:00 Visit Number 10 Number of RUBY DEVELOPER Visits 0 PT-OP-B Current Condition Start: 07/29/23 10:51 Freq: Status: Active Protocol: Document 08/10/23 08:19 [facility] (Rec: 08/10/23 10:30 [facility] [id number]) Current Condition History of Current Condition Current Complaints ant brachium History of Current Condition Pt reports L shoulder pain strting about 5 months ago. She does resistance training and does feelit the most there and when waking in the AM. Babied it for about 3 months then switched to DBs so she could do separate weights. She went on vacation and she used a band and noticed tehre was some pain. Pain is mostly in upper arm> She isusing about 10 lbs on R side and L side about 4 lbs. She avoids use of arm. Denies neck pain or hx of L arm pain. hx of R shoulde rpain that got better after PT. Treatment Goals Patient/Caregiver Goals Be able to lift equal weights, be able to use arm to do daily chores like close window etc PT-OP-C Subjective Start: 07/29/23 10:51 Freq: Status: Active Protocol: Document 09/30/23 08:16 [facility] (Rec: 09/30/23 12:16 [facility] [id number]) OP-PT Subjective Patient Comments Patient Comments Pt reports she was doing her exercises one day and had L shoulder pain and layed down to do the first rib mob and that helped. Patient Reported Progress Improving PT-OP-J Posture/Palpation/Skin Start: 07/29/23 10:51 Freq: Status: Active Protocol: Document 09/08/23 08:16 [facility] (Rec: 09/08/23 09:06 [facility] [id number]) Posture Evaluation Julia Postural Classification System Elbow Flexion Test 3 PT-OP-K Range of Motion Start: 07/29/23 10:51 Freq: Status: Active Protocol: Document 08/10/23 08:19 [facility] (Rec: 08/10/23 10:30 [facility] [id number]) Shoulder Goniometric Range of Motion Shoulder Right Active Flexion 154 Extension 62 Abduction 170 External Rotation at 90 degrees 92 Abduction External Rotation at 0 degrees Abduction 68 Internal Rotation Behind Back (text) T7 Left Active Flexion 141 Extension 66 Abduction 159 External Rotation at 90 degrees 93 Abduction External Rotation at 0 degrees Abduction 61 Internal Rotation Behind Back (text) T5 Comments pain w/flex and abd & 90/90 ER -drops out of abd slightly PT-OP-L Special Tests Start: 07/29/23 10:51 Freq: Status: Active Protocol: Document 08/10/23 08:19 [facility] (Rec: 08/10/23 10:30 [facility] [id number]) Special Tests Shoulder Special Tests Neer Impingement Test Results neg L [place] Test Test Results pos for inc pain but speeds position also painful L Yergason's Biceps Test Results neg L Speed's Biceps Test Results Positive L but obriens positive Painful Arc Test Results occ painful w/abd Lift-Off Rotator Cuff Test Results Negative Rocha Jean-Claude Impingement Test Results neg L Empty Can Test Results Positive L Drop Arm Rotator Cuff Test Results Negative Clunk Test Test Results positive L for pain Biceps Load II Test Test Results Positive L - mild pain AC Joint Compression Test Results Negative Other Special Tests Special Tests neg med, ulnar & radian n testing PT-OP-M Strength Start: 07/29/23 10:51 Freq: Status: Active Protocol: Document 09/08/23 08:16 [facility] (Rec: 09/08/23 09:06 [facility] [id number]) Shoulder Strength Shoulder Manual Muscle Testing Right Flexion 5 Normal Extension 5 Normal Abduction (C5) 5 Normal External Rotation 4+ Good+ Internal Rotation 5 Normal Horizontal Abduction 5 Normal Horizontal Adduction 5 Normal Left Flexion 3+ Fair+ Extension 5 Normal Abduction (C5) 4+ Good+ External Rotation 4 Good Internal Rotation 4+ Good+ Horizontal Abduction 4+ Good+ Horizontal Adduction 4+ Good+ Comments pain flex Elbow/Forearm Strength Elbow and Forearm Manual Muscle Testing Left Flexion (C6) 5 Normal Extension (C7) 5 Normal Pronation 4 Good Supination 5 Normal PT-OP-Q Treatments Start: 07/29/23 10:51 Freq: Status: Active Protocol: Document 09/30/23 08:16 [facility] (Rec: 09/30/23 12:16 [facility] [id number]) Therapeutic Exercises Supine Exercises foam roll Supine Exercise Name flex, Habd, abd Side bilateral Reps/Minutes 8 ea Prone Exercises ER Prone Exercise Name over green ball Side bilateral Reps/Minutes 10 Comments cued elbow near body, ER, scap retraction, maintain bridge/ core fac Sidelying Exercises SB/rot Sidelying Exercise Name drop LEs into L SB and R rot Reps/Minutes 8 Standing Exercises ABD & ER Side left Resistance lvl 1 band; 2# Reps/Minutes 1.6 2. 10 Manual Therapy Treatment Joint Mobilizations thoracic Comments Transverse T3-5 L FM seated ribs Comments external torsion ribs 8-9; ribs3-6 FM; SB L L rib 4-7 FM PT-OP-T Assessment and Plan Start: 07/29/23 10:51 Freq: Status: Active Protocol: Document 09/30/23 08:16 [facility] (Rec: 09/30/23 12:16 [facility] [id number]) Physical Therapy Assessment Goals activity Short Term Goal (STG) Pt will report using LUE more often w/ daily tasks w/o inc pain 09/03/23: GOAL MET STG Duration 09/11/23 MET Copier And Printer Field Technician Goal (LTG) Pt will report no pain w/ lifting and able to lift equal wts w/o inc pain. 09/03/23: progressing: still having some slight pain to notice when reaching items into cupboard. 09/08-limiting wt w/working out LTG Duration 10/19/23 proressing 09/03/23 strength Short Term Goal (STG) Pt will be indep w/HEP STG Duration 09/09/23 Copier And Printer Field Technician Goal (LTG) Pt will score at least 4/5 on EFT and 5/5 on all UE MMT in order to show improved UE stability in order to allow greater ease w/ADLs 09/08-improved LTG Duration 10/19/23 ROM Short Term Goal (STG) Pt will improve flex and abd by at least 10 deg 09/03/23: GOAL MET FROM STG Duration 09/11/23 GOAL MET Fpc Goal (LTG) Pt will have full L UE ROM w/o inc pain in order to allow typical ADLs w/o inc pain and normal use of LUE during the day 09/03/23: GOAL MET pain free AROM 09/08-mild discomfort LTG Duration 10/19/23 Assessment Summary Assessment Pt started w/pian w/Habd/add and abd but after manual had no pain with any range. 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 Physical Therapy Plan Frequency and Duration Frequency of Treatment 1-2x/wk Duration of treatment (weeks) 10 Plan of Care Start Date 08/10/23 Plan of Care End Date 10/19/23 Next Visit Focus/Plan Next Note Type Treatment Note Next Visit Plan focus on L rib exernal torsion & ext
--- NOTE | 2023-10-05 08:58 | PT.OTN ---
Current Diagnoses Pain in left shoulder (10/05/23) Physical Therapy Treatment Note PT-OP-A Visit Information Start: 07/29/23 10:51 Freq: Status: Active Protocol: Document 10/05/23 08:18 [facility] (Rec: 10/05/23 09:04 [facility] [id number]) Out-Patient Physical Therapy Visit Information Visit Information Visit Type Treatment Note Visit Note 11/19 Visit Start Time 08:18 Visit Stop Time 08:58 Visit Number 11 Number of MINING SPECULATOR Visits 1 PT-OP-B Current Condition Start: 07/29/23 10:51 Freq: Status: Active Protocol: Document 08/10/23 08:19 [facility] (Rec: 08/10/23 10:30 [facility] [id number]) Current Condition History of Current Condition Current Complaints ant brachium History of Current Condition Pt reports L shoulder pain strting about 5 months ago. She does resistance training and does feelit the most there and when waking in the AM. Babied it for about 3 months then switched to DBs so she could do separate weights. She went on vacation and she used a band and noticed tehre was some pain. Pain is mostly in upper arm> She isusing about 10 lbs on R side and L side about 4 lbs. She avoids use of arm. Denies neck pain or hx of L arm pain. hx of R shoulde rpain that got better after PT. Treatment Goals Patient/Caregiver Goals Be able to lift equal weights, be able to use arm to do daily chores like close window etc PT-OP-C Subjective Start: 07/29/23 10:51 Freq: Status: Active Protocol: Document 10/05/23 08:18 [facility] (Rec: 10/05/23 09:04 [facility] [id number]) OP-PT Subjective Patient Comments Patient Comments Pt reports manual helped ROM. Still not full snow k[place]all motion over foam roller, compliant with HEP. Patient Reported Progress Improving PT-OP-J Posture/Palpation/Skin Start: 07/29/23 10:51 Freq: Status: Active Protocol: Document 09/08/23 08:16 [facility] (Rec: 09/08/23 09:06 [facility] [id number]) Posture Evaluation Julia Postural Classification System Elbow Flexion Test 3 PT-OP-K Range of Motion Start: 07/29/23 10:51 Freq: Status: Active Protocol: Document 08/10/23 08:19 [facility] (Rec: 08/10/23 10:30 [facility] [id number]) Shoulder Goniometric Range of Motion Shoulder Right Active Flexion 154 Extension 62 Abduction 170 External Rotation at 90 degrees 92 Abduction External Rotation at 0 degrees Abduction 68 Internal Rotation Behind Back (text) T7 Left Active Flexion 141 Extension 66 Abduction 159 External Rotation at 90 degrees 93 Abduction External Rotation at 0 degrees Abduction 61 Internal Rotation Behind Back (text) T5 Comments pain w/flex and abd & 90/90 ER -drops out of abd slightly PT-OP-L Special Tests Start: 07/29/23 10:51 Freq: Status: Active Protocol: Document 08/10/23 08:19 [facility] (Rec: 08/10/23 10:30 [facility] [id number]) Special Tests Shoulder Special Tests Neer Impingement Test Results neg L [place] Test Test Results pos for inc pain but speeds position also painful L Yergason's Biceps Test Results neg L Speed's Biceps Test Results Positive L but obriens positive Painful Arc Test Results occ painful w/abd Lift-Off Rotator Cuff Test Results Negative Rocha Jean-Claude Impingement Test Results neg L Empty Can Test Results Positive L Drop Arm Rotator Cuff Test Results Negative Clunk Test Test Results positive L for pain Biceps Load II Test Test Results Positive L - mild pain AC Joint Compression Test Results Negative Other Special Tests Special Tests neg med, ulnar & radian n testing PT-OP-M Strength Start: 07/29/23 10:51 Freq: Status: Active Protocol: Document 09/08/23 08:16 [facility] (Rec: 09/08/23 09:06 [facility] [id number]) Shoulder Strength Shoulder Manual Muscle Testing Right Flexion 5 Normal Extension 5 Normal Abduction (C5) 5 Normal External Rotation 4+ Good+ Internal Rotation 5 Normal Horizontal Abduction 5 Normal Horizontal Adduction 5 Normal Left Flexion 3+ Fair+ Extension 5 Normal Abduction (C5) 4+ Good+ External Rotation 4 Good Internal Rotation 4+ Good+ Horizontal Abduction 4+ Good+ Horizontal Adduction 4+ Good+ Comments pain flex Elbow/Forearm Strength Elbow and Forearm Manual Muscle Testing Left Flexion (C6) 5 Normal Extension (C7) 5 Normal Pronation 4 Good Supination 5 Normal PT-OP-Q Treatments Start: 07/29/23 10:51 Freq: Status: Active Protocol: Document 10/05/23 08:18 [facility] (Rec: 10/05/23 09:04 [facility] [id number]) Therapeutic Exercises Supine Exercises foam roll Supine Exercise Name flex, Habd, abd Side bilateral Resistance AROM> Tb #2 aqua Reps/Minutes 8 ea direction and added resistance Comments occasional cues for arm ER, scap post/inf/UR glide TS ext Supine Exercise Name ext and rolling: provided HO Resistance cradle headfoam roller Reps/Minutes 3 min total Sidelying Exercises SB/rot Sidelying Exercise Name drop LEs into L SB and R rot Resistance 10/04 dropped BLES into R SB and L rotation Equipment Used added HABD to UE mobility Reps/Minutes 8 Standing Exercises ABD & eccentric IR Side left Resistance TB #1 peach Reps/Minutes 10 Comments improved post cues anchored behind hand, not see arm peripheral side ABD & ER Side left Resistance lvl 1 band Reps/Minutes x10 Comments improved post cues anchored behind hand, not see arm peripheral side Manual Therapy Treatment Joint Mobilizations thoracic Body Position R SL Comments Transverse T3-5 L FM open book L rotation, ABD ribs Comments SB L L rib 4-8 FM PT-OP-T Assessment and Plan Start: 07/29/23 10:51 Freq: Status: Active Protocol: Document 10/05/23 08:18 [facility] (Rec: 10/05/23 09:04 SP [id number]) Physical Therapy Assessment Goals activity Short Term Goal (STG) Pt will report using LUE more often w/ daily tasks w/o inc pain 09/03/23: GOAL MET STG Duration 09/11/23 MET Senior Programmer Goal (LTG) Pt will report no pain w/ lifting and able to lift equal wts w/o inc pain. 09/03/23: progressing: still having some slight pain to notice when reaching items into cupboard. 09/08-limiting wt w/working out LTG Duration 10/19/23 proressing 09/03/23 strength Short Term Goal (STG) Pt will be indep w/HEP STG Duration 09/09/23 Nursing Home Goal (LTG) Pt will score at least 4/5 on EFT and 5/5 on all UE MMT in order to show improved UE stability in order to allow greater ease w/ADLs 09/08-improved LTG Duration 10/19/23 ROM Short Term Goal (STG) Pt will improve flex and abd by at least 10 deg 09/03/23: GOAL MET FROM STG Duration 09/11/23 GOAL MET Nursing Home Goal (LTG) Pt will have full L UE ROM w/o inc pain in order to allow typical ADLs w/o inc pain and normal use of LUE during the day 09/03/23: GOAL MET pain free AROM 09/08-mild discomfort LTG Duration 10/19/23 Assessment Summary Assessment Pt reported improved L rib and scapular mobility post manual and after added resistance to HEP exercises. Ed for support arm height abd/er, can't see elbow in peripheral vision improved form, due to not able see in mirror and perform ex. Added foam TS ext and rolling to HEP for self mobilization. Physical Therapy Plan Frequency and Duration Frequency of Treatment 1-2x/wk Duration of treatment (weeks) 10 Plan of Care Start Date 08/10/23 Plan of Care End Date 10/19/23 Therapeutic Interventions Therapeutic Interventions Home Exercise Program,Joint Mobilizations,Manual Therapy, Neuromuscular Re-education, Orthotic/Prosthetic Management ,Patient/Caregiver Education, Self-Care/Home Management,Soft Tissue Mobilization,Taping, Therapeutic Activities, Therapeutic Exercises Modalities Cold Pack/Ice Massage,Electric Stimulation,Hot Packs, Infrared Therapy,Iontophoresis ,Ultrasound Next Visit Focus/Plan Next Note Type Treatment Note Next Visit Plan focus on L rib exernal torsion & ext
--- NOTE | 2023-10-12 10:56 | PT.OTN ---
Current Diagnoses Pain in left shoulder (10/12/23) Physical Therapy Treatment Note PT-OP-A Visit Information Start: 07/29/23 10:51 Freq: Status: Active Protocol: Document 10/12/23 08:48 [facility] (Rec: 10/12/23 10:56 [facility] [id number]) Out-Patient Physical Therapy Visit Information Visit Information Visit Type Progress Note Visit Note 07/22 Visit Start Time 09:01 Visit Stop Time 09:45 Visit Number 12 Number of VIDEO TAPE EDITOR Visits 0 PT-OP-B Current Condition Start: 07/29/23 10:51 Freq: Status: Active Protocol: Document 08/10/23 08:19 [facility] (Rec: 08/10/23 10:30 [facility] [id number]) Current Condition History of Current Condition Current Complaints ant brachium History of Current Condition Pt reports L shoulder pain strting about 5 months ago. She does resistance training and does feelit the most there and when waking in the AM. Babied it for about 3 months then switched to DBs so she could do separate weights. She went on vacation and she used a band and noticed tehre was some pain. Pain is mostly in upper arm> She isusing about 10 lbs on R side and L side about 4 lbs. She avoids use of arm. Denies neck pain or hx of L arm pain. hx of R shoulde rpain that got better after PT. Treatment Goals Patient/Caregiver Goals Be able to lift equal weights, be able to use arm to do daily chores like close window etc PT-OP-C Subjective Start: 07/29/23 10:51 Freq: Status: Active Protocol: Document 10/12/23 08:48 [facility] (Rec: 10/12/23 10:56 [facility] [id number]) OP-PT Subjective Patient Comments Patient Comments Pt reports pain some w/wts if lift too heavy so inc slowly PT-OP-J Posture/Palpation/Skin Start: 07/29/23 10:51 Freq: Status: Active Protocol: Document 10/12/23 08:48 [facility] (Rec: 10/12/23 10:56 [facility] [id number]) Posture Evaluation Julia Postural Classification System Elbow Flexion Test 4 PT-OP-K Range of Motion Start: 07/29/23 10:51 Freq: Status: Active Protocol: Document 08/10/23 08:19 [facility] (Rec: 08/10/23 10:30 [facility] [id number]) Shoulder Goniometric Range of Motion Shoulder Right Active Flexion 154 Extension 62 Abduction 170 External Rotation at 90 degrees 92 Abduction External Rotation at 0 degrees Abduction 68 Internal Rotation Behind Back (text) T7 Left Active Flexion 141 Extension 66 Abduction 159 External Rotation at 90 degrees 93 Abduction External Rotation at 0 degrees Abduction 61 Internal Rotation Behind Back (text) T5 Comments pain w/flex and abd & 90/90 ER -drops out of abd slightly PT-OP-L Special Tests Start: 07/29/23 10:51 Freq: Status: Active Protocol: Document 08/10/23 08:19 [facility] (Rec: 08/10/23 10:30 [facility] [id number]) Special Tests Shoulder Special Tests Neer Impingement Test Results neg L [place] Test Test Results pos for inc pain but speeds position also painful L Yergason's Biceps Test Results neg L Speed's Biceps Test Results Positive L but obriens positive Painful Arc Test Results occ painful w/abd Lift-Off Rotator Cuff Test Results Negative Rocha Jean-Claude Impingement Test Results neg L Empty Can Test Results Positive L Drop Arm Rotator Cuff Test Results Negative Clunk Test Test Results positive L for pain Biceps Load II Test Test Results Positive L - mild pain AC Joint Compression Test Results Negative Other Special Tests Special Tests neg med, ulnar & radian n testing PT-OP-M Strength Start: 07/29/23 10:51 Freq: Status: Active Protocol: Document 10/12/23 08:48 [facility] (Rec: 10/12/23 10:56 [facility] [id number]) Shoulder Strength Shoulder Manual Muscle Testing Right Flexion 5 Normal Extension 5 Normal Abduction (C5) 5 Normal External Rotation 5 Normal Internal Rotation 5 Normal Horizontal Abduction 5 Normal Horizontal Adduction 5 Normal Left Flexion 4- Good- Extension 5 Normal Abduction (C5) 4+ Good+ External Rotation 5 Normal Internal Rotation 4+ Good+ Horizontal Abduction 4+ Good+ Horizontal Adduction 4+ Good+ Comments pain flex PT-OP-Q Treatments Start: 07/29/23 10:51 Freq: Status: Active Protocol: Document 10/12/23 08:48 [facility] (Rec: 10/12/23 10:56 [facility] [id number]) Therapeutic Exercises Supine Exercises PNF Supine Exercise Name D1 and D2 flex Side left Equipment Used bar Reps/Minutes 30 sec x2 holds ea Comments inc time for set up for hand position Standing Exercises axial elongation Standing Exercise Name w/AP pressure around C3-4 Side bilateral Reps/Minutes [id number] hold Comments inc time and use of mirror for appropriate neck position Manual Therapy Treatment Soft Tissue Mobilization ant Body Location L pec Mobilization Type Sustained Pressure,Other Intensity/Depth Moderate Body Position Sidelying and supine Comments w/arm circles Joint Mobilizations thoracic Comments transverse T3-5 w/s/l rot & arm circles & down glide L ribs Comments exernal torsion ribs 3-4 FM s/ l Neuro Re-Education Treatment Other Activities axial elongation Reps/Duration 5 min Comments sustained holds at C3-5 w/ axial elongation D1/D2 Reps/Duration 7 min Comments prolonged holds L w/mult reps progressed to sm range COI PNF scap Reps/Duration 8 min Comments ant elevation & post elevations ustained holds progressed to COI PT-OP-T Assessment and Plan Start: 07/29/23 10:51 Freq: Status: Active Protocol: Document 10/12/23 08:48 [facility] (Rec: 10/12/23 10:56 [facility] [id number]) Physical Therapy Assessment Goals activity Short Term Goal (STG) Pt will report using LUE more often w/ daily tasks w/o inc pain 09/03/23: GOAL MET STG Duration 09/11/23 MET Ground Layer Goal (LTG) Pt will report no pain w/ lifting and able to lift equal wts w/o inc pain. 09/03/23: progressing: still having some slight pain to notice when reaching items into cupboard. 09/08-limiting wt w/working out 10/11-using small wts but graudally inc LTG Duration 12/06 strength Short Term Goal (STG) Pt will be indep w/HEP STG Duration achieved 10/11 Ground Layer Goal (LTG) Pt will score at least 4/5 on EFT and 5/5 on all UE MMT in order to show improved UE stability in order to allow greater ease w/ADLs 09/08-improved 10/11-improved LTG Duration 12/06 ROM Short Term Goal (STG) Pt will improve flex and abd by at least 10 deg 09/03/23: GOAL MET FROM STG Duration 09/11/23 GOAL MET Jail Goal (LTG) Pt will have full L UE ROM w/o inc pain in order to allow typical ADLs w/o inc pain and normal use of LUE during the day 09/03/23: GOAL MET pain free AROM 09/08-mild discomfort LTG Duration achieved 10/11 Assessment Summary Assessment pt has made good progress w/PT and has full ROM w/o inc pain and irmpoved mechanics but pain w/flex. W/abd, weakness noted but pt improves w/ axial elongation training. She would benefit from cont PT to work on improve control w/flex w/dec pain along w/full strength w/o pain Physical Therapy Plan Frequency and Duration Frequency of Treatment 1x/Week Duration of treatment (weeks) 8 Plan of Care Start Date 10/12/23 Plan of Care End Date 12/07/23 Therapeutic Interventions Therapeutic Interventions Home Exercise Program,Joint Mobilizations,Manual Therapy, Neuromuscular Re-education, Orthotic/Prosthetic Management ,Patient/Caregiver Education, Self-Care/Home Management,Soft Tissue Mobilization,Taping, Therapeutic Activities, Therapeutic Exercises Modalities Cold Pack/Ice Massage,Electric Stimulation,Hot Packs, Infrared Therapy,Iontophoresis ,Ultrasound Next Visit Focus/Plan Next Note Type Treatment Note Next Visit Plan focus on L rib exernal torsion & ext for dec pain w/flex resistance. facilitation w/ flex strength
--- NOTE | 2023-10-12 10:56 | PT.OPPOC ---
Physical, Occupational & Speech Therapy At [facility] Current Diagnoses Pain in left shoulder (10/12/23) Visit Care Team Role Provider Type Bill Adler MD Family Provider Non-Staff Specialty: Internal Medicine Address: [address] [place] [address], [address], [place], [address] Email: DAMARIS Soliman Attending Provider Advanced Rip/Mould Operator Primary Care Provider Referring Provider Specialty: Family Practice Address: [address] [place] [address], [id number] Email: [email or web address] Plan Of Care PT-OP-T Assessment and Plan Start: 07/29/23 10:51 Freq: Status: Active Protocol: Document 10/12/23 08:48 [facility] (Rec: 10/12/23 10:56 [facility] [id number]) Physical Therapy Assessment Goals activity Short Term Goal (STG) Pt will report using LUE more often w/ daily tasks w/o inc pain 09/03/23: GOAL MET STG Duration 09/11/23 MET Usp Goal (LTG) Pt will report no pain w/ lifting and able to lift equal wts w/o inc pain. 09/03/23: progressing: still having some slight pain to notice when reaching items into cupboard. 09/08-limiting wt w/working out 10/11-using small wts but graudally inc LTG Duration 12/06 strength Short Term Goal (STG) Pt will be indep w/HEP STG Duration achieved 10/11 Usp Goal (LTG) Pt will score at least 4/5 on EFT and 5/5 on all UE MMT in order to show improved UE stability in order to allow greater ease w/ADLs 09/08-improved 10/11-improved LTG Duration 12/06 ROM Short Term Goal (STG) Pt will improve flex and abd by at least 10 deg 09/03/23: GOAL MET FROM STG Duration 09/11/23 GOAL MET Community Health Nursing Director Goal (LTG) Pt will have full L UE ROM w/o inc pain in order to allow typical ADLs w/o inc pain and normal use of LUE during the day 09/03/23: GOAL MET pain free AROM 09/08-mild discomfort LTG Duration achieved 10/11 Assessment Summary Assessment pt has made good progress w/PT and has full ROM w/o inc pain and irmpoved mechanics but pain w/flex. W/abd, weakness noted but pt improves w/ axial elongation training. She would benefit from cont PT to work on improve control w/flex w/dec pain along w/full strength w/o pain Physical Therapy Plan Frequency and Duration Frequency of Treatment 1x/Week Duration of treatment (weeks) 8 Plan of Care Start Date 10/12/23 Plan of Care End Date 12/07/23 Therapeutic Interventions Therapeutic Interventions Home Exercise Program,Joint Mobilizations,Manual Therapy, Neuromuscular Re-education, Orthotic/Prosthetic Management ,Patient/Caregiver Education, Self-Care/Home Management,Soft Tissue Mobilization,Taping, Therapeutic Activities, Therapeutic Exercises Modalities Cold Pack/Ice Massage,Electric Stimulation,Hot Packs, Infrared Therapy,Iontophoresis ,Ultrasound Next Visit Focus/Plan Next Note Type Treatment Note Next Visit Plan focus on L rib exernal torsion & ext for dec pain w/flex resistance. facilitation w/ flex strength Plan of Care Dates Plan of Care Start Date 10/12/23 Plan of Care End Date 12/07/23 Electronically Signed by: Sangita Pressley, PT 10/12/23 [id number] If you are in agreement with this Plan of Care, please return a signed and dated copy. I have reviewed this Plan of Care and certify that the skilled therapy services above are required to meet the patient?s needs. Physician Signature Date Printed Name and Credentials Clinical Instructor Signature Printed Name and Credentials
--- NOTE | 2023-11-04 10:18 | PT.OTN ---
Current Diagnoses Pain in left shoulder (11/04/23) Physical Therapy Treatment Note PT-OP-A Visit Information Start: 07/29/23 10:51 Freq: Status: Active Protocol: Document 11/04/23 07:56 [facility] (Rec: 11/04/23 10:15 [facility] [id number]) Out-Patient Physical Therapy Visit Information Visit Information Visit Type Treatment Note Visit Start Time 08:19 Visit Stop Time 09:01 Visit Number 13 Number of RANCH RIDER Visits 0 PT-OP-B Current Condition Start: 07/29/23 10:51 Freq: Status: Active Protocol: Document 08/10/23 08:19 [facility] (Rec: 08/10/23 10:30 [facility] [id number]) Current Condition History of Current Condition Current Complaints ant brachium History of Current Condition Pt reports L shoulder pain strting about 5 months ago. She does resistance training and does feelit the most there and when waking in the AM. Babied it for about 3 months then switched to DBs so she could do separate weights. She went on vacation and she used a band and noticed tehre was some pain. Pain is mostly in upper arm> She isusing about 10 lbs on R side and L side about 4 lbs. She avoids use of arm. Denies neck pain or hx of L arm pain. hx of R shoulde rpain that got better after PT. Treatment Goals Patient/Caregiver Goals Be able to lift equal weights, be able to use arm to do daily chores like close window etc PT-OP-C Subjective Start: 07/29/23 10:51 Freq: Status: Active Protocol: Document 11/04/23 07:56 [facility] (Rec: 11/04/23 10:15 [facility] [id number]) OP-PT Subjective Patient Comments Patient Comments Pt really likes the foam roll. It started hurting a couple days ago. PT-OP-J Posture/Palpation/Skin Start: 07/29/23 10:51 Freq: Status: Active Protocol: Document 10/12/23 08:48 [facility] (Rec: 10/12/23 10:56 [facility] [id number]) Posture Evaluation Julia Postural Classification System Elbow Flexion Test 4 PT-OP-K Range of Motion Start: 07/29/23 10:51 Freq: Status: Active Protocol: Document 08/10/23 08:19 [facility] (Rec: 08/10/23 10:30 [facility] [id number]) Shoulder Goniometric Range of Motion Shoulder Right Active Flexion 154 Extension 62 Abduction 170 External Rotation at 90 degrees 92 Abduction External Rotation at 0 degrees Abduction 68 Internal Rotation Behind Back (text) T7 Left Active Flexion 141 Extension 66 Abduction 159 External Rotation at 90 degrees 93 Abduction External Rotation at 0 degrees Abduction 61 Internal Rotation Behind Back (text) T5 Comments pain w/flex and abd & 90/90 ER -drops out of abd slightly PT-OP-L Special Tests Start: 07/29/23 10:51 Freq: Status: Active Protocol: Document 08/10/23 08:19 [facility] (Rec: 08/10/23 10:30 [facility] [id number]) Special Tests Shoulder Special Tests Neer Impingement Test Results neg L [place] Test Test Results pos for inc pain but speeds position also painful L Yergason's Biceps Test Results neg L Speed's Biceps Test Results Positive L but obriens positive Painful Arc Test Results occ painful w/abd Lift-Off Rotator Cuff Test Results Negative Rocha Jean-Claude Impingement Test Results neg L Empty Can Test Results Positive L Drop Arm Rotator Cuff Test Results Negative Clunk Test Test Results positive L for pain Biceps Load II Test Test Results Positive L - mild pain AC Joint Compression Test Results Negative Other Special Tests Special Tests neg med, ulnar & radian n testing PT-OP-M Strength Start: 07/29/23 10:51 Freq: Status: Active Protocol: Document 11/04/23 07:56 [facility] (Rec: 11/04/23 10:15 [facility] [id number]) Shoulder Strength Shoulder Manual Muscle Testing Right Flexion 5 Normal Extension 5 Normal Abduction (C5) 5 Normal External Rotation 5 Normal Internal Rotation 5 Normal Horizontal Abduction 5 Normal Horizontal Adduction 5 Normal Left Flexion 4 Good Extension 5 Normal Abduction (C5) 4+ Good+ External Rotation 4+ Good+ Internal Rotation 5 Normal Horizontal Abduction 5 Normal Horizontal Adduction 5 Normal Comments pain flex PT-OP-Q Treatments Start: 07/29/23 10:51 Freq: Status: Active Protocol: Document 11/04/23 07:56 [facility] (Rec: 11/04/23 10:15 [facility] [id number]) Therapeutic Exercises Supine Exercises foam roll Supine Exercise Name flex Side bilateral Equipment Used 2# Reps/Minutes 10 Prone Exercises Is, Ts, Ys Prone Exercise Name Ys Side bilateral Equipment Used 1 lb Reps/Minutes 10 Comments on ball Standing Exercises flex Standing Exercise Name w/band under armpit for inf glide Side bilateral Equipment Used L3 Reps/Minutes 10 serratus punch Side bilateral Equipment Used dark blue latex free Reps/Minutes 8 ea Comments punch w/flex Habd Standing Exercise Name Habd w/flex Side bilateral Equipment Used L3 Reps/Minutes 8 Manual Therapy Treatment Soft Tissue Mobilization ant Body Location L supraspinatus tendon Mobilization Type Cross-Friction Joint Mobilizations GH Comments L inf and distraciton w/flex and abd AC Comments L ant clavicle FM w/flex Neuro Re-Education Treatment Other Activities flex Reps/Duration 1 min Comments prolonged holds w/facilitation for inf glide of humeral head D1/D2 Details flex patterns Reps/Duration 7 min Comments prolonged holds L w/mult reps progressed to sm range COI PT-OP-T Assessment and Plan Start: 07/29/23 10:51 Freq: Status: Active Protocol: Document 11/04/23 07:56 [facility] (Rec: 11/04/23 10:15 [facility] [id number]) Physical Therapy Assessment Goals activity Short Term Goal (STG) Pt will report using LUE more often w/ daily tasks w/o inc pain 09/03/23: GOAL MET STG Duration 09/11/23 MET Healthcare Economics Consultant Goal (LTG) Pt will report no pain w/ lifting and able to lift equal wts w/o inc pain. 09/03/23: progressing: still having some slight pain to notice when reaching items into cupboard. 09/08-limiting wt w/working out 10/11-using small wts but graudally inc LTG Duration 12/06 strength Short Term Goal (STG) Pt will be indep w/HEP STG Duration achieved 10/11 Healthcare Economics Consultant Goal (LTG) Pt will score at least 4/5 on EFT and 5/5 on all UE MMT in order to show improved UE stability in order to allow greater ease w/ADLs 09/08-improved 10/11-improved LTG Duration 12/06 ROM Short Term Goal (STG) Pt will improve flex and abd by at least 10 deg 09/03/23: GOAL MET FROM STG Duration 09/11/23 GOAL MET Healthcare Economics Consultant Goal (LTG) Pt will have full L UE ROM w/o inc pain in order to allow typical ADLs w/o inc pain and normal use of LUE during the day 09/03/23: GOAL MET pain free AROM 09/08-mild discomfort LTG Duration achieved 10/11 Assessment Summary Assessment pt had improved flex strength w/manual facilitation work and good tolerance w/overhead work during PT today. she needs further retraining for flex Physical Therapy Plan Frequency and Duration Frequency of Treatment 1x/Week Duration of treatment (weeks) 8 Plan of Care Start Date 10/12/23 Plan of Care End Date 12/07/23 Next Visit Focus/Plan Next Note Type Treatment Note Next Visit Plan facilitation w/flex strength
--- NOTE | 2023-11-11 12:22 | PT.OTN ---
Current Diagnoses Pain in left shoulder (11/11/23) Physical Therapy Treatment Note PT-OP-A Visit Information Start: 07/29/23 10:51 Freq: Status: Active Protocol: Document 11/11/23 08:17 [facility] (Rec: 11/11/23 12:22 [facility] [id number]) Out-Patient Physical Therapy Visit Information Visit Information Visit Type Treatment Note Visit Start Time 08:18 Visit Stop Time 09:00 Visit Number 14 Number of AUTOMATIC SILK SCREEN PRINTER Visits 0 PT-OP-B Current Condition Start: 07/29/23 10:51 Freq: Status: Active Protocol: Document 08/10/23 08:19 [facility] (Rec: 08/10/23 10:30 [facility] [id number]) Current Condition History of Current Condition Current Complaints ant brachium History of Current Condition Pt reports L shoulder pain strting about 5 months ago. She does resistance training and does feelit the most there and when waking in the AM. Babied it for about 3 months then switched to DBs so she could do separate weights. She went on vacation and she used a band and noticed tehre was some pain. Pain is mostly in upper arm> She isusing about 10 lbs on R side and L side about 4 lbs. She avoids use of arm. Denies neck pain or hx of L arm pain. hx of R shoulde rpain that got better after PT. Treatment Goals Patient/Caregiver Goals Be able to lift equal weights, be able to use arm to do daily chores like close window etc PT-OP-C Subjective Start: 07/29/23 10:51 Freq: Status: Active Protocol: Document 11/11/23 08:17 [facility] (Rec: 11/11/23 12:22 [facility] [id number]) OP-PT Subjective Patient Comments Patient Comments Pt tried to be extra careful and avoided rowing and sleeping on L side. exercsie that is hardest is 90/90 ER PT-OP-J Posture/Palpation/Skin Start: 07/29/23 10:51 Freq: Status: Active Protocol: Document 10/12/23 08:48 [facility] (Rec: 10/12/23 10:56 [facility] [id number]) Posture Evaluation Julia Postural Classification System Elbow Flexion Test 4 PT-OP-K Range of Motion Start: 07/29/23 10:51 Freq: Status: Active Protocol: Document 08/10/23 08:19 [facility] (Rec: 08/10/23 10:30 [facility] [id number]) Shoulder Goniometric Range of Motion Shoulder Right Active Flexion 154 Extension 62 Abduction 170 External Rotation at 90 degrees 92 Abduction External Rotation at 0 degrees Abduction 68 Internal Rotation Behind Back (text) T7 Left Active Flexion 141 Extension 66 Abduction 159 External Rotation at 90 degrees 93 Abduction External Rotation at 0 degrees Abduction 61 Internal Rotation Behind Back (text) T5 Comments pain w/flex and abd & 90/90 ER -drops out of abd slightly PT-OP-L Special Tests Start: 07/29/23 10:51 Freq: Status: Active Protocol: Document 08/10/23 08:19 [facility] (Rec: 08/10/23 10:30 [facility] [id number]) Special Tests Shoulder Special Tests Neer Impingement Test Results neg L [place] Test Test Results pos for inc pain but speeds position also painful L Yergason's Biceps Test Results neg L Speed's Biceps Test Results Positive L but obriens positive Painful Arc Test Results occ painful w/abd Lift-Off Rotator Cuff Test Results Negative Rocha Jean-Claude Impingement Test Results neg L Empty Can Test Results Positive L Drop Arm Rotator Cuff Test Results Negative Clunk Test Test Results positive L for pain Biceps Load II Test Test Results Positive L - mild pain AC Joint Compression Test Results Negative Other Special Tests Special Tests neg med, ulnar & radian n testing PT-OP-M Strength Start: 07/29/23 10:51 Freq: Status: Active Protocol: Document 11/04/23 07:56 [facility] (Rec: 11/04/23 10:15 [facility] [id number]) Shoulder Strength Shoulder Manual Muscle Testing Right Flexion 5 Normal Extension 5 Normal Abduction (C5) 5 Normal External Rotation 5 Normal Internal Rotation 5 Normal Horizontal Abduction 5 Normal Horizontal Adduction 5 Normal Left Flexion 4 Good Extension 5 Normal Abduction (C5) 4+ Good+ External Rotation 4+ Good+ Internal Rotation 5 Normal Horizontal Abduction 5 Normal Horizontal Adduction 5 Normal Comments pain flex PT-OP-Q Treatments Start: 07/29/23 10:51 Freq: Status: Active Protocol: Document 11/11/23 08:17 [facility] (Rec: 11/11/23 12:22 [facility] [id number]) Therapeutic Exercises Supine Exercises flex Supine Exercise Name self inf glide Side left Reps/Minutes 10 Standing Exercises flex Standing Exercise Name w/inf glide of L humerus Side left Equipment Used 2#; orange band Reps/Minutes 10 ea type of resistance Manual Therapy Treatment Joint Mobilizations thoracic Comments s/l transverse R T 2-3 FM ribs Comments L PA rib 2 FM Neuro Re-Education Treatment Other Activities flex Comments prolonged holds w/facilitation for inf glide of humeral head in supine and standing w/ progression from 90 to further range and progression into COI D1/D2 Comments D2 flex manual facilation w/ inf glide progress from sustained hold to COI supine PNF scap Comments ant elevation & post elevation sustained holds, rhythmic initiation and COI PT-OP-T Assessment and Plan Start: 07/29/23 10:51 Freq: Status: Active Protocol: Document 11/11/23 08:17 [facility] (Rec: 11/11/23 12:22 [facility] [id number]) Physical Therapy Assessment Goals activity Short Term Goal (STG) Pt will report using LUE more often w/ daily tasks w/o inc pain 09/03/23: GOAL MET STG Duration 09/11/23 MET Mcfp Goal (LTG) Pt will report no pain w/ lifting and able to lift equal wts w/o inc pain. 09/03/23: progressing: still having some slight pain to notice when reaching items into cupboard. 09/08-limiting wt w/working out 10/11-using small wts but graudally inc LTG Duration 12/06 strength Short Term Goal (STG) Pt will be indep w/HEP STG Duration achieved 10/11 Research Compliance Specialist Goal (LTG) Pt will score at least 4/5 on EFT and 5/5 on all UE MMT in order to show improved UE stability in order to allow greater ease w/ADLs 09/08-improved 10/11-improved LTG Duration 12/06 ROM Short Term Goal (STG) Pt will improve flex and abd by at least 10 deg 09/03/23: GOAL MET FROM STG Duration 09/11/23 GOAL MET Mcfp Goal (LTG) Pt will have full L UE ROM w/o inc pain in order to allow typical ADLs w/o inc pain and normal use of LUE during the day 09/03/23: GOAL MET pain free AROM 09/08-mild discomfort LTG Duration achieved 10/11 Assessment Summary Assessment Pt had improved flex strength from 4-/5 in supine to 5/5 and 4-/5 in standing tto 4+/5 whenf aciliating into inf glide. She had difficulty with scap initially but after PNF work w/scap, it was much imrpoved. Physical Therapy Plan Frequency and Duration Frequency of Treatment 1x/Week Duration of treatment (weeks) 8 Plan of Care Start Date 10/12/23 Plan of Care End Date 12/07/23 Next Visit Focus/Plan Next Note Type Treatment Note Next Visit Plan work on inf glide facilitation w/flex resistance and overhead work; scap PNF and rotational work for overhead motion; serratus resistance at wall
--- NOTE | 2023-12-03 18:21 | PT.OTN ---
Current Diagnoses Pain in left shoulder (12/03/23) Physical Therapy Treatment Note PT-OP-A Visit Information Start: 07/29/23 10:51 Freq: Status: Active Protocol: Document 12/03/23 15:22 [facility] (Rec: 12/03/23 18:20 [facility] [id number]) Out-Patient Physical Therapy Visit Information Visit Information Visit Type Progress Note Visit Start Time 15:18 Visit Stop Time 16:00 Visit Number 15 Number of NURSING AGENCY MANAGER Visits 0 PT-OP-B Current Condition Start: 07/29/23 10:51 Freq: Status: Active Protocol: Document 08/10/23 08:19 [facility] (Rec: 08/10/23 10:30 [facility] [id number]) Current Condition History of Current Condition Current Complaints ant brachium History of Current Condition Pt reports L shoulder pain strting about 5 months ago. She does resistance training and does feelit the most there and when waking in the AM. Babied it for about 3 months then switched to DBs so she could do separate weights. She went on vacation and she used a band and noticed tehre was some pain. Pain is mostly in upper arm> She isusing about 10 lbs on R side and L side about 4 lbs. She avoids use of arm. Denies neck pain or hx of L arm pain. hx of R shoulde rpain that got better after PT. Treatment Goals Patient/Caregiver Goals Be able to lift equal weights, be able to use arm to do daily chores like close window etc PT-OP-C Subjective Start: 07/29/23 10:51 Freq: Status: Active Protocol: Document 12/03/23 15:22 [facility] (Rec: 12/03/23 18:20 [facility] [id number]) OP-PT Subjective Patient Comments Patient Comments pt reports she feels like improving how she moves her shoulder blade and that helps pain PT-OP-J Posture/Palpation/Skin Start: 07/29/23 10:51 Freq: Status: Active Protocol: Document 12/03/23 15:22 [facility] (Rec: 12/03/23 18:20 [facility] [id number]) Posture Evaluation Julia Postural Classification System Elbow Flexion Test 3 PT-OP-K Range of Motion Start: 07/29/23 10:51 Freq: Status: Active Protocol: Document 08/10/23 08:19 [facility] (Rec: 08/10/23 10:30 [facility] [id number]) Shoulder Goniometric Range of Motion Shoulder Right Active Flexion 154 Extension 62 Abduction 170 External Rotation at 90 degrees 92 Abduction External Rotation at 0 degrees Abduction 68 Internal Rotation Behind Back (text) T7 Left Active Flexion 141 Extension 66 Abduction 159 External Rotation at 90 degrees 93 Abduction External Rotation at 0 degrees Abduction 61 Internal Rotation Behind Back (text) T5 Comments pain w/flex and abd & 90/90 ER -drops out of abd slightly PT-OP-L Special Tests Start: 07/29/23 10:51 Freq: Status: Active Protocol: Document 08/10/23 08:19 [facility] (Rec: 08/10/23 10:30 [facility] [id number]) Special Tests Shoulder Special Tests Neer Impingement Test Results neg L [place] Test Test Results pos for inc pain but speeds position also painful L Yergason's Biceps Test Results neg L Speed's Biceps Test Results Positive L but obriens positive Painful Arc Test Results occ painful w/abd Lift-Off Rotator Cuff Test Results Negative Rocha Jean-Claude Impingement Test Results neg L Empty Can Test Results Positive L Drop Arm Rotator Cuff Test Results Negative Clunk Test Test Results positive L for pain Biceps Load II Test Test Results Positive L - mild pain AC Joint Compression Test Results Negative Other Special Tests Special Tests neg med, ulnar & radian n testing PT-OP-M Strength Start: 07/29/23 10:51 Freq: Status: Active Protocol: Document 12/03/23 15:22 [facility] (Rec: 12/03/23 18:20 [facility] [id number]) Shoulder Strength Shoulder Manual Muscle Testing Left Flexion 4 Good Extension 5 Normal Abduction (C5) 4+ Good+ External Rotation 5 Normal Internal Rotation 5 Normal Horizontal Abduction 5 Normal Horizontal Adduction 5 Normal Comments pain flex PT-OP-Q Treatments Start: 07/29/23 10:51 Freq: Status: Active Protocol: Document 12/03/23 15:22 [facility] (Rec: 12/03/23 18:20 [facility] [id number]) Therapeutic Exercises Supine Exercises PNF Supine Exercise Name D1 Side left Equipment Used 3# Reps/Minutes 10 Other Exercises isometrics Other Exercise Name LUE MMT and EFT rolling Side bilateral Reps/Minutes 10 ea direction Comments focus on LE/UE connection for trunk crawling Other Exercise Name bear Side bilateral Reps/Minutes 10ft Manual Therapy Treatment Soft Tissue Mobilization post Body Location rhomboids, lat Mobilization Type Rolling Intensity/Depth Moderate Body Position Sidelying superior Body Location L LS, ES Mobilization Type Rolling Intensity/Depth Moderate Body Position Sidelying Joint Mobilizations AC Comments L ant clavicle FM w/scap dep/ elevation ribs Comments L rib 5-7 external torsion FM s/l Neuro Re-Education Treatment Other Activities mass flex Comments sustained holds L progressed to COI D1/D2 Comments D2 and D1 facilitation w/ prolonged holds progressed to COI L PNF scap Comments ant elevation & post elevation , post dep & ant dep: sustained holds, rhythmic initiation and COI ea PT-OP-T Assessment and Plan Start: 07/29/23 10:51 Freq: Status: Active Protocol: Document 12/03/23 15:22 [facility] (Rec: 12/03/23 18:20 [facility] [id number]) Physical Therapy Assessment Goals activity Short Term Goal (STG) Pt will report using LUE more often w/ daily tasks w/o inc pain 09/03/23: GOAL MET STG Duration 09/11/23 MET Sales Correspondence Clerk Goal (LTG) Pt will report no pain w/ lifting and able to lift equal wts w/o inc pain. 09/03/23: progressing: still having some slight pain to notice when reaching items into cupboard. 09/08-limiting wt w/working out 10/11-using small wts but graudally inc 12/02-at least half way to full wt LTG Duration 01/13 strength Short Term Goal (STG) Pt will be indep w/HEP STG Duration achieved 10/11 Sales Correspondence Clerk Goal (LTG) Pt will score at least 4/5 on EFT and 5/5 on all UE MMT in order to show improved UE stability in order to allow greater ease w/ADLs 09/08-improved 10/11-improved 12/02-limited flex and EFT LTG Duration 01/13 ROM Short Term Goal (STG) Pt will improve flex and abd by at least 10 deg 09/03/23: GOAL MET FROM STG Duration 09/11/23 GOAL MET Sales Correspondence Clerk Goal (LTG) Pt will have full L UE ROM w/o inc pain in order to allow typical ADLs w/o inc pain and normal use of LUE during the day 09/03/23: GOAL MET pain free AROM 09/08-mild discomfort LTG Duration achieved 10/11 Assessment Summary Assessment pt noticing pain in L shoulder less often during the day but still can occ w/overhead or reach across. She improved flex from 4/5 w/pain to 5/5 after manual and factiliation exercises. She still has dec core stability connection w/L shoulder and improves w/PNF faciliation. Cont PT to work on improving mobility and stability of L shoulder. Physical Therapy Plan Frequency and Duration Frequency of Treatment 1x/wk to every other Duration of treatment (weeks) 6 Plan of Care Start Date 12/03/23 Plan of Care End Date 01/14/24 Therapeutic Interventions Therapeutic Interventions Home Exercise Program,Joint Mobilizations,Manual Therapy, Neuromuscular Re-education, Orthotic/Prosthetic Management ,Patient/Caregiver Education, Self-Care/Home Management,Soft Tissue Mobilization,Taping, Therapeutic Activities, Therapeutic Exercises Modalities Cold Pack/Ice Massage,Electric Stimulation,Hot Packs, Infrared Therapy,Iontophoresis ,Ultrasound Next Visit Focus/Plan Next Note Type Treatment Note Next Visit Plan work on inf glide facilitation w/flex resistance and overhead work; scap PNF and rotational work for overhead motion; serratus resistance at wall
--- NOTE | 2023-12-03 18:21 | PT.OPPOC ---
Physical, Occupational & Speech Therapy At [facility] Current Diagnoses Pain in left shoulder (12/03/23) Visit Care Team Role Provider Type iBll Adler MD Family Provider Non-Staff Specialty: Internal Medicine Address: [address] [place] [address], [address], [address] Email: DAMARIS Soliman Attending Provider Advanced Section Gang Primary Care Provider Referring Provider Specialty: Family Practice Address: [address] [place] [address], [id number] Email: [email or web address] Plan Of Care PT-OP-T Assessment and Plan Start: 07/29/23 10:51 Freq: Status: Active Protocol: Document 12/03/23 15:22 [facility] (Rec: 12/03/23 18:20 [facility] [id number]) Physical Therapy Assessment Goals activity Short Term Goal (STG) Pt will report using LUE more often w/ daily tasks w/o inc pain 09/03/23: GOAL MET STG Duration 09/11/23 MET Retirement Goal (LTG) Pt will report no pain w/ lifting and able to lift equal wts w/o inc pain. 09/03/23: progressing: still having some slight pain to notice when reaching items into cupboard. 09/08-limiting wt w/working out 10/11-using small wts but graudally inc 12/02-at least half way to full wt LTG Duration 01/13 strength Short Term Goal (STG) Pt will be indep w/HEP STG Duration achieved 10/11 Oil And Gas Lease Pumper Goal (LTG) Pt will score at least 4/5 on EFT and 5/5 on all UE MMT in order to show improved UE stability in order to allow greater ease w/ADLs 09/08-improved 10/11-improved 12/02-limited flex and EFT LTG Duration 01/13 ROM Short Term Goal (STG) Pt will improve flex and abd by at least 10 deg 09/03/23: GOAL MET FROM STG Duration 09/11/23 GOAL MET Oil And Gas Lease Pumper Goal (LTG) Pt will have full L UE ROM w/o inc pain in order to allow typical ADLs w/o inc pain and normal use of LUE during the day 09/03/23: GOAL MET pain free AROM 09/08-mild discomfort LTG Duration achieved 10/11 Assessment Summary Assessment pt noticing pain in L shoulder less often during the day but still can occ w/overhead or reach across. She improved flex from 4/5 w/pain to 5/5 after manual and factiliation exercises. She still has dec core stability connection w/L shoulder and improves w/PNF faciliation. Cont PT to work on improving mobility and stability of L shoulder. Physical Therapy Plan Frequency and Duration Frequency of Treatment 1x/wk to every other Duration of treatment (weeks) 6 Plan of Care Start Date 12/03/23 Plan of Care End Date 01/14/24 Therapeutic Interventions Therapeutic Interventions Home Exercise Program,Joint Mobilizations,Manual Therapy, Neuromuscular Re-education, Orthotic/Prosthetic Management ,Patient/Caregiver Education, Self-Care/Home Management,Soft Tissue Mobilization,Taping, Therapeutic Activities, Therapeutic Exercises Modalities Cold Pack/Ice Massage,Electric Stimulation,Hot Packs, Infrared Therapy,Iontophoresis ,Ultrasound Next Visit Focus/Plan Next Note Type Treatment Note Next Visit Plan work on inf glide facilitation w/flex resistance and overhead work; scap PNF and rotational work for overhead motion; serratus resistance at wall Plan of Care Dates Plan of Care Start Date 12/03/23 Plan of Care End Date 01/14/24 Electronically Signed by: Sangita Pressley, PT 12/03/23 1351 If you are in agreement with this Plan of Care, please return a signed and dated copy. I have reviewed this Plan of Care and certify that the skilled therapy services above are required to meet the patient?s needs. Physician Signature Date Printed Name and Credentials Clinical Instructor Signature Printed Name and Credentials
--- NOTE | 2023-12-15 13:54 | PT.OTN ---
Current Diagnoses Pain in left shoulder (12/15/23) Physical Therapy Treatment Note PT-OP-A Visit Information Start: 07/29/23 10:51 Freq: Status: Active Protocol: Document 12/15/23 09:47 [facility] (Rec: 12/15/23 13:50 [facility] [id number]) Out-Patient Physical Therapy Visit Information Visit Information Visit Type Treatment Note Visit Start Time 09:51 Visit Stop Time 10:30 Visit Number 16 Number of VOLUNTEER SPECIALIST Visits 0 PT-OP-B Current Condition Start: 07/29/23 10:51 Freq: Status: Active Protocol: Document 08/10/23 08:19 [facility] (Rec: 08/10/23 10:30 [facility] [id number]) Current Condition History of Current Condition Current Complaints ant brachium History of Current Condition Pt reports L shoulder pain strting about 5 months ago. She does resistance training and does feelit the most there and when waking in the AM. Babied it for about 3 months then switched to DBs so she could do separate weights. She went on vacation and she used a band and noticed tehre was some pain. Pain is mostly in upper arm> She isusing about 10 lbs on R side and L side about 4 lbs. She avoids use of arm. Denies neck pain or hx of L arm pain. hx of R shoulde rpain that got better after PT. Treatment Goals Patient/Caregiver Goals Be able to lift equal weights, be able to use arm to do daily chores like close window etc PT-OP-C Subjective Start: 07/29/23 10:51 Freq: Status: Active Protocol: Document 12/15/23 09:47 [facility] (Rec: 12/15/23 13:50 [facility] [id number]) OP-PT Subjective Patient Comments Patient Comments Pt reports can't do push ups w /elbows in close d/t pain so does them out to the side. Has been able to inc wt w/ exercises PT-OP-J Posture/Palpation/Skin Start: 07/29/23 10:51 Freq: Status: Active Protocol: Document 12/03/23 15:22 [facility] (Rec: 12/03/23 18:20 [facility] [id number]) Posture Evaluation Julia Postural Classification System Elbow Flexion Test 3 PT-OP-K Range of Motion Start: 07/29/23 10:51 Freq: Status: Active Protocol: Document 08/10/23 08:19 [facility] (Rec: 08/10/23 10:30 [facility] [id number]) Shoulder Goniometric Range of Motion Shoulder Right Active Flexion 154 Extension 62 Abduction 170 External Rotation at 90 degrees 92 Abduction External Rotation at 0 degrees Abduction 68 Internal Rotation Behind Back (text) T7 Left Active Flexion 141 Extension 66 Abduction 159 External Rotation at 90 degrees 93 Abduction External Rotation at 0 degrees Abduction 61 Internal Rotation Behind Back (text) T5 Comments pain w/flex and abd & 90/90 ER -drops out of abd slightly PT-OP-L Special Tests Start: 07/29/23 10:51 Freq: Status: Active Protocol: Document 08/10/23 08:19 [facility] (Rec: 08/10/23 10:30 [facility] [id number]) Special Tests Shoulder Special Tests Neer Impingement Test Results neg L Linden Test Test Results pos for inc pain but speeds position also painful L Yergason's Biceps Test Results neg L Speed's Biceps Test Results Positive L but obriens positive Painful Arc Test Results occ painful w/abd Lift-Off Rotator Cuff Test Results Negative Rocha Jean-Claude Impingement Test Results neg L Empty Can Test Results Positive L Drop Arm Rotator Cuff Test Results Negative Clunk Test Test Results positive L for pain Biceps Load II Test Test Results Positive L - mild pain AC Joint Compression Test Results Negative Other Special Tests Special Tests neg med, ulnar & radian n testing PT-OP-M Strength Start: 07/29/23 10:51 Freq: Status: Active Protocol: Document 12/03/23 15:22 [facility] (Rec: 12/03/23 18:20 [facility] [id number]) Shoulder Strength Shoulder Manual Muscle Testing Left Flexion 4 Good Extension 5 Normal Abduction (C5) 4+ Good+ External Rotation 5 Normal Internal Rotation 5 Normal Horizontal Abduction 5 Normal Horizontal Adduction 5 Normal Comments pain flex PT-OP-Q Treatments Start: 07/29/23 10:51 Freq: Status: Active Protocol: Document 12/15/23 09:47 [facility] (Rec: 12/15/23 13:50 [facility] [id number]) Therapeutic Exercises Standing Exercises push up Standing Exercise Name tricep w/elbows close w/ serratus punch Side bilateral Reps/Minutes 2x8 Comments cues for back and neck position Manual Therapy Treatment Soft Tissue Mobilization scar Body Location abdomen (sup aspect) Mobilization Type Myofascial Release Intensity/Depth Superficial Body Position Hooklying Comments w/L shoulder flex abdomen Mobilization Type Myofascial Release Body Position Hooklying Comments fascia around stomach, pylorus and L inf ribs and diaphram Neuro Re-Education Treatment Other Activities D1/D2 Comments D2 w/prolonged holds progressed to COI L PT-OP-T Assessment and Plan Start: 07/29/23 10:51 Freq: Status: Active Protocol: Document 12/15/23 09:47 [facility] (Rec: 12/15/23 13:54 [facility] [id number]) Physical Therapy Assessment Goals activity Short Term Goal (STG) Pt will report using LUE more often w/ daily tasks w/o inc pain 09/03/23: GOAL MET STG Duration 09/11/23 MET Fpc Goal (LTG) Pt will report no pain w/ lifting and able to lift equal wts w/o inc pain. 09/03/23: progressing: still having some slight pain to notice when reaching items into cupboard. 09/08-limiting wt w/working out 10/11-using small wts but graudally inc 12/02-at least half way to full wt 12/14-improved strength and inc wts since last PT session LTG Duration 02/15 strength Short Term Goal (STG) Pt will be indep w/HEP STG Duration achieved 10/11 Fpc Goal (LTG) Pt will score at least 4/5 on EFT and 5/5 on all UE MMT in order to show improved UE stability in order to allow greater ease w/ADLs 09/08-improved 10/11-improved 12/02-limited flex and EFT 12/14-improved flex to 3/10 pain 4/10 flex LTG Duration 02/15 ROM Short Term Goal (STG) Pt will improve flex and abd by at least 10 deg 09/03/23: GOAL MET FROM STG Duration 09/11/23 GOAL MET Fpc Goal (LTG) Pt will have full L UE ROM w/o inc pain in order to allow typical ADLs w/o inc pain and normal use of LUE during the day 09/03/23: GOAL MET pain free AROM 09/08-mild discomfort LTG Duration achieved 10/11 Assessment Summary Assessment Pt presented w/4/5 L shoulder flex w/3/10 pain and minor pain during wall tricep push up even w/cues. After working on fascia of abdomen and L ant ribs, pt had 4+/5 strength w/ o pain into flex and able to do wall tricep push up w/o inc pain. She did well with edu on ant MFR. Physical Therapy Plan Frequency and Duration Frequency of Treatment 1x/wk to every other Duration of treatment (weeks) 8 Plan of Care Start Date 12/15/23 Plan of Care End Date 02/17/24 Therapeutic Interventions Therapeutic Interventions Home Exercise Program,Joint Mobilizations,Manual Therapy, Neuromuscular Re-education, Orthotic/Prosthetic Management ,Patient/Caregiver Education, Self-Care/Home Management,Soft Tissue Mobilization,Taping, Therapeutic Activities, Therapeutic Exercises Modalities Cold Pack/Ice Massage,Electric Stimulation,Hot Packs, Infrared Therapy,Iontophoresis ,Ultrasound Next Visit Focus/Plan Next Note Type Treatment Note Next Visit Plan work on inf glide facilitation w/flex resistance and overhead work; scap PNF and rotational work for overhead motion; serratus resistance at wall
--- NOTE | 2023-12-15 13:56 | PT.OPPOC ---
Physical, Occupational & Speech Therapy At [facility] Current Diagnoses Pain in left shoulder (12/15/23) Visit Care Team Role Provider Type Bill Adler MD Family Provider Non-Staff Specialty: Internal Medicine Address: [address] [place] [address], [address], [address] Email: DAMARIS Soliman Attending Provider Advanced Wood Model Builder Primary Care Provider Referring Provider Specialty: Family Practice Address: [address] [place] [address], [address] Email: [email or web address] Plan Of Care PT-OP-T Assessment and Plan Start: 07/29/23 10:51 Freq: Status: Active Protocol: Document 12/15/23 09:47 [facility] (Rec: 12/15/23 13:54 [facility] [id number]) Physical Therapy Assessment Goals activity Short Term Goal (STG) Pt will report using LUE more often w/ daily tasks w/o inc pain 09/03/23: GOAL MET STG Duration 09/11/23 MET Care Home Goal (LTG) Pt will report no pain w/ lifting and able to lift equal wts w/o inc pain. 09/03/23: progressing: still having some slight pain to notice when reaching items into cupboard. 09/08-limiting wt w/working out 10/11-using small wts but graudally inc 12/02-at least half way to full wt 12/14-improved strength and inc wts since last PT session LTG Duration 02/15 strength Short Term Goal (STG) Pt will be indep w/HEP STG Duration achieved 10/11 Biomed Tech Goal (LTG) Pt will score at least 4/5 on EFT and 5/5 on all UE MMT in order to show improved UE stability in order to allow greater ease w/ADLs 09/08-improved 10/11-improved 12/02-limited flex and EFT 12/14-improved flex to 3/10 pain 10 flex LTG Duration 02/15 ROM Short Term Goal (STG) Pt will improve flex and abd by at least 10 deg 09/03/23: GOAL MET FROM STG Duration 09/11/23 GOAL MET Biomed Tech Goal (LTG) Pt will have full L UE ROM w/o inc pain in order to allow typical ADLs w/o inc pain and normal use of LUE during the day 09/03/23: GOAL MET pain free AROM 09/08-mild discomfort LTG Duration achieved 10/11 Assessment Summary Assessment Pt presented w/4/5 L shoulder flex w/3/10 pain and minor pain during wall tricep push up even w/cues. After working on fascia of abdomen and L ant ribs, pt had 4+/5 strength w/ o pain into flex and able to do wall tricep push up w/o inc pain. She did well with edu on ant MFR. Pt progressing w/ PT but still has pain sometimes w/flex based activities. Improved today after ant trunk fascial release and cont fascial release ant for improvement of shoulder mechanics. Physical Therapy Plan Frequency and Duration Frequency of Treatment 1x/wk to every other Duration of treatment (weeks) 8 Plan of Care Start Date 12/15/23 Plan of Care End Date 02/17/24 Therapeutic Interventions Therapeutic Interventions Home Exercise Program,Joint Mobilizations,Manual Therapy, Neuromuscular Re-education, Orthotic/Prosthetic Management ,Patient/Caregiver Education, Self-Care/Home Management,Soft Tissue Mobilization,Taping, Therapeutic Activities, Therapeutic Exercises Modalities Cold Pack/Ice Massage,Electric Stimulation,Hot Packs, Infrared Therapy,Iontophoresis ,Ultrasound Next Visit Focus/Plan Next Note Type Treatment Note Next Visit Plan work on inf glide facilitation w/flex resistance and overhead work; scap PNF and rotational work for overhead motion; serratus resistance at wall Plan of Care Dates Plan of Care Start Date 12/15/23 Plan of Care End Date 02/17/24 Electronically Signed by: Sangita Pressley, PT 12/15/23 [id number] If you are in agreement with this Plan of Care, please return a signed and dated copy. I have reviewed this Plan of Care and certify that the skilled therapy services above are required to meet the patient?s needs. Physician Signature Date Printed Name and Credentials Clinical Instructor Signature Printed Name and Credentials
--- NOTE | 2023-12-28 09:52 | PT.OTN ---
Current Diagnoses Pain in left shoulder (12/28/23) Physical Therapy Treatment Note PT-OP-A Visit Information Start: 07/29/23 10:51 Freq: Status: Active Protocol: Document 12/28/23 09:48 [facility] (Rec: 12/28/23 09:52 [facility] [id number]) Out-Patient Physical Therapy Visit Information Visit Information Visit Type Discharge Summary Visit Start Time 08:22 Visit Stop Time 09:00 Visit Number 17 Number of GENERAL MACHINE OPERATOR Visits 0 PT-OP-B Current Condition Start: 07/29/23 10:51 Freq: Status: Active Protocol: Document 08/10/23 08:19 [facility] (Rec: 08/10/23 10:30 [facility] [id number]) Current Condition History of Current Condition Current Complaints ant brachium History of Current Condition Pt reports L shoulder pain strting about 5 months ago. She does resistance training and does feelit the most there and when waking in the AM. Babied it for about 3 months then switched to DBs so she could do separate weights. She went on vacation and she used a band and noticed tehre was some pain. Pain is mostly in upper arm> She isusing about 10 lbs on R side and L side about 4 lbs. She avoids use of arm. Denies neck pain or hx of L arm pain. hx of R shoulde rpain that got better after PT. Treatment Goals Patient/Caregiver Goals Be able to lift equal weights, be able to use arm to do daily chores like close window etc PT-OP-C Subjective Start: 07/29/23 10:51 Freq: Status: Active Protocol: Document 12/28/23 09:48 [facility] (Rec: 12/28/23 09:52 [facility] [id number]) OP-PT Subjective Patient Comments Patient Comments Pt feels ready for DC Patient Reported Progress Improving PT-OP-J Posture/Palpation/Skin Start: 07/29/23 10:51 Freq: Status: Active Protocol: Document 12/03/23 15:22 [facility] (Rec: 12/03/23 18:20 [facility] [id number]) Posture Evaluation Julia Postural Classification System Elbow Flexion Test 3 PT-OP-K Range of Motion Start: 07/29/23 10:51 Freq: Status: Active Protocol: Document 08/10/23 08:19 [facility] (Rec: 08/10/23 10:30 [facility] [id number]) Shoulder Goniometric Range of Motion Shoulder Right Active Flexion 154 Extension 62 Abduction 170 External Rotation at 90 degrees 92 Abduction External Rotation at 0 degrees Abduction 68 Internal Rotation Behind Back (text) T7 Left Active Flexion 141 Extension 66 Abduction 159 External Rotation at 90 degrees 93 Abduction External Rotation at 0 degrees Abduction 61 Internal Rotation Behind Back (text) T5 Comments pain w/flex and abd & 90/90 ER -drops out of abd slightly PT-OP-L Special Tests Start: 07/29/23 10:51 Freq: Status: Active Protocol: Document 08/10/23 08:19 [facility] (Rec: 08/10/23 10:30 [facility] [id number]) Special Tests Shoulder Special Tests Neer Impingement Test Results neg L Carter Test Test Results pos for inc pain but speeds position also painful L Yergason's Biceps Test Results neg L Speed's Biceps Test Results Positive L but obriens positive Painful Arc Test Results occ painful w/abd Lift-Off Rotator Cuff Test Results Negative Rocha Jean-Claude Impingement Test Results neg L Empty Can Test Results Positive L Drop Arm Rotator Cuff Test Results Negative Clunk Test Test Results positive L for pain Biceps Load II Test Test Results Positive L - mild pain AC Joint Compression Test Results Negative Other Special Tests Special Tests neg med, ulnar & radian n testing PT-OP-M Strength Start: 07/29/23 10:51 Freq: Status: Active Protocol: Document 12/03/23 15:22 [facility] (Rec: 12/03/23 18:20 [facility] [id number]) Shoulder Strength Shoulder Manual Muscle Testing Left Flexion 4 Good Extension 5 Normal Abduction (C5) 4+ Good+ External Rotation 5 Normal Internal Rotation 5 Normal Horizontal Abduction 5 Normal Horizontal Adduction 5 Normal Comments pain flex PT-OP-Q Treatments Start: 07/29/23 10:51 Freq: Status: Active Protocol: Document 12/28/23 09:48 [facility] (Rec: 12/28/23 09:52 [facility] [id number]) Manual Therapy Treatment Soft Tissue Mobilization scar Body Location abdomen (sup aspect) Mobilization Type Myofascial Release Intensity/Depth Superficial Body Position Hooklying Comments w/L shoulder flex abdomen Mobilization Type Myofascial Release Body Position Hooklying Comments fascia around stomach, pylorus and L inf ribs and diaphram Joint Mobilizations GH Comments L inf glide PT-OP-T Assessment and Plan Start: 07/29/23 10:51 Freq: Status: Active Protocol: Document 12/28/23 09:48 [facility] (Rec: 12/28/23 09:52 [facility] [id number]) Physical Therapy Assessment Goals activity Short Term Goal (STG) Pt will report using LUE more often w/ daily tasks w/o inc pain 09/03/23: GOAL MET STG Duration 09/11/23 MET Residential Goal (LTG) Pt will report no pain w/ lifting and able to lift equal wts w/o inc pain. 09/03/23: progressing: still having some slight pain to notice when reaching items into cupboard. 09/08-limiting wt w/working out 10/11-using small wts but graudally inc 12/02-at least half way to full wt 12/14-improved strength and inc wts since last PT session LTG Duration achieved 12/27 strength Short Term Goal (STG) Pt will be indep w/HEP STG Duration achieved 10/11 Residential Goal (LTG) Pt will score at least 4/5 on EFT and 5/5 on all UE MMT in order to show improved UE stability in order to allow greater ease w/ADLs 09/08-improved 10/11-improved 12/02-limited flex and EFT 12/14-improved flex to 3/10 pain 4/10 flex LTG Duration 5/5 EF; 4+/5 still flex but no pain ROM Short Term Goal (STG) Pt will improve flex and abd by at least 10 deg 09/03/23: GOAL MET FROM STG Duration 09/11/23 GOAL MET Residential Goal (LTG) Pt will have full L UE ROM w/o inc pain in order to allow typical ADLs w/o inc pain and normal use of LUE during the day 09/03/23: GOAL MET pain free AROM 09/08-mild discomfort LTG Duration achieved 10/11 Assessment Summary Assessment Pt has much dec pain and has improved ROM and strength since starting PT. She is able to do overhead actvities and returned to full workouts w/o shoulder pain. If she gets shoulder pain, can improved scap position and dec pain w/ the motion and activity. She is DC at this time d/t meeting goals and is indep w/ HEP. Pt did show PT an area over R lower costal cartilages that is more present and hard than on L side. This was not present last session, but pt reports it comes and goes and did show watch caser in past who was unconcerned. Edu to inform primary also. Physical Therapy Plan Discharge Physical Therapy Discharge Reasons Goals Met
== END 2024-01-26 11:34 ==
LOC: PHYS 08:15
PROVIDERS: Family Provider Student in an Organized Health Care Education/Training Program; PCP Nurse Practitioner; Referring Provider Nurse Practitioner; Visit Provider Nurse Practitioner
DX: M25.512 Pain in left shoulder (principal)
CPT/HCPCS: 97110; 97112; 97140; 97161; 97535

== ENCOUNTER → 2024-03-31 13:18 | Outpatient (CLI) | payer MEDICARE, OTHER, SELFPAY ==
--- NOTE | 2024-03-31 13:21 | DI.RAD.S_ITS ---
PROCEDURE: XR STERNUM MIN 2V INDICATIONS: palpable mass just below sternum around xiphoid process TECHNIQUE: 2 views of the sternum acquired. COMPARISON: None. FINDINGS: Bones: Sternal body, manubrium and xiphoid process and the sternoclavicular joints all appear grossly normal. Metallic marker is seen over the palpable lump in the subxiphoid region. No gross abnormality in this area.. Soft tissues: Retrosternal soft tissues appear normal. IMPRESSION: Negative. If there is a concerning palpable soft tissue mass in the subxiphoid region consider localized ultrasound or chest CT Dictated by: Rashi Barraza M.D. on 04/01/2024 at 8:03 Approved by: Rashi Barraza M.D. on 04/01/2024 at 8:05
== END ==
LOC: RAD 13:21
PROVIDERS: Family Provider Student in an Organized Health Care Education/Training Program; PCP Family Medicine; Referring Provider Family Medicine; Visit Provider Family Medicine
DX: M89.8X8 Other specified disorders of bone, other site (principal)
CPT/HCPCS: 71120

== ENCOUNTER → 2024-04-15 13:16 | Outpatient (CLI) | payer MEDICARE, OTHER, SELFPAY ==
--- NOTE | 2024-04-15 13:17 | DI.US.S_ITS ---
PROCEDURE: US ABDOMEN LIMITED INDICATIONS: PALPABLE LUMP INFERIOR TO XIPHOID, RIGHT OF MIDLINE TECHNIQUE: Real-time focused scanning was performed of the xiphoid process, with image documentation. COMPARISON: None. FINDINGS: Sonographic images near the xiphoid process demonstrate focus of decreased echogenicity measuring 1.1 x 1.0 x 1.4 cm. It is poorly defined on the basis of this examination. IMPRESSION: Poorly characterized hypoechoic structure at the area palpable concern. This could represent a partially calcified costochondral prominence. CT is recommended for further evaluation as indicated. Dictated by: Kimberly Awad M.D. on 04/15/2024 at 20:02 Approved by: Kimberly Awad M.D. on 04/15/2024 at 20:03
== END ==
PROVIDERS: Family Provider Student in an Organized Health Care Education/Training Program; PCP Family Medicine; Referring Provider Family Medicine; Visit Provider Family Medicine
DX: M89.8X8 Other specified disorders of bone, other site (principal)
CPT/HCPCS: 76705

== ENCOUNTER → 2024-04-23 11:49 | Outpatient (CLI) | payer MEDICARE, OTHER, SELFPAY ==
--- NOTE | 2024-04-23 11:50 | DI.CT.S_ITS ---
PROCEDURE: CT CHEST WO CON INDICATIONS: calcified costochondral TECHNIQUE: Noncontrast 5 mm thick sections acquired from the pulmonary apices to the posterior costophrenic angles. 1 mm lung window, 5 mm thick coronal and sagittal and 7 mm axial MIP reformats were then acquired. For radiation dose reduction, the following was used: automated exposure control, adjustment of mA and/or kV according to patient size. COMPARISON: [facility], CR, XR STERNUM MIN 2V, 03/31/2024, 13:28. FINDINGS: Image quality: Diagnostic. Lower Neck: No enlarged lymph nodes. Thyroid: No thyroid nodules which require sonographic follow up, per consensus guidelines. Axillae: No enlarged lymph nodes. Chest Wall: Unremarkable. Bones: BB marker overlying the xiphoid process. The xiphoid process has an anterior bend which could explain the palpable abnormality. There is a small fat containing ventral abdominal wall hernia in the upper abdomen, (2/). This is located inferior to the skin marker. Lungs and Pleura: No pneumothorax or pleural effusions. No consolidation or suspicious nodules. A few calcified granuloma. Central airways are clear. Heart: Heart size is normal. No pericardial effusion. Thoracic Vessels: The aorta and pulmonary arteries demonstrate normal size. Mediastinum and Carmen: No enlarged lymph nodes. Esophagus: No wall thickening. No hiatal hernia. Upper Abdomen: Visualized upper abdomen solid organs and bowel loops appear normal. Prominent stool in the colon. IMPRESSION: 1. Anterior projecting at xiphoid process deep to the skin marker. 2. No mass or fluid collection. 3. Small ventral upper abdominal wall fat containing hernia. 4. Lungs are clear. Dictated by: Shaun Jimenez M.D. on 04/24/2024 at 21:12 Approved by: Shaun Jimenez M.D. on 04/24/2024 at 21:17
== END ==
LOC: CT 11:50
PROVIDERS: Family Provider Student in an Organized Health Care Education/Training Program; PCP Family Medicine; Referring Provider Family Medicine; Visit Provider Family Medicine
DX: M61.9 Calcification and ossification of muscle, unspecified (principal); K43.9 Ventral hernia without obstruction or gangrene; R93.5 Abnormal findings on diagnostic imaging of other abdominal regions, including retroperitoneum
CPT/HCPCS: 71250

== ENCOUNTER → 2024-05-06 10:34 | Outpatient (CLI) | payer MEDICARE, OTHER, SELFPAY ==
[2024-05-06 11:48] LABS: Add Manual Diff / Slide Review NO; Basophils Absolute Auto 100 /uL (0-100); Basophils Percent Auto 1.4 % (0-2); Eosinophils Absolute Auto 200 /uL (0-450); Eosinophils Percent Auto 3.6 % (2-4); Hematocrit 32.7 % (36-46); Hemoglobin 10.9 g/dL (12.0-16.0); Lymphocytes Absolute Auto 2100 /uL (1100-4500); Lymphocytes Percent Auto 36.3 % (25-40); Mean Corpuscular HGB Conc 33.4 % (30-36); Mean Corpuscular Hemoglobin 31.6 PG (26-34); Mean Corpuscular Volume 94.4 fL (80-100); Monocytes Absolute Auto 500 /uL (0-900); Monocytes Percent Auto 9.2 % (3-14); Neutrophils Absolute Auto 2800 /uL (1500-7000); Neutrophils Percent Auto 49.5 % (50-75); Platelet Count 287 X10^3/uL (150-400); Red Blood Cell Count 3.47 X10^6/uL (4.0-5.2); White Blood Cell Count 5.7 X10^3/uL (4.5-11.0)
[2024-05-06 12:15] LABS: Alanine Aminotransferase 15 IU/L (<35); Albumin 3.8 g/dL (3.5-5.0); Albumin Globulin Ratio 1.6 (1.0-2.8); Alkaline Phosphatase 84 U/L (38-126); Aspartate Aminotransferase 27 IU/L (14-36); BUN Creatinine Ratio 28.2 (6-22); Bilirubin Total 0.5 mg/dL (0.2-1.3); Blood Urea Nitrogen 20 mg/dL (7-17); Calcium 9.1 mg/dL (8.4-10.2); Carbon Dioxide 27 mmol/L (22-32); Chloride 104 mmol/L (98-107); Cholesterol 176 mg/dL (140-199); Estimated Glomerular Filt Rate > 60 mL/min (>60); Globulin 2.4 g/dL (1.7-4.1); Glucose 76 mg/dL (80-110); HDL Cholesterol 45 mg/dL (40-60); HEMOLYSIS < 15 (0-50); LDL Cholesterol Calculated 116 mg/dL (<100); Potassium 4.2 mmol/L (3.4-5.1); Sodium 137 mmol/L (137-145); Total Protein 6.2 g/dL (6.3-8.2); Triglycerides 75 mg/dL (35-150)
[2024-05-06 12:24] LABS: Free T3, Triiodothyronine Free 3.64 pg/mL (2.77-5.27); Free T4, Direct Thyroxine 0.84 ng/dL (0.78-2.19)
[2024-05-06 12:37] LABS: Thyroid Stimulating Hormone 2.67 uIU/mL (0.47-4.68)
== END ==
PROVIDERS: Family Provider Student in an Organized Health Care Education/Training Program; PCP Family Medicine; Referring Provider Nurse Practitioner; Visit Provider Nurse Practitioner
DX: M45.7 Ankylosing spondylitis of lumbosacral region (principal); Z79.899 Other long term (current) drug therapy; Z86.2 Personal history of diseases of the blood and blood-forming organs and certain disorders involving the immune mechanism; M45.9 Ankylosing spondylitis of unspecified sites in spine; F41.8 Other specified anxiety disorders; E78.5 Hyperlipidemia, unspecified
CPT/HCPCS: 36415; 80053; 80061; 84439; 84443; 84481; 85025

== ENCOUNTER → 2024-05-20 | Outpatient (CLI) | payer MEDICARE, OTHER, SELFPAY ==
--- NOTE | 2024-05-20 14:34 | DI.MG.S_ITS ---
BILATERAL DIGITAL SCREENING MAMMOGRAM 3D/2D WITH CAD: 05/20/2024 CLINICAL: Routine screening. Comparison is made to exams dated: 05/18/2023 mammogram, 05/05/2022 mammogram, 05/02/2021 mammogram, 04/23/2020 mammogram, and 03/23/2019 mammogram - [facility]. The breasts are heterogeneously dense, which may obscure small masses (category c / 51-75% glandular tissue). Current study was also evaluated with a Computer Aided Detection (CAD) system. No significant masses, calcifications, or other findings are seen in either breast. There has been no significant interval change. IMPRESSION: NEGATIVE There is no mammographic evidence of malignancy. A 1 year screening mammogram is recommended. Based on the Tyrer Cuzick model (a risk assessment model) the patient's lifetime risk is 9.2% and her 10 year risk is 5.4%. According to the ACR, ACS, and NCCN guidelines, an annual breast MRI exam along with mammogram is recommended if the patient's lifetime risk is 20% or greater. This exam was interpreted at Station ID: [id number]. NOTE: For mammograms, a report in lay terms will be sent to the patient. Approximately 15% of breast malignancies will not be visualized mammographically. In the management of a palpable breast mass, a negative mammogram must not discourage biopsy of a clinically suspicious lesion. Electronically Signed By: Shital Alaniz M.D., Ph.D. marquis/glenna:05/26/2024 11:35:19 letter sent: Normal Exam ACR BI-RADS Category 1: Negative
== END ==
PROVIDERS: Family Provider Student in an Organized Health Care Education/Training Program; PCP Family Medicine; Referring Provider Nurse Practitioner; Visit Provider Nurse Practitioner
DX: Z12.31 Encounter for screening mammogram for malignant neoplasm of breast (principal)
CPT/HCPCS: 77063; 77067

== ENCOUNTER → 2024-08-10 09:47 | Outpatient (CLI) | payer MEDICARE, OTHER, SELFPAY ==
[2024-08-10 10:06] LABS: Add Manual Diff / Slide Review NO; Basophils Absolute Auto 100 /uL (0-100); Basophils Percent Auto 3.3 % (0-2); Eosinophils Absolute Auto 200 /uL (0-450); Eosinophils Percent Auto 4.3 % (2-4); Hematocrit 37.7 % (36-46); Hemoglobin 12.5 g/dL (12.0-16.0); Lymphocytes Absolute Auto 1700 /uL (1100-4500); Lymphocytes Percent Auto 39.4 % (25-40); Mean Corpuscular HGB Conc 33.2 % (30-36); Mean Corpuscular Hemoglobin 31.4 PG (26-34); Mean Corpuscular Volume 94.5 fL (80-100); Monocytes Absolute Auto 400 /uL (0-900); Monocytes Percent Auto 10.2 % (3-14); Neutrophils Absolute Auto 1800 /uL (1500-7000); Neutrophils Percent Auto 42.8 % (50-75); Platelet Count 255 X10^3/uL (150-400); Red Blood Cell Count 3.99 X10^6/uL (4.0-5.2); Red Cell Distribution Width 12.6 % (11.6-14.8); White Blood Cell Count 4.3 X10^3/uL (4.5-11.0)
[2024-08-10 10:26] LABS: Alanine Aminotransferase 17 IU/L (<35); Albumin 4.2 g/dL (3.5-5.0); Albumin Globulin Ratio 1.7 (1.0-2.8); Alkaline Phosphatase 77 U/L (38-126); Aspartate Aminotransferase 29 IU/L (14-36); BUN Creatinine Ratio 21.2 (6-22); Bilirubin Total 0.5 mg/dL (0.2-1.3); Blood Urea Nitrogen 18 mg/dL (7-17); C-Reactive Protein Quant < 0.5 mg/dL (<1.0); Calcium 9.1 mg/dL (8.4-10.2); Carbon Dioxide 26 mmol/L (22-32); Chloride 103 mmol/L (98-107); Estimated Glomerular Filt Rate > 60 mL/min (>60); Globulin 2.5 g/dL (1.7-4.1); Glucose 88 mg/dL (80-110); HEMOLYSIS < 15 (0-50); Sodium 136 mmol/L (137-145); Total Protein 6.7 g/dL (6.3-8.2)
[2024-08-10 10:43] LABS: Erythrocyte Sedimentation Rate 10 MM/HR (0-20)
== END ==
PROVIDERS: Family Provider Student in an Organized Health Care Education/Training Program; PCP Family Medicine; Referring Provider Internal Medicine Rheumatology; Visit Provider Internal Medicine Rheumatology
DX: M45.7 Ankylosing spondylitis of lumbosacral region (principal); Z79.899 Other long term (current) drug therapy
CPT/HCPCS: 36415; 80053; 85025; 85651; 86140

== ENCOUNTER → 2024-11-14 13:48 | Outpatient (CLI) | payer MEDICARE, OTHER, SELFPAY ==
[2024-11-14 15:35] LABS: Add Manual Diff / Slide Review NO; Basophils Absolute Auto 100 /uL (0-100); Eosinophils Absolute Auto 200 /uL (0-450); Eosinophils Percent Auto 2.2 % (2-4); Hemoglobin 12.8 g/dL (12.0-16.0); Lymphocytes Absolute Auto 2000 /uL (1100-4500); Lymphocytes Percent Auto 27.8 % (25-40); Mean Corpuscular HGB Conc 33.8 % (30-36); Mean Corpuscular Hemoglobin 31.6 PG (26-34); Mean Corpuscular Volume 93.3 fL (80-100); Monocytes Absolute Auto 700 /uL (0-900); Monocytes Percent Auto 10.1 % (3-14); Neutrophils Absolute Auto 4200 /uL (1500-7000); Neutrophils Percent Auto 58.9 % (50-75); Platelet Count 262 X10^3/uL (150-400); Red Blood Cell Count 4.07 X10^6/uL (4.0-5.2); Red Cell Distribution Width 12.1 % (11.6-14.8); White Blood Cell Count 7.1 X10^3/uL (4.5-11.0)
[2024-11-14 15:59] LABS: Erythrocyte Sedimentation Rate 10 MM/HR (0-20)
[2024-11-14 16:00] LABS: Alanine Aminotransferase 20 IU/L (<35); Albumin 4.3 g/dL (3.5-5.0); Albumin Globulin Ratio 1.9 (1.0-2.8); Alkaline Phosphatase 81 U/L (38-126); Aspartate Aminotransferase 30 IU/L (14-36); BUN Creatinine Ratio 26.9 (6-22); Bilirubin Total 0.5 mg/dL (0.2-1.3); Blood Urea Nitrogen 21 mg/dL (7-17); C-Reactive Protein Quant < 0.5 mg/dL (<1.0); Calcium 9.2 mg/dL (8.4-10.2); Carbon Dioxide 27 mmol/L (22-32); Chloride 102 mmol/L (98-107); Estimated Glomerular Filt Rate > 60 mL/min (>60); Globulin 2.3 g/dL (1.7-4.1); Glucose 73 mg/dL (70-99); HEMOLYSIS < 15 (0-50); Potassium 4.3 mmol/L (3.4-5.1); Sodium 136 mmol/L (137-145); Total Protein 6.6 g/dL (6.3-8.2)
== END ==
PROVIDERS: PCP Family Medicine; Referring Provider Internal Medicine Rheumatology; Visit Provider Internal Medicine Rheumatology
DX: M45.7 Ankylosing spondylitis of lumbosacral region (principal); Z79.899 Other long term (current) drug therapy
CPT/HCPCS: 36415; 80053; 85025; 85651; 86140

== ENCOUNTER → 2025-03-23 12:57 | Outpatient (CLI) | payer MEDICARE, OTHER, SELFPAY ==
[2025-03-23 13:18] LABS: Add Manual Diff / Slide Review NO; Hematocrit 38.1 % (36-46); Hemoglobin 12.6 g/dL (12.0-16.0); Lymphocytes Absolute Auto 2200 /uL (1100-4500); Mean Corpuscular HGB Conc 33.0 % (30-36); Mean Corpuscular Hemoglobin 30.0 PG (26-34); Mean Corpuscular Volume 91.0 fL (80-100); Platelet Count 287 X10^3/uL (150-400)
[2025-03-23 13:40] LABS: Alanine Aminotransferase 17 IU/L (<35); Albumin 4.2 g/dL (3.5-5.0); Albumin Globulin Ratio 1.6 (1.0-2.8); Alkaline Phosphatase 96 U/L (38-126); Blood Urea Nitrogen 19 mg/dL (7-17); Calcium 9.0 mg/dL (8.4-10.2); Carbon Dioxide 26 mmol/L (22-32); Chloride 101 mmol/L (98-107); Estimated Glomerular Filt Rate > 60 mL/min (>60); Globulin 2.6 g/dL (1.7-4.1); Glucose 82 mg/dL (70-99); HEMOLYSIS < 15 (0-50); Potassium 3.8 mmol/L (3.4-5.1); Sodium 136 mmol/L (137-145); Total Protein 6.8 g/dL (6.3-8.2)
== END ==
PROVIDERS: PCP Family Medicine; Referring Provider Family Medicine; Visit Provider Internal Medicine Rheumatology
DX: M45.7 Ankylosing spondylitis of lumbosacral region (principal); Z79.899 Other long term (current) drug therapy
CPT/HCPCS: 36415; 80053; 85025; 85651; 86140

== ENCOUNTER → 2025-06-05 09:58 | Outpatient (CLI) | payer MEDICARE, OTHER, SELFPAY ==
--- NOTE | 2025-06-05 09:59 | DI.MG.S_ITS ---
MM screening mammo BI: 06/05/2025. BI-RADS: 1 CLINICAL: 70-year old female for bilateral screening mammogram. Tyrer-Cuzick lifetime risk of 6.7%. No personal or first-degree family history of breast cancer. PRIOR EXAMS: 05/20/2024, 06/09/2023, 05/18/2023, 05/05/2022, 05/02/2021, 04/23/2020. MAMMOGRAPHY TECHNIQUE: 2D and 3D (tomosynthesis) digital mammographic views obtained, with additional images as needed for full coverage. Current study was also evaluated with a Computer Aided Detection (CAD) system. DENSITY C. The breasts are heterogeneously dense, which may obscure small masses. MAMMOGRAPHY FINDINGS Bilateral: No suspicious mass, asymmetry, microcalcification, or other abnormality seen. IMPRESSION: * No evidence of malignancy. RECOMMENDATIONS Bilateral * Annual screening mammography. OVERALL ASSESSMENT CATEGORY BI-RADS-1: Negative. The [employer] recommends annual screening mammography beginning at age 40 for women with average risk of breast cancer. ELECTRONICALLY SIGNED: Sindy Spears M.D. on 06/06/2025 at 11:05:27 PM PT Interpreting Station ID: [id number]
== END ==
LOC: MAMMO 09:59
PROVIDERS: PCP Family Medicine; Referring Provider Family Medicine; Visit Provider Family Medicine
DX: Z12.31 Encounter for screening mammogram for malignant neoplasm of breast (principal); R92.333 Mammographic heterogeneous density, bilateral breasts
CPT/HCPCS: 77063; 77067

== ENCOUNTER → 2025-06-07 14:53 | Outpatient (CLI) | payer MEDICARE, OTHER, SELFPAY ==
--- NOTE | 2025-06-07 14:54 | DI.ECHO.S_ITS ---
[facility] : : [address] : : [place] : : [id number] : : Phone: [phone] Echocardiogram Report + + :Name: JEWELS RUSSELL Study Date: 06/07/2025 Height: 66 in : :[facility] ReadingLocation: Weight: 157 lb : : Gender: Female BSA: 1.8 m2 : :: 1955 Age: 70 yrs BP: 127/80 mmHg: :Reason For Study: Chronic dizziness : :Ordering Physician: EMMA, : :KEITH Performed By: Bahman Funes : :Referring: KEITH CARTER : + + Interpretation Summary - The left ventricular contractility is normal. Estimated ejection fraction is greater than 55% with no segmental wall motion abnormalities. No LVH. Normal diastolic function. - The right ventricular contractility is normal. - All cardiac chambers are of normal size. - No significant valvular abnormalities. - No obvious intracardiac shunts. - No obvious intracardiac masses nor thrombi. - No hemodynamically significant pericardial effusion. - Low right-sided filling pressures. Conclusion: Normal biventricular function with no significant valvular abnormalities. Procedure: A two-dimensional transthoracic echocardiogram with color flow and Doppler was performed. The study quality was technically adequate. There is no prior echocardiogram noted for this patient. The patient was in normal sinus rhythm during the exam. Left Ventricle: The left ventricle is normal in size and wall thickness. Left ventricular systolic function is normal. The ejection fraction is estimated to be 55-60%. There are no focal wall motion abnormalities. Normal diastolic function. Right Ventricle: The right ventricle is normal in size and function. Atria: The left atrial size is normal. Right atrial size is normal. There is no Doppler evidence for an interatrial shunt. Mitral Valve: The mitral valve leaflets appear to open well. There is no mitral valve stenosis. There is trace mitral regurgitation. Aortic Valve: The aortic valve is trileaflet. The aortic valve opens well. There is no aortic valve stenosis. No aortic regurgitation is present. Tricuspid Valve: The tricuspid valve leaflets are thin and pliable. There is trace tricuspid regurgitation. The right ventricular systolic pressure is estimated to be at least 23 mmHg based on an estimated right atrial pressure of 3 mm Hg. Pulmonic Valve: The pulmonic valve is not well seen, but is grossly normal. There is trace pulmonic regurgitation. Great Vessels: The aortic root is normal size. The ascending aorta is normal in size. The aortic arch is normal in size. The pulmonary artery is normal size. The IVC is of normal diameter and collapses greater than 50% with a sniff. This suggests a low right atrial pressure of 3 mm Hg. Pericardium/ Pleura There is no pericardial effusion. MMode/2D Measurements & Calculations LVIDd: 4.5 cm LVOT diam: 2.0 cm LVIDs: 2.7 cm Ao root diam: 3.1 cm FS: 40.8 % asc Aorta Diam: 3.2 cm EPSS: 0.52 cm Ao Arch Diam (Prox Trans): 2.8 cm IVSd: 0.82 cm LVPWd: 0.81 cm LV yang. diameter/BSA (cm/m^2): 2.5 LV sys. diameter/BSA (cm/m^2): 1.5 LA A2 area: 16.3 cm2 IVC diam: 1.1 cm LA A4 area: 13.7 cm2 LA length (vol): 4.5 cm LA vol: 42.4 ml LA vol index: 23.5 ml/m2 RVD1 (basal): 2.9 cm RVD2 (mid): 2.4 cm TAPSE: 1.8 cm Doppler Measurements & Calculations Ao V2 max: 125.7 cm/sec LVOT Max Judson: 103.7 cm/sec Ao V2 mean: 89.7 cm/sec LV V1 max P.3 mmHg Ao max P.3 mmHg LV V1 VTI: 20.5 cm Ao mean P.6 mmHg CINDY(I,D): 2.6 cm2 Ao V2 VTI: 24.1 cm CINDY(V,D): 2.5 cm2 sev ratio: 0.85 CINDY indexed to BSA (cm^2/m^2): 1.5 MV E max judson: 81.3 cm/sec TR max judson: 225.4 cm/sec MV A max judson: 111.8 cm/sec TR max P.3 mmHg MV E/A: 0.73 PA V2 max: 113.8 cm/sec Med Peak E' Judson: 6.8 cm/sec PA V2 mean: 80.0 cm/sec E/E' med: 12.0 PA mean P.9 mmHg Lat Peak E' Judson: 8.0 cm/sec PA pr(Accel): 34.0 mmHg E/E' lat: 10.2 E/e' average: 11.1 MV dec time: 0.16 sec SV(LVOT): 63.0 ml Qp/Qs (V,Ao): 1.0/4.0 Qp/Qs (V,LVOT): 1.0/1.3 Reading Physician:[email or web address]
== END ==
PROVIDERS: Family Provider Family Medicine; PCP Family Medicine; Referring Provider Family Medicine; Visit Provider Family Medicine
DX: R42 Dizziness and giddiness (principal); E78.00 Pure hypercholesterolemia, unspecified; Z86.39 Personal history of other endocrine, nutritional and metabolic disease; Z91.89 Other specified personal risk factors, not elsewhere classified; I95.1 Orthostatic hypotension
CPT/HCPCS: 93306

== ENCOUNTER → 2025-06-19 14:10 | Outpatient (CLI) | payer MEDICARE, OTHER, SELFPAY | LOC: CAR 14:11 | PROVIDERS: Family Provider Family Medicine; PCP Family Medicine; Referring Provider Family Medicine; Visit Provider Family Medicine | DX: R42 Dizziness and giddiness (principal) | CPT/HCPCS: 93242 ==